=== PATIENT | female | born 1970 | race Caucasian/White ===

== ENCOUNTER 2017-03-23 16:20 | Emergency (ER) | payer OTHER ==
[2017-03-23 16:36] VITALS: BMI 39.4
[2017-03-23] MEDS ORDERED: MORPHINE SULFATE INJ 4 MG IM ONE (18:24)
--- NOTE | 2017-03-23 18:24 | DR.RASH ---
HPI - Time Seen Time seen: 18:15 - PCP Primary Care Physician: DR. KEITA - Complaint Chief Complaint:: RASH TO RIGHT SIDE AND TO BACK OF RIGHT ARM. Her vital signs reveals a low BP. Patient states that she has a history of hypotension and is being followed by her physician Dr Pascal in [place]. She is only on fentyl patch 100mcg. He has told her that her BP will be low for a while and she is being closely monitored. She is asymptomatic Chief Complaint Doctors Comments: Patient presents with complaint of shingles on body for one week. Onset of Chief Complaint: 03/19/17 Self Treatment fo Chief Complaint: FENTANYL PATCH 100MCG THAT SHE STATES HAS USING THESE FOR YEARS - Source History Provided: Patient - Mode of Arrival Mode of Arrival: Ambulatory [facility] - [facility] Past Medical History: Yes Past Medical History: Hypertension Past Surgical History: Yes Surgical History: Ortho Surgery Past Surgical History Comment: PLATE IN RIGHT LEG, DEB IN LEFT LEG - Family History History of Family Medical Conditions: Yes Family Medical History: Diabetes Mellitus, Cancer, [place], Heart Failure, Hypertension - Social History Does patient currently use any type of tobacco product: Yes Have you used tobacco products in the last 12 months: Yes Type of Tobacco Use: Cigarettes Do you use any recreational Drugs:: No Lives With: Family Lives Where: Home - infectious screening In the last 2 months have you had wt loss of >10#?: NO Have you had fever, night sweats or hemotysis?: No Have you traveled outside the country in the last 6 months?: No Isolation: Standard ROS - Review of Systems Eyes: No Symptoms Reported ENTM: No Symptoms Reported Respiratoy: No Symptoms Reported Cardiovascular: No Symptoms Reported Gastrointestinal/Abdominal: No Symptoms Reported Genitourinary: No Symptoms Reported Neurological: No Symptoms Reported Musculoskeletal: No Symptoms Reported Integumentary: Rash (Dermatomal pattern C5-C5 and L2-L3 ) Hematologic/Lymphatic: No Symptoms Reported Endocrine: No Symptoms Reported Psychiatric: No Symptoms Reported All Other Systems: Reviewed and Negative PE - Vital Signs Vitals: Temperature 98.3 F Pulse Rate [Left Brachial] 94 Pulse Rate 94 Respiratory Rate 20 Blood Pressure [Left Arm] 64/44 Blood Pressure [Right Arm] 85/43 Blood Pressure 64/44 O2 Sat by Pulse Oximetry 98 - General Limitations: No Limitations General Appearance: Alert, In No Apparent Distress - Head Head Exam: Normal Inspection, Atraumatic - Eyes Eye exam: Normal Appearance, PERRL, EOMI - ENT ENT Exam: Normal Exam External Ear Exam: Normal External Inspection TM/Canal Exam: Bilateral Normal Nose Exam: Normal Nose Exam Nasal Speculum Exam: Bilateral Normal Mouth Exam: Normal Inspection Teeth Exam: Normal Inspection Throat Exam: Normal Inspection - Neck Neck Exam: Normal Inspection - Chest Chest Inspection: Normal Inspection - Respiratory Respiratory Exam: Normal Lung Sounds Bilat Respiratory Exam: Bilateral Clear to Auscultation - Cardiovascular Cardiovascular Exam: Regular Rate, Normal Rhythm - Abdominal Exam Abdominal Exam: Normal Inspection, Normal Bowel Sounds Abdominal Tenderness: negative: RUQ, RLQ, LUQ, LLQ, Epigastrium, Suprapubic, Diffuse, Mild, Moderate, Severe, Other - Extremities Extremities Exam: Other (dried rash grouped on the right shoulder and right hip circular scabbed in appearance) - Back Back Exam: Normal Inspection, Full ROM - Neurologic Neurological Exam: Alert, Oriented X3, CN II-XII Intact - Psychiatric Psychiatric Exam: Normal Affect, Normal Mood Course - Treatment Treatment: morphine, - Reevaluation 1st: Unchanged - Diagnosis Discharge Problem: Shingles rash Qualifiers: Herpes zoster complications: unspecified herpes zoster complication Qualified Code(s): B02.8 - Zoster with other complications Hypotension Qualifiers: Hypotension type: hypotension due to drug Qualified Code(s): I95.2 - Hypotension due to drugs - Discharge Plan Condition: Stable - Follow ups/Referrals Follow ups/Referrals: CORKY KEITA [Primary Care Provider] - 3 days - Instructions
[2017-03-23] MEDS ORDERED: MORPHINE SULFATE INJ 2 MG INJ ONE (18:32)
[2017-03-23 18:51] VITALS: BP 75/52
== END 2017-03-23 19:04 | disposition home or self-care (01) ==
LOC: ER 16:57
DX: B02.8 Zoster with other complications (principal); I95.2 Hypotension due to drugs
CPT/HCPCS: 99281; 99282; J2270

== ENCOUNTER → 2017-04-30 | Outpatient (CLI) | payer OTHER ==
--- NOTE | 2017-04-30 17:57 | RAD ---
HISTORY: Left upper quadrant and epigastric pain. Study: Acute abdominal series Comparison: CT abdomen/pelvis dated June 15, 2014. Findings: The trachea is midline. The cardiac silhouette is unremarkable. The lungs are clear without focal i nfiltrate or effusion. Flat plate and upright evaluation of the abdomen demonstrates a nonspecific/nonobstructive bowel gas pattern with air and large amounts of stool to the level of the rectum. No obvious free air. No path ological soft tissue mass or calcification can be observed. The bony structures are grossly intact. IMPRESSION: 1. No acute cardiopulmonary disease. 2. No evidence for acute abdominal pathology identified. Reported By:
== END ==
LOC: RAD 16:29
PROVIDERS: ATTEND Obstetrics & Gynecology Obstetrics
DX: R10.12 Left upper quadrant pain (principal)
CPT/HCPCS: 74022

== ENCOUNTER 2019-04-18 19:54 | Observation (INO) ==
--- NOTE | 2019-04-18 20:24 | RAD ---
HISTORY: Chest pain Study: Portable chest x-ray one view Comparison: May 08, 2013 Findings: The trachea is midline. The cardiac silhouette is unremarkable. The lungs are clear without focal infiltrate or effusion. The bony thorax is unremarkable. IMPRESSION: 1. No acute cardiopulmonary disease. Reported By:
[2019-04-18 20:30] LABS: BASOPHILS # (AUTO) 0.2 X10^3/uL (0.0-0.1); BASOPHILS % (AUTO) 2.2 % (0.2-1.0); EOSINOPHILS # (AUTO) 0.1 x10^3/uL (0.0-0.2); EOSINOPHILS % (AUTO) 1.6 % (0.9-2.9); HEMATOCRIT 44.1 % (36.0-47.0); HEMOGLOBIN 15.3 g/dL (12.0-16.0); LYMPHOCYTES # (AUTO) 1.7 X10^3/uL (1.3-2.9); LYMPHOCYTES % (AUTO) 22.4 % (21.0-51.0); MEAN CORPUSCULAR HEMOGLOBIN 34.4 pg (27.0-34.0); MEAN CORPUSCULAR HGB CONC 34.8 g/dL (33.0-35.0); MEAN CORPUSCULAR VOLUME 98.9 fL (80.0-100.0); MEAN PLATELET VOLUME 8.7 fL (7.4-11.0); MONOCYTES # (AUTO) 0.6 x10^3/uL (0.3-0.8); MONOCYTES % (AUTO) 7.8 % (0.0-13.0); NEUTROPHILS # (AUTO) 4.9 x10^3/uL (2.2-4.8); PLATELET COUNT 260 X10^3/uL (150.0-450.0); RED BLOOD COUNT 4.46 X10^6/uL (3.5-5.4); RED CELL DISTRIBUTION WIDTH 14.4 % (11.6-16.5); WHITE BLOOD COUNT 7.4 X10^3/uL (3.6-10.0)
--- NOTE | 2019-04-18 20:30 | DR.GENAD ---
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 Pt reports sudden o nset bilateral facial numbness as well as right arm numbness w/o weakness. Transient double vision which lasted less that 15 min. No current visual changes. No focal weakness, syncope, aphasia or dysarthria. No CP, SOB or palpitations. No n/v. Complaint/Symptoms Chief Complaint:: facial numbness/ arm numbness Source History Provided: Patient Mode of Arrival Mode of Arrival: EMS Timing Onset of Chief Complaint: 04/18/19 Came on: Suddenly Duration Duration: Since Onset How lon Duration: Minutes Severity Severity: Mild Modifying Factors Worsens:: nothing Improves:: nothing PMH PMH Past Medical History: Yes Past Medical History: Depression, GERD and Hypertension Past Surgical History: Yes Surgical History: Ortho Surgery Family History History of Family Medical Conditions: Yes Family Medical History: Diabetes Mellitus, Cancer, [place], Heart Failure and Hypertension Social History Does patient currently use any type of tobacco product: Yes Have you used tobacco products in the last 12 months: Yes Type of Tobacco Use: Cigarettes Does any household member use tobacco: Yes Alcohol Use: Occasionally Do you use any recreational Drugs:: No Lives With: Family Lives Where: Home infectious screening In the last 2 months have you had wt loss of >10#?: NO Have you had fever, night sweats or hemotysis?: No Have you traveled outside the country in the last 6 months?: No Isolation: Standard ROS Review of Systems Constitutional: No Symptoms Reported Eyes: No Symptoms Reported ENTM: No Symptoms Reported Respiratoy: No Symptoms Reported Cardiovascular: No Symptoms Reported; negative Chest Pain, Palpitations and Syncope Gastrointestinal/Abdominal: No Symptoms Reported; negative Nausea and Vomiting Genitourinary: No Symptoms Reported Neurological: Depressed, Numbness and Tingling; negative Anxiety, Headache, Paresthesia, Pre-existing Deficit, Seizure, Tremors, Weakness, Dizziness and Speech Problem Musculoskeletal: No Symptoms Reported Integumentary: No Symptoms Reported Hematologic/Lymphatic: No Symptoms Reported Endocrine: No Symptoms Reported Psychiatric: No Symptoms Reported All Other Systems: Reviewed and Negative PE Vital Signs Vitals: Temperature 97.9 F Pulse Rate [Apical] 79 Pulse Rate 96 Respiratory Rate 27 Blood Pressure [Left Arm] 108/58 Blood Pressure [Right Arm] 85/43 Blood Pressure 98/71 O2 Sat by Pulse Oximetry 98 General Limitations: No Limitations General Appearance: Alert and In No Apparent Distress Head Head Exam: Normal Inspection Eyes Eye exam: Normal Appearance ENT ENT Exam: Normal Exam External Ear Exam: Normal External Inspection TM/Canal Exam: Bilateral: Normal Nose Exam: Normal Nose Exam Mouth Exam: Normal Inspection Throat Exam: Normal Inspection Neck Neck Exam: Normal Inspection Chest Chest Inspection: Normal Inspection Respiratory Respiratory Exam: Normal Lung Sounds Bilat Respiratory Exam: Bilateral: Clear to Auscultation Cardiovascular Cardiovascular Exam: Regular Rate and Normal Rhythm Abdominal Exam Abdominal Exam: Normal Inspection, Normal Bowel Sounds and Soft Extremities Extremities Exam: Normal Inspection Back Back Exam: Normal Inspection Neurologic Neurological Exam: Alert, Oriented X3, CN II-XII Intact, Reflexes Normal and Other (cn 2-12 grossly intact. No pronator drift. No dysarthria or apahasia. NIH SS 0. 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 On arrival pt normotensive. Neurologically intact. NIH SS 0. CT head negative. Labs unremarkable. 325 asa given. D/w Dr Martínez (hospitalist) whom agrees to admit for tia. Education/Counseling Education/Counseling: Patient, Family and Education Educated On: Treatment, Diagnosis, Prognosis and Needs for Follow Up ROR Labs Reviewed Laboratory Results Reviewed?: Yes Result Diagrams: 04/18/19 20:20 04/18/19 20:20 Laboratory: WBC 7.4 X10^3/uL (3.6-10.0) 04/18/19 20:20 RBC 4.46 X10^6/uL (3.5-5.4) 04/18/19 20:20 Hgb 15.3 g/dL (12.0-16.0) 04/18/19 20:20 Hct 44.1 % (36.0-47.0) 04/18/19 20:20 MCV 98.9 fL (80.0-100.0) 04/18/19 20:20 MCH 34.4 pg (27.0-34.0) H 04/18/19 20:20 MCHC 34.8 g/dL (33.0-35.0) 04/18/19 20:20 RDW 14.4 % (11.6-16.5) 04/18/19 20:20 Plt Count 260 X10^3/uL (150.0-450.0) 04/18/19 20:20 MPV 8.7 fL (7.4-11.0) 04/18/19 20:20 Neut % (Auto) 66.0 % (42.0-75.0) 04/18/19 20:20 Lymph % (Auto) 22.4 % (21.0-51.0) 04/18/19 20:20 [place] % (Auto) 7.8 % (0.0-13.0) 04/18/19 20:20 Eos % (Auto) 1.6 % (0.9-2.9) 04/18/19 20:20 Baso % (Auto) 2.2 % (0.2-1.0) H 04/18/19 20:20 Neut # (Auto) 4.9 x10^3/uL (2.2-4.8) H 04/18/19 20:20 Lymph # (Auto) 1.7 X10^3/uL (1.3-2.9) 04/18/19 20:20 [place] # (Auto) 0.6 x10^3/uL (0.3-0.8) 04/18/19 20:20 Eos # (Auto) 0.1 x10^3/uL (0.0-0.2) 04/18/19 20:20 Baso # (Auto) 0.2 X10^3/uL (0.0-0.1) H 04/18/19 20:20 Absolute Nucleated RBC 0.1 /100WBC 04/18/19 20:20 Sodium 143 mmol/L (136-145) 04/18/19 20:20 Corrected Sodium TNP 04/18/19 20:20 Potassium 3.1 mmol/L (3.5-5.1) L 04/18/19 20:20 Chloride 105 mmol/L (98-107) 04/18/19 20:20 Carbon Dioxide 23.8 mmol/L (21-32) 04/18/19 20:20 BUN 14 mg/dL (7-18) 04/18/19 20:20 Creatinine 1.36 mg/dL (0.55-1.02) H 04/18/19 20:20 Est GFR (MDRD) Af Amer 54 (>60) L 04/18/19 20:20 Est GFR (MDRD) Non-Af 44 (>60) L 04/18/19 20:20 Glucose 98 mg/dL (65-99) 04/18/19 20:20 Calcium 9.0 mg/dL (8.5-10.1) 04/18/19 20:20 Troponin I < 0.02 ng/mL (0-1.5) 04/18/19 20:20 EKG Rate: 78 [place]: Normal Rhythm: NSR Block: None Hypertrophy: LAE ST: Normal Opioid Opioid Risk Tool Age (Bigg box if 16-45): No History of Preadolescent Sexual Abuse: No Total: 0 Total Score Risk Category: Low Risk Copyright: Amos RUST predicting aberrant behaviors Diagnosis Discharge Problem: Brain TIA, Essential hypertension, Depression, Anxiety, Hyperthyroidism
--- NOTE | 2019-04-18 20:36 | CT ---
HISTORY: Facial numbness Study: CT brain without contrast Comparison: Technique: Multiple axial images of the brain were obtained from the skull base to the vertex without administration of IV contrast. Findings: No acute intraparenchymal hemorrhage or mass can be identified. No extra-axial fluid collections are seen. No alteration in the attenuation of the brain parenchyma can be identified to suggest acute or subacute ischemic change. The ventricular system is symmetric and nondilated. The extracranial structures are grossly unremarkable. IMPRESSION: 1. No acute intracranial process can be identified. Reported By:
[2019-04-18] MEDS ORDERED: ASPIRIN PO ONE (20:41)
[2019-04-18 20:42] LABS: BLOOD UREA NITROGEN 14 mg/dL (7-18); CARBON DIOXIDE 23.8 mmol/L (21-32); CHLORIDE 105 mmol/L (98-107); CREATININE 1.36 mg/dL (0.55-1.02); SODIUM 143 mmol/L (136-145); TROPONIN I < 0.02 ng/mL (0-1.5); eGFR NON BLACK RACES 44 (>60)
[2019-04-18] MEDS ORDERED: PATIENT'S HOME MEDICATION (Albuterol Sulfate 2 PUFF) IN PRN (21:16)
[2019-04-18] MEDS: NICOTINE PATCH TD SCH (22:18)
[2019-04-18] MEDS ORDERED: VENTOLIN or PROAIR HFA IN PRN (22:21)
[2019-04-18] MEDS: ZANAFLEX PO SCH (23:41)
[2019-04-18] MEDS: PATIENT'S HOME MEDICATION (Methocarbamol 500 MG) PO SCH (23:41)
[2019-04-18] MEDS: FLEXERIL TAB 10 MG PO SCH (23:41)
[2019-04-19] MEDS ORDERED: POTASSIUM CHL 40 MEQ/NS 0.45% 500 ML IV PRN (00:06)
[2019-04-19] MEDS ORDERED: KLOR-CON PO PRN (00:06)
[2019-04-19] MEDS ORDERED: K-RIDER 10 MEQ/NS 100 ML 10 MEQ/100 ML BAG IV PRN (00:06)
[2019-04-19] MEDS ORDERED: POTASSIUM CHLORIDE LIQ 20 MEQ UDC PO PRN (00:06)
[2019-04-19] MEDS ORDERED: POTASSIUM CHL 60 MEQ/NS 0.45% 500 ML IV PRN (00:06)
[2019-04-19] MEDS ORDERED: MAGNESIUM SULFATE 1 GRAM/100 mL PREMIX 1 GM/100 ML BAG IV PRN (00:06)
[2019-04-19] MEDS ORDERED: MICRO K EXTEN CAP 10 MEQ PO PRN (00:06)
[2019-04-19] MEDS: PATIENT'S HOME MEDICATION (Methocarbamol 500 MG) PO SCH ×2 (02:59→05:35)
[2019-04-19 03:03] VITALS: BMI 42.6
[2019-04-19] MEDS ORDERED: PROVENTIL NEB TX 0.083% 2.5MG/ 3ML NEB PRN (04:28)
[2019-04-19 05:06] LABS: BLOOD UREA NITROGEN 15 mg/dL (7-18); CALCIUM 8.6 mg/dL (8.5-10.1); CARBON DIOXIDE 27.3 mmol/L (21-32); CHLORIDE 105 mmol/L (98-107); COR NA(FOR HYPERGLY) 143 mmol/L (136-145); CREATININE 1.17 mg/dL (0.55-1.02); SODIUM 142 mmol/L (136-145); eGFR NON BLACK RACES 53 (>60)
[2019-04-19 05:19] LABS: HEMOGLOBIN A1C 5.3 %; TSH (3RD GENERATION) 1.525 uIU/mL (0.358-3.74)
[2019-04-19] MEDS: FLEXERIL TAB 10 MG PO SCH ×3 (05:49→21:09)
[2019-04-19] MEDS: ZANAFLEX PO SCH ×3 (05:49→21:11)
[2019-04-19] MEDS: NORCO 10/325 TAB PO PRN ×3 (06:08→21:12)
[2019-04-19] MEDS: K-DUR TAB 20 MEQ PO PRN (06:15)
[2019-04-19] MEDS ORDERED: PREVNAR 13 IM ONE (06:30)
[2019-04-19] MEDS ORDERED: AFLURIA II4 or FLUARIX II4 IM ONE (06:30)
[2019-04-19] MEDS: PAXIL PO SCH (08:20)
[2019-04-19] MEDS: CYMBALTA PO SCH (08:20)
[2019-04-19] MEDS: ZANTAC PO SCH (08:20)
[2019-04-19] MEDS: NICOTINE PATCH TD SCH (08:21)
[2019-04-19] MEDS: PHENERGAN TAB 25 MG PO PRN ×2 (08:21→18:19)
[2019-04-19] MEDS ORDERED: ASPIRIN PO SCH (09:00)
--- NOTE | 2019-04-19 11:59 | DR.H&P ---
H&P History & Physical for Day of: H&P Date: 04/19/19 Chief Complaint Chief Complaint: numbness of face Allergies Allergies Allergy/AdvReac Type Severity Reaction Status Date / Time No Known Drug Allergies Allergy Verified 01/26/19 13:22 History of Present Illness History of Present Illness: Patient is a 48y/o female presented with numbness in the face that started yesterday at 8pm. She reported it started from the left side and migrating to the right, described it as tingling in nature. She also felt right arm weakness and double vision. She had some associated dizziness. Denies chest pain or SOB. No prev hx of these symptoms. She does have a hx of migraines. She reports having a visual aura prior to her headaches. She did have a headache following the above symptoms. She takes topiramate for migraines and uses Imitrex for abortive therapy. She reports her symptoms lasted for 90 mins and then resolved. She currently denies having these symptoms. CT-head done on admission was negative. NIH scale was 0. Labs: K 2.6 Cr: 1.36, normal TSH and A1C. Son reports slurred speech briefly during that episode. Patient is currently in a lot of stress, recent separation from . Past Medical History Past Medical History: Depression, GERD and Hypertension Past Surgical History Surgical History: and Ortho Surgery Family History Family Medical History: Diabetes Mellitus, Cancer, [place], Heart Failure and Hypertension Social History Does patient currently use any type of tobacco product: Yes Have you used tobacco products in the last 12 months: Yes Type of Tobacco Use: Cigarettes How many years tobacco product used: 23 Does any household member use tobacco: No Alcohol Use: Occasionally Drug Use: None Prescription drug monitoring program results: PDMP was not reviewed Medications Home Medications: No Known Drug Allergies Allergy (Verified 01/26/19 13:22) CONTINUE taking the following medications albuterol sulfate 2 puff INHALATION Q4H PRN 04/18/19 [History] cyclobenzaprine 10 mg PO TID 04/18/19 [History] duloxetine 60 mg PO DAILY 04/18/19 [History] furosemide 20 mg PO DAILY PRN 04/18/19 [History] hydrocodone-acetaminophen 10 - 325 tab PO Q6H PRN 04/18/19 [History] methocarbamol 500 mg PO TID 04/18/19 [History] paroxetine HCl 20 mg PO DAILY 04/18/19 [History] promethazine 25 mg PO Q6H PRN 04/18/19 [History] propranolol 20 mg PO TID 04/18/19 [History] ranitidine HCl 150 mg PO DAILY 04/18/19 [History] sumatriptan succinate 100 mg PO DAILY PRN 04/18/19 [History] tizanidine 4 mg PO TID 04/18/19 [History] Labs Result Diagrams: 04/18/19 20:20 04/19/19 08:08 Labs: Laboratory WBC 7.4 X10^3/uL (3.6-10.0) 04/18/19 20:20 RBC 4.46 X10^6/uL (3.5-5.4) 04/18/19 20:20 Hgb 15.3 g/dL (12.0-16.0) 04/18/19 20:20 Hct 44.1 % (36.0-47.0) 04/18/19 20:20 MCV 98.9 fL (80.0-100.0) 04/18/19 20:20 MCH 34.4 pg (27.0-34.0) H 04/18/19 20:20 MCHC 34.8 g/dL (33.0-35.0) 04/18/19 20:20 RDW 14.4 % (11.6-16.5) 04/18/19 20:20 Plt Count 260 X10^3/uL (150.0-450.0) 04/18/19 20:20 MPV 8.7 fL (7.4-11.0) 04/18/19 20:20 Neut % (Auto) 66.0 % (42.0-75.0) 04/18/19 20:20 Lymph % (Auto) 22.4 % (21.0-51.0) 04/18/19 20:20 [place] % (Auto) 7.8 % (0.0-13.0) 04/18/19 20:20 Eos % (Auto) 1.6 % (0.9-2.9) 04/18/19 20:20 Baso % (Auto) 2.2 % (0.2-1.0) H 04/18/19 20:20 Neut # (Auto) 4.9 x10^3/uL (2.2-4.8) H 04/18/19 20:20 Lymph # (Auto) 1.7 X10^3/uL (1.3-2.9) 04/18/19 20:20 [place] # (Auto) 0.6 x10^3/uL (0.3-0.8) 04/18/19 20:20 Eos # (Auto) 0.1 x10^3/uL (0.0-0.2) 04/18/19 20:20 Baso # (Auto) 0.2 X10^3/uL (0.0-0.1) H 04/18/19 20:20 Absolute Nucleated RBC 0.1 /100WBC 04/18/19 20:20 Sodium 142 mmol/L (136-145) 04/19/19 04:24 Corrected Sodium 143 mmol/L (136-145) 04/19/19 04:24 Potassium 3.9 mmol/L (3.5-5.1) 04/19/19 08:08 Chloride 105 mmol/L (98-107) 04/19/19 04:24 Carbon Dioxide 27.3 mmol/L (21-32) 04/19/19 04:24 BUN 15 mg/dL (7-18) 04/19/19 04:24 Creatinine 1.17 mg/dL (0.55-1.02) H 04/19/19 04:24 Est GFR (MDRD) Af Amer > 60 (>60) 04/19/19 04:24 Est GFR (MDRD) Non-Af 53 (>60) L 04/19/19 04:24 Glucose 125 mg/dL (65-99) H 04/19/19 04:24 Hemoglobin A1c 5.3 % 04/19/19 04:24 Calcium 8.6 mg/dL (8.5-10.1) 04/19/19 04:24 Magnesium 2.1 mg/dL (1.7-2.9) 04/19/19 04:24 Troponin I < 0.02 ng/mL (0-1.5) 04/18/19 20:20 TSH 3rd Generation 1.525 uIU/mL (0.358-3.74) 04/19/19 04:24 Review of Systems Constitutional: Weakness; denies Fever, Chills and Sweats Eyes: Vision Change ENT: No Symptoms Reported Respiratory: denies Cough and Shortness of Breath Cardiovascular: denies Chest Pain and Palpitations Gastrointestinal: denies Nausea, Vomiting and Abdominal Pain Genitourinary: No Symptoms Reported Musculoskeletal: No Symptoms Reported Skin: No Symptoms Reported Neurological: Weakness, Numbness and Change in Speech; denies Confusion and Seizures Physical Exam Vital Signs: Temperature 98.4 F Pulse Rate [Left Brachial] 88 Pulse Rate [Apical] 75 Pulse Rate 75 Respiratory Rate 20 Blood Pressure [Left Arm] 101/58 Blood Pressure [Right Arm] 85/43 Blood Pressure 98/71 O2 Sat by Pulse Oximetry 96 Oriented: Normal Eyes: Normal Ear: Normal Nose: Normal Respiratory: Clear Throughout Cardiovascular: Normal Auscultation: Bowel Sounds: Normal Palpation: Normal Tenderness: Normal Skin: Other (left medial side foot: circular rash with central clearing, erythema ) Musculoskeletal: Normal Psychiatric: Normal Mood Description: Calm Affect: Normal Speech Pattern: Clear and Appropriate Assessment/Plan (1) TIA (transient ischemic attack): Status: Acute Plan: transient symptoms, currently resolved. Ct-head negative. MRI pending ECHO pending Carotid U/S pending Continue asa (2) Migraine headache with aura: Qualifiers: Intractability: not intractable Status migrainosus presence: without status migrainosus Qualified Code(s): G43.109 - Migraine with aura, not intractable, without status migrainosus Status: Acute Plan: patient's hx of migraines and current presentation suggestive of complex migraines due to recent stressors. Continue Topamax and Imitrex prn (3) Tinea pedis: Status: Acute Plan: on left ankle, likely fungal. Will start ketoconazole cream BID (4) Depression: Status: Chronic Plan: continue home meds (5) Anxiety: Status: Chronic (6) Chronic obstructive lung disease: Status: Chronic Plan: tobacco user, continue duonebs prn
[2019-04-19] MEDS ORDERED: SUMATRIPTAN SUCCINATE 100 MG PO PRN (12:03)
[2019-04-19 12:24] LABS: CHOL/HDL RATIO 8.8 (0.0-5.0)
[2019-04-19 12:53] LABS: BILIRUBIN,URINE 1+ (NEGATIVE); BLOOD/HEMOGLOBIN,URINE 1+ (NEGATIVE); GLUCOSE, URINE NEGATIVE (NEGATIVE); KETONES,URINE NEGATIVE (NEGATIVE); LEUKOCYTE ESTERASE ,URINE 1+ (NEGATIVE); NITRITES,URINE NEGATIVE (NEGATIVE); PH,URINE 6.5 (5.0 - 8.0); PROTEIN,URINE 1+ (NEGATIVE); UROBILINOGEN,URINE 4+ (NORMAL)
[2019-04-19 13:06] LABS: APPEARANCE,URINE HAZY (CLEAR); BACTERIA,URINE 3+ /HPF (NEGATIVE); COLOR,URINE AMBER (YELLOW); MUCUS,URINE FEW /HPF (NEGATIVE); RBC,URINE 0-2 /HPF (0-3); SQUAMOUS EPITHELIAL CELL,UR MANY /HPF (NEGATIVE)
[2019-04-19] MEDS: INDERAL TAB 10 MG PO SCH ×3 (15:05→21:05)
[2019-04-19] MEDS: NIZORAL CREAM TOP SCH ×2 (15:18→21:11)
[2019-04-19] MEDS: NS 1000 ML 1,000 ML IV SCH ×2 (15:27→21:12)
[2019-04-20] MEDS: NS 1000 ML 1,000 ML IV SCH (04:00)
[2019-04-20 05:16] LABS: BASOPHILS # (AUTO) 0.1 X10^3/uL (0.0-0.1); BASOPHILS % (AUTO) 0.9 % (0.2-1.0); EOSINOPHILS # (AUTO) 0.1 x10^3/uL (0.0-0.2); HEMATOCRIT 39.8 % (36.0-47.0); HEMOGLOBIN 13.4 g/dL (12.0-16.0); LYMPHOCYTES # (AUTO) 1.7 X10^3/uL (1.3-2.9); LYMPHOCYTES % (AUTO) 28.4 % (21.0-51.0); MEAN CORPUSCULAR HEMOGLOBIN 34.2 pg (27.0-34.0); MEAN CORPUSCULAR HGB CONC 33.7 g/dL (33.0-35.0); MEAN CORPUSCULAR VOLUME 101.3 fL (80.0-100.0); MEAN PLATELET VOLUME 9.3 fL (7.4-11.0); MONOCYTES # (AUTO) 0.5 x10^3/uL (0.3-0.8); NEUTROPHILS # (AUTO) 3.5 x10^3/uL (2.2-4.8); NEUTROPHILS % (AUTO) 59.7 % (42.0-75.0); PLATELET COUNT 220 X10^3/uL (150.0-450.0); RED BLOOD COUNT 3.93 X10^6/uL (3.5-5.4); RED CELL DISTRIBUTION WIDTH 14.2 % (11.6-16.5); WHITE BLOOD COUNT 5.9 X10^3/uL (3.6-10.0)
[2019-04-20 05:21] LABS: BLOOD UREA NITROGEN 10 mg/dL (7-18); CARBON DIOXIDE 25.1 mmol/L (21-32); CHLORIDE 109 mmol/L (98-107); CHOL/HDL RATIO 7.6 (0.0-5.0); CHOLESTEROL 214 mg/dL (0-200); COR NA(FOR HYPERGLY) 145 mmol/L (136-145); CREATININE 0.94 mg/dL (0.55-1.02); HDL CHOLESTEROL 28 mg/dL (40-60); SODIUM 144 mmol/L (136-145); TRIGLYCERIDES 208 mg/dL (0-150); eGFR NON BLACK RACES > 60 (>60)
[2019-04-20] MEDS: FLEXERIL TAB 10 MG PO SCH (05:27)
[2019-04-20] MEDS: INDERAL TAB 10 MG PO SCH (05:28)
[2019-04-20] MEDS: ZANAFLEX PO SCH (05:28)
[2019-04-20] MEDS: K-DUR TAB 20 MEQ PO PRN (06:16)
[2019-04-20 08:00] VITALS: BP 97/63
[2019-04-20] MEDS: ZANTAC PO SCH (08:48)
[2019-04-20] MEDS: PAXIL PO SCH (08:48)
[2019-04-20] MEDS: CYMBALTA PO SCH (08:48)
[2019-04-20] MEDS: NICOTINE PATCH TD SCH (08:48)
--- NOTE | 2019-04-20 08:58 | PCM.PROG ---
Progress Note Progress Note for Day of Date of Exam: 04/20/19 Subjective Subjective: Pt is a 48y/o female admitted after presenting w/ TIA sx of numbness/tingling of the face, weakness in right arm, diplopia, and dizziness. Sx on face was migratory going from left to right. Denies chest pain or shortness of breath. No prev hx of these symptoms. She does have a hx of migraines that she takes Topamax and Imitrex for. She reported having a visual aura prior to her headaches. She reports her symptoms lasted for 90 mins and then resolved. CT-head done on admission was negative. NIH scale was 0. Labs: K 2.6 Cr: 1.36, normal TSH and A1C. Patient is currently in a lot of stress, recent separation from . -Pt denies any neuro deficits strength, sensation, or cognition today. Past Medical Family Social History Past Med/Fam/Surg Hx: No changes since H&P Allergies: Allergies No Known Drug Allergies Allergy (Verified 01/26/19 13:22) Review of Systems ROS: No change since H&P Vital Signs and I&O's Vital Signs: Temperature 98.2 F Pulse Rate [Left Brachial] 72 Pulse Rate [Apical] 75 Pulse Rate 75 Respiratory Rate 18 Blood Pressure [Left Arm] 97/63 Blood Pressure [Right Arm] 85/43 Blood Pressure 98/71 O2 Sat by Pulse Oximetry 96 Intake and Output: Intake & Output 04/17/19 04/18/19 04/19/19 04/20/19 23:59 23:59 23:59 23:59 Intake Total 120 / 120 3340 / 3340 1620 / 1620 Output Total 100 / 100 350 / 350 Balance 120 / 120 3240 / 3240 1270 / 1270 Physical Exam Oriented: Normal Eyes: Normal Ear: Normal Nose: Normal Cardiovascular: Normal Auscultation: Bowel Sounds: Normal Tenderness: Normal Skin: Other (left medial side foot: circular rash with central clearing, erythema ) Musculoskeletal: Normal Psychiatric: Normal Mood Description: Calm and Appropriate Affect: Normal Speech Pattern: Clear Laboratory and Diagnostics Result Diagrams: 04/20/19 04:58 04/20/19 04:58 Labs: Laboratory WBC 5.9 X10^3/uL (3.6-10.0) 04/20/19 04:58 RBC 3.93 X10^6/uL (3.5-5.4) 04/20/19 04:58 Hgb 13.4 g/dL (12.0-16.0) 04/20/19 04:58 Hct 39.8 % (36.0-47.0) 04/20/19 04:58 MCV 101.3 fL (80.0-100.0) H 04/20/19 04:58 MCH 34.2 pg (27.0-34.0) H 04/20/19 04:58 MCHC 33.7 g/dL (33.0-35.0) 04/20/19 04:58 RDW 14.2 % (11.6-16.5) 04/20/19 04:58 Plt Count 220 X10^3/uL (150.0-450.0) 04/20/19 04:58 MPV 9.3 fL (7.4-11.0) 04/20/19 04:58 Neut % (Auto) 59.7 % (42.0-75.0) 04/20/19 04:58 Lymph % (Auto) 28.4 % (21.0-51.0) 04/20/19 04:58 [place] % (Auto) 9.0 % (0.0-13.0) 04/20/19 04:58 Eos % (Auto) 2.0 % (0.9-2.9) 04/20/19 04:58 Baso % (Auto) 0.9 % (0.2-1.0) 04/20/19 04:58 Neut # (Auto) 3.5 x10^3/uL (2.2-4.8) 04/20/19 04:58 Lymph # (Auto) 1.7 X10^3/uL (1.3-2.9) 04/20/19 04:58 [place] # (Auto) 0.5 x10^3/uL (0.3-0.8) 04/20/19 04:58 Eos # (Auto) 0.1 x10^3/uL (0.0-0.2) 04/20/19 04:58 Baso # (Auto) 0.1 X10^3/uL (0.0-0.1) 04/20/19 04:58 Absolute Nucleated RBC 0.1 /100WBC 04/20/19 04:58 Sodium 144 mmol/L (136-145) 04/20/19 04:58 Corrected Sodium 145 mmol/L (136-145) 04/20/19 04:58 Potassium 3.3 mmol/L (3.5-5.1) L 04/20/19 04:58 Chloride 109 mmol/L (98-107) H 04/20/19 04:58 Carbon Dioxide 25.1 mmol/L (21-32) 04/20/19 04:58 BUN 10 mg/dL (7-18) 04/20/19 04:58 Creatinine 0.94 mg/dL (0.55-1.02) 04/20/19 04:58 Est GFR (MDRD) Af Amer > 60 (>60) 04/20/19 04:58 Est GFR (MDRD) Non-Af > 60 (>60) 04/20/19 04:58 Glucose 129 mg/dL (65-99) H 04/20/19 04:58 Hemoglobin A1c 5.3 % 04/19/19 04:24 Calcium 8.0 mg/dL (8.5-10.1) L 04/20/19 04:58 Magnesium 1.9 mg/dL (1.7-2.9) 04/20/19 04:58 Troponin I < 0.02 ng/mL (0-1.5) 04/18/19 20:20 Triglycerides 208 mg/dL (0-150) H 04/20/19 04:58 Cholesterol 214 mg/dL (0-200) H 04/20/19 04:58 LDL Cholesterol, Calc 144 mg/dL (0-100) H 04/20/19 04:58 HDL Cholesterol 28 mg/dL (40-60) L 04/20/19 04:58 Cholesterol/HDL Ratio 7.6 (0.0-5.0) H 04/20/19 04:58 TSH 3rd Generation 1.525 uIU/mL (0.358-3.74) 04/19/19 04:24 Specimen Type Clean catch urine 04/19/19 12:35 Urine Color Elle (YELLOW) 04/19/19 12:35 Urine Appearance Hazy (CLEAR) 04/19/19 12:35 Urine pH 6.5 (5.0 - 8.0) 04/19/19 12:35 Ur Specific [place] 1.020 (1.000-1.030) 04/19/19 12:35 Urine Protein 1+ (NEGATIVE) 04/19/19 12:35 Urine Glucose (UA) Negative (NEGATIVE) 04/19/19 12:35 Urine Ketones Negative (NEGATIVE) 04/19/19 12:35 Urine Occult Blood 1+ (NEGATIVE) 04/19/19 12:35 Urine Nitrite Negative (NEGATIVE) 04/19/19 12:35 Urine Bilirubin 1+ (NEGATIVE) 04/19/19 12:35 Urine Urobilinogen 4+ (NORMAL) 04/19/19 12:35 Ur Leukocyte Esterase 1+ (NEGATIVE) 04/19/19 12:35 Urine RBC 0-2 /HPF (0-3) 04/19/19 12:35 Urine WBC 0-2 /HPF (0-5) 04/19/19 12:35 Ur Squamous Epith Cells Many /HPF (NEGATIVE) 04/19/19 12:35 Urine Bacteria 3+ /HPF (NEGATIVE) 04/19/19 12:35 Urine Mucus Few /HPF (NEGATIVE) 04/19/19 12:35 Ur Culture Indicated? No/not indicated 04/19/19 12:35 Urine Opiates Screen Positive (NEG=<300) A 04/19/19 12:35 Urine Methadone Screen Negative (NEG=<300) 04/19/19 12:35 Ur Barbiturates Screen Negative (NEG=<200) 04/19/19 12:35 Ur Phencyclidine Scrn Negative (NEG=<25) 04/19/19 12:35 Ur Amphetamines Screen Positive (NEG=<1000) A 04/19/19 12:35 U Benzodiazepines Scrn Negative (NEG=<200) 04/19/19 12:35 Urine Cocaine Screen Negative (NEG=<300) 04/19/19 12:35 U Marijuana (THC) Screen Negative (NEG=<50) 04/19/19 12:35 Plan (1) TIA (transient ischemic attack): Status: Acute Plan: Transient symptoms, currently resolved. Ct-head negative. Will attempt to get MRI today. If unable to, will optimize medical management to reduce stroke risk and have patient follow up with PCP within a week. Pt verbalized agreement w/ plan of care. MRI pending ECHO pending Carotid U/S pending Continue asa, statin. (2) Migraine headache with aura: Status: Acute Qualifiers: Status migrainosus presence: without status migrainosus Intractability: not intractable Qualified Code(s): G43.109 - Migraine with aura, not intractable, without status migrainosus Plan: patient's hx of migraines and current presentation suggestive of complex migraines due to recent stressors. Continue Topamax and Imitrex prn (3) Tinea pedis: Status: Acute Qualifiers: Laterality: left Qualified Code(s): B35.3 - Tinea pedis Plan: on left ankle, likely fungal. Will start ketoconazole cream BID (4) Depression: Status: Chronic Plan: continue home meds (5) Anxiety: Status: Chronic (6) Chronic obstructive lung disease: Status: Chronic Plan: tobacco user, continue duonebs prn (7) Hypokalemia: Status: Acute Plan: Supplement K per protocol.
[2019-04-20] MEDS: NIZORAL CREAM TOP SCH (09:09)
--- NOTE | 2019-04-20 09:53 | W.DIS.FURT ---
Summary of Discharge Discharge Summary of Date Date of Exam: 04/20/19 Admission Date Date of Admission: 04/18/19 Admission Diagnosis Patient Problems (Updated 04/20/19 @ 09:00 by Gee Negrete) Hypokalemia (Acute) E87.6 ARF (acute renal failure) (Acute) N17.9 Tinea pedis (Acute) B35.3 Migraine headache with aura (Acute) G43.109 TIA (transient ischemic attack) (Acute) G45.9 Essential hypertension (Chronic) Depression (Chronic) Anxiety (Chronic) Hyperthyroidism (Chronic) Brain TIA (Acute) G45.9 Hospital Course: Pt is a 48y/o female admitted after presenting w/ TIA sx of numbness/tingling of the face, weakness in right arm, diplopia, and dizziness. Sx on face was migratory going from left to right. Denies chest pain or shortness of breath. No prev hx of these symptoms. She does have a hx of migraines that she takes Topamax and Imitrex for. She reported having a visual aura prior to her headaches. She reports her symptoms lasted for 90 mins and then resolved. CT- head done on admission was negative. NIH scale was 0. Labs: K 2.6 Cr: 1.36, normal TSH and A1C. Patient is currently in a lot of stress, recent separation from . On day of discharge, pt denied any neuro deficits including changes in strength, sensation, or cognition today. Physical exam including neuro unremarkable. Pt was discharged w/ ASA and Statin, and is on blood pressure medication to optimize medical management and reduced risk of CVA. Neuro precautions discussed. F/u within 1 week w/ pcp. 1) TIA (transient ischemic attack): Transient symptoms, currently resolved. Ct- head negative. Can pursue further imaging such as MRI outpt. Optimized medical management to reduce stroke risk and have patient follow up with PCP within a week. Pt verbalized agreement w/ plan of care. Continue ASA, Lipitor (2) Migraine headache with aura: Pt's sx and hx of migraines suggestive of complex migraines due to recent stressors as part of differential. Instructed to continue Topamax and Imitrex prn (3) Tinea pedis: On left ankle, likely fungal. Continue ketoconazole cream (4) Depression (5) Anxiety (6) Chronic obstructive lung disease (7) Hypokalemia Vital Signs: Vital Signs (72 hours) 04/18/19 19:56 04/18/19 20:31 04/18/19 21:01 Temperature 97.9 F Pulse Rate 96 H Pulse Rate [Apical] 87 79 Pulse Rate [Left Brachial] Respiratory Rate 18 19 27 H Blood Pressure 98/71 Blood Pressure [Left Arm] 105/53 108/58 O2 Sat by Pulse Oximetry 98 97 98 04/18/19 21:16 04/18/19 21:49 04/18/19 22:16 Temperature Pulse Rate 75 75 Pulse Rate [Apical] 75 Pulse Rate [Left Brachial] Respiratory Rate 17 17 21 Blood Pressure Blood Pressure [Left Arm] 114/62 O2 Sat by Pulse Oximetry 97 04/18/19 22:21 04/18/19 22:35 04/19/19 04:00 Temperature 99.2 F 98.5 F Pulse Rate Pulse Rate [Apical] Pulse Rate [Left Brachial] 75 74 84 Respiratory Rate 21 22 18 Blood Pressure Blood Pressure [Left Arm] 114/62 126/71 107/68 O2 Sat by Pulse Oximetry 98 99 98 04/19/19 06:06 04/19/19 06:08 04/19/19 07:08 Temperature Pulse Rate 75 Pulse Rate [Apical] Pulse Rate [Left Brachial] Respiratory Rate 20 22 Blood Pressure Blood Pressure [Left Arm] O2 Sat by Pulse Oximetry 98 04/19/19 08:00 04/19/19 12:00 04/19/19 15:15 Temperature 98.4 F 98.9 F Pulse Rate Pulse Rate [Apical] Pulse Rate [Left Brachial] 88 76 Respiratory Rate 20 20 20 Blood Pressure Blood Pressure [Left Arm] 101/58 100/61 O2 Sat by Pulse Oximetry 96 96 04/19/19 16:00 04/19/19 16:15 04/19/19 20:00 Temperature 98.9 F 98.7 F Pulse Rate Pulse Rate [Apical] Pulse Rate [Left Brachial] 86 78 Respiratory Rate 20 22 18 Blood Pressure Blood Pressure [Left Arm] 113/69 107/72 O2 Sat by Pulse Oximetry 96 95 04/19/19 21:12 04/19/19 22:12 04/20/19 00:00 Temperature 98.2 F Pulse Rate Pulse Rate [Apical] Pulse Rate [Left Brachial] 83 Respiratory Rate 22 18 18 Blood Pressure Blood Pressure [Left Arm] 116/70 O2 Sat by Pulse Oximetry 95 04/20/19 04:00 04/20/19 07:59 Temperature 98.2 F 98.2 F Pulse Rate Pulse Rate [Apical] Pulse Rate [Left Brachial] 81 72 Respiratory Rate 14 18 Blood Pressure Blood Pressure [Left Arm] 92/54 97/63 O2 Sat by Pulse Oximetry 96 96 Labs: Laboratory Last Values WBC 5.9 X10^3/uL (3.6-10.0) 04/20/19 04:58 RBC 3.93 X10^6/uL (3.5-5.4) 04/20/19 04:58 Hgb 13.4 g/dL (12.0-16.0) 04/20/19 04:58 Hct 39.8 % (36.0-47.0) 04/20/19 04:58 MCV 101.3 fL (80.0-100.0) H 04/20/19 04:58 MCH 34.2 pg (27.0-34.0) H 04/20/19 04:58 MCHC 33.7 g/dL (33.0-35.0) 04/20/19 04:58 RDW 14.2 % (11.6-16.5) 04/20/19 04:58 Plt Count 220 X10^3/uL (150.0-450.0) 04/20/19 04:58 MPV 9.3 fL (7.4-11.0) 04/20/19 04:58 Neut % (Auto) 59.7 % (42.0-75.0) 04/20/19 04:58 Lymph % (Auto) 28.4 % (21.0-51.0) 04/20/19 04:58 [place] % (Auto) 9.0 % (0.0-13.0) 04/20/19 04:58 Eos % (Auto) 2.0 % (0.9-2.9) 04/20/19 04:58 Baso % (Auto) 0.9 % (0.2-1.0) 04/20/19 04:58 Neut # (Auto) 3.5 x10^3/uL (2.2-4.8) 04/20/19 04:58 Lymph # (Auto) 1.7 X10^3/uL (1.3-2.9) 04/20/19 04:58 [place] # (Auto) 0.5 x10^3/uL (0.3-0.8) 04/20/19 04:58 Eos # (Auto) 0.1 x10^3/uL (0.0-0.2) 04/20/19 04:58 Baso # (Auto) 0.1 X10^3/uL (0.0-0.1) 04/20/19 04:58 Absolute Nucleated RBC 0.1 /100WBC 04/20/19 04:58 Sodium 144 mmol/L (136-145) 04/20/19 04:58 Corrected Sodium 145 mmol/L (136-145) 04/20/19 04:58 Potassium 3.3 mmol/L (3.5-5.1) L 04/20/19 04:58 Chloride 109 mmol/L (98-107) H 04/20/19 04:58 Carbon Dioxide 25.1 mmol/L (21-32) 04/20/19 04:58 BUN 10 mg/dL (7-18) 04/20/19 04:58 Creatinine 0.94 mg/dL (0.55-1.02) 04/20/19 04:58 Est GFR (MDRD) Af Amer > 60 (>60) 04/20/19 04:58 Est GFR (MDRD) Non-Af > 60 (>60) 04/20/19 04:58 Glucose 129 mg/dL (65-99) H 04/20/19 04:58 Hemoglobin A1c 5.3 % 04/19/19 04:24 Calcium 8.0 mg/dL (8.5-10.1) L 04/20/19 04:58 Magnesium 1.9 mg/dL (1.7-2.9) 04/20/19 04:58 Troponin I < 0.02 ng/mL (0-1.5) 04/18/19 20:20 Triglycerides 208 mg/dL (0-150) H 04/20/19 04:58 Cholesterol 214 mg/dL (0-200) H 04/20/19 04:58 LDL Cholesterol, Calc 144 mg/dL (0-100) H 04/20/19 04:58 HDL Cholesterol 28 mg/dL (40-60) L 04/20/19 04:58 Cholesterol/HDL Ratio 7.6 (0.0-5.0) H 04/20/19 04:58 TSH 3rd Generation 1.525 uIU/mL (0.358-3.74) 04/19/19 04:24 Specimen Type Clean catch urine 04/19/19 12:35 Urine Color Elle (YELLOW) 04/19/19 12:35 Urine Appearance Hazy (CLEAR) 04/19/19 12:35 Urine pH 6.5 (5.0 - 8.0) 04/19/19 12:35 Ur Specific [place] 1.020 (1.000-1.030) 04/19/19 12:35 Urine Protein 1+ (NEGATIVE) 04/19/19 12:35 Urine Glucose (UA) Negative (NEGATIVE) 04/19/19 12:35 Urine Ketones Negative (NEGATIVE) 04/19/19 12:35 Urine Occult Blood 1+ (NEGATIVE) 04/19/19 12:35 Urine Nitrite Negative (NEGATIVE) 04/19/19 12:35 Urine Bilirubin 1+ (NEGATIVE) 04/19/19 12:35 Urine Urobilinogen 4+ (NORMAL) 04/19/19 12:35 Ur Leukocyte Esterase 1+ (NEGATIVE) 04/19/19 12:35 Urine RBC 0-2 /HPF (0-3) 04/19/19 12:35 Urine WBC 0-2 /HPF (0-5) 04/19/19 12:35 Ur Squamous Epith Cells Many /HPF (NEGATIVE) 04/19/19 12:35 Urine Bacteria 3+ /HPF (NEGATIVE) 04/19/19 12:35 Urine Mucus Few /HPF (NEGATIVE) 04/19/19 12:35 Ur Culture Indicated? No/not indicated 04/19/19 12:35 Urine Opiates Screen Positive (NEG=<300) A 04/19/19 12:35 Urine Methadone Screen Negative (NEG=<300) 04/19/19 12:35 Ur Barbiturates Screen Negative (NEG=<200) 04/19/19 12:35 Ur Phencyclidine Scrn Negative (NEG=<25) 04/19/19 12:35 Ur Amphetamines Screen Positive (NEG=<1000) A 04/19/19 12:35 U Benzodiazepines Scrn Negative (NEG=<200) 04/19/19 12:35 Urine Cocaine Screen Negative (NEG=<300) 04/19/19 12:35 U Marijuana (THC) Screen Negative (NEG=<50) 04/19/19 12:35 Reason For Visit: TIA Discharge Date Discharge Date: 04/20/19 Discharge Diagnosis All Active Problems (Updated 04/20/19 @ 09:00 by Gee Negrete) Hypokalemia (Acute) ARF (acute renal failure) (Acute) Tinea pedis (Acute) Migraine headache with aura (Acute) TIA (transient ischemic attack) (Acute) Essential hypertension (Chronic) Depression (Chronic) Anxiety (Chronic) Hyperthyroidism (Chronic) Chronic obstructive lung disease (Chronic) Diverticulitis (Acute) Shingles rash (Acute) Hypotension (Acute) Knee sprain (Acute) Contusion of leg (Acute) Brain TIA (Acute) Plan of Treatment: Continue with present treatment and follow up plan. Pt is to keep follow up appointment as instructed and take medications as ordered. Discharge Medications Discharge Medications: No Known Drug Allergies Allergy (Verified 01/26/19 13:22) CONTINUE taking the following medications albuterol sulfate 2 puff INHALATION Q4H PRN 04/18/19 [History] cyclobenzaprine 10 mg PO TID 04/18/19 [History] duloxetine 60 mg PO DAILY 04/18/19 [History] furosemide 20 mg PO DAILY PRN 04/18/19 [History] hydrocodone-acetaminophen 10 - 325 tab PO Q6H PRN 04/18/19 [History] methocarbamol 500 mg PO TID 04/18/19 [History] paroxetine HCl 20 mg PO DAILY 04/18/19 [History] promethazine 25 mg PO Q6H PRN 04/18/19 [History] propranolol 20 mg PO TID 04/18/19 [History] ranitidine HCl 150 mg PO DAILY 04/18/19 [History] sumatriptan succinate 100 mg PO DAILY PRN 04/18/19 [History] tizanidine 4 mg PO TID 04/18/19 [History] New Prescriptions aspirin 81 mg PO DAILY 30 Days #30 tab 04/20/19 [Rx] atorvastatin 20 mg PO DAILY 30 Days #30 tab 04/20/19 [Rx] ketoconazole 1 applic TOP BID 30 Days #2 g 04/20/19 [Rx] Follow up and Referral Follow Up: 1 Week Discharge Disposition Discharge Disposition: Home
[2019-04-20] MEDS ORDERED: LIPITOR TAB 20 MG PO SCH (10:00)
--- NOTE | 2019-04-20 11:51 | VAS ---
HISTORY: TIA, left-sided weakness Study: Bilateral Carotid Ultrasound Comparison: None Technique: Multiple alonso scale and color flow Doppler images of the right and left carotid arterial system were obtained. The vertebral arterial system was evaluated as well. Findings: Normal color flow Doppler is seen throughout the right and left carotid arterial system. There was no plaque identified at the bilateral carotid bifurcations. Peak systolic velocity in the right ICA is 75 cm/sec. Peak systolic velocity in the left ICA is 68 cm/sec. The right ICA/CCA ratio is 0.9. The left ICA/CCA ratio is 0.7. The right and left vertebral arteries demonstrate antegrade flow. IMPRESSION: 1. No hemodynamically significant stenosis identified. 2. Normal antegrade flow in the vertebral arteries. Reported By:
[2019-04-21] MEDS ORDERED: ASPIRIN EC 81 MG PO SCH (09:00)
== END 2019-04-20 12:30 | disposition home or self-care (01) ==
LOC: ER 19:54 → MED/SURG 19:54
PROVIDERS: ADMIT Emergency Medicine; ATTEND Family Medicine
DX: F41.8 Other specified anxiety disorders; F32.89 Other specified depressive episodes; E87.6 Hypokalemia; B35.3 Tinea pedis; Z23 Encounter for immunization; N17.8 Other acute kidney failure; G43.109 Migraine with aura, not intractable, without status migrainosus; I10 Essential (primary) hypertension; F15.90 Other stimulant use, unspecified, uncomplicated; G45.9 Transient cerebral ischemic attack, unspecified; J44.9 Chronic obstructive pulmonary disease, unspecified
CPT/HCPCS: 36415; 70450; 71010; 71045; 80048; 80061; 80307; 81001; 83036; 83735; 84132; 84443; 84484; 85025; 90674; 90686; 93005; 93306; 93880; 96360; 96361; 96365; 96372; 99284; A4216; A4222; Q0169; 90670; G0378; G0434; J7030

== ENCOUNTER 2019-05-01 16:08 | Inpatient (IN) ==
--- NOTE | 2019-05-01 16:16 | DR.AMS ---
HPI Time Seen Time Seen by Provider: 05/01/19 16:16 HPI Comment HPI Comment: PATIENT IS 48YR OLD WHITE FEMALE IN THE EMERGENCY ROOM VIA EMS UNRESPONSIVE, REACTING TO DEEP PAINFULL STIMULI. SHE IS DIAPHORETIC AND HAVING SHALLOW RESPIRATION, RR 11. EMS WAS CALLED TO UNRESPONSIVE PATIENT WITH SHALLOW BREATHING. PATIENT HAVE HISTORY OF DEPRESSION BUT NO INTENTIONAL DRUG INGESTION REPORTED. NO VOMITING NOTED. PATIENTS EYES ARE CLOSE BUT PUPILS EQUAL AND REACTIVE AND NOT DILATED. NARCAN NOT GIVEN YET. GLUCOSE IS NOT REPORTED LOW. Complaint Cheif Complaint Doctors Comments: HERE VIA EMS UNRESPONSIVE REACTING ONLY TO DEEP PAINFUL STIMULI WITH SHALLOW RESPIRATION. Reviewed Nurses Notes Reviewed: Yes Source History Provided: EMS Mode of Arrival Mode of Arrival: EMS Timing Came On: Suddenly Symptoms: Unchanged Symptom Onset: Known Duration Duration: Constant Duration: Hours Quality Quality: Decreased Alertness (UNRESPONSIVE.) Severity Severity: Unresponsive Context Recent: None (PER EMS.); denies Fever and Vomiting History Of: None Associated Signs and Symptoms Associated Signs and Symptoms: Unresponsiveness and Other (UNRESPONSIVE.) Other History Other History: HISTORY DEPRESSION. PMH PMH Past Medical History: Depression, GERD and Hypertension Past Surgical History: Yes Surgical History: and Ortho Surgery Family History Family Medical History: Diabetes Mellitus, Cancer, [place], Heart Failure and Hypertension Social History Do you use any recreational Drugs:: No infectious screening Isolation: Standard ROS Review of Systems Constitutional: See HPI, Diaphoresis and Other (UNRESPONSIVE.); negative Fever Eyes: See HPI and Other (UNRESPONSIVE. EYES CLOSE. ) ENTM: See HPI; negative Nose Discharge and Epistaxis Respiratoy: See HPI, Short of Breath (SHALLOW BREATHING.) and Other (UNRESPONSIVE, SPONTANIOUS RESPIRATION.); negative Wheezing Cardiovascular: See HPI and Other (UNRESPONSIVE.); negative Edema Gastrointestinal/Abdominal: See HPI and Other (UNRESPONSIVE.); negative Vomiting Genitourinary: See HPI and Other (UNRESPONSIVE.) Neurological: See HPI and Other (UNRESPONSIVE.) Musculoskeletal: See HPI and Other (UNRESPOSIVE. ) Integumentary: See HPI and Dryness Hematologic/Lymphatic: See HPI and Other (UNRESPONSIVE.) Endocrine: See HPI, Flushing and Other (UNRESPONSIVE.) Psychiatric: See HPI and Other (UNRESPONSIVE.) PE Vitals Vital Signs: Temp Pulse Resp BP BP Pulse Ox 05/01/19 22:21 83 12 80/60 100 05/01/19 22:15 83 8 L 100 05/01/19 22:00 83 9 L 105/62 100 05/01/19 21:45 81 9 L 100 05/01/19 21:41 82 13 106/66 100 05/01/19 21:30 82 11 L 100 05/01/19 21:21 83 21 101/48 100 05/01/19 21:15 83 46 H 100 05/01/19 21:03 83 20 100/81 100 05/01/19 21:00 82 38 H 100 05/01/19 20:59 83 31 H 167/119 98 05/01/19 20:45 88 45 H 98 05/01/19 20:30 90 43 H 96 05/01/19 20:21 85 14 115/77 91 L 05/01/19 20:18 86 9 L 83/58 91 L 05/01/19 20:15 86 14 92 L 05/01/19 20:01 84 14 82/61 92 L 05/01/19 20:00 83 10 L 93 L 05/01/19 19:45 83 10 L 93 L 05/01/19 19:41 83 13 116/54 93 L 05/01/19 19:30 82 12 93 L 05/01/19 19:21 81 16 83/57 93 L 05/01/19 19:15 80 14 92 L 05/01/19 19:01 79 12 90/54 88 L 05/01/19 18:46 74 15 108/69 95 05/01/19 18:45 74 12 96 05/01/19 18:42 75 26 H 79/52 92 L 05/01/19 18:41 67/32 05/01/19 18:34 74 13 95/67 90 L 05/01/19 18:30 73 9 L 100 05/01/19 18:20 74 7 L 83/54 100 05/01/19 18:15 73 7 L 100 05/01/19 18:00 75 7 L 91/51 100 05/01/19 17:59 75 6 L 100 05/01/19 17:45 77 8 L 100 05/01/19 17:41 79 10 L 92/62 100 05/01/19 17:30 79 7 L 05/01/19 17:15 80 10 L 95 05/01/19 17:13 84 25 H 97 05/01/19 16:40 75 13 116/72 100 05/01/19 16:39 75 11 L 109/63 95 05/01/19 16:31 76 8 L 97 05/01/19 16:27 97.9 F 75 8 L 101/69 99 04/20/19 07:59 97/63 General Limitations: Altered Mental Status and Other (UNRESPONSIVE, RESPOND TO DEEP PAINFUL STIMULI.) General Appearance: In No Apparent Distress and Other (UNRESPONSIVE.) Head Head Exam: Normal Inspection and Atraumatic Head Exam Physical: Other (NONE NOTED.) Eyes Eye exam: PERRL (PUPILS EQUAL AND REACTIVE AND NORMAL SIZE.); negative Scleral Icterus and Conjunctival Injection Pupils: Regular, Round: Bilateral and Reactive: Bilateral ENT ENT Exam: Normal Exam, Normal Oropharynx, Normal External Ear Exam and TM's Normal Bilaterally External Ear Exam: Normal External Inspection TM/Canal Exam: Bilateral: Normal Nose Exam: negative Nasal Deviation and Septal Hematoma Mouth Exam: negative Lip Swelling and Tongue Swelling Throat Exam: negative Tonsillar Erythema, Tonsillomegaly and Tonsillar Exudate Neck Neck Exam: Trachea Midline; negative Lymphadenopathy Chest Chest Inspection: Symmetric Chest Wall Rise and Other (SHALLOW BREATHING.) Respiratory Respiratory Exam: Normal Lung Sounds Bilat and Other (UNRESPONSIVE, SHALLOW BREATHING.); negative Accessory Muscle Use, Chest Wall Tenderness and Respiratory Distress Respiratory Exam: Bilateral: Rhonchi and Lower: Rhonchi Cardiovascular Cardiovascular Exam: Regular Rate, Normal Rhythm and Normal Heart Sounds; negative Systolic Murmur and Diastolic Murmur Abdominal Exam Abdominal Exam: Normal Bowel Sounds and Soft; negative Organomegaly and Mass Extremities Extremities Exam: negative Normal Capillary Refill and Edema Back Back Exam: Normal Inspection Neurological Neurological Exam: Other (UNRESPONSIVE, RESPOND TO DEEP PAINFUL STIMULI.) Patient Oriented To: negative Person, Place and Time Speech: negative Fluid Speech Cranial Nerve Exam: Gag reflex (XI): Normal Upper Motor Neuron Exam: Babinski Sign: Normal Psychological Psychiatric Exam: Other (UNRESPONSIVE.) Skin Skin Exam: Dry and Diaphoresis MDM Differential Diagnosis Metabolic: Dehydration, Hypercalcemia, Hypernatremia, Hypoglycemia, Hyponatremia and Hypoxemia Structural: CVA and Mass Lesion Toxicologic: Drug Overdose Infectious: UTI COURSE Treatment Treatment: SEE ORDERS. NS 1L IV. NARCAN 0.4MG IV, NO SIGNIFICANT RESPONSE. ROMAZICON 0.5MG IV. NO CHANGE IN RESPONSE. BP DROP AND IS DECREASING. DOPAMINE DRIP STARTED. BP IMPROVING. STILL UNRESPONSIVE BUT RESPONDING TO LIGHT PAINFUL STIMULI. PATIENT SIGN OUT TO DR. ARRIAGA 20:15PM. ROR Labs Reviewed Laboratory Results Reviewed?: Yes Result Diagrams: 05/02/19 05:30 05/02/19 05:30 Laboratory: WBC 9.9 X10^3/uL (3.6-10.0) 05/01/19 16:31 RBC 4.41 X10^6/uL (3.5-5.4) 05/01/19 16:31 Hgb 15.1 g/dL (12.0-16.0) 05/01/19 16:31 Hct 44.6 % (36.0-47.0) 05/01/19 16:31 MCV 101.2 fL (80.0-100.0) H 05/01/19 16:31 MCH 34.3 pg (27.0-34.0) H 05/01/19 16:31 MCHC 33.9 g/dL (33.0-35.0) 05/01/19 16:31 RDW 13.6 % (11.6-16.5) 05/01/19 16:31 Plt Count 301 X10^3/uL (150.0-450.0) 05/01/19 16:31 MPV 8.4 fL (7.4-11.0) 05/01/19 16:31 Neut % (Auto) 71.1 % (42.0-75.0) 05/01/19 16:31 Lymph % (Auto) 21.0 % (21.0-51.0) 05/01/19 16:31 [place] % (Auto) 6.0 % (0.0-13.0) 05/01/19 16:31 Eos % (Auto) 1.2 % (0.9-2.9) 05/01/19 16:31 Baso % (Auto) 0.7 % (0.2-1.0) 05/01/19 16:31 Neut # (Auto) 7.0 x10^3/uL (2.2-4.8) H 05/01/19 16:31 Lymph # (Auto) 2.1 X10^3/uL (1.3-2.9) 05/01/19 16:31 [place] # (Auto) 0.6 x10^3/uL (0.3-0.8) 05/01/19 16:31 Eos # (Auto) 0.1 x10^3/uL (0.0-0.2) 05/01/19 16:31 Baso # (Auto) 0.1 X10^3/uL (0.0-0.1) 05/01/19 16:31 Absolute Nucleated RBC 0.0 /100WBC 05/01/19 16:31 PT 13.9 SECONDS (11.8-14.3) 05/01/19 16:31 INR Target Range - 05/01/19 16:31 INR 1.11 (0.8-1.3) 05/01/19 16:31 APTT 29.6 SECONDS (22.9-36.5) 05/01/19 16:31 PTT Comment - 05/01/19 16:31 Sodium 137 mmol/L (136-145) 05/01/19 16:31 Corrected Sodium TNP 05/01/19 16:31 Potassium 3.8 mmol/L (3.5-5.1) 05/01/19 16:31 Chloride 100 mmol/L (98-107) 05/01/19 16:31 Carbon Dioxide 25.5 mmol/L (21-32) 05/01/19 16:31 BUN 25 mg/dL (7-18) H 05/01/19 16:31 Creatinine 2.92 mg/dL (0.55-1.02) H 05/01/19 16:31 Est GFR (MDRD) Af Amer 22 (>60) L 05/01/19 16:31 Est GFR (MDRD) Non-Af 18 (>60) L 05/01/19 16:31 Glucose 93 mg/dL (65-99) 05/01/19 16:31 Calcium 9.0 mg/dL (8.5-10.1) 05/01/19 16:31 Corrected Calcium TNP 05/01/19 16:31 Total Bilirubin 0.40 mg/dL (0.2-1.0) 05/01/19 16:31 AST 17 Units/L (15-37) 05/01/19 16:31 ALT 16 Units/L (12-78) 05/01/19 16:31 Alkaline Phosphatase 103 Units/L (46-116) 05/01/19 16:31 Creatine Kinase 380 Units/L (26-192) H 05/01/19 16:31 CK-MB (CK-2) 5.4 ng/mL (0-4.0) H* 05/01/19 16:31 CK/CKMB % Calc 1.4 % (<4) 05/01/19 16:31 Troponin I < 0.02 ng/mL (0-1.5) 05/01/19 16:31 Total Protein 7.5 g/dL (6.4-8.2) 05/01/19 16:31 Albumin 3.8 g/dL (3.4-5.0) 05/01/19 16:31 Globulin 3.7 g/dL (2.5-4.5) 05/01/19 16:31 Albumin/Globulin Ratio 1.0 Ratio (1.1-2.1) L 05/01/19 16:31 Amylase 23 Units/L (25-115) L 05/01/19 16:31 Lipase 54 Units/L (73-393) L 05/01/19 16:31 HCG, Qual Negative <10 mIU/mL 05/01/19 16:31 Specimen Type Catherized urine 05/01/19 18:48 Urine Color Dark yellow (YELLOW) 05/01/19 18:48 Urine Appearance Hazy (CLEAR) 05/01/19 18:48 Urine pH 5.0 (5.0 - 8.0) 05/01/19 18:48 Ur Specific [place] 1.025 (1.000-1.030) 05/01/19 18:48 Urine Protein 2+ (NEGATIVE) 05/01/19 18:48 Urine Glucose (UA) Negative (NEGATIVE) 05/01/19 18:48 Urine Ketones 1+ (NEGATIVE) 05/01/19 18:48 Urine Occult Blood 1+ (NEGATIVE) 05/01/19 18:48 Urine Nitrite Negative (NEGATIVE) 05/01/19 18:48 Urine Bilirubin 2+ (NEGATIVE) 05/01/19 18:48 Urine Urobilinogen 1+ (NORMAL) 05/01/19 18:48 Ur Leukocyte Esterase 1+ (NEGATIVE) 05/01/19 18:48 Urine RBC 0-2 /HPF (0-3) 05/01/19 18:48 Urine WBC 0-2 /HPF (0-5) 05/01/19 18:48 Ur Squamous Epith Cells Many /HPF (NEGATIVE) 05/01/19 18:48 Urine Bacteria Trace /HPF (NEGATIVE) 05/01/19 18:48 Ur Culture Indicated? No/not indicated 05/01/19 18:48 Salicylates 4.2 mg/dL (2.8-20) 05/01/19 16:31 Urine Opiates Screen Positive (NEG=<300) A 05/01/19 18:48 Urine Methadone Screen Negative (NEG=<300) 05/01/19 18:48 Acetaminophen 6.7 ug/mL (10-30) L 05/01/19 16:31 Ur Barbiturates Screen Negative (NEG=<200) 05/01/19 18:48 Ur Phencyclidine Scrn Negative (NEG=<25) 05/01/19 18:48 Ur Amphetamines Screen Positive (NEG=<1000) A 05/01/19 18:48 U Benzodiazepines Scrn Negative (NEG=<200) 05/01/19 18:48 Urine Cocaine Screen Negative (NEG=<300) 05/01/19 18:48 U Marijuana (THC) Screen Negative (NEG=<50) 05/01/19 18:48 Ethyl Alcohol mg/dL < 3 mg/dL (0-19.9) 05/01/19 16:31 XRAY XRAY Interpreted by: Radiologist XRAY Findings: REPORT NOTED. EKG Rate: 70 [place]: Normal Rhythm: NSR Block: None Hypertrophy: NEPTALI ST: Normal Opioid Opioid Risk Tool Age (Bigg box if 16-45): No History of Preadolescent Sexual Abuse: No Total: 0 Total Score Risk Category: Low Risk Copyright: Amos RUST predicting aberrant behaviors Diagnosis Discharge Problem: Altered mental status, Drug ingestion Hypotension Qualifiers: Hypotension type: other hypotension type Qualified Code(s): I95.89 - Other hypotension Acute renal failure (ARF) Qualifiers: Acute renal failure type: unspecified Qualified Code(s): N17.9 - Acute kidney failure, unspecified Instructions Forms: Excuse From Work Patient Portal
[2019-05-01] MEDS ORDERED: NARCAN INJ IVP ONE ×2 (16:34→20:23)
[2019-05-01] MEDS ORDERED: NARCAN INJ ONE ×2 (16:37→20:25)
[2019-05-01 16:53] LABS: BASOPHILS # (AUTO) 0.1 X10^3/uL (0.0-0.1); BASOPHILS % (AUTO) 0.7 % (0.2-1.0); EOSINOPHILS # (AUTO) 0.1 x10^3/uL (0.0-0.2); EOSINOPHILS % (AUTO) 1.2 % (0.9-2.9); HEMATOCRIT 44.6 % (36.0-47.0); HEMOGLOBIN 15.1 g/dL (12.0-16.0); LYMPHOCYTES # (AUTO) 2.1 X10^3/uL (1.3-2.9); MEAN CORPUSCULAR HEMOGLOBIN 34.3 pg (27.0-34.0); MEAN CORPUSCULAR HGB CONC 33.9 g/dL (33.0-35.0); MEAN CORPUSCULAR VOLUME 101.2 fL (80.0-100.0); MEAN PLATELET VOLUME 8.4 fL (7.4-11.0); MONOCYTES # (AUTO) 0.6 x10^3/uL (0.3-0.8); NEUTROPHILS % (AUTO) 71.1 % (42.0-75.0); PLATELET COUNT 301 X10^3/uL (150.0-450.0); RED BLOOD COUNT 4.41 X10^6/uL (3.5-5.4); RED CELL DISTRIBUTION WIDTH 13.6 % (11.6-16.5); WHITE BLOOD COUNT 9.9 X10^3/uL (3.6-10.0)
[2019-05-01 17:04] LABS: ACETAMINOPHEN 6.7 ug/mL (10-30); SALICYLATE 4.2 mg/dL (2.8-20); SERUM PREGNANCY TEST, QUAL NEGATIVE <10 mIU/mL
[2019-05-01 17:14] LABS: BLOOD UREA NITROGEN 25 mg/dL (7-18); CARBON DIOXIDE 25.5 mmol/L (21-32); CHLORIDE 100 mmol/L (98-107); CREATININE 2.92 mg/dL (0.55-1.02); SODIUM 137 mmol/L (136-145); TROPONIN I < 0.02 ng/mL (0-1.5); eGFR NON BLACK RACES 18 (>60)
--- NOTE | 2019-05-01 17:27 | CT ---
CT HEAD WITHOUT CONTRAST CLINICAL HISTORY: 48-year-old female found unresponsive. COMPARISON: CT head 04/18/2019. TECHNIQUE: Multiple axial CT images were obtained from the skull base to the cranial vertex without the administration of contrast. Dose reduction techniques including Automated Exposure Control (AEC) and adjustment of mA and kV were utilized. FINDINGS: No evidence of abnormal intra- or extra axial fluid collections, midline shift, or mass effect. Tate white differentiation is maintained. 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 The ventricular system is normal in size and morphology. The basal cisterns are normal in appearance. The imaged paranasal sinuses, mastoid air cells, and tympanic cavities are clear. IMPRESSION: No acute intracranial process. If clinical concern persists for acute stroke and it would alter patient management, consider MRI/MRA brain. Reported By:
--- NOTE | 2019-05-01 17:34 | RAD ---
Chest, one view Indication: Unresponsive Comparison: 04/18/2019 Findings: Heart is normal in size. No focal infiltrate or significant effusion is identified. No pneumothorax. Impression: No acute cardiopulmonary abnormality or significant change since prior. Reported By:
[2019-05-01 17:37] LABS: ALANINE AMINOTRANSFERASE 16 Units/L (12-78); ALBUMIN 3.8 g/dL (3.4-5.0); ALKALINE PHOSPHATASE 103 Units/L (46-116); AMYLASE 23 Units/L (25-115); ASPARTATE AMINO TRANSFERASE 17 Units/L (15-37); BLOOD ALCOHOL < 3 mg/dL (0-19.9); CKMB % 1.4 % (<4); CREATINE KINASE 380 Units/L (26-192); LIPASE 54 Units/L (73-393); TOTAL PROTEIN 7.5 g/dL (6.4-8.2)
[2019-05-01 17:46] LABS: CREATINE KINASE MB 5.4 ng/mL (0-4.0)
[2019-05-01] MEDS ORDERED: ROMAZICON INJ 0.5 MG ONE (18:31)
[2019-05-01] MEDS ORDERED: NS 1000 ML 1,000 ML ONE ×4 (18:31→21:30)
[2019-05-01] MEDS ORDERED: ROMAZICON INJ 0.5 MG IVP ONE ×2 (18:42→18:54)
[2019-05-01] MEDS ORDERED: NS 1000 ML 1,000 ML IV ONE ×4 (18:42→21:29)
[2019-05-01] MEDS ORDERED: DOPAMINE IV PREMIX 400 MG/250 ML 400 MG/250 ML BAG IV ONE (18:42)
[2019-05-01] MEDS: DOPAMINE IV PREMIX 400 MG/250 ML 400 MG/250 ML BAG IV PRN (18:46)
[2019-05-01 18:58] LABS: BILIRUBIN,URINE 2+ (NEGATIVE); BLOOD/HEMOGLOBIN,URINE 1+ (NEGATIVE); GLUCOSE, URINE NEGATIVE (NEGATIVE); KETONES,URINE 1+ (NEGATIVE); LEUKOCYTE ESTERASE ,URINE 1+ (NEGATIVE); NITRITES,URINE NEGATIVE (NEGATIVE); PROTEIN,URINE 2+ (NEGATIVE); UROBILINOGEN,URINE 1+ (NORMAL)
[2019-05-01 19:13] LABS: APPEARANCE,URINE HAZY (CLEAR); BACTERIA,URINE TRACE /HPF (NEGATIVE); COLOR,URINE DARK YELLOW (YELLOW); RBC,URINE 0-2 /HPF (0-3); SQUAMOUS EPITHELIAL CELL,UR MANY /HPF (NEGATIVE)
[2019-05-01] MEDS: NS 1000 ML 1,000 ML IV SCH (23:02)
[2019-05-01 23:51] LABS: CREATINE KINASE 450 Units/L (26-192); TROPONIN I < 0.02 ng/mL (0-1.5)
[2019-05-01 23:53] LABS: CKMB % 0.9 % (<4)
[2019-05-02 02:27] VITALS: BMI 43.2
[2019-05-02] MEDS: DOPAMINE IV PREMIX 400 MG/250 ML 400 MG/250 ML BAG IV PRN ×2 (05:29→18:44)
[2019-05-02 05:46] LABS: BASOPHILS # (AUTO) 0.1 X10^3/uL (0.0-0.1); BASOPHILS % (AUTO) 0.7 % (0.2-1.0); EOSINOPHILS # (AUTO) 0.1 x10^3/uL (0.0-0.2); EOSINOPHILS % (AUTO) 0.8 % (0.9-2.9); HEMATOCRIT 40.2 % (36.0-47.0); HEMOGLOBIN 13.7 g/dL (12.0-16.0); LYMPHOCYTES # (AUTO) 1.2 X10^3/uL (1.3-2.9); LYMPHOCYTES % (AUTO) 15.5 % (21.0-51.0); MEAN CORPUSCULAR HEMOGLOBIN 34.6 pg (27.0-34.0); MEAN CORPUSCULAR HGB CONC 34.1 g/dL (33.0-35.0); MEAN CORPUSCULAR VOLUME 101.4 fL (80.0-100.0); MEAN PLATELET VOLUME 8.4 fL (7.4-11.0); MONOCYTES # (AUTO) 0.6 x10^3/uL (0.3-0.8); MONOCYTES % (AUTO) 7.5 % (0.0-13.0); NEUTROPHILS # (AUTO) 5.6 x10^3/uL (2.2-4.8); NEUTROPHILS % (AUTO) 75.5 % (42.0-75.0); PLATELET COUNT 213 X10^3/uL (150.0-450.0); RED BLOOD COUNT 3.96 X10^6/uL (3.5-5.4); RED CELL DISTRIBUTION WIDTH 13.3 % (11.6-16.5); WHITE BLOOD COUNT 7.5 X10^3/uL (3.6-10.0)
[2019-05-02 06:13] LABS: ALANINE AMINOTRANSFERASE 13 Units/L (12-78); ALBUMIN 3.1 g/dL (3.4-5.0); ALKALINE PHOSPHATASE 92 Units/L (46-116); ASPARTATE AMINO TRANSFERASE 15 Units/L (15-37); BLOOD UREA NITROGEN 20 mg/dL (7-18); CALCIUM 7.7 mg/dL (8.5-10.1); CARBON DIOXIDE 27.2 mmol/L (21-32); CHLORIDE 107 mmol/L (98-107); CKMB % 0.8 % (<4); COR CA(FOR HYPOALB) 8.4 mg/dL (8.5-10.1); CREATINE KINASE 438 Units/L (26-192); CREATINE KINASE MB 3.4 ng/mL (0-4.0); CREATININE 1.93 mg/dL (0.55-1.02); SODIUM 141 mmol/L (136-145); TOTAL PROTEIN 6.2 g/dL (6.4-8.2); TROPONIN I < 0.02 ng/mL (0-1.5); eGFR NON BLACK RACES 30 (>60)
[2019-05-02] MEDS: NS 1000 ML 1,000 ML IV SCH ×4 (07:06→18:44)
--- NOTE | 2019-05-02 11:25 | DR.H&P ---
H&P History & Physical for Day of: H&P Date: 05/02/19 Chief Complaint Chief Complaint: lethargy, unresponsive Allergies Allergies Allergy/AdvReac Type Severity Reaction Status Date / Time No Known Drug Allergies Allergy Verified 01/26/19 13:22 History of Present Illness History of Present Illness: Ms. Ivey is a 48y/o female with a recent TIA discharged on 04/20/[address]-head, Carotid U/S and Echo. She reports she continued to feel weak since being home. She saw her PCP and was recently started on Propanolol for migraines. Yesterday she took it for the first time, 2 tablets at once and started feeling dizzy and confused. Son reports patient having stroke like Sx yesterday which included weakness, confusion and slurred speech. EMS was called due to patient being very lethargic and she also had a fall prior to coming to the ED. Son reports patient has been dizzy since discharge. Patient is on a combination of medications which includes opiates, muscle relaxants and SSRIs. She reports taking them as prescribed, she denies taking more than her usual doses yesterday. In the ED, patient was very lethargic, responded to deep painful stimuli. She was found to have BP 80/60, acute renal failure and AMS. UDS showed opiates and amphetamines. Patient denies taking any amphetamines, son does take Adderall but unsure if medications could have been mixed up. She received Narcan and Flumazenil in the ED. This morning, patient is awake, alert and oriented to time, place and herself. She is slow at answering questions, no slurred speech. Past Medical History Past Medical History: Depression, Migraines, GERD and Hypertension Past Surgical History Surgical History: and Ortho Surgery Family History Family Medical History: Diabetes Mellitus, Cancer, [place], Heart Failure and Hypertension Social History Does patient currently use any type of tobacco product: Yes Have you used tobacco products in the last 12 months: Yes Type of Tobacco Use: Cigarettes How many years tobacco product used: 23 Does any household member use tobacco: No Alcohol Use: Occasionally Drug Use: None Prescription drug monitoring program results: PDMP was not reviewed Medications Home Medications: No Known Drug Allergies Allergy (Verified 01/26/19 13:22) CONTINUE taking the following medications pregabalin [Lyrica] 150 mg PO BID 05/01/19 [History] fluoxetine 20 mg PO DAILY 05/02/19 [History] metronidazole [Flagyl] 500 mg PO BID 05/02/19 [History] pantoprazole 20 mg PO BID 05/02/19 [History] topiramate 25 mg PO BID 05/02/19 [History] Labs Result Diagrams: 05/02/19 05:30 05/02/19 05:30 Labs: Laboratory WBC 7.5 X10^3/uL (3.6-10.0) 05/02/19 05:30 RBC 3.96 X10^6/uL (3.5-5.4) 05/02/19 05:30 Hgb 13.7 g/dL (12.0-16.0) 05/02/19 05:30 Hct 40.2 % (36.0-47.0) 05/02/19 05:30 MCV 101.4 fL (80.0-100.0) H 05/02/19 05:30 MCH 34.6 pg (27.0-34.0) H 05/02/19 05:30 MCHC 34.1 g/dL (33.0-35.0) 05/02/19 05:30 RDW 13.3 % (11.6-16.5) 05/02/19 05:30 Plt Count 213 X10^3/uL (150.0-450.0) 05/02/19 05:30 MPV 8.4 fL (7.4-11.0) 05/02/19 05:30 Neut % (Auto) 75.5 % (42.0-75.0) H 05/02/19 05:30 Lymph % (Auto) 15.5 % (21.0-51.0) L 05/02/19 05:30 [place] % (Auto) 7.5 % (0.0-13.0) 05/02/19 05:30 Eos % (Auto) 0.8 % (0.9-2.9) L 05/02/19 05:30 Baso % (Auto) 0.7 % (0.2-1.0) 05/02/19 05:30 Neut # (Auto) 5.6 x10^3/uL (2.2-4.8) H 05/02/19 05:30 Lymph # (Auto) 1.2 X10^3/uL (1.3-2.9) L 05/02/19 05:30 [place] # (Auto) 0.6 x10^3/uL (0.3-0.8) 05/02/19 05:30 Eos # (Auto) 0.1 x10^3/uL (0.0-0.2) 05/02/19 05:30 Baso # (Auto) 0.1 X10^3/uL (0.0-0.1) 05/02/19 05:30 Absolute Nucleated RBC 0.0 /100WBC 05/02/19 05:30 PT 13.9 SECONDS (11.8-14.3) 05/01/19 16:31 INR Target Range - 05/01/19 16:31 INR 1.11 (0.8-1.3) 05/01/19 16:31 APTT 29.6 SECONDS (22.9-36.5) 05/01/19 16:31 PTT Comment - 05/01/19 16:31 Sodium 141 mmol/L (136-145) 05/02/19 05:30 Corrected Sodium TNP 05/02/19 05:30 Potassium 3.8 mmol/L (3.5-5.1) 05/02/19 05:30 Chloride 107 mmol/L (98-107) 05/02/19 05:30 Carbon Dioxide 27.2 mmol/L (21-32) 05/02/19 05:30 BUN 20 mg/dL (7-18) H 05/02/19 05:30 Creatinine 1.93 mg/dL (0.55-1.02) H 05/02/19 05:30 Est GFR (MDRD) Af Amer 36 (>60) L 05/02/19 05:30 Est GFR (MDRD) Non-Af 30 (>60) L 05/02/19 05:30 Glucose 93 mg/dL (65-99) 05/02/19 05:30 POC Glucose (mg/dL) 98 mg/dL (65-99) 05/02/19 05:14 Calcium 7.7 mg/dL (8.5-10.1) L 05/02/19 05:30 Corrected Calcium 8.4 mg/dL (8.5-10.1) L 05/02/19 05:30 Total Bilirubin 0.30 mg/dL (0.2-1.0) 05/02/19 05:30 AST 15 Units/L (15-37) 05/02/19 05:30 ALT 13 Units/L (12-78) 05/02/19 05:30 Alkaline Phosphatase 92 Units/L (46-116) 05/02/19 05:30 Creatine Kinase 438 Units/L (26-192) H 05/02/19 05:30 CK-MB (CK-2) 3.4 ng/mL (0-4.0) 05/02/19 05:30 CK/CKMB % Calc 0.8 % (<4) 05/02/19 05:30 Troponin I < 0.02 ng/mL (0-1.5) 05/02/19 05:30 Total Protein 6.2 g/dL (6.4-8.2) L 05/02/19 05:30 Albumin 3.1 g/dL (3.4-5.0) L 05/02/19 05:30 Globulin 3.1 g/dL (2.5-4.5) 05/02/19 05:30 Albumin/Globulin Ratio 1.0 Ratio (1.1-2.1) L 05/02/19 05:30 Amylase 23 Units/L (25-115) L 05/01/19 16:31 Lipase 54 Units/L (73-393) L 05/01/19 16:31 HCG, Qual Negative <10 mIU/mL 05/01/19 16:31 Specimen Type Catherized urine 05/01/19 18:48 Urine Color Dark yellow (YELLOW) 05/01/19 18:48 Urine Appearance Hazy (CLEAR) 05/01/19 18:48 Urine pH 5.0 (5.0 - 8.0) 05/01/19 18:48 Ur Specific [place] 1.025 (1.000-1.030) 05/01/19 18:48 Urine Protein 2+ (NEGATIVE) 05/01/19 18:48 Urine Glucose (UA) Negative (NEGATIVE) 05/01/19 18:48 Urine Ketones 1+ (NEGATIVE) 05/01/19 18:48 Urine Occult Blood 1+ (NEGATIVE) 05/01/19 18:48 Urine Nitrite Negative (NEGATIVE) 05/01/19 18:48 Urine Bilirubin 2+ (NEGATIVE) 05/01/19 18:48 Urine Urobilinogen 1+ (NORMAL) 05/01/19 18:48 Ur Leukocyte Esterase 1+ (NEGATIVE) 05/01/19 18:48 Urine RBC 0-2 /HPF (0-3) 05/01/19 18:48 Urine WBC 0-2 /HPF (0-5) 05/01/19 18:48 Ur Squamous Epith Cells Many /HPF (NEGATIVE) 05/01/19 18:48 Urine Bacteria Trace /HPF (NEGATIVE) 05/01/19 18:48 Ur Culture Indicated? No/not indicated 05/01/19 18:48 Salicylates 4.2 mg/dL (2.8-20) 05/01/19 16:31 Urine Opiates Screen Positive (NEG=<300) A 05/01/19 18:48 Urine Methadone Screen Negative (NEG=<300) 05/01/19 18:48 Acetaminophen 6.7 ug/mL (10-30) L 05/01/19 16:31 Ur Barbiturates Screen Negative (NEG=<200) 05/01/19 18:48 Ur Phencyclidine Scrn Negative (NEG=<25) 05/01/19 18:48 Ur Amphetamines Screen Positive (NEG=<1000) A 05/01/19 18:48 U Benzodiazepines Scrn Negative (NEG=<200) 05/01/19 18:48 Urine Cocaine Screen Negative (NEG=<300) 05/01/19 18:48 U Marijuana (THC) Screen Negative (NEG=<50) 05/01/19 18:48 Ethyl Alcohol mg/dL < 3 mg/dL (0-19.9) 05/01/19 16:31 Review of Systems Constitutional: Weakness and Malaise Eyes: No Symptoms Reported ENT: No Symptoms Reported Respiratory: No Symptoms Reported Cardiovascular: No Symptoms Reported Gastrointestinal: Nausea, Vomiting and Abdominal Pain Genitourinary: No Symptoms Reported Musculoskeletal: Arm Pain and Leg Pain Skin: No Symptoms Reported Neurological: Weakness, Numbness, Change in Speech and Confusion Physical Exam Vital Signs: Temperature 97.8 F Pulse Rate [Brachial] 92 Pulse Rate 82 Respiratory Rate 22 Blood Pressure [Right Arm] 100/66 Blood Pressure [Left Arm] 119/57 Blood Pressure 133/77 O2 Sat by Pulse Oximetry 99 Oriented: Normal Eyes: Normal Throat: Dry Respiratory: Clear Throughout Cardiovascular: Normal and Edema Auscultation: Bowel Sounds: Normal Palpation: Normal Tenderness: LLQ Skin: Normal Musculoskeletal: Normal Psychiatric: Normal Mood Description: Calm Affect: Normal Speech Pattern: Clear and Appropriate Assessment/Plan (1) Altered mental status: Narrative Support Text: present on admission, mentation improved now. CT- head negative for acute process, consider MRI. Status: Acute Plan: Continue neuro checks, CT-head negative. Could be 2/2 to medications since she is on a combination of opiates, Robaxin, duloxetine and paroxetine. UDS reviewed. Discussed medication interactions. Hx of recurrent TIA's, will order MRI-brain. (2) Drug ingestion: Status: Acute Plan: likely causing lethargy and AMS. Will review home medications. Avoid sedatives (3) Hypotension: Qualifiers: Hypotension type: other hypotension type Qualified Code(s): I95.89 - Other hypotension Status: Acute Plan: likely due to medications and dehydration. Currently on Dopamine drip, titrate to keep MAP 65. Increase IVF to 200cc/hr. Hold anti-hypertensives (4) Acute renal failure (ARF): Qualifiers: Acute renal failure type: unspecified Qualified Code(s): N17.9 - Acute kidney failure, unspecified Status: Acute Plan: likely pre-renal due to dehydration, Cr trending down. Continue IVF. Monitor daily labs. (5) Dehydration: Status: Acute Plan: CK trending down, continue IVF (6) TIA (transient ischemic attack): Status: Acute Plan: Recently admitted last month, Sx resolved. Had recurrent symptoms. CT-head negative. Will order MRI brain, patient has a metal plate in left leg, will need to check if that's compatible with MRI. Recent carotid U/S and echo normal. Contiue neuro checks (7) Nausea & vomiting: Status: Acute Plan: unclear when last BM, will get a KUB to rule out obstruction. If normal, can resume clears as tolerated. Zofran prn (8) Migraine headache with aura: Qualifiers: Intractability: not intractable Status migrainosus presence: without status migrainosus Qualified Code(s): G43.109 - Migraine with aura, not intractable, without status migrainosus Status: Acute (9) Essential hypertension: Status: Chronic (10) Anxiety: Status: Chronic (11) GERD (gastroesophageal reflux disease): Status: Acute Plan: resume home meds Review Patient was examined?: Yes
[2019-05-02 11:50] LABS: CKMB % 0.5 % (<4); CREATINE KINASE 514 Units/L (26-192); CREATINE KINASE MB 2.8 ng/mL (0-4.0); TROPONIN I < 0.02 ng/mL (0-1.5)
[2019-05-02] MEDS: PROTONIX TAB 40 MG PO SCH (12:19)
[2019-05-02] MEDS ORDERED: NORCO 10/325 TAB PO PRN (12:53)
[2019-05-02] MEDS: COLACE CAP 100 MG PO SCH (14:01)
[2019-05-02] MEDS: LYRICA CAP 150 mg PO SCH ×2 (14:01→20:24)
[2019-05-02] MEDS: FLEXERIL TAB 10 MG PO SCH (14:01)
[2019-05-02] MEDS: ZANTAC PO SCH (20:24)
[2019-05-02] MEDS ORDERED: COLACE CAP 100 MG PO SCH (21:00)
[2019-05-03] MEDS: NS 1000 ML 1,000 ML IV SCH ×4 (01:55→17:33)
[2019-05-03 06:37] LABS: BASOPHILS % (AUTO) 0.8 % (0.2-1.0); EOSINOPHILS # (AUTO) 0.1 x10^3/uL (0.0-0.2); EOSINOPHILS % (AUTO) 1.9 % (0.9-2.9); HEMATOCRIT 40.1 % (36.0-47.0); HEMOGLOBIN 13.3 g/dL (12.0-16.0); LYMPHOCYTES # (AUTO) 1.4 X10^3/uL (1.3-2.9); LYMPHOCYTES % (AUTO) 27.7 % (21.0-51.0); MEAN CORPUSCULAR HEMOGLOBIN 33.6 pg (27.0-34.0); MEAN CORPUSCULAR HGB CONC 33.1 g/dL (33.0-35.0); MEAN CORPUSCULAR VOLUME 101.4 fL (80.0-100.0); MEAN PLATELET VOLUME 8.7 fL (7.4-11.0); MONOCYTES # (AUTO) 0.3 x10^3/uL (0.3-0.8); NEUTROPHILS # (AUTO) 3.2 x10^3/uL (2.2-4.8); NEUTROPHILS % (AUTO) 63.6 % (42.0-75.0); PLATELET COUNT 199 X10^3/uL (150.0-450.0); RED BLOOD COUNT 3.95 X10^6/uL (3.5-5.4); RED CELL DISTRIBUTION WIDTH 13.6 % (11.6-16.5)
[2019-05-03 06:58] LABS: ALANINE AMINOTRANSFERASE 14 Units/L (12-78); ALBUMIN 2.4 g/dL (3.4-5.0); ALKALINE PHOSPHATASE 82 Units/L (46-116); ASPARTATE AMINO TRANSFERASE 15 Units/L (15-37); BLOOD UREA NITROGEN 8 mg/dL (7-18); CALCIUM 7.5 mg/dL (8.5-10.1); CARBON DIOXIDE 22.2 mmol/L (21-32); CHLORIDE 110 mmol/L (98-107); COR CA(FOR HYPOALB) 8.8 mg/dL (8.5-10.1); CREATININE 0.79 mg/dL (0.55-1.02); SODIUM 142 mmol/L (136-145); TOTAL PROTEIN 5.4 g/dL (6.4-8.2); eGFR NON BLACK RACES > 60 (>60)
[2019-05-03] MEDS ORDERED: MICRO K EXTEN CAP 10 MEQ PO PRN (07:43)
[2019-05-03] MEDS ORDERED: KLOR-CON PO PRN (07:43)
[2019-05-03] MEDS ORDERED: POTASSIUM CHLORIDE LIQ 20 MEQ UDC PO PRN (07:43)
[2019-05-03] MEDS ORDERED: POTASSIUM CHL 60 MEQ/NS 0.45% 500 ML IV PRN (07:43)
[2019-05-03] MEDS ORDERED: POTASSIUM CHL 40 MEQ/NS 0.45% 500 ML IV PRN (07:43)
[2019-05-03] MEDS ORDERED: K-RIDER 10 MEQ/NS 100 ML 10 MEQ/100 ML BAG IV PRN (07:43)
[2019-05-03] MEDS: TOPAMAX PO SCH ×2 (09:18→20:06)
[2019-05-03] MEDS: PROTONIX TAB 40 MG PO SCH (09:19)
[2019-05-03] MEDS: LYRICA CAP 150 mg PO SCH ×2 (09:19→20:05)
[2019-05-03] MEDS: ASPIRIN 81 MG CHEWTAB PO SCH (09:19)
[2019-05-03] MEDS: PAXIL PO SCH (09:19)
[2019-05-03] MEDS: MAG-OX TAB PO SCH (09:19)
[2019-05-03] MEDS: FLEXERIL TAB 10 MG PO SCH (09:19)
[2019-05-03] MEDS: LIPITOR TAB 40 MG PO SCH (09:19)
[2019-05-03] MEDS: COLACE CAP 100 MG PO SCH (09:19)
[2019-05-03] MEDS: K-DUR TAB 20 MEQ PO PRN ×2 (09:20→14:47)
--- NOTE | 2019-05-03 10:16 | PCM.PROG ---
Progress Note Progress Note for Day of Date of Exam: 05/03/19 Subjective Subjective: Patient reports feeling slightly better, still very weak. She wants to eat. Dopamine drip stopped last night, BP stable. She is alert and oriented. KUB yesterday showed ileus. She has been NPO except ice chips. K and Mg low this AM. Patient's lorcet held since admission due to ileus. Past Medical Family Social History Past Med/Fam/Surg Hx: No changes since H&P Allergies: Allergies No Known Drug Allergies Allergy (Verified 01/26/19 13:22) Review of Systems ROS: No change since H&P Vital Signs and I&O's Vital Signs: Temperature 97.8 F Pulse Rate [Brachial] 92 Pulse Rate 89 Respiratory Rate 15 Blood Pressure [Right Arm] 100/66 Blood Pressure [Left Arm] 119/57 Blood Pressure 147/93 O2 Sat by Pulse Oximetry 100 Intake and Output: Intake & Output 04/30/19 05/01/19 05/02/19 05/03/19 23:59 23:59 23:59 23:59 Intake Total 3964 / 3964 1172 / 1172 Output Total 2450 / 2450 800 / 800 Balance 1514 / 1514 372 / 372 Physical Exam Oriented: Normal Eyes: Normal Throat: Dry Respiratory: Normal Cardiovascular: Normal and Edema Auscultation: Bowel Sounds: Normal Tenderness: LLQ Skin: Normal Musculoskeletal: Normal Psychiatric: Normal Mood Description: Calm Affect: Normal Speech Pattern: Clear and Appropriate Laboratory and Diagnostics Result Diagrams: 05/03/19 05:27 05/03/19 05:27 Labs: Laboratory WBC 5.0 X10^3/uL (3.6-10.0) 05/03/19 05:27 RBC 3.95 X10^6/uL (3.5-5.4) 05/03/19 05:27 Hgb 13.3 g/dL (12.0-16.0) 05/03/19 05:27 Hct 40.1 % (36.0-47.0) 05/03/19 05:27 MCV 101.4 fL (80.0-100.0) H 05/03/19 05:27 MCH 33.6 pg (27.0-34.0) 05/03/19 05:27 MCHC 33.1 g/dL (33.0-35.0) 05/03/19 05:27 RDW 13.6 % (11.6-16.5) 05/03/19 05:27 Plt Count 199 X10^3/uL (150.0-450.0) 05/03/19 05:27 MPV 8.7 fL (7.4-11.0) 05/03/19 05:27 Neut % (Auto) 63.6 % (42.0-75.0) 05/03/19 05:27 Lymph % (Auto) 27.7 % (21.0-51.0) 05/03/19 05:27 [place] % (Auto) 6.0 % (0.0-13.0) 05/03/19 05:27 Eos % (Auto) 1.9 % (0.9-2.9) 05/03/19 05:27 Baso % (Auto) 0.8 % (0.2-1.0) 05/03/19 05:27 Neut # (Auto) 3.2 x10^3/uL (2.2-4.8) 05/03/19 05:27 Lymph # (Auto) 1.4 X10^3/uL (1.3-2.9) 05/03/19 05:27 [place] # (Auto) 0.3 x10^3/uL (0.3-0.8) 05/03/19 05:27 Eos # (Auto) 0.1 x10^3/uL (0.0-0.2) 05/03/19 05:27 Baso # (Auto) 0.0 X10^3/uL (0.0-0.1) 05/03/19 05:27 Absolute Nucleated RBC 0.0 /100WBC 05/03/19 05:27 PT 13.9 SECONDS (11.8-14.3) 05/01/19 16:31 INR Target Range - 05/01/19 16:31 INR 1.11 (0.8-1.3) 05/01/19 16:31 APTT 29.6 SECONDS (22.9-36.5) 05/01/19 16:31 PTT Comment - 05/01/19 16:31 Sodium 142 mmol/L (136-145) 05/03/19 05:27 Corrected Sodium TNP 05/03/19 05:27 Potassium 3.2 mmol/L (3.5-5.1) L 05/03/19 05:27 Chloride 110 mmol/L (98-107) H 05/03/19 05:27 Carbon Dioxide 22.2 mmol/L (21-32) 05/03/19 05:27 BUN 8 mg/dL (7-18) 05/03/19 05:27 Creatinine 0.79 mg/dL (0.55-1.02) 05/03/19 05:27 Est GFR (MDRD) Af Amer > 60 (>60) 05/03/19 05:27 Est GFR (MDRD) Non-Af > 60 (>60) 05/03/19 05:27 Glucose 65 mg/dL (65-99) 05/03/19 05:27 POC Glucose (mg/dL) 66 mg/dL (65-99) 05/03/19 09:26 Calcium 7.5 mg/dL (8.5-10.1) L 05/03/19 05:27 Corrected Calcium 8.8 mg/dL (8.5-10.1) 05/03/19 05:27 Magnesium 1.6 mg/dL (1.7-2.9) L 05/03/19 05:27 Total Bilirubin 0.40 mg/dL (0.2-1.0) 05/03/19 05:27 AST 15 Units/L (15-37) 05/03/19 05:27 ALT 14 Units/L (12-78) 05/03/19 05:27 Alkaline Phosphatase 82 Units/L (46-116) 05/03/19 05:27 Creatine Kinase 514 Units/L (26-192) H 05/02/19 11:11 CK-MB (CK-2) 2.8 ng/mL (0-4.0) 05/02/19 11:11 CK/CKMB % Calc 0.5 % (<4) 05/02/19 11:11 Troponin I < 0.02 ng/mL (0-1.5) 05/02/19 11:11 Total Protein 5.4 g/dL (6.4-8.2) L 05/03/19 05:27 Albumin 2.4 g/dL (3.4-5.0) L 05/03/19 05:27 Globulin 3.0 g/dL (2.5-4.5) 05/03/19 05:27 Albumin/Globulin Ratio 0.8 Ratio (1.1-2.1) L 05/03/19 05:27 Amylase 23 Units/L (25-115) L 05/01/19 16:31 Lipase 54 Units/L (73-393) L 05/01/19 16:31 HCG, Qual Negative <10 mIU/mL 05/01/19 16:31 Specimen Type Catherized urine 05/01/19 18:48 Urine Color Dark yellow (YELLOW) 05/01/19 18:48 Urine Appearance Hazy (CLEAR) 05/01/19 18:48 Urine pH 5.0 (5.0 - 8.0) 05/01/19 18:48 Ur Specific [place] 1.025 (1.000-1.030) 05/01/19 18:48 Urine Protein 2+ (NEGATIVE) 05/01/19 18:48 Urine Glucose (UA) Negative (NEGATIVE) 05/01/19 18:48 Urine Ketones 1+ (NEGATIVE) 05/01/19 18:48 Urine Occult Blood 1+ (NEGATIVE) 05/01/19 18:48 Urine Nitrite Negative (NEGATIVE) 05/01/19 18:48 Urine Bilirubin 2+ (NEGATIVE) 05/01/19 18:48 Urine Urobilinogen 1+ (NORMAL) 05/01/19 18:48 Ur Leukocyte Esterase 1+ (NEGATIVE) 05/01/19 18:48 Urine RBC 0-2 /HPF (0-3) 05/01/19 18:48 Urine WBC 0-2 /HPF (0-5) 05/01/19 18:48 Ur Squamous Epith Cells Many /HPF (NEGATIVE) 05/01/19 18:48 Urine Bacteria Trace /HPF (NEGATIVE) 05/01/19 18:48 Ur Culture Indicated? No/not indicated 05/01/19 18:48 Salicylates 4.2 mg/dL (2.8-20) 05/01/19 16:31 Urine Opiates Screen Positive (NEG=<300) A 05/01/19 18:48 Urine Methadone Screen Negative (NEG=<300) 05/01/19 18:48 Acetaminophen 6.7 ug/mL (10-30) L 11/08/19 16:31 Ur Barbiturates Screen Negative (NEG=<200) 05/01/19 18:48 Ur Phencyclidine Scrn Negative (NEG=<25) 05/01/19 18:48 Ur Amphetamines Screen Positive (NEG=<1000) A 05/01/19 18:48 U Benzodiazepines Scrn Negative (NEG=<200) 05/01/19 18:48 Urine Cocaine Screen Negative (NEG=<300) 05/01/19 18:48 U Marijuana (THC) Screen Negative (NEG=<50) 05/01/19 18:48 Ethyl Alcohol mg/dL < 3 mg/dL (0-19.9) 05/01/19 16:31 Plan (1) Ileus: Status: Acute Plan: likely due to opioids. Repeat KUB today, keep NPO until resolves. Good bowel sounds. No BM yet. (2) Altered mental status: Status: Acute Plan: Resolved, CT-head negative. Could be 2/2 to medications since she is on a combination of opiates, Robaxin, duloxetine and paroxetine. UDS reviewed. Discussed medication interactions. Hx of recurrent TIA's, needs MRI-brain. (3) Drug ingestion: Status: Acute Plan: likely causing lethargy and AMS. Avoid sedatives (4) Hypotension: Status: Acute Qualifiers: Hypotension type: other hypotension type Qualified Code(s): I95.89 - Other hypotension Plan: likely due to medications and dehydration. Resolved, continue gentle hydration while NPO. Hold anti-hypertensives (5) Acute renal failure (ARF): Status: Acute Qualifiers: Acute renal failure type: unspecified Qualified Code(s): N17.9 - Acute kidney failure, unspecified Plan: likely pre-renal due to dehydration, Resolved. Continue gentle hydration. (6) Dehydration: Status: Acute Plan: CK trending down, continue IVF , decrease to 100cc/hr (7) TIA (transient ischemic attack): Status: Acute Plan: Recently admitted last month, Sx resolved. Had recurrent symptoms. CT-head negative. Will order MRI brain, patient has a metal plate in left leg, will need to check if that's compatible with MRI. Recent carotid U/S and echo normal. Continue asa, statin. Contiue neuro checks (8) Migraine headache with aura: Status: Acute Qualifiers: Status migrainosus presence: without status migrainosus Intractability: not intractable Qualified Code(s): G43.109 - Migraine with aura, not intractable, without status migrainosus Plan: resume Topamax (9) Essential hypertension: Status: Chronic Plan: anti-hypertensives on hold due to dehydration and hypotension on admission (10) Anxiety: Status: Chronic (11) GERD (gastroesophageal reflux disease): Status: Acute Plan: resume home meds (12) Hypokalemia: Status: Acute Plan: K:3.2, replace as per protocol. (13) Hypomagnesemia: Status: Acute Plan: M.6, replace as per protocol.
--- NOTE | 2019-05-03 14:07 | RAD ---
HISTORY: Ileus Study: Flat views of the abdomen. Comparison: 05/02/2019 Findings: Evaluation of the abdomen demonstrates a normal bowel gas pattern. No free air. No pathological soft tissue mass or calcification can be observed. The bony structures are grossly intact. IMPRESSION: 1. No evidence for acute abdominal pathology identified. Reported By:
[2019-05-03] MEDS: ZANTAC PO SCH (20:06)
[2019-05-03] MEDS: NORCO 10/325 TAB PO PRN (20:06)
[2019-05-03] MEDS: MILK OF MAGNESIA PO SCH (20:51)
[2019-05-04] MEDS: NS 1000 ML 1,000 ML IV SCH (02:42)
[2019-05-04 06:30] LABS: BASOPHILS % (AUTO) 0.9 % (0.2-1.0); EOSINOPHILS # (AUTO) 0.1 x10^3/uL (0.0-0.2); EOSINOPHILS % (AUTO) 2.1 % (0.9-2.9); HEMATOCRIT 39.1 % (36.0-47.0); HEMOGLOBIN 13.4 g/dL (12.0-16.0); LYMPHOCYTES # (AUTO) 1.6 X10^3/uL (1.3-2.9); LYMPHOCYTES % (AUTO) 30.3 % (21.0-51.0); MEAN CORPUSCULAR HEMOGLOBIN 34.6 pg (27.0-34.0); MEAN CORPUSCULAR HGB CONC 34.3 g/dL (33.0-35.0); MEAN CORPUSCULAR VOLUME 100.8 fL (80.0-100.0); MEAN PLATELET VOLUME 8.3 fL (7.4-11.0); MONOCYTES # (AUTO) 0.4 x10^3/uL (0.3-0.8); MONOCYTES % (AUTO) 7.9 % (0.0-13.0); NEUTROPHILS # (AUTO) 3.1 x10^3/uL (2.2-4.8); NEUTROPHILS % (AUTO) 58.8 % (42.0-75.0); PLATELET COUNT 211 X10^3/uL (150.0-450.0); RED BLOOD COUNT 3.88 X10^6/uL (3.5-5.4); RED CELL DISTRIBUTION WIDTH 13.5 % (11.6-16.5); WHITE BLOOD COUNT 5.2 X10^3/uL (3.6-10.0)
[2019-05-04 06:50] LABS: ALANINE AMINOTRANSFERASE 15 Units/L (12-78); ALBUMIN 2.3 g/dL (3.4-5.0); ALKALINE PHOSPHATASE 87 Units/L (46-116); ASPARTATE AMINO TRANSFERASE 12 Units/L (15-37); BLOOD UREA NITROGEN 5 mg/dL (7-18); CALCIUM 7.5 mg/dL (8.5-10.1); CARBON DIOXIDE 24.4 mmol/L (21-32); CHLORIDE 110 mmol/L (98-107); COR CA(FOR HYPOALB) 8.9 mg/dL (8.5-10.1); CREATININE 0.87 mg/dL (0.55-1.02); MAGNESIUM 1.6 mg/dL (1.7-2.9); SODIUM 143 mmol/L (136-145); TOTAL PROTEIN 5.3 g/dL (6.4-8.2); eGFR NON BLACK RACES > 60 (>60)
[2019-05-04] MEDS: MAG-OX TAB PO SCH (07:47)
[2019-05-04] MEDS ORDERED: MAGNESIUM SULFATE 1 GRAM/100 mL PREMIX 1 GM/100 ML BAG IV ONE (08:01)
[2019-05-04] MEDS: ASPIRIN 81 MG CHEWTAB PO SCH (09:25)
[2019-05-04] MEDS: K-DUR TAB 20 MEQ PO PRN (09:25)
[2019-05-04] MEDS: LYRICA CAP 150 mg PO SCH ×2 (09:25→20:07)
[2019-05-04] MEDS: LIPITOR TAB 40 MG PO SCH (09:25)
[2019-05-04] MEDS: COLACE CAP 100 MG PO SCH (09:25)
[2019-05-04] MEDS: TOPAMAX PO SCH ×2 (09:25→20:07)
[2019-05-04] MEDS: PAXIL PO SCH (09:25)
[2019-05-04] MEDS: PROTONIX TAB 40 MG PO SCH (09:25)
[2019-05-04] MEDS: FLEXERIL TAB 10 MG PO SCH (09:25)
--- NOTE | 2019-05-04 09:25 | PCM.PROG ---
Progress Note Progress Note for Day of Date of Exam: 05/04/19 Subjective Subjective: Patient seen at bedside, reports feeling a lot better. Tolerating diet well with no N/V or abdominal pain. AMS has resolved, no slurred speech. Some right sided weakness, more in the lower leg. Denies fever or chills. Past Medical Family Social History Past Med/Fam/Surg Hx: No changes since H&P Allergies: Allergies No Known Drug Allergies Allergy (Verified 01/26/19 13:22) Review of Systems ROS: No change since H&P Vital Signs and I&O's Vital Signs: Temperature 97.5 F Pulse Rate [Brachial] 92 Pulse Rate 88 Respiratory Rate 15 Blood Pressure [Right Arm] 100/66 Blood Pressure [Left Arm] 119/57 Blood Pressure 112/61 O2 Sat by Pulse Oximetry 98 Intake and Output: Intake & Output 05/01/19 05/02/19 05/03/19 05/04/19 23:59 23:59 23:59 23:59 Intake Total 3964 / 3964 3913 / 3913 919 / 919 Output Total 2450 / 2450 2800 / 2800 700 / 700 Balance 1514 / 1514 1113 / 1113 219 / 219 Physical Exam Oriented: Normal Eyes: Normal Throat: Normal Respiratory: Normal Cardiovascular: Normal and Edema Auscultation: Bowel Sounds: Normal Tenderness: Normal Skin: Normal Musculoskeletal: Right and Leg (right leg weakness, left motor strength normal, UE b/l 5/5 ) Psychiatric: Normal Mood Description: Calm Affect: Normal Speech Pattern: Clear and Appropriate Laboratory and Diagnostics Result Diagrams: 05/04/19 05:28 05/04/19 05:28 Labs: Laboratory WBC 5.2 X10^3/uL (3.6-10.0) 05/04/19 05:28 RBC 3.88 X10^6/uL (3.5-5.4) 05/04/19 05:28 Hgb 13.4 g/dL (12.0-16.0) 05/04/19 05:28 Hct 39.1 % (36.0-47.0) 05/04/19 05:28 MCV 100.8 fL (80.0-100.0) H 05/04/19 05:28 MCH 34.6 pg (27.0-34.0) H 05/04/19 05:28 MCHC 34.3 g/dL (33.0-35.0) 05/04/19 05:28 RDW 13.5 % (11.6-16.5) 05/04/19 05:28 Plt Count 211 X10^3/uL (150.0-450.0) 05/04/19 05:28 MPV 8.3 fL (7.4-11.0) 05/04/19 05:28 Neut % (Auto) 58.8 % (42.0-75.0) 05/04/19 05:28 Lymph % (Auto) 30.3 % (21.0-51.0) 05/04/19 05:28 [place] % (Auto) 7.9 % (0.0-13.0) 05/04/19 05:28 Eos % (Auto) 2.1 % (0.9-2.9) 05/04/19 05:28 Baso % (Auto) 0.9 % (0.2-1.0) 05/04/19 05:28 Neut # (Auto) 3.1 x10^3/uL (2.2-4.8) 05/04/19 05:28 Lymph # (Auto) 1.6 X10^3/uL (1.3-2.9) 05/04/19 05:28 [place] # (Auto) 0.4 x10^3/uL (0.3-0.8) 05/04/19 05:28 Eos # (Auto) 0.1 x10^3/uL (0.0-0.2) 05/04/19 05:28 Baso # (Auto) 0.0 X10^3/uL (0.0-0.1) 05/04/19 05:28 Absolute Nucleated RBC 0.1 /100WBC 05/04/19 05:28 PT 13.9 SECONDS (11.8-14.3) 05/01/19 16:31 INR Target Range - 05/01/19 16:31 INR 1.11 (0.8-1.3) 05/01/19 16:31 APTT 29.6 SECONDS (22.9-36.5) 05/01/19 16:31 PTT Comment - 05/01/19 16:31 Sodium 143 mmol/L (136-145) 05/04/19 05:28 Corrected Sodium TNP 05/04/19 05:28 Potassium 3.6 mmol/L (3.5-5.1) 05/04/19 05:28 Chloride 110 mmol/L (98-107) H 05/04/19 05:28 Carbon Dioxide 24.4 mmol/L (21-32) 05/04/19 05:28 BUN 5 mg/dL (7-18) L 05/04/19 05:28 Creatinine 0.87 mg/dL (0.55-1.02) 05/04/19 05:28 Est GFR (MDRD) Af Amer > 60 (>60) 05/04/19 05:28 Est GFR (MDRD) Non-Af > 60 (>60) 05/04/19 05:28 Glucose 106 mg/dL (65-99) H 05/04/19 05:28 POC Glucose (mg/dL) 66 mg/dL (65-99) 05/03/19 09:26 Calcium 7.5 mg/dL (8.5-10.1) L 05/04/19 05:28 Corrected Calcium 8.9 mg/dL (8.5-10.1) 05/04/19 05:28 Magnesium 1.6 mg/dL (1.7-2.9) L 05/04/19 05:28 Total Bilirubin 0.20 mg/dL (0.2-1.0) 05/04/19 05:28 AST 12 Units/L (15-37) L 05/04/19 05:28 ALT 15 Units/L (12-78) 05/04/19 05:28 Alkaline Phosphatase 87 Units/L (46-116) 05/04/19 05:28 Creatine Kinase 514 Units/L (26-192) H 05/02/19 11:11 CK-MB (CK-2) 2.8 ng/mL (0-4.0) 05/02/19 11:11 CK/CKMB % Calc 0.5 % (<4) 05/02/19 11:11 Troponin I < 0.02 ng/mL (0-1.5) 05/02/19 11:11 Total Protein 5.3 g/dL (6.4-8.2) L 05/04/19 05:28 Albumin 2.3 g/dL (3.4-5.0) L 05/04/19 05:28 Globulin 3.0 g/dL (2.5-4.5) 05/04/19 05:28 Albumin/Globulin Ratio 0.8 Ratio (1.1-2.1) L 05/04/19 05:28 Amylase 23 Units/L (25-115) L 05/01/19 16:31 Lipase 54 Units/L (73-393) L 05/01/19 16:31 HCG, Qual Negative <10 mIU/mL 05/01/19 16:31 Specimen Type Catherized urine 05/01/19 18:48 Urine Color Dark yellow (YELLOW) 05/01/19 18:48 Urine Appearance Hazy (CLEAR) 05/01/19 18:48 Urine pH 5.0 (5.0 - 8.0) 05/01/19 18:48 Ur Specific [place] 1.025 (1.000-1.030) 05/01/19 18:48 Urine Protein 2+ (NEGATIVE) 05/01/19 18:48 Urine Glucose (UA) Negative (NEGATIVE) 05/01/19 18:48 Urine Ketones 1+ (NEGATIVE) 05/01/19 18:48 Urine Occult Blood 1+ (NEGATIVE) 05/01/19 18:48 Urine Nitrite Negative (NEGATIVE) 05/01/19 18:48 Urine Bilirubin 2+ (NEGATIVE) 05/01/19 18:48 Urine Urobilinogen 1+ (NORMAL) 05/01/19 18:48 Ur Leukocyte Esterase 1+ (NEGATIVE) 05/01/19 18:48 Urine RBC 0-2 /HPF (0-3) 05/01/19 18:48 Urine WBC 0-2 /HPF (0-5) 05/01/19 18:48 Ur Squamous Epith Cells Many /HPF (NEGATIVE) 05/01/19 18:48 Urine Bacteria Trace /HPF (NEGATIVE) 05/01/19 18:48 Ur Culture Indicated? No/not indicated 05/01/19 18:48 Salicylates 4.2 mg/dL (2.8-20) 05/01/19 16:31 Urine Opiates Screen Positive (NEG=<300) A 05/01/19 18:48 Urine Methadone Screen Negative (NEG=<300) 05/01/19 18:48 Acetaminophen 6.7 ug/mL (10-30) L 05/01/19 16:31 Ur Barbiturates Screen Negative (NEG=<200) 05/01/19 18:48 Ur Phencyclidine Scrn Negative (NEG=<25) 05/01/19 18:48 Ur Amphetamines Screen Positive (NEG=<1000) A 05/01/19 18:48 U Benzodiazepines Scrn Negative (NEG=<200) 05/01/19 18:48 Urine Cocaine Screen Negative (NEG=<300) 05/01/19 18:48 U Marijuana (THC) Screen Negative (NEG=<50) 05/01/19 18:48 Ethyl Alcohol mg/dL < 3 mg/dL (0-19.9) 05/01/19 16:31 Plan (1) Ileus: Status: Acute Plan: KUB yesterday: ileus resolved, tolerating PO intake, advance as tolerated. (2) Altered mental status: Status: Acute Plan: Resolved, CT-head negative. Could be 2/2 to medications since she is on a combination of opiates, Robaxin, duloxetine and paroxetine. UDS reviewed. Discussed medication interactions. Hx of recurrent TIA's, MRI-brain ordered (3) Drug ingestion: Status: Acute Plan: likely causing lethargy and AMS. Avoid sedatives (4) Hypotension: Status: Acute Qualifiers: Hypotension type: other hypotension type Qualified Code(s): I95.89 - Other hypotension Plan: likely due to medications and dehydration. Resolved (5) Acute renal failure (ARF): Status: Acute Qualifiers: Acute renal failure type: unspecified Qualified Code(s): N17.9 - Acute kidney failure, unspecified Plan: likely pre-renal due to dehydration, Resolved. Stop IVF since tolerating PO (6) Dehydration: Status: Acute Plan: Resolved (7) TIA (transient ischemic attack): Status: Acute Plan: Recently admitted last month, Sx resolved. Had recurrent symptoms. CT-head negative. Will order MRI brain, patient has a metal plate in left leg, will need to check if that's compatible with MRI. Recent carotid U/S and echo normal. Continue asa, statin. Mild right sided lower ext weakness (8) Migraine headache with aura: Status: Acute Qualifiers: Status migrainosus presence: without status migrainosus Intractability: not intractable Qualified Code(s): G43.109 - Migraine with aura, not intractable, without status migrainosus Plan: continue Topamax (9) Essential hypertension: Status: Chronic (10) Anxiety: Status: Chronic (11) GERD (gastroesophageal reflux disease): Status: Acute Plan: resume home meds (12) Hypokalemia: Status: Acute Plan: K:3.6, replace as per protocol. (13) Hypomagnesemia: Status: Acute Plan: M.6, replace as per protocol. Will give 1 mg IV now (14) Generalized weakness: Status: Acute Plan: PT consult
[2019-05-04] MEDS: NORCO 10/325 TAB PO PRN ×2 (09:31→20:11)
[2019-05-04] MEDS ORDERED: MILK OF MAGNESIA PO PRN (11:50)
--- NOTE | 2019-05-04 14:48 | MRI ---
HISTORY: Recurrent TIAs Study: MRI of the brain Comparison: CT of the head performed on May 01, 2019 Technique: Multiplanar multi-sequence MRI of the brain was obtained utilizing standard departmental protocol within without IV contrast. Sagittal and axial T1 weighted images were obtained. Axial T2 and flair weighted images were performed as well. Axial diffusion weighted and ADC trace mapping was performed. Findings: The midline structures appear unremarkable. The evaluation of the brain parenchyma demonstrates no abnormal signal characteristics to suggest intraparenchymal mass or hemorrhage. No extra-axial fluid collections are observed. The ventricular system appears symmetric and nondilated. The visualized major intracranial vessel flow voids appear to be maintained. Evaluation of the diffusion weighted imaging does not demonstrate abnormal signal characteristics to suggest acute ischemic change. No definite abnormal enhancing masses are appreciated on the postcontrast images. IMPRESSION: 1. Unremarkable MRI of the brain. Reported By:
[2019-05-04] MEDS ORDERED: NORVASC TAB 5 MG PO SCH (16:00)
[2019-05-04] MEDS: LOVENOX INJ 40 MG SYR SC SCH (17:17)
[2019-05-04] MEDS ORDERED: XANAX PO ONE (19:46)
[2019-05-04] MEDS ORDERED: SNACK - Diabetic Appropriate PO SCH (20:00)
[2019-05-04] MEDS: MILK OF MAGNESIA PO SCH (20:07)
[2019-05-04] MEDS: ZANTAC PO SCH (20:07)
[2019-05-05 05:52] LABS: BASOPHILS % (AUTO) 0.7 % (0.2-1.0); EOSINOPHILS # (AUTO) 0.1 x10^3/uL (0.0-0.2); HEMATOCRIT 40.5 % (36.0-47.0); HEMOGLOBIN 13.6 g/dL (12.0-16.0); LYMPHOCYTES # (AUTO) 1.6 X10^3/uL (1.3-2.9); LYMPHOCYTES % (AUTO) 27.8 % (21.0-51.0); MEAN CORPUSCULAR HEMOGLOBIN 34.4 pg (27.0-34.0); MEAN CORPUSCULAR HGB CONC 33.6 g/dL (33.0-35.0); MEAN CORPUSCULAR VOLUME 102.4 fL (80.0-100.0); MEAN PLATELET VOLUME 8.7 fL (7.4-11.0); MONOCYTES # (AUTO) 0.4 x10^3/uL (0.3-0.8); MONOCYTES % (AUTO) 7.6 % (0.0-13.0); NEUTROPHILS # (AUTO) 3.5 x10^3/uL (2.2-4.8); NEUTROPHILS % (AUTO) 61.9 % (42.0-75.0); PLATELET COUNT 213 X10^3/uL (150.0-450.0); RED BLOOD COUNT 3.95 X10^6/uL (3.5-5.4); RED CELL DISTRIBUTION WIDTH 14.1 % (11.6-16.5); WHITE BLOOD COUNT 5.7 X10^3/uL (3.6-10.0)
[2019-05-05 05:57] LABS: BLOOD UREA NITROGEN 4 mg/dL (7-18); CARBON DIOXIDE 24.3 mmol/L (21-32); CHLORIDE 111 mmol/L (98-107); COR NA(FOR HYPERGLY) 143 mmol/L (136-145); CREATININE 0.87 mg/dL (0.55-1.02); MAGNESIUM 1.9 mg/dL (1.7-2.9); SODIUM 143 mmol/L (136-145); eGFR NON BLACK RACES > 60 (>60)
[2019-05-05] MEDS: MAG-OX TAB PO SCH (06:07)
[2019-05-05] MEDS: LIPITOR TAB 40 MG PO SCH (08:27)
[2019-05-05] MEDS: NORVASC TAB 5 MG PO SCH ×2 (08:27→10:44)
[2019-05-05] MEDS: PROTONIX TAB 40 MG PO SCH (08:27)
[2019-05-05] MEDS: COLACE CAP 100 MG PO SCH (08:27)
[2019-05-05] MEDS: LOVENOX INJ 40 MG SYR SC SCH (08:28)
[2019-05-05] MEDS: FLEXERIL TAB 10 MG PO SCH (08:28)
[2019-05-05] MEDS: TOPAMAX PO SCH (08:28)
[2019-05-05] MEDS: ASPIRIN 81 MG CHEWTAB PO SCH (08:28)
[2019-05-05] MEDS: LYRICA CAP 150 mg PO SCH (08:28)
[2019-05-05] MEDS: PAXIL PO SCH (08:28)
[2019-05-05] MEDS: NORCO 10/325 TAB PO PRN (08:32)
[2019-05-05 09:11] VITALS: BP 133/78
--- NOTE | 2019-05-05 10:12 | W.DIS.FURT ---
Summary of Discharge Discharge Summary of Date Date of Exam: 05/05/19 Admission Date Date of Admission: 05/01/19 Admission Diagnosis Patient Problems (Updated 05/05/19 @ 10:04 by Cristina Al) Generalized weakness (Acute) R53.1 Hypomagnesemia (Acute) E83.42 Hypokalemia (Acute) E87.6 Ileus (Acute) K56.7 Nausea & vomiting (Acute) R11.2 Dehydration (Acute) E86.0 Altered mental status (Acute) R41.82 Drug ingestion (Acute) Hypotension (Acute) I95.9 Acute renal failure (ARF) (Acute) N17.9 Essential hypertension (Chronic) I10 Hospital Course: Ms. Ivey is a 48y/o female presented with lethargy and unresponsiveness. She was here last month for TIA with negative CT-head, echo and carotid U/S. Son reports patient has been weak since then, having dizzy spells and falls. The day of admission, he noticed her having stroke like symptoms similar to her TIA which included right sided weakness, facial numbness and slurred speech. Patient was very drowsy and lethargic on admission, only responsive to painful stimuli. Her BP was very low, did not respond to IVF therefore she was started on Dopamine drip. She also had acute renal failure due to dehydration. Patient takes a combination of medications which includes opiates, muscle relaxants, mood stabilizers. UDS was positive for opiates and amphetamines. Patient denies overdosing on her medications or taking more than usual. Patient's son does take Adderall but reports no mix up in medications. Patient was monitored closely in ICU, normal saline was increased and patient was weaned off dopamine drip. Her medications were held due to being lethargic. Renal function normalized with IVF. Her mentation improved and she was alert and oriented the next day. CT-head was negative on admission, MRI was done which was also normal. Patient was also having some nausea, abdominal pain and vomiting prior to admission, no BM. KUB showed ileus therefore she was kept NPO for one day and ileus resolved the next day. This was likely due to her being on naroctics. Patient also had elevated blood pressure, amlodipine was started. Patient's symptoms likely a combination of elevated blood pressure and medication interactions. Discussed in detail to review medications with PCP and discontinue multiple muscle relaxants as they can be contributing to her dizziness. PT was also consulted and patient was able to ambulate. Patient stable for discharge with PCP follow up in 1 week. Vital Signs: Vital Signs (72 hours) 05/02/19 11:00 05/02/19 12:00 05/02/19 13:00 Temperature 98.3 F Pulse Rate 84 83 82 Respiratory Rate 23 12 14 Blood Pressure 131/72 125/81 139/80 O2 Sat by Pulse Oximetry 100 98 100 05/02/19 14:00 05/02/19 15:00 05/02/19 16:00 Temperature 97.6 F Pulse Rate 86 81 84 Respiratory Rate 18 20 20 Blood Pressure 118/58 111/56 106/57 O2 Sat by Pulse Oximetry 100 100 100 05/02/19 17:00 05/02/19 18:00 05/02/19 19:00 Temperature 97.6 F Pulse Rate 69 71 82 Respiratory Rate 12 13 18 Blood Pressure 117/62 119/66 130/86 O2 Sat by Pulse Oximetry 100 100 93 L 05/02/19 19:49 05/02/19 20:00 05/02/19 20:30 Temperature Pulse Rate 75 75 79 Respiratory Rate 9 L 9 L 9 L Blood Pressure 121/66 121/62 125/69 O2 Sat by Pulse Oximetry 99 99 100 05/02/19 21:11 05/02/19 21:13 05/02/19 21:31 Temperature Pulse Rate 87 86 83 Respiratory Rate 12 11 L 25 H Blood Pressure 140/61 95/67 O2 Sat by Pulse Oximetry 99 99 100 05/02/19 22:00 05/02/19 22:01 05/02/19 22:39 Temperature 97.9 F Pulse Rate 82 83 81 Respiratory Rate 10 L 11 L 10 L Blood Pressure 114/55 116/58 O2 Sat by Pulse Oximetry 99 99 100 05/02/19 23:00 05/02/19 23:30 05/03/19 00:00 Temperature Pulse Rate 85 81 83 Respiratory Rate 10 L 10 L 15 Blood Pressure 115/68 124/66 O2 Sat by Pulse Oximetry 100 100 99 05/03/19 00:01 05/03/19 00:30 05/03/19 01:00 Temperature Pulse Rate 82 96 H 84 Respiratory Rate 11 L 12 19 Blood Pressure 107/57 126/80 129/72 O2 Sat by Pulse Oximetry 99 99 100 05/03/19 01:30 05/03/19 02:00 05/03/19 03:00 Temperature Pulse Rate 86 84 84 Respiratory Rate 19 20 12 Blood Pressure 132/78 127/74 141/74 O2 Sat by Pulse Oximetry 99 99 99 05/03/19 04:00 05/03/19 05:00 05/03/19 06:00 Temperature 98 F Pulse Rate 91 H 95 H 104 H Respiratory Rate 15 13 15 Blood Pressure 136/84 132/86 188/92 O2 Sat by Pulse Oximetry 100 97 97 05/03/19 06:08 05/03/19 07:00 05/03/19 08:00 Temperature 97.8 F Pulse Rate 104 H 101 H 96 H Respiratory Rate 15 20 13 Blood Pressure 157/94 142/89 148/91 O2 Sat by Pulse Oximetry 98 99 99 05/03/19 09:00 05/03/19 10:00 05/03/19 11:00 Temperature Pulse Rate 102 H 89 92 H Respiratory Rate 13 15 14 Blood Pressure 152/78 147/93 146/77 O2 Sat by Pulse Oximetry 100 100 99 05/03/19 12:00 05/03/19 13:00 05/03/19 14:00 Temperature 99.6 F Pulse Rate 80 95 H 80 Respiratory Rate 19 22 17 Blood Pressure 147/70 133/89 150/70 O2 Sat by Pulse Oximetry 97 100 95 05/03/19 15:00 05/03/19 16:00 05/03/19 17:00 Temperature 98.9 F Pulse Rate 80 103 H 91 H Respiratory Rate 17 20 12 Blood Pressure 179/74 157/92 138/77 O2 Sat by Pulse Oximetry 100 100 100 05/03/19 18:00 05/03/19 19:00 05/03/19 20:00 Temperature 98.2 F Pulse Rate 107 H 124 H 114 H Respiratory Rate 19 26 H 19 Blood Pressure 145/87 156/82 O2 Sat by Pulse Oximetry 99 99 100 05/03/19 20:01 05/03/19 20:06 05/03/19 20:08 Temperature Pulse Rate 115 H 118 H Respiratory Rate 14 12 15 Blood Pressure 191/71 137/89 O2 Sat by Pulse Oximetry 100 100 05/03/19 21:00 05/03/19 21:06 05/03/19 22:00 Temperature Pulse Rate 118 H 118 H Respiratory Rate 13 16 15 Blood Pressure 135/75 141/83 O2 Sat by Pulse Oximetry 96 96 05/03/19 23:00 05/03/19 23:04 05/03/19 23:10 Temperature 98.2 F Pulse Rate 123 H 122 H 121 H Respiratory Rate 15 20 26 H Blood Pressure 155/108 149/105 135/92 O2 Sat by Pulse Oximetry 96 97 96 05/04/19 00:00 05/04/19 01:00 05/04/19 02:00 Temperature Pulse Rate 109 H 110 H 99 H Respiratory Rate 15 12 12 Blood Pressure 110/70 120/73 121/71 O2 Sat by Pulse Oximetry 96 100 100 05/04/19 03:00 05/04/19 04:00 05/04/19 05:00 Temperature 97.5 F L Pulse Rate 98 H 91 H 90 Respiratory Rate 12 10 L 11 L Blood Pressure 118/74 123/80 130/87 O2 Sat by Pulse Oximetry 97 100 95 05/04/19 06:00 05/04/19 06:01 05/04/19 07:00 Temperature Pulse Rate 89 88 99 H Respiratory Rate 13 15 14 Blood Pressure 112/61 153/83 O2 Sat by Pulse Oximetry 96 98 97 05/04/19 08:00 05/04/19 09:00 05/04/19 09:31 Temperature 98.2 F Pulse Rate 96 H 96 H Respiratory Rate 15 13 18 Blood Pressure 132/81 149/83 O2 Sat by Pulse Oximetry 100 95 05/04/19 10:00 05/04/19 10:31 05/04/19 11:00 Temperature Pulse Rate 93 H 101 H Respiratory Rate 15 18 20 Blood Pressure 159/72 178/89 O2 Sat by Pulse Oximetry 98 98 05/04/19 12:00 05/04/19 13:00 05/04/19 14:00 Temperature 98.7 F Pulse Rate 99 H 102 H 98 H Respiratory Rate 17 12 12 Blood Pressure 142/91 140/97 162/92 O2 Sat by Pulse Oximetry 96 95 93 L 05/04/19 15:00 05/04/19 16:00 05/04/19 17:00 Temperature 98.1 F Pulse Rate 100 H 98 H 94 H Respiratory Rate 28 H 13 20 Blood Pressure 166/87 140/79 158/95 O2 Sat by Pulse Oximetry 98 94 L 98 05/04/19 18:00 05/04/19 19:00 05/04/19 20:00 Temperature 97.9 F Pulse Rate 96 H 109 H 100 H Respiratory Rate 12 23 22 Blood Pressure 126/81 138/99 145/94 O2 Sat by Pulse Oximetry 97 97 97 05/04/19 20:11 05/04/19 21:00 05/04/19 21:11 Temperature Pulse Rate 86 Respiratory Rate 18 24 18 Blood Pressure 149/72 O2 Sat by Pulse Oximetry 97 05/04/19 22:00 05/04/19 23:00 05/05/19 00:00 Temperature Pulse Rate 95 H 105 H 102 H Respiratory Rate 22 22 23 Blood Pressure 141/74 134/63 137/79 O2 Sat by Pulse Oximetry 97 96 94 L 05/05/19 01:00 05/05/19 02:00 05/05/19 03:00 Temperature Pulse Rate 103 H 98 H 97 H Respiratory Rate 18 16 16 Blood Pressure 148/84 145/98 144/88 O2 Sat by Pulse Oximetry 97 97 97 05/05/19 04:00 05/05/19 05:00 05/05/19 06:00 Temperature Pulse Rate 97 H 95 H 94 H Respiratory Rate 14 14 15 Blood Pressure 152/96 142/85 145/85 O2 Sat by Pulse Oximetry 94 L 95 93 L 05/05/19 07:00 05/05/19 08:00 05/05/19 08:32 Temperature 98.1 F Pulse Rate 96 H 100 H Respiratory Rate 12 16 22 Blood Pressure 148/93 164/90 O2 Sat by Pulse Oximetry 95 95 05/05/19 09:00 05/05/19 09:01 Temperature Pulse Rate 96 H 97 H Respiratory Rate 19 19 Blood Pressure 133/78 O2 Sat by Pulse Oximetry 96 95 Labs: Laboratory Last Values WBC 5.7 X10^3/uL (3.6-10.0) 05/05/19 05:21 RBC 3.95 X10^6/uL (3.5-5.4) 05/05/19 05:21 Hgb 13.6 g/dL (12.0-16.0) 05/05/19 05:21 Hct 40.5 % (36.0-47.0) 05/05/19 05:21 MCV 102.4 fL (80.0-100.0) H 05/05/19 05:21 MCH 34.4 pg (27.0-34.0) H 05/05/19 05:21 MCHC 33.6 g/dL (33.0-35.0) 05/05/19 05:21 RDW 14.1 % (11.6-16.5) 05/05/19 05:21 Plt Count 213 X10^3/uL (150.0-450.0) 05/05/19 05:21 MPV 8.7 fL (7.4-11.0) 05/05/19 05:21 Neut % (Auto) 61.9 % (42.0-75.0) 05/05/19 05:21 Lymph % (Auto) 27.8 % (21.0-51.0) 05/05/19 05:21 [place] % (Auto) 7.6 % (0.0-13.0) 05/05/19 05:21 Eos % (Auto) 2.0 % (0.9-2.9) 05/05/19 05:21 Baso % (Auto) 0.7 % (0.2-1.0) 05/05/19 05:21 Neut # (Auto) 3.5 x10^3/uL (2.2-4.8) 05/05/19 05:21 Lymph # (Auto) 1.6 X10^3/uL (1.3-2.9) 05/05/19 05:21 [place] # (Auto) 0.4 x10^3/uL (0.3-0.8) 05/05/19 05:21 Eos # (Auto) 0.1 x10^3/uL (0.0-0.2) 05/05/19 05:21 Baso # (Auto) 0.0 X10^3/uL (0.0-0.1) 05/05/19 05:21 Absolute Nucleated RBC 0.1 /100WBC 05/05/19 05:21 PT 13.9 SECONDS (11.8-14.3) 05/01/19 16:31 INR Target Range - 05/01/19 16:31 INR 1.11 (0.8-1.3) 05/01/19 16:31 APTT 29.6 SECONDS (22.9-36.5) 05/01/19 16:31 PTT Comment - 05/01/19 16:31 Sodium 143 mmol/L (136-145) 05/05/19 05:21 Corrected Sodium 143 mmol/L (136-145) 05/05/19 05:21 Potassium 3.7 mmol/L (3.5-5.1) 05/05/19 05:21 Chloride 111 mmol/L (98-107) H 05/05/19 05:21 Carbon Dioxide 24.3 mmol/L (21-32) 05/05/19 05:21 BUN 4 mg/dL (7-18) L 05/05/19 05:21 Creatinine 0.87 mg/dL (0.55-1.02) 05/05/19 05:21 Est GFR (MDRD) Af Amer > 60 (>60) 05/05/19 05:21 Est GFR (MDRD) Non-Af > 60 (>60) 05/05/19 05:21 Glucose 118 mg/dL (65-99) H 05/05/19 05:21 POC Glucose (mg/dL) 132 mg/dL (65-99) H 05/04/19 19:53 Calcium 8.0 mg/dL (8.5-10.1) L 05/05/19 05:21 Corrected Calcium 8.9 mg/dL (8.5-10.1) 05/04/19 05:28 Magnesium 1.9 mg/dL (1.7-2.9) 05/05/19 05:21 Total Bilirubin 0.20 mg/dL (0.2-1.0) 05/04/19 05:28 AST 12 Units/L (15-37) L 05/04/19 05:28 ALT 15 Units/L (12-78) 05/04/19 05:28 Alkaline Phosphatase 87 Units/L (46-116) 05/04/19 05:28 Creatine Kinase 514 Units/L (26-192) H 05/02/19 11:11 CK-MB (CK-2) 2.8 ng/mL (0-4.0) 05/02/19 11:11 CK/CKMB % Calc 0.5 % (<4) 05/02/19 11:11 Troponin I < 0.02 ng/mL (0-1.5) 05/02/19 11:11 Total Protein 5.3 g/dL (6.4-8.2) L 05/04/19 05:28 Albumin 2.3 g/dL (3.4-5.0) L 05/04/19 05:28 Globulin 3.0 g/dL (2.5-4.5) 05/04/19 05:28 Albumin/Globulin Ratio 0.8 Ratio (1.1-2.1) L 05/04/19 05:28 Amylase 23 Units/L (25-115) L 05/01/19 16:31 Lipase 54 Units/L (73-393) L 05/01/19 16:31 HCG, Qual Negative <10 mIU/mL 05/01/19 16:31 Specimen Type Catherized urine 05/01/19 18:48 Urine Color Dark yellow (YELLOW) 05/01/19 18:48 Urine Appearance Hazy (CLEAR) 05/01/19 18:48 Urine pH 5.0 (5.0 - 8.0) 05/01/19 18:48 Ur Specific [place] 1.025 (1.000-1.030) 05/01/19 18:48 Urine Protein 2+ (NEGATIVE) 05/01/19 18:48 Urine Glucose (UA) Negative (NEGATIVE) 05/01/19 18:48 Urine Ketones 1+ (NEGATIVE) 05/01/19 18:48 Urine Occult Blood 1+ (NEGATIVE) 05/01/19 18:48 Urine Nitrite Negative (NEGATIVE) 05/01/19 18:48 Urine Bilirubin 2+ (NEGATIVE) 05/01/19 18:48 Urine Urobilinogen 1+ (NORMAL) 05/01/19 18:48 Ur Leukocyte Esterase 1+ (NEGATIVE) 05/01/19 18:48 Urine RBC 0-2 /HPF (0-3) 05/01/19 18:48 Urine WBC 0-2 /HPF (0-5) 05/01/19 18:48 Ur Squamous Epith Cells Many /HPF (NEGATIVE) 05/01/19 18:48 Urine Bacteria Trace /HPF (NEGATIVE) 05/01/19 18:48 Ur Culture Indicated? No/not indicated 05/01/19 18:48 Salicylates 4.2 mg/dL (2.8-20) 05/01/19 16:31 Urine Opiates Screen Positive (NEG=<300) A 05/01/19 18:48 Urine Methadone Screen Negative (NEG=<300) 05/01/19 18:48 Acetaminophen 6.7 ug/mL (10-30) L 05/01/19 16:31 Ur Barbiturates Screen Negative (NEG=<200) 05/01/19 18:48 Ur Phencyclidine Scrn Negative (NEG=<25) 05/01/19 18:48 Ur Amphetamines Screen Positive (NEG=<1000) A 05/01/19 18:48 U Benzodiazepines Scrn Negative (NEG=<200) 05/01/19 18:48 Urine Cocaine Screen Negative (NEG=<300) 05/01/19 18:48 U Marijuana (THC) Screen Negative (NEG=<50) 05/01/19 18:48 Ethyl Alcohol mg/dL < 3 mg/dL (0-19.9) 05/01/19 16:31 Reason For Visit: ALTERED MENTAL STATUS,DRUG INGESTION,HYPOTENSION, Discharge Date Discharge Date: 05/05/19 Discharge Diagnosis All Active Problems (Updated 05/05/19 @ 10:04 by Cristina Al) Generalized weakness (Acute) Hypomagnesemia (Acute) Hypokalemia (Acute) Ileus (Acute) Nausea & vomiting (Acute) GERD (gastroesophageal reflux disease) (Chronic) Dehydration (Acute) Altered mental status (Acute) Drug ingestion (Acute) Hypotension (Acute) Acute renal failure (ARF) (Acute) Depression (Chronic) COPD (chronic obstructive pulmonary disease) (Chronic) Hyperthyroidism (Chronic) Anxiety (Chronic) Essential hypertension (Chronic) Plan of Treatment: Continue with present treatment and follow up plan. Pt is to keep follow up appointment as instructed and take medications as ordered. Discharge Medications Discharge Medications: No Known Drug Allergies Allergy (Verified 01/26/19 13:22) CONTINUE taking the following medications pregabalin [Lyrica] 150 mg PO BID 05/01/19 [History] pantoprazole 20 mg PO BID 05/02/19 [History] topiramate 25 mg PO BID 05/02/19 [History] New Prescriptions amlodipine 10 mg PO DAILY 30 Days #30 tab 05/05/19 [Rx] aspirin 81 mg PO DAILY 30 Days #30 tab 05/05/19 [Rx] atorvastatin 40 mg PO DAILY 30 Days #30 tab 05/05/19 [Rx] cyclobenzaprine 10 mg PO DAILY #0 tab 05/05/19 [Rx] Follow up and Referral Follow Up: 1 Week (Primary care provider ) Discharge Disposition Discharge Disposition: Stable
== END 2019-05-05 12:25 | disposition home or self-care (01) | DRG 948 ==
LOC: ER 16:09 → ICU 22:29
PROVIDERS: ADMIT Family Medicine; ATTEND Family Medicine
CPT/HCPCS: 36415; 51702; 70450; 70553; 71010; 71045; 74000; 74018; 80048; 80053; 80307; 80320; 81001; 82150; 82550; 82553; 83690; 83735; 84132; 84484; 84703; 85025; 85610; 85730; 93005; 96365; 96367; 96374; 96375; 97162; 99285; A4216; A4222; G0434; G6038; G6039; G6040; J1265; J1650; J2310; J3475; J3490; J7030

== ENCOUNTER 2019-12-19 15:44 | Inpatient (IN) ==
[2019-12-19] MEDS ORDERED: NS 1000 ML 1,000 ML IV ONE (16:41)
--- NOTE | 2019-12-19 16:41 | DR.HEADACH ---
HPI Time Seen Time Seen by Provider: 12/19/19 16:08 Primary Care Physician Primary Care Physician: RYAN HPI Comment HPI Comment: Patient with recently dx Stage 4 intestinal CA, not on ANT currently or in the past, presents after 5 minute syncope. She says she felt dizzy before passing out. She c/o mild ROBERTS. Denies any other pain or discomfort, specifically denies fever, chills, SHOB, chest pain or any other symptoms. Son at bedside says she heard her fall, and she was passed out for 5 minutes. No known cardiac hx. Son states his mother, "just isn't acting herself today." Complaint/Symptoms Chief Complaint:: "PASSED OUT AT HOME; I HAD AN ANXIETY ATTACK; IT HAPPENS ALOT" Self Treatment fo Chief Complaint: "MY SON CALLED 911" COVID-19 Coronavirus risk:travel/contact w/high risk person: No Has patient experienced Coronavirus symptoms: No Source History Provided: Patient and Family Member Mode of Arrival Mode of Arrival: EMS Timing Onset of Chief Complaint: 12/18/19 PMH PMH Past Medical History: Yes Past Medical History: Anxiety, Arthritis, Asthma, Depression, Migraines, GERD, Hypertension and Hypothyroidism Past Surgical History: Yes Surgical History: and Ortho Surgery Past Surgical History Comment: LEFT TOTAL KNEE Family History History of Family Medical Conditions: Yes Family Medical History: Diabetes Mellitus, Cancer, PA, Heart Failure and Hypertension Family Medical History Comment: BOTH PARENTS SIDE OF FAMILY Social History Does patient currently use any type of tobacco product: Yes Have you used tobacco products in the last 12 months: Yes Type of Tobacco Use: Cigarettes How many years tobacco product used: 24 Does any household member use tobacco: Yes Alcohol Use: Occasionally Do you use any recreational Drugs:: No Lives With: Family Lives Where: Home Travel Risk Coronavirus risk:travel/contact w/high risk person: No Has patient experienced Coronavirus symptoms: No Infectious screening In the last 2 months have you had wt loss of >10#?: NO Have you had fever, night sweats or hemotysis?: No Have you traveled outside the country in the last 6 months?: No Isolation: Standard ROS Review of Systems Constitutional: No Symptoms Reported Eyes: No Symptoms Reported ENTM: No Symptoms Reported Respiratoy: No Symptoms Reported Cardiovascular: No Symptoms Reported Gastrointestinal/Abdominal: No Symptoms Reported Genitourinary: No Symptoms Reported Neurological: See HPI Musculoskeletal: See HPI Integumentary: No Symptoms Reported Hematologic/Lymphatic: No Symptoms Reported Endocrine: See HPI Psychiatric: See HPI All Other Systems: Reviewed and Negative PE Vital Signs Vitals: Temperature 97.8 F Pulse Rate [Left Brachial] 71 Pulse Rate 70 Respiratory Rate 16 Blood Pressure [Right Arm] 91/53 Blood Pressure 91/53 O2 Sat by Pulse Oximetry 100 General Limitations: No Limitations and Other (AAOx3) General Appearance: Alert, In No Apparent Distress and Appears Intoxicated Head Head Exam: Normal Inspection; negative Atraumatic (Hematoma right occipital area, no lacs or abrasions.) Eyes Eye exam: Normal Appearance Eyelids: Normal Inspection: Bilateral Pupils: Regular, Round: Bilateral Sclera/Conjunctival: Normal Inspection: Bilateral ENT ENT Exam: Mucous Membranes Dry External Ear Exam: Normal External Inspection TM/Canal Exam: Bilateral: Normal Nose Exam: Normal Nose Exam Mouth Exam: Normal Inspection Teeth Exam: Normal Inspection Throat Exam: Normal Inspection Neck Neck Exam: Normal Inspection, Full ROM and Tenderness (midline posterior neck tenderness) Chest Chest Inspection: Normal Inspection Respiratory Respiratory Exam: Normal Lung Sounds Bilat Respiratory Exam: Bilateral: Clear to Auscultation Cardiovascular Cardiovascular Exam: Regular Rate Abdominal Exam Abdominal Exam: Normal Inspection, Normal Bowel Sounds and Soft Extremities Extremities Exam: Normal Inspection Back Back Exam: Normal Inspection Neurologic Neurological Exam: Alert, Oriented X3 and CN II-XII Intact Psychiatric Psychiatric Exam: Normal Affect and Normal Mood Skin Skin Exam: Warm, Dry, Intact and Normal Color COURSE Treatment Treatment: Profound symptomatic hypokalemia, UDS is still pending. Patient is sleepy but easily aroused and AAOx3, no progression while in obs, no advanced airway needed at this time. Spoke with Dr. Aguero and he agreed to admit. ROR Labs Reviewed Result Diagrams: 12/19/19 17:34 12/19/19 17:34 Laboratory: WBC 9.2 X10^3/uL (3.6-10.0) 12/19/19 17:34 RBC 4.14 X10^6/uL (3.5-5.4) 12/19/19 17:34 Hgb 13.1 g/dL (12.0-16.0) 12/19/19 17:34 Hct 38.6 % (36.0-47.0) 12/19/19 17:34 MCV 93.2 fL (80.0-100.0) 12/19/19 17:34 MCH 31.7 pg (27.0-34.0) 12/19/19 17:34 MCHC 34.0 g/dL (33.0-35.0) 12/19/19 17:34 RDW 13.3 % (11.6-16.5) 12/19/19 17:34 Plt Count 310 X10^3/uL (150.0-450.0) 12/19/19 17:34 MPV 8.8 fL (7.4-11.0) 12/19/19 17:34 Neut % (Auto) 60.1 % (42.0-75.0) 12/19/19 17:34 Lymph % (Auto) 27.7 % (21.0-51.0) 12/19/19 17:34 [place] % (Auto) 8.7 % (0.0-13.0) 12/19/19 17:34 Eos % (Auto) 2.6 % (0.9-2.9) 12/19/19 17:34 Baso % (Auto) 0.9 % (0.2-1.0) 12/19/19 17:34 Neut # (Auto) 5.5 x10^3/uL (2.2-4.8) H 12/19/19 17:34 Lymph # (Auto) 2.5 X10^3/uL (1.3-2.9) 12/19/19 17:34 [place] # (Auto) 0.8 x10^3/uL (0.3-0.8) 12/19/19 17:34 Eos # (Auto) 0.2 x10^3/uL (0.0-0.2) 12/19/19 17:34 Baso # (Auto) 0.1 X10^3/uL (0.0-0.1) 12/19/19 17:34 Absolute Nucleated RBC 0.0 /100WBC 12/19/19 17:34 PT 12.9 SECONDS (11.8-14.3) 12/19/19 17:34 INR Target Range - 12/19/19 17:34 INR 1.00 (0.8-1.3) 12/19/19 17:34 APTT 28.8 SECONDS (22.9-36.5) 12/19/19 17:34 PTT Comment - 12/19/19 17:34 Sodium 139 mmol/L (136-145) 12/19/19 17:34 Corrected Sodium TNP 12/19/19 17:34 Potassium 2.2 mmol/L (3.5-5.1) L* 12/19/19 17:34 Chloride 98 mmol/L (98-107) 12/19/19 17:34 Carbon Dioxide 35.0 mmol/L (21-32) H 12/19/19 17:34 BUN 21 mg/dL (7-18) H 12/19/19 17:34 Creatinine 1.25 mg/dL (0.55-1.02) H 12/19/19 17:34 Est GFR (MDRD) Af Amer 59 (>60) 12/19/19 17:34 Est GFR (MDRD) Non-Af 49 (>60) L 12/19/19 17:34 Glucose 105 mg/dL (65-99) H 12/19/19 17:34 Calcium 9.3 mg/dL (8.5-10.1) 12/19/19 17:34 Corrected Calcium TNP 12/19/19 17:34 Magnesium 2.2 mg/dL (1.7-2.9) 12/19/19 17:34 Total Bilirubin 0.30 mg/dL (0.2-1.0) 12/19/19 17:34 AST 14 Units/L (15-37) L 12/19/19 17:34 ALT 22 Units/L (12-78) 12/19/19 17:34 Alkaline Phosphatase 111 Units/L (46-116) 12/19/19 17:34 Creatine Kinase 94 Units/L (26-192) 12/19/19 17:34 CK-MB (CK-2) < 1.0 ng/mL (0-4.0) 12/19/19 17:34 CK/CKMB % Calc 1.1 % (<4) 12/19/19 17:34 Troponin I < 0.02 ng/mL (0-1.5) 12/19/19 17:34 Total Protein 7.2 g/dL (6.4-8.2) 12/19/19 17:34 Albumin 3.5 g/dL (3.4-5.0) 12/19/19 17:34 Globulin 3.7 g/dL (2.5-4.5) 12/19/19 17:34 Albumin/Globulin Ratio 0.9 Ratio (1.1-2.1) L 12/19/19 17:34 Free T4 0.99 ng/dL (0.76-1.46) 12/19/19 17:34 TSH 3rd Generation 0.367 uIU/mL (0.358-3.74) 12/19/19 17:34 Salicylates 4.8 mg/dL (2.8-20) 12/19/19 17:34 Acetaminophen 0.0 ug/mL (10-30) L 12/19/19 17:34 Ethyl Alcohol mg/dL < 3 mg/dL (0-19.9) 12/19/19 17:34 EKG [place]: Normal Rhythm: NSR Block: None Hypertrophy: None ST: Normal Opioid Opioid Risk Tool Age (Bigg box if 16-45): No History of Preadolescent Sexual Abuse: No Total: 0 Total Score Risk Category: Low Risk Copyright: Amos RUST predicting aberrant behaviors Diagnosis Discharge Problem: Acute hypokalemia, Syncope and collapse Instructions Forms: Excuse From Work Precautions for COVID19 Patient Portal Social Distancing
[2019-12-19] MEDS ORDERED: NS 1000 ML 1,000 ML ONE (16:53)
--- NOTE | 2019-12-19 17:09 | CT ---
HISTORY"PASSED OUT AT HOME; I HAD AN ANXIETY ATTACK; IT HAPPENS ALOT"STUDYHEAD (TRAUMA)COMPARISONReport only from CT head dated April 18, 2019.TECHNIQUEMultiple axial images of the head without contrast. Dose reduction techniques including Automated Exposure Control (AEC) and adjustment of mA and kV were utilized.FINDINGS[No acute intraparenchymal hemorrhage or mass can be identified.] [No extra-axial fluid collections are seen.] [No alteration in the attenuation of the brain parenchyma can be identified to suggest acute or subacute ischemic change.] [The ventricular system is symmetric and nondilated.] [The extracranial structures are grossly unremarkable.]IMPRESSIONNo acute intracranial pathology.Electronically signed by: YOBANY GARCIA (Dec 19, 2019 17:07:49)
--- NOTE | 2019-12-19 17:11 | CT ---
HISTORYPASSED OUT, NECK PAINSTUDYCERVICAL SPINE W/O CONCOMPARISONNone.TECHNIQUEMultiple axial images of the cervical spine were obtained from the skull base to the thoracic inlet without administration of IV contrast. Sagittal and coronal reformats were performed and reviewed. Dose reduction techniques including Automated Exposure Control (AEC) and adjustment of mA and kV were utilized.FINDINGSAlignment of the cervical spine is maintained. No evidence for acute cortical disruption or subluxation can be seen. The central canal remains free of compromise from bony fragments or significant soft tissue encroachment. The posterior elements appear unremarkable. The prevertebral soft tissues are normal in their appearance. In addition, the surrounding paraspinous soft tissues are unremarkable. Mild degenerative changes of the cervical spine are noted.IMPRESSIONNo evidence for acute traumatic injury of the cervical spine.Electronically signed by: GIDEON BOSCH (Dec 19, 2019 17:10:33)
[2019-12-19 17:59] LABS: BASOPHILS # (AUTO) 0.1 X10^3/uL (0.0-0.1); BASOPHILS % (AUTO) 0.9 % (0.2-1.0); EOSINOPHILS # (AUTO) 0.2 x10^3/uL (0.0-0.2); EOSINOPHILS % (AUTO) 2.6 % (0.9-2.9); HEMATOCRIT 38.6 % (36.0-47.0); HEMOGLOBIN 13.1 g/dL (12.0-16.0); LYMPHOCYTES # (AUTO) 2.5 X10^3/uL (1.3-2.9); LYMPHOCYTES % (AUTO) 27.7 % (21.0-51.0); MEAN CORPUSCULAR HEMOGLOBIN 31.7 pg (27.0-34.0); MEAN CORPUSCULAR VOLUME 93.2 fL (80.0-100.0); MEAN PLATELET VOLUME 8.8 fL (7.4-11.0); MONOCYTES # (AUTO) 0.8 x10^3/uL (0.3-0.8); MONOCYTES % (AUTO) 8.7 % (0.0-13.0); NEUTROPHILS # (AUTO) 5.5 x10^3/uL (2.2-4.8); NEUTROPHILS % (AUTO) 60.1 % (42.0-75.0); PLATELET COUNT 310 X10^3/uL (150.0-450.0); RED BLOOD COUNT 4.14 X10^6/uL (3.5-5.4); RED CELL DISTRIBUTION WIDTH 13.3 % (11.6-16.5); WHITE BLOOD COUNT 9.2 X10^3/uL (3.6-10.0)
[2019-12-19 18:22] LABS: ALANINE AMINOTRANSFERASE 22 Units/L (12-78); ALBUMIN 3.5 g/dL (3.4-5.0); ALKALINE PHOSPHATASE 111 Units/L (46-116); ASPARTATE AMINO TRANSFERASE 14 Units/L (15-37); BLOOD ALCOHOL < 3 mg/dL (0-19.9); BLOOD UREA NITROGEN 21 mg/dL (7-18); CALCIUM 9.3 mg/dL (8.5-10.1); CHLORIDE 98 mmol/L (98-107); CKMB % 1.1 % (<4); CREATINE KINASE 94 Units/L (26-192); CREATINE KINASE MB < 1.0 ng/mL (0-4.0); CREATININE 1.25 mg/dL (0.55-1.02); MAGNESIUM 2.2 mg/dL (1.7-2.9); SODIUM 139 mmol/L (136-145); TOTAL PROTEIN 7.2 g/dL (6.4-8.2); TROPONIN I < 0.02 ng/mL (0-1.5); eGFR NON BLACK RACES 49 (>60)
[2019-12-19] MEDS: NS + KCL 40 MEQ/L 1,000 ML IV SCH (18:32)
[2019-12-19] MEDS: KLOR-CON PO SCH (18:50)
[2019-12-19] MEDS ORDERED: KLOR-CON ONE (18:52)
[2019-12-19 18:58] LABS: SALICYLATE 4.8 mg/dL (2.8-20)
[2019-12-19 19:08] LABS: FREE T4 (FREE THYROXINE) 0.99 ng/dL (0.76-1.46); TSH (3RD GENERATION) 0.367 uIU/mL (0.358-3.74)
[2019-12-19 21:05] LABS: BILIRUBIN,URINE NEGATIVE (NEGATIVE); BLOOD/HEMOGLOBIN,URINE 2+ (NEGATIVE); GLUCOSE, URINE NEGATIVE (NEGATIVE); KETONES,URINE NEGATIVE (NEGATIVE); LEUKOCYTE ESTERASE ,URINE 1+ (NEGATIVE); NITRITES,URINE NEGATIVE (NEGATIVE); PROTEIN,URINE NEGATIVE (NEGATIVE); UROBILINOGEN,URINE NORMAL (NORMAL)
[2019-12-19 21:14] LABS: APPEARANCE,URINE CLOUDY (CLEAR); COLOR,URINE YELLOW (YELLOW)
[2019-12-19 21:15] LABS: BACTERIA,URINE 4+ /HPF (NEGATIVE); RBC,URINE 0-2 /HPF (0-3); SQUAMOUS EPITHELIAL CELL,UR RARE /HPF (NEGATIVE)
[2019-12-19] MEDS ORDERED: LIPITOR TAB 40 MG ONE (23:54)
[2019-12-20] MEDS ORDERED: NORCO 5/325 MG TAB ONE (00:05)
[2019-12-20] MEDS: NORCO 5/325 MG TAB PO PRN ×3 (00:18→16:17)
[2019-12-20] MEDS: LIPITOR TAB 40 MG PO SCH ×2 (00:20→21:00)
[2019-12-20] MEDS ORDERED: NS + KCL 40 MEQ/L 1,000 ML IV ONE (01:19)
[2019-12-20] MEDS: KLOR-CON PO SCH ×4 (01:31→22:44)
[2019-12-20] MEDS: NS + KCL 40 MEQ/L 1,000 ML IV SCH ×7 (01:32→22:43)
[2019-12-20] MEDS ORDERED: ZOFRAN INJ 4 MG VIAL ONE (03:55)
[2019-12-20 04:07] LABS: BASOPHILS # (AUTO) 0.1 X10^3/uL (0.0-0.1); BASOPHILS % (AUTO) 0.8 % (0.2-1.0); EOSINOPHILS # (AUTO) 0.3 x10^3/uL (0.0-0.2); EOSINOPHILS % (AUTO) 3.4 % (0.9-2.9); HEMATOCRIT 36.1 % (36.0-47.0); HEMOGLOBIN 12.2 g/dL (12.0-16.0); LYMPHOCYTES # (AUTO) 2.8 X10^3/uL (1.3-2.9); LYMPHOCYTES % (AUTO) 27.8 % (21.0-51.0); MEAN CORPUSCULAR HEMOGLOBIN 31.8 pg (27.0-34.0); MEAN CORPUSCULAR HGB CONC 33.8 g/dL (33.0-35.0); MEAN CORPUSCULAR VOLUME 94.3 fL (80.0-100.0); MEAN PLATELET VOLUME 8.7 fL (7.4-11.0); MONOCYTES # (AUTO) 0.9 x10^3/uL (0.3-0.8); MONOCYTES % (AUTO) 8.9 % (0.0-13.0); NEUTROPHILS % (AUTO) 59.1 % (42.0-75.0); PLATELET COUNT 263 X10^3/uL (150.0-450.0); RED BLOOD COUNT 3.83 X10^6/uL (3.5-5.4); RED CELL DISTRIBUTION WIDTH 13.2 % (11.6-16.5); WHITE BLOOD COUNT 10.2 X10^3/uL (3.6-10.0)
[2019-12-20 04:10] LABS: BLOOD UREA NITROGEN 18 mg/dL (7-18); CALCIUM 8.1 mg/dL (8.5-10.1); CARBON DIOXIDE 31.8 mmol/L (21-32); CHLORIDE 103 mmol/L (98-107); COR NA(FOR HYPERGLY) 142 mmol/L (136-145); CREATININE 1.21 mg/dL (0.55-1.02); MAGNESIUM 1.8 mg/dL (1.7-2.9); SODIUM 141 mmol/L (136-145); eGFR NON BLACK RACES 51 (>60)
[2019-12-20] MEDS: ZOFRAN INJ 4 MG VIAL IVP PRN ×2 (04:24→21:00)
[2019-12-20] MEDS ORDERED: KLOR-CON ONE (05:18)
[2019-12-20] MEDS: CYMBALTA PO SCH (08:57)
[2019-12-20] MEDS ORDERED: ALDACTONE TAB 25 MG PO SCH (09:00)
--- NOTE | 2019-12-20 09:40 | DR.H&P ---
H&P - History & Physical for Day of: H&P Date: 12/19/19 - Chief Complaint Chief Complaint: SYNCOPE, DIZZINESS - History of Present Illness History of Present Illness: Patient with recently dx Stage 4 intestinal CA, not on ANT currently or in the past, presents after 5 minute syncope. She says she felt dizzy before passing out. She c/o mild ROBERTS. Denies any other pain or discomfort, specifically denies fever, chills, SHOB, chest pain or any other symptoms. - Past Medical History Past Medical History: Hypertension, Depression, Anxiety, Hypothyroidism, Asthma, GERD, Arthritis, Migraines - Past Surgical History Surgical History: , Ortho Surgery - Family History Family Medical History: Diabetes Mellitus, Cancer, [place], Heart Failure, Hypertension - Social History Does patient currently use any type of tobacco product: Yes Have you used tobacco products in the last 12 months: Yes Type of Tobacco Use: Cigarettes How many years tobacco product used: 24 Does any household member use tobacco: Yes Alcohol Use: Occasionally Drug Use: None - Medications Home Medications: No Known Drug Allergies Allergy (Verified 01/26/19 13:22) CONTINUE taking the following medications atorvastatin 40 mg PO DAILY 12/19/19 [History] clonidine HCl 0.1 mg PO QHS 12/19/19 [History] fluoxetine mg 12/19/19 [History] furosemide 40 mg PO DAILY 12/19/19 [History] propranolol 20 mg PO TID PRN 12/19/19 [History] - Review of Systems Constitutional: Weakness Eyes: No Symptoms Reported ENT: No Symptoms Reported Respiratory: No Symptoms Reported Cardiovascular: No Symptoms Reported Gastrointestinal: Nausea, Abdominal Pain Genitourinary: No Symptoms Reported Musculoskeletal: Back Pain Skin: No Symptoms Reported Neurological: Other (DIZZY) - Physical Exam Vital Signs: Temperature 97.6 F Pulse Rate [Left Brachial] 62 Pulse Rate 70 Respiratory Rate 18 Blood Pressure [Left Arm] 88/50 Blood Pressure [Right Arm] 91/53 Blood Pressure 91/53 O2 Sat by Pulse Oximetry 96 Oriented: Person Eyes: Normal Ear: Normal Nose: Normal Throat: Dry Respiratory: RLL Diminished, LLL Diminished Cardiovascular: Normal : Normal Auscultation: Bowel Sounds: Normal Palpation: Normal Tenderness: Diffuse, Mild Skin: Decreased Turgur Musculoskeletal: Normal Psychiatric: Anxiety Affect: Anxious Speech Pattern: Clear, Appropriate - Assessment/Plan (1) Acute hypokalemia Status: Acute Plan: ADMIT, SERIAL CE AND EKG. ELECTROLYTE REPLACEMENT, SUPPLEMENTAL O2. COVID 19 NEGATIVE IN ER. ADMISSION LABS, CXR. VERIFY HOME MEDICATION, CT HEAD IN ER (2) Syncope and collapse Status: Acute (3) Dehydration Status: Acute (4) COPD (chronic obstructive pulmonary disease) Status: Chronic (5) Depression Status: Chronic (6) Essential hypertension Status: Chronic (7) GERD (gastroesophageal reflux disease) Status: Chronic (8) Hyperthyroidism Status: Chronic - Allergies Allergies/Adverse Reactions: Allergies Allergy/AdvReac Type Severity Reaction Status Date / Time No Known Drug Allergies Allergy Verified 01/26/19 13:22
[2019-12-20] MEDS ORDERED: PROzac ONE (10:47)
[2019-12-20] MEDS: PROzac PO SCH (10:55)
--- NOTE | 2019-12-20 14:00 | RAD ---
HISTORYHTN, DIMINISHED LUNG SOUNDSSTUDYCHEST x-ray, 1 VIEWCOMPARISONX-ray 07/09/2019FINDINGSThe trachea is midline. The cardiac silhouette is borderline enlarged.Lungs appear clear. No pneumothorax or pleural effusion is seen.No acute bony abnormality is seen.IMPRESSIONBorderline cardiomegaly. No evidence of pneumonia.Electronically signed by: Rolly Negron (Dec 20, 2019 13:57:40)
[2019-12-20 15:13] LABS: CALCIUM 8.4 mg/dL (8.5-10.1); CARBON DIOXIDE 33.8 mmol/L (21-32); CREATININE 1.27 mg/dL (0.55-1.02)
[2019-12-20] MEDS ORDERED: NS 100 ML IV + SPIKE MINIBAG* 100 ML IV ONE (19:15)
[2019-12-20] MEDS ORDERED: ROCEPHIN VIAL 1 GRAM ONE (19:15)
[2019-12-20] MEDS: ROCEPHIN VIAL 1 GRAM 1 G in NS 100 ML IV + SPIKE MINIBAG* 100 ML IV SCH (19:18)
[2019-12-21] MEDS: NS + KCL 40 MEQ/L 1,000 ML IV SCH ×3 (00:04→06:00)
[2019-12-21] MEDS: NORCO 5/325 MG TAB PO PRN ×2 (03:00→08:52)
[2019-12-21] MEDS: KLOR-CON PO SCH ×2 (06:01→16:10)
[2019-12-21 06:31] LABS: BASOPHILS # (AUTO) 0.1 X10^3/uL (0.0-0.1); BASOPHILS % (AUTO) 0.9 % (0.2-1.0); EOSINOPHILS # (AUTO) 0.4 x10^3/uL (0.0-0.2); EOSINOPHILS % (AUTO) 5.5 % (0.9-2.9); HEMATOCRIT 36.8 % (36.0-47.0); HEMOGLOBIN 12.4 g/dL (12.0-16.0); LYMPHOCYTES # (AUTO) 2.1 X10^3/uL (1.3-2.9); LYMPHOCYTES % (AUTO) 31.9 % (21.0-51.0); MEAN CORPUSCULAR HEMOGLOBIN 32.1 pg (27.0-34.0); MEAN CORPUSCULAR HGB CONC 33.7 g/dL (33.0-35.0); MEAN CORPUSCULAR VOLUME 95.3 fL (80.0-100.0); MEAN PLATELET VOLUME 8.2 fL (7.4-11.0); MONOCYTES # (AUTO) 0.6 x10^3/uL (0.3-0.8); MONOCYTES % (AUTO) 9.7 % (0.0-13.0); NEUTROPHILS # (AUTO) 3.4 x10^3/uL (2.2-4.8); PLATELET COUNT 254 X10^3/uL (150.0-450.0); RED BLOOD COUNT 3.86 X10^6/uL (3.5-5.4); RED CELL DISTRIBUTION WIDTH 13.2 % (11.6-16.5); WHITE BLOOD COUNT 6.6 X10^3/uL (3.6-10.0)
[2019-12-21 06:43] LABS: ALANINE AMINOTRANSFERASE 17 Units/L (12-78); ALBUMIN 2.9 g/dL (3.4-5.0); ALKALINE PHOSPHATASE 99 Units/L (46-116); ASPARTATE AMINO TRANSFERASE 12 Units/L (15-37); BLOOD UREA NITROGEN 13 mg/dL (7-18); CALCIUM 8.2 mg/dL (8.5-10.1); CARBON DIOXIDE 32.4 mmol/L (21-32); CHLORIDE 106 mmol/L (98-107); COR CA(FOR HYPOALB) 9.1 mg/dL (8.5-10.1); COR NA(FOR HYPERGLY) 142 mmol/L (136-145); CREATININE 1.04 mg/dL (0.55-1.02); SODIUM 142 mmol/L (136-145); TOTAL PROTEIN 6.1 g/dL (6.4-8.2); eGFR NON BLACK RACES > 60 (>60)
[2019-12-21] MEDS: CYMBALTA PO SCH (08:51)
[2019-12-21] MEDS: PROzac PO SCH (08:51)
[2019-12-21] MEDS ORDERED: MAALOX or MYLANTA PO PRN (09:51)
[2019-12-21] MEDS: ROCEPHIN VIAL 1 GRAM 1 G in NS 100 ML IV + SPIKE MINIBAG* 100 ML IV SCH (10:11)
[2019-12-21] MEDS ORDERED: LOVENOX INJ 40 MG SYR SC SCH (12:00)
[2019-12-21 13:21] VITALS: BMI 43.7
[2019-12-21 16:56] VITALS: BP 105/57
== END 2019-12-21 16:40 | disposition home or self-care (01) | DRG 312 ==
LOC: ER 15:44 → MED/SURG 15:44
PROVIDERS: ADMIT Internal Medicine; ATTEND Internal Medicine
DX: E03.8 Other specified hypothyroidism; Z11.59 Encounter for screening for other viral diseases; R42 Dizziness and giddiness; R51 Headache; C18.9 Malignant neoplasm of colon, unspecified; K21.9 Gastro-esophageal reflux disease without esophagitis; R94.31 Abnormal electrocardiogram [ECG] [EKG]; R55 Syncope and collapse; J44.9 Chronic obstructive pulmonary disease, unspecified; E87.6 Hypokalemia; E86.0 Dehydration; M54.2 Cervicalgia; I10 Essential (primary) hypertension; F41.8 Other specified anxiety disorders; F31.9 Bipolar disorder, unspecified
CPT/HCPCS: 36415; 70450; 71010; 71045; 72125; 80048; 80053; 80307; 80320; 81001; 82550; 82553; 83735; 84132; 84439; 84443; 84484; 85025; 85610; 85730; 87086; 87088; 87186; 87635; 93005; 96365; 96367; 99284; A4222; G0378; J0696; J2405; J7030; J7050

== ENCOUNTER 2022-08-08 15:20 | Observation (INO) ==
--- NOTE | 2022-08-08 15:49 | DR.DIZZY ---
HPI Time seen Time Seen by Provider: 08/08/22 15:46 PCP Primary Care Physician: stormant Complaint Chief Complaint Doctor Comments: UNSTABLE GAIT FOR 2 DAYS,LETHARGY ,PASSED OUT IN LOBBY. 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 pt is lethargic on arrival. COVID-19 Coronavirus risk:travel/contact w/high risk person: No Has patient experienced Coronavirus symptoms: No Source History Provided: Patient Mode of Arrival Mode of Arrival: Ambulatory Timing Onset of Chief Complaint: 08/06/22 Context Stroke Symptoms: Acute confusion PMH PMH Past Medical History: Yes Past Medical History: Anxiety, Arthritis, Asthma, CHF, Depression, Migraines, GERD, Hypertension and Hypothyroidism Past Surgical History: Yes Surgical History: and Ortho Surgery Family History History of Family Medical Conditions: Yes Family Medical History: Diabetes Mellitus, Cancer, [place], Heart Failure and Hypertension Social History Does patient currently use any type of tobacco product: Yes Have you used tobacco products in the last 12 months: Yes Type of Tobacco Use: Cigarettes Does any household member use tobacco: No Alcohol Use: None Do you use any recreational Drugs:: No Lives With: Spouse Lives Where: Home Travel Risk Coronavirus risk:travel/contact w/high risk person: No Has patient experienced Coronavirus symptoms: No Infectious screening In the last 2 months have you had wt loss of >10#?: NO Have you had fever, night sweats or hemotysis?: No Have you traveled outside the country in the last 6 months?: No Isolation: Standard ROS Review of Systems Constitutional: Weakness and Other (CHANGE IN MENTAL STATUS,SYNCOPAL EPISODE) Eyes: No Symptoms Reported ENTM: No Symptoms Reported Respiratoy: No Symptoms Reported Cardiovascular: No Symptoms Reported Gastrointestinal/Abdominal: No Symptoms Reported Genitourinary: No Symptoms Reported Neurological: Other (SYNCOPE) Musculoskeletal: Other (WEAKNESS) Integumentary: No Symptoms Reported Hematologic/Lymphatic: No Symptoms Reported Endocrine: No Symptoms Reported Psychiatric: Other (DECREASED LOC) PE Vital Signs Vitals: Temperature 98.4 F Pulse Rate 73 Respiratory Rate 15 Blood Pressure [Left Arm] 130/86 Blood Pressure 116/70 O2 Sat by Pulse Oximetry 88 General Limitations: Altered Mental Status General Appearance: Obtunded Head Head Exam: Normal Inspection, Atraumatic and Normocephalic Eyes Eye exam: Normal Appearance and PERRL Pupils: Regular, Round: Bilateral ENT ENT Exam: Normal Exam and Normal Oropharynx Neck Neck Exam: Normal Inspection and Full ROM Chest Chest Inspection: Normal Inspection and Symmetric Chest Wall Rise Respiratory Respiratory Exam: Normal Lung Sounds Bilat Respiratory Exam: Bilateral: Clear to Auscultation Cardiovascular Cardiovascular Exam: Regular Rate and Normal Rhythm Abdominal Exam Abdominal Exam: Normal Inspection, Normal Bowel Sounds and Soft Rectal Rectal Exam: Deferred Extremeties Extremities Exam: Normal Inspection Back Back Exam: Normal Inspection MDM Differential Diagnosis Differential Diagnosis: Other (ALTERED MENTAL STATUS,MULTIDRUG OVERDOSE) COURSE Treatment Treatment: PATIENT WAS GIVEN TOTAL OF 4MG NARCAN IV WITH LITTLE RESPONSE, WAS GIVNE TOTAL OF 0.5MG ROMAZICON IV WITH SOME RESPONSE. PATIENT NEVER BECAME COMPLETELY ALERT BUT DID MAKE SOME RESPONSE. CARDIAC XIAO WAS NEGATIVE. UDS WAS POSITIVE FOR OPIATES,BENZODIAZEPINES AND MARIJUANA. PATIENT HAD ABG THAT SHOWED CO2 OF 50 CONNER REST WAS RELATIVELY NORMAL. SPOKE TO DR HANLEY AT 541 PM AND HE STATE TO PUT THE PATIENT INTO ICU AND MONITOR NEUROLOGICALLY AND AIRWAY. PATIENT SPOUSE WAS MADE AWARE OF THE INTENT AND WAS AGREABLE TO THE ADMISSION. UTILIZATION REVIEW STATED THAT THE PATIENT COULD BE REFERRED TO OBSERVATION. ROR Labs Reviewed Laboratory Results Reviewed?: Yes Result Diagrams: 08/08/22 15:50 08/08/22 15:50 Laboratory: WBC 9.0 X10^3/uL (3.6-10.0) 08/08/22 15:50 RBC 4.04 X10^6/uL (3.5-5.4) 08/08/22 15:50 Hgb 13.4 g/dL (12.0-16.0) 08/08/22 15:50 Hct 39.9 % (36.0-47.0) 08/08/22 15:50 MCV 98.7 fL (80.0-100.0) 08/08/22 15:50 MCH 33.1 pg (27.0-34.0) 08/08/22 15:50 MCHC 33.5 g/dL (33.0-35.0) 08/08/22 15:50 RDW 15.9 % (11.6-16.5) 08/08/22 15:50 Plt Count 351 X10^3/uL (150.0-450.0) 08/08/22 15:50 MPV 7.7 fL (7.4-11.0) 08/08/22 15:50 Neut % (Auto) 74.5 % (42.0-75.0) 08/08/22 15:50 Lymph % (Auto) 18.7 % (21.0-51.0) L 08/08/22 15:50 Dewitt % (Auto) 6.0 % (0.0-13.0) 08/08/22 15:50 Eos % (Auto) 0.3 % (0.9-2.9) L 08/08/22 15:50 Baso % (Auto) 0.5 % (0.2-1.0) 08/08/22 15:50 Neut # (Auto) 6.7 x10^3/uL (2.2-4.8) H 08/08/22 15:50 Lymph # (Auto) 1.7 X10^3/uL (1.3-2.9) 08/08/22 15:50 Dewitt # (Auto) 0.5 x10^3/uL (0.3-0.8) 08/08/22 15:50 Eos # (Auto) 0.0 x10^3/uL (0.0-0.2) 08/08/22 15:50 Baso # (Auto) 0.0 X10^3/uL (0.0-0.1) 08/08/22 15:50 Absolute Nucleated RBC 0.2 /100WBC 08/08/22 15:50 PT 13.9 SECONDS (11.8-14.3) 08/08/22 15:50 INR Target Range - 08/08/22 15:50 INR 1.10 (0.8-1.3) 08/08/22 15:50 APTT 24.8 SECONDS (22.9-36.5) 08/08/22 15:50 PTT Comment - 08/08/22 15:50 Sample Site Rr 08/08/22 17:32 ABG pH 7.330 (7.35-7.45) L 08/08/22 17:32 ABG pCO2 54.0 mmHg (35.0-45.0) H* 08/08/22 17:32 ABG pO2 86.0 mmHg (80.0-100.0) 08/08/22 17:32 ABG HCO3 28.5 mmol/L (22-26) H 08/08/22 17:32 ABG O2 Saturation 96.0 % (90-100) 08/08/22 17:32 ABG Base Excess 1.6 mmol/L (-2.0-2.0) 08/08/22 17:32 Vlad Test Pos 08/08/22 17:32 A-a Gradient 46.0 mmHg 08/08/22 17:32 FiO2 28.0 08/08/22 17:32 Blood Gas Comments Sharmin well.sd 08/08/22 17:32 Sodium 142 mmol/L (136-145) 08/08/22 15:50 Corrected Sodium 143 mmol/L (136-145) 08/08/22 15:50 Potassium 3.9 mmol/L (3.5-5.1) 08/08/22 15:50 Chloride 107 mmol/L (98-107) 08/08/22 15:50 Carbon Dioxide 27.1 mmol/L (21-32) 08/08/22 15:50 BUN 12 mg/dL (7-18) 08/08/22 15:50 Creatinine 1.04 mg/dL (0.55-1.02) H 08/08/22 15:50 Est GFR (MDRD) Af Amer > 60 (>60) 08/08/22 15:50 Est GFR (MDRD) Non-Af 60 (>60) 08/08/22 15:50 Glucose 124 mg/dL (65-99) H 08/08/22 15:50 Calcium 8.7 mg/dL (8.5-10.1) 08/08/22 15:50 Corrected Calcium 9.7 mg/dL (8.5-10.1) 08/08/22 15:50 Total Bilirubin 0.30 mg/dL (0.2-1.0) 08/08/22 15:50 AST 11 Units/L (15-37) L 08/08/22 15:50 ALT 18 Units/L (12-78) 08/08/22 15:50 Alkaline Phosphatase 111 Units/L (46-116) 08/08/22 15:50 Creatine Kinase 66 Units/L (26-192) 08/08/22 15:50 Troponin I High Sens < 4.0 ng/L (4.0-60.0) L 08/08/22 15:50 Total Protein 6.4 g/dL (6.4-8.2) 08/08/22 15:50 Albumin 2.8 g/dL (3.4-5.0) L 08/08/22 15:50 Globulin 3.6 g/dL (2.5-4.5) 08/08/22 15:50 Albumin/Globulin Ratio 0.8 Ratio (1.1-2.1) L 08/08/22 15:50 Specimen Type Catherized urine 08/08/22 16:55 Urine Color Yellow (YELLOW) 08/08/22 16:55 Urine Appearance Clear (CLEAR) 08/08/22 16:55 Urine pH 5.0 (5.0 - 8.0) 08/08/22 16:55 Ur Specific [place] 1.020 (1.000-1.030) 08/08/22 16:55 Urine Protein 2+ (NEGATIVE) 08/08/22 16:55 Urine Glucose (UA) Negative (NEGATIVE) 08/08/22 16:55 Urine Ketones 1+ (NEGATIVE) 08/08/22 16:55 Urine Blood 1+ (NEGATIVE) 08/08/22 16:55 Urine Nitrite Negative (NEGATIVE) 08/08/22 16:55 Urine Bilirubin 1+ (NEGATIVE) 08/08/22 16:55 Urine Urobilinogen 2+ (NORMAL) 08/08/22 16:55 Ur Leukocyte Esterase 1+ (NEGATIVE) 08/08/22 16:55 Urine RBC 5-10 /HPF (0-3) A 08/08/22 16:55 Urine WBC 5-10 /HPF (0-5) A 08/08/22 16:55 Ur Squamous Epith Cells Few /HPF (NEGATIVE) 08/08/22 16:55 Urine Bacteria Trace /HPF (NEGATIVE) 08/08/22 16:55 Urine Mucus Few /HPF (NEGATIVE) 08/08/22 16:55 Ur Culture Indicated? No/not indicated 08/08/22 16:55 Urine Opiates Screen Positive (NEG=<300) A 08/08/22 16:55 Urine Methadone Screen Negative (NEG=<300) 08/08/22 16:55 Ur Barbiturates Screen Negative (NEG=<200) 08/08/22 16:55 Ur Phencyclidine Scrn Negative (NEG=<25) 08/08/22 16:55 Ur Amphetamines Screen Negative (NEG=<1000) 08/08/22 16:55 U Benzodiazepines Scrn Positive (NEG=<200) A 08/08/22 16:55 Urine Cocaine Screen Negative (NEG=<300) 08/08/22 16:55 U Marijuana (THC) Screen Positive (NEG=<50) A 08/08/22 16:55 Opioid Opioid Risk Tool Age (Bigg box if 16-45): Yes History of Preadolescent Sexual Abuse: No Total: 1 Total Score Risk Category: Low Risk Copyright: [place] predicting aberrant behaviors Discharge Plan Diagnosis Discharge Problem: Accidental drug overdose, Acute alteration in mental status, UTI (urinary tract infection) Discharge Plan Patient Disposition: ADMITTED INPATIENT Condition: Stable Prescriptions: No Action atorvastatin 40 mg tablet 40 mg PO DAILY propranolol 20 mg tablet 20 mg PO TID amlodipine 10 mg tablet 10 mg PO DAILY cyclobenzaprine 10 mg tablet 10 mg PO TID aspirin 81 mg tablet,delayed release (DR/EC) 81 mg PO DAILY olanzapine [Zyprexa] 5 mg Tablet 5 mg PO QHS Qty: 15 0RF gabapentin 300 mg capsule 300 mg PO TID MDD 3 Qty: 30 0RF sumatriptan succinate 100 mg tablet 100 mg PO BID PRN (Reason: Migraine Headache) duloxetine 60 mg capsule,delayed release(DR/EC) 60 mg PO DAILY topiramate 25 mg Tablet 25 mg PO BID Rx Instructions: TAKE ONE TABLET BY MOUTH TWICE A DAY fluoxetine 40 mg capsule 40 mg PO BID metolazone 5 mg tablet 5 mg PO Q OTHER DAY hydrocodone-acetaminophen 10-325 mg tablet 1 tab PO Q6H PRN diazepam 2 mg tablet 2 mg PO BID promethazine 50 mg tablet 100 mg PO BID PRN pantoprazole 40 mg tablet,delayed release (DR/EC) 40 mg PO BID pregabalin [Lyrica] 200 mg capsule 200 mg PO TID ondansetron HCl [Zofran] 4 mg tablet 4 mg PO Q8H PRN (Reason: nausea and vomiting) Qty: 15 0RF Health Concerns: Post Hospitalization: new medications and changes needed to prevent readmission or further decline. Pt educated and given instructions on all concerns. Plan of Treatment: Continue with present treatment and follow up plan. Pt is to keep follow up appointment as instructed and take medications as ordered. Orders to Discharge Patient Discharge Orders: Transfer (Routine); Ordered 08/08/22 Ordered By: Emmanuel Mallory Follow ups/Referrals Follow ups/Referrals: Mohit Ortega [Primary Care Provider] - 3 days
[2022-08-08 15:59] LABS: BASOPHILS % (AUTO) 0.5 % (0.2-1.0); EOSINOPHILS % (AUTO) 0.3 % (0.9-2.9); HEMATOCRIT 39.9 % (36.0-47.0); HEMOGLOBIN 13.4 g/dL (12.0-16.0); LYMPHOCYTES # (AUTO) 1.7 X10^3/uL (1.3-2.9); LYMPHOCYTES % (AUTO) 18.7 % (21.0-51.0); MEAN CORPUSCULAR HEMOGLOBIN 33.1 pg (27.0-34.0); MEAN CORPUSCULAR HGB CONC 33.5 g/dL (33.0-35.0); MEAN CORPUSCULAR VOLUME 98.7 fL (80.0-100.0); MEAN PLATELET VOLUME 7.7 fL (7.4-11.0); MONOCYTES # (AUTO) 0.5 x10^3/uL (0.3-0.8); NEUTROPHILS # (AUTO) 6.7 x10^3/uL (2.2-4.8); NEUTROPHILS % (AUTO) 74.5 % (42.0-75.0); RED BLOOD COUNT 4.04 X10^6/uL (3.5-5.4); RED CELL DISTRIBUTION WIDTH 15.9 % (11.6-16.5)
[2022-08-08] MEDS ORDERED: NARCAN INJ ONE ×2 (16:08→16:29)
[2022-08-08] MEDS ORDERED: NARCAN INJ IVP ONE ×2 (16:10→16:46)
[2022-08-08] MEDS ORDERED: ROMAZICON INJ 1 MG ONE (16:37)
[2022-08-08 16:39] LABS: CREATINE KINASE 66 Units/L (26-192)
--- NOTE | 2022-08-08 16:40 | CT ---
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 pt is lethargic on arrival.STUDYBRAIN W/O CONCOMPARISONNone available.TECHNIQUEAxial non-contrast images of the head with coronal and sagittal reformats.Radiation dose: 817.54 mGy-cm total DLPFINDINGSNo abnormal areas of acute attenuation in the brain parenchyma.Tate-white differentiation remains intact.No intracranial, extra-axial, fluid collection.No hemorrhage.No mass, mass effect or midline shift.No ventriculomegaly.No acute fracture.Sinuses are well aerated.Mastoid air cells are well aerated.Globes and intraorbital contents are unremarkable.IMPRESSIONNo acute intracranial abnormality identified.Electronically signed by: Erasmo Junior (Aug 08, 2022 16:39:20)
[2022-08-08] MEDS ORDERED: ROMAZICON INJ 1 MG IVP ONE ×2 (16:47→17:20)
[2022-08-08] MEDS ORDERED: NS 1,000 ML IV 1,000 ML ONE (16:56)
[2022-08-08] MEDS ORDERED: NS 1,000 ML IV 1,000 ML IV ONE (17:00)
[2022-08-08 17:07] LABS: BLOOD UREA NITROGEN 12 mg/dL (7-18); CARBON DIOXIDE 27.1 mmol/L (21-32); CHLORIDE 107 mmol/L (98-107); COR NA(FOR HYPERGLY) 143 mmol/L (136-145); CREATININE 1.04 mg/dL (0.55-1.02); SODIUM 142 mmol/L (136-145); eGFR NON BLACK RACES 60 (>60)
[2022-08-08 17:08] LABS: ALANINE AMINOTRANSFERASE 18 Units/L (12-78); ALBUMIN 2.8 g/dL (3.4-5.0); ALKALINE PHOSPHATASE 111 Units/L (46-116); ASPARTATE AMINO TRANSFERASE 11 Units/L (15-37); CALCIUM 8.7 mg/dL (8.5-10.1); COR CA(FOR HYPOALB) 9.7 mg/dL (8.5-10.1); TOTAL PROTEIN 6.4 g/dL (6.4-8.2)
[2022-08-08 17:11] LABS: BILIRUBIN,URINE 1+ (NEGATIVE); BLOOD/HEMOGLOBIN,URINE 1+ (NEGATIVE); GLUCOSE, URINE NEGATIVE (NEGATIVE); KETONES,URINE 1+ (NEGATIVE); LEUKOCYTE ESTERASE ,URINE 1+ (NEGATIVE); NITRITES,URINE NEGATIVE (NEGATIVE); PROTEIN,URINE 2+ (NEGATIVE); UROBILINOGEN,URINE 2+ (NORMAL)
[2022-08-08 17:17] LABS: APPEARANCE,URINE CLEAR (CLEAR); BACTERIA,URINE TRACE /HPF (NEGATIVE); COLOR,URINE YELLOW (YELLOW); SQUAMOUS EPITHELIAL CELL,UR FEW /HPF (NEGATIVE)
[2022-08-08 17:33] LABS: ABG BASE EXCESS 1.6 mmol/L (-2.0-2.0); ABG HCO3 28.5 mmol/L (22-26)
[2022-08-08 17:34] LABS: ABG ALLEN TEST POS
[2022-08-08] MEDS: NS 1,000 ML IV 1,000 ML IV SCH (20:53)
[2022-08-08 22:59] VITALS: BMI 50.2
--- NOTE | 2022-08-09 00:55 | RAD ---
HISTORYPOSSIBLE ASPIRATION, SOB ASTHMA, CHF, GERD, HTN SX: CSECTION, ORTHOSTUDYCHEST, 1 [id number]/13/2020FINDINGSThe trachea is midline. The cardiac silhouette is unremarkable. The lungs are clear without focal infiltrate or effusion. The bony thorax is unremarkable.IMPRESSIONNormal chestElectronically signed by: Stanley Cruz (Aug 09, 2022 00:53:39)
[2022-08-09 04:53] LABS: BASOPHILS % (AUTO) 0.4 % (0.2-1.0); EOSINOPHILS % (AUTO) 0.6 % (0.9-2.9); HEMATOCRIT 40.9 % (36.0-47.0); HEMOGLOBIN 13.8 g/dL (12.0-16.0); LYMPHOCYTES # (AUTO) 2.2 X10^3/uL (1.3-2.9); LYMPHOCYTES % (AUTO) 26.7 % (21.0-51.0); MEAN CORPUSCULAR HEMOGLOBIN 33.2 pg (27.0-34.0); MEAN CORPUSCULAR HGB CONC 33.7 g/dL (33.0-35.0); MEAN CORPUSCULAR VOLUME 98.3 fL (80.0-100.0); MEAN PLATELET VOLUME 7.7 fL (7.4-11.0); MONOCYTES # (AUTO) 0.6 x10^3/uL (0.3-0.8); MONOCYTES % (AUTO) 7.6 % (0.0-13.0); NEUTROPHILS # (AUTO) 5.3 x10^3/uL (2.2-4.8); NEUTROPHILS % (AUTO) 64.7 % (42.0-75.0); RED BLOOD COUNT 4.16 X10^6/uL (3.5-5.4); RED CELL DISTRIBUTION WIDTH 16.5 % (11.6-16.5); WHITE BLOOD COUNT 8.2 X10^3/uL (3.6-10.0)
[2022-08-09 05:01] LABS: ALANINE AMINOTRANSFERASE 20 Units/L (12-78); ALBUMIN 2.8 g/dL (3.4-5.0); ALKALINE PHOSPHATASE 118 Units/L (46-116); ASPARTATE AMINO TRANSFERASE 12 Units/L (15-37); BLOOD UREA NITROGEN 13 mg/dL (7-18); CALCIUM 8.5 mg/dL (8.5-10.1); CHLORIDE 109 mmol/L (98-107); COR CA(FOR HYPOALB) 9.5 mg/dL (8.5-10.1); CREATININE 0.92 mg/dL (0.55-1.02); SODIUM 143 mmol/L (136-145); TOTAL PROTEIN 6.5 g/dL (6.4-8.2); eGFR NON BLACK RACES > 60 (>60)
[2022-08-09] MEDS: NS 1,000 ML IV 1,000 ML IV SCH (08:40)
[2022-08-09] MEDS ORDERED: PROTONIX INJ 40 MG VIAL IVP SCH (09:00)
[2022-08-09 10:07] VITALS: BP 126/69
--- NOTE | 2022-08-13 21:46 | DR.SSS ---
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 Past Medical History Past Medical History: Anxiety, Arthritis, Asthma, CHF, Depression, Migraines, GERD, Hypertension and Hypothyroidism Past Surgical History Surgical History: and Ortho Surgery Allergies Allergies Allergy/AdvReac Type Severity Reaction Status Date / Time No Known Drug Allergies Allergy Verified 01/26/19 13:22 Medications Home Medications: No Known Drug Allergies Allergy (Verified 01/26/19 13:22) Family History Family Medical History: Diabetes Mellitus, Cancer, [place], Heart Failure and Hypertension Social History Does patient currently use any type of tobacco product: Yes Have you used tobacco products in the last 12 months: Yes Type of Tobacco Use: Cigarettes Does any household member use tobacco: Yes Alcohol Use: Occasionally Drug Use: Marijuana and Other Review of Systems Constitutional: Weakness Eyes: No Symptoms Reported ENT: No Symptoms Reported Respiratory: No Symptoms Reported Cardiovascular: No Symptoms Reported Gastrointestinal: No Symptoms Reported Genitourinary: No Symptoms Reported Musculoskeletal: No Symptoms Reported Skin: No Symptoms Reported Neurological: Other (lethargy) Physical Exam Vital Signs: Last Vital Signs Temp 98.0 F 08/09/22 04:00 Pulse 96 H 08/09/22 10:00 Resp 25 H 08/09/22 10:00 BP 126/69 08/09/22 09:30 Pulse Ox 100 08/09/22 10:00 O2 Del Method Nasal Cannula 08/09/22 09:33 O2 Flow Rate 3 08/09/22 09:33 FiO2 32 08/09/22 09:33 Oriented: Normal Eyes: Normal Ear: Normal Nose: Normal Throat: Normal Respiratory: Clear Throughout Cardiovascular: Normal : Normal Auscultation: Bowel Sounds: Normal Palpation: Normal Tenderness: Normal Skin: Normal Musculoskeletal: Normal Psychiatric: Normal Mood Description: Calm Speech Pattern: Clear Labs Labs: Laboratory Last Values WBC 8.2 X10^3/uL (3.6-10.0) 08/09/22 04:30 RBC 4.16 X10^6/uL (3.5-5.4) 08/09/22 04:30 Hgb 13.8 g/dL (12.0-16.0) 08/09/22 04:30 Hct 40.9 % (36.0-47.0) 08/09/22 04:30 MCV 98.3 fL (80.0-100.0) 08/09/22 04:30 MCH 33.2 pg (27.0-34.0) 08/09/22 04:30 MCHC 33.7 g/dL (33.0-35.0) 08/09/22 04:30 RDW 16.5 % (11.6-16.5) 08/09/22 04:30 Plt Count 316 X10^3/uL (150.0-450.0) 08/09/22 04:30 MPV 7.7 fL (7.4-11.0) 08/09/22 04:30 Neut % (Auto) 64.7 % (42.0-75.0) 08/09/22 04:30 Lymph % (Auto) 26.7 % (21.0-51.0) 08/09/22 04:30 [place] % (Auto) 7.6 % (0.0-13.0) 08/09/22 04:30 Eos % (Auto) 0.6 % (0.9-2.9) L 08/09/22 04:30 Baso % (Auto) 0.4 % (0.2-1.0) 08/09/22 04:30 Neut # (Auto) 5.3 x10^3/uL (2.2-4.8) H 08/09/22 04:30 Lymph # (Auto) 2.2 X10^3/uL (1.3-2.9) 08/09/22 04:30 [place] # (Auto) 0.6 x10^3/uL (0.3-0.8) 08/09/22 04:30 Eos # (Auto) 0.0 x10^3/uL (0.0-0.2) 08/09/22 04:30 Baso # (Auto) 0.0 X10^3/uL (0.0-0.1) 08/09/22 04:30 Absolute Nucleated RBC 0.0 /100WBC 08/09/22 04:30 PT 13.9 SECONDS (11.8-14.3) 08/08/22 15:50 INR Target Range - 08/08/22 15:50 INR 1.10 (0.8-1.3) 08/08/22 15:50 APTT 24.8 SECONDS (22.9-36.5) 08/08/22 15:50 PTT Comment - 08/08/22 15:50 Sample Site Rr 08/08/22 17:32 ABG pH 7.330 (7.35-7.45) L 08/08/22 17:32 ABG pCO2 54.0 mmHg (35.0-45.0) H* 08/08/22 17:32 ABG pO2 86.0 mmHg (80.0-100.0) 08/08/22 17:32 ABG HCO3 28.5 mmol/L (22-26) H 08/08/22 17:32 ABG O2 Saturation 96.0 % (90-100) 08/08/22 17:32 ABG Base Excess 1.6 mmol/L (-2.0-2.0) 08/08/22 17:32 Vlad Test Pos 08/08/22 17:32 A-a Gradient 46.0 mmHg 08/08/22 17:32 FiO2 28.0 08/08/22 17:32 Blood Gas Comments Sharmin well.sd 08/08/22 17:32 Sodium 143 mmol/L (136-145) 08/09/22 04:30 Corrected Sodium TNP 08/09/22 04:30 Potassium 4.3 mmol/L (3.5-5.1) 08/09/22 04:30 Chloride 109 mmol/L (98-107) H 08/09/22 04:30 Carbon Dioxide 28.0 mmol/L (21-32) 08/09/22 04:30 BUN 13 mg/dL (7-18) 08/09/22 04:30 Creatinine 0.92 mg/dL (0.55-1.02) 08/09/22 04:30 Est GFR (MDRD) Af Amer > 60 (>60) 08/09/22 04:30 Est GFR (MDRD) Non-Af > 60 (>60) 08/09/22 04:30 Glucose 65 mg/dL (65-99) 08/09/22 04:30 Calcium 8.5 mg/dL (8.5-10.1) 08/09/22 04:30 Corrected Calcium 9.5 mg/dL (8.5-10.1) 08/09/22 04:30 Total Bilirubin 0.30 mg/dL (0.2-1.0) 08/09/22 04:30 AST 12 Units/L (15-37) L 08/09/22 04:30 ALT 20 Units/L (12-78) 08/09/22 04:30 Alkaline Phosphatase 118 Units/L (46-116) H 08/09/22 04:30 Creatine Kinase 66 Units/L (26-192) 08/08/22 15:50 Troponin I High Sens < 4.0 ng/L (4.0-60.0) L 08/08/22 15:50 Total Protein 6.5 g/dL (6.4-8.2) 08/09/22 04:30 Albumin 2.8 g/dL (3.4-5.0) L 08/09/22 04:30 Globulin 3.7 g/dL (2.5-4.5) 08/09/22 04:30 Albumin/Globulin Ratio 0.8 Ratio (1.1-2.1) L 08/09/22 04:30 Specimen Type Catherized urine 08/08/22 16:55 Urine Color Yellow (YELLOW) 08/08/22 16:55 Urine Appearance Clear (CLEAR) 08/08/22 16:55 Urine pH 5.0 (5.0 - 8.0) 08/08/22 16:55 Ur Specific [place] 1.020 (1.000-1.030) 08/08/22 16:55 Urine Protein 2+ (NEGATIVE) 08/08/22 16:55 Urine Glucose (UA) Negative (NEGATIVE) 08/08/22 16:55 Urine Ketones 1+ (NEGATIVE) 08/08/22 16:55 Urine Blood 1+ (NEGATIVE) 08/08/22 16:55 Urine Nitrite Negative (NEGATIVE) 08/08/22 16:55 Urine Bilirubin 1+ (NEGATIVE) 08/08/22 16:55 Urine Urobilinogen 2+ (NORMAL) 08/08/22 16:55 Ur Leukocyte Esterase 1+ (NEGATIVE) 08/08/22 16:55 Urine RBC 5-10 /HPF (0-3) A 08/08/22 16:55 Urine WBC 5-10 /HPF (0-5) A 08/08/22 16:55 Ur Squamous Epith Cells Few /HPF (NEGATIVE) 08/08/22 16:55 Urine Bacteria Trace /HPF (NEGATIVE) 08/08/22 16:55 Urine Mucus Few /HPF (NEGATIVE) 08/08/22 16:55 Ur Culture Indicated? No/not indicated 08/08/22 16:55 Urine Opiates Screen Positive (NEG=<300) A 08/08/22 16:55 Urine Methadone Screen Negative (NEG=<300) 08/08/22 16:55 Ur Barbiturates Screen Negative (NEG=<200) 08/08/22 16:55 Ur Phencyclidine Scrn Negative (NEG=<25) 08/08/22 16:55 Ur Amphetamines Screen Negative (NEG=<1000) 08/08/22 16:55 U Benzodiazepines Scrn Positive (NEG=<200) A 08/08/22 16:55 Urine Cocaine Screen Negative (NEG=<300) 08/08/22 16:55 U Marijuana (THC) Screen Positive (NEG=<50) A 08/08/22 16:55 Assessment/Plan (1) AMS (altered mental status): (2) Accidental drug overdose: Hospital Course Hospital Course: Pt is a 51 year old female admitted for lethargy after accidentally taking too much of her controlled medications. Pt appears to have chronic pain and anxiety that she is currently being treated for. She was taking opioid and benzodiazepines and admits she accidentally took more of her medications. Denies suicidal/homicidal ideations. In the ED she was noted to be lethargic. Pt protecting airway and was admitted for observation overnight. Labs/imaging: Wbc 8.2, Hgb 13.8, Plt 316, Na 143, K 4.3, Creatinine 0.92, Glucose 65, ABG: pH 7.33, pCO2 54, pO2 86, HCO3 28, O2sat 96%. UA negative, Toxicology positive for opiates, benzodiazepines, and THC. CXR negative, CT head no acute intracranial abnormalities. Pt responded well throughout the night and mental status approved back to baseline on exam. Pt was instructed to follow up with pcp for medication review. Pt discharged in stable condition. Discharge Medications Discharge Medications: Prescriptions: Discharge Plan Discharge Plan Patient Disposition: 01 HOME, SELF-CARE Condition: Stable Health Concerns: Post Hospitalization: new medications and changes needed to prevent readmission or further decline. Pt educated and given instructions on all concerns. Care Plan Goals: Problem: Alteration in Mental Status Goal: Patient will stay oriented to their cognitive ability Instructions: Follow provided instructions. Follow up with primary physician as directed. Contact primary care physician or report to the closest Emergency Room if condition worsens. Plan of Treatment: Continue with present treatment and follow up plan. Pt is to keep follow up appointment as instructed and take medications as ordered. Assessment: No acute distress noted at discharge. Prescriptions: Continued atorvastatin 40 mg tablet 40 mg PO DAILY propranolol 20 mg tablet 20 mg PO TID amlodipine 10 mg tablet 10 mg PO DAILY cyclobenzaprine 10 mg tablet 10 mg PO TID aspirin 81 mg tablet,delayed release (DR/EC) 81 mg PO DAILY olanzapine [Zyprexa] 5 mg Tablet 5 mg PO QHS Qty: 15 0RF gabapentin 300 mg capsule 300 mg PO TID MDD 3 Qty: 30 0RF sumatriptan succinate 100 mg tablet 100 mg PO BID PRN (Reason: Migraine Headache) duloxetine 60 mg capsule,delayed release(DR/EC) 60 mg PO DAILY topiramate 25 mg Tablet 25 mg PO BID Rx Instructions: TAKE ONE TABLET BY MOUTH TWICE A DAY fluoxetine 40 mg capsule 40 mg PO BID metolazone 5 mg tablet 5 mg PO Q OTHER DAY hydrocodone-acetaminophen 10-325 mg tablet 1 tab PO Q6H PRN diazepam 2 mg tablet 2 mg PO BID promethazine 50 mg tablet 100 mg PO BID PRN pantoprazole 40 mg tablet,delayed release (DR/EC) 40 mg PO BID pregabalin [Lyrica] 200 mg capsule 200 mg PO TID ondansetron HCl [Zofran] 4 mg tablet 4 mg PO Q8H PRN (Reason: nausea and vomiting) Qty: 15 0RF Orders to Discharge Patient Discharge Orders: Discharge (Routine); Ordered 08/09/22 Ordered By: Gee Negrete Follow ups/Referrals Follow ups/Referrals: Mohit Ortega [Primary Care Provider] - 08/20/22 1:30 pm Instructions Instructions: Benzodiazepine Overdose, Prescription Drug Misuse Information, Cannabis Use Disorder, Opioid Overdose, Tobacco Use Disorder Activity Restrictions/Additional Instructions: Only take 1/2 dose of Valium. Follow up with PCP on 08/20/22@1:30pm.
== END 2022-08-09 10:50 | disposition home or self-care (01) ==
LOC: ER 15:20 → ICU 15:20
PROVIDERS: ADMIT Family Medicine; ATTEND Family Medicine
DX: R55 Syncope and collapse; R73.09 Other abnormal glucose; F11.90 Opioid use, unspecified, uncomplicated; N39.0 Urinary tract infection, site not specified; T50.911A Poisoning by multiple unspecified drugs, medicaments and biological substances, accidental (unintentional), initial encounter; K21.9 Gastro-esophageal reflux disease without esophagitis; R26.81 Unsteadiness on feet; F19.90 Other psychoactive substance use, unspecified, uncomplicated; I10 Essential (primary) hypertension; F41.8 Other specified anxiety disorders; F12.90 Cannabis use, unspecified, uncomplicated; E03.8 Other specified hypothyroidism

== ENCOUNTER 2022-11-30 17:11 | Inpatient (IN) ==
[2022-11-30] MEDS ORDERED: LEVOPHED INJ (VIAL) ONE (17:26)
[2022-11-30] MEDS ORDERED: D5W 250 ML IV 250 ML IV ONE (17:27)
[2022-11-30] MEDS ORDERED: NARCAN INJ ONE (17:29)
[2022-11-30] MEDS ORDERED: NS 1,000 ML IV 1,000 ML ONE (17:32)
[2022-11-30 17:34] LABS: ABG BASE EXCESS 0.3 mmol/L (-2.0-2.0); ABG HCO3 28.5 mmol/L (22-26)
[2022-11-30 17:35] LABS: ABG ALLEN TEST POS
[2022-11-30] MEDS ORDERED: LEVOPHED INJ (VIAL) 8 MG in D5W 250 ML IV 250 ML IV PRN (17:35)
[2022-11-30] MEDS ORDERED: NARCAN INJ IVP ONE (17:40)
[2022-11-30 17:44] LABS: MEAN CORPUSCULAR VOLUME 101.9 fL (80.0-100.0)
[2022-11-30 17:47] LABS: INR 1.11 (0.8-1.3)
[2022-11-30 17:49] LABS: BASOPHILS % (AUTO) 0.4 % (0.2-1.0); EOSINOPHILS % (AUTO) 0.3 % (0.9-2.9); HEMATOCRIT 41.3 % (36.0-47.0); HEMOGLOBIN 13.9 g/dL (12.0-16.0); LYMPHOCYTES # (AUTO) 0.8 X10^3/uL (1.3-2.9); LYMPHOCYTES % (AUTO) 11.1 % (21.0-51.0); MEAN CORPUSCULAR HEMOGLOBIN 34.2 pg (27.0-34.0); MEAN CORPUSCULAR HGB CONC 33.6 g/dL (33.0-35.0); MEAN PLATELET VOLUME 8.3 fL (7.4-11.0); MONOCYTES # (AUTO) 0.6 x10^3/uL (0.3-0.8); MONOCYTES % (AUTO) 7.5 % (0.0-13.0); NEUTROPHILS # (AUTO) 6.1 x10^3/uL (2.2-4.8); NEUTROPHILS % (AUTO) 80.7 % (42.0-75.0); PLATELET COUNT 227 X10^3/uL (150.0-450.0); RED BLOOD COUNT 4.05 X10^6/uL (3.5-5.4); RED CELL DISTRIBUTION WIDTH 14.5 % (11.6-16.5); WHITE BLOOD COUNT 7.6 X10^3/uL (3.6-10.0)
--- NOTE | 2022-11-30 17:54 | EKG ---
Test Reason : unresponsive Blood Pressure : */* mmHG Vent. Rate : 92 BPM Atrial Rate : 92 BPM P-R Int : 162 ms QRS Dur : 80 ms QT Int : 388 ms P-R-T Axes : 70 6 23 degrees QTc Int : 479 ms Normal sinus rhythm Possible Left atrial enlargement Low voltage QRS Possible Inferior infarct , age undetermined Cannot rule out Anterior infarct , age undetermined Abnormal ECG No previous ECGs available Confirmed by Dexter Lopez ([id number]) on 12/01/2022 7:49:23 AM Referred By: Confirmed By: Dexter Lopez
[2022-11-30 17:56] LABS: ALANINE AMINOTRANSFERASE 18 Units/L (12-78); ALBUMIN 2.9 g/dL (3.4-5.0); ALKALINE PHOSPHATASE 130 Units/L (46-116); ASPARTATE AMINO TRANSFERASE 8 Units/L (15-37); BLOOD UREA NITROGEN 13 mg/dL (7-18); CALCIUM 8.1 mg/dL (8.5-10.1); CARBON DIOXIDE 28.1 mmol/L (21-32); CHLORIDE 108 mmol/L (98-107); COR NA(FOR HYPERGLY) 145 mmol/L (136-145); CREATININE 1.13 mg/dL (0.55-1.02); GLUCOSE 152 mg/dL (65-99); POTASSIUM 3.6 mmol/L (3.5-5.1); SODIUM 144 mmol/L (136-145); eGFR NON BLACK RACES 54 (>60)
[2022-11-30] MEDS ORDERED: NS 1,000 ML IV 1,000 ML IV ONE (18:02)
[2022-11-30 18:30] LABS: BILIRUBIN,URINE 1+ (NEGATIVE); BLOOD/HEMOGLOBIN,URINE 1+ (NEGATIVE); GLUCOSE, URINE NEGATIVE (NEGATIVE); KETONES,URINE NEGATIVE (NEGATIVE); LEUKOCYTE ESTERASE ,URINE NEGATIVE (NEGATIVE); NITRITES,URINE NEGATIVE (NEGATIVE); PROTEIN,URINE 2+ (NEGATIVE); UROBILINOGEN,URINE 1+ (NORMAL)
--- NOTE | 2022-11-30 18:35 | DR.DING ---
HPI Time Seen Time Seen by Provider: 11/30/22 17:15 PCP Primary Care Physician: STORMANT Complaint Chief Complaint Doctors Comments: ARRIVED TO ER UNRESPONSIVE AND BEING TREATED BY PARAMEDICS PROBABLE DRUG OVERDOSE, HAD ALREADY BEEN GIVEN 6MG OF NARCAN AND 5 MG OF ROMAZICON WITH LITTLE RESPONSE. SHE WAS NOW ALSO HYPOTENSIVE AND WAS ALREADY ON A LITER BOLUS OF NACL AND ANOTHER WAS STARTED. PATIENT HAD IV AND LEVAPHED WAS STARTED. Chief Complaint:: EMS CALLED FOR REPORT OF PT BEING UNRESPONSIVE BUT BREATHING. THEY FOUND PT TO BE RESPONSIVE BUT SITTING UP BUT LETHARGIC. EMS GAVE 4 MG NASAL NARCAN THAT PRODUCED LITTLE EFFECT AND THEN THEY GAVE NARCAN 6 MG IV WELL RAMAZICON 0.25 X2 DOSED IV TO TOTAL 0.5 MG IV WITH WITH NO EFFECT. UPON ARRIVAL TO THE ER PT WAS ONLY RESPONSIVE TO PAINFUL STERNAL RUB STIMULI AND FURTHER INTO TRIAGE PT BECAME UNRESPONSIVE. DR. MALLORY AND THUY FROM RT AND LAB AT BEDSIDE DURING TRIAGE. Self Treatment fo Chief Complaint: NONE COVID-19 Coronavirus risk:travel/contact w/high risk person: No Has patient experienced Coronavirus symptoms: No Source History Provided: EMS Mode of Arrival Mode of Arrival: EMS Timing Onset of Chief Complaint: 11/30/22 PMH PMH Past Medical History: Yes Past Medical History: Anxiety, Arthritis, Asthma, CHF, Depression, Migraines, GERD, Hypertension and Hypothyroidism Past Surgical History: Yes Surgical History: and Ortho Surgery Family History History of Family Medical Conditions: Yes Family Medical History: Diabetes Mellitus, Cancer, [place], Heart Failure and Hypertension Social History Do you use any recreational Drugs:: Yes (THC PEN) Lives With: Family Lives Where: Home Travel Risk Coronavirus risk:travel/contact w/high risk person: No Has patient experienced Coronavirus symptoms: No Infectious screening Have you traveled outside the country in the last 6 months?: No Isolation: Standard ROS Review of Systems Constitutional: Other (UNRESPONSIVE) Eyes: No Symptoms Reported ENTM: No Symptoms Reported Respiratoy: No Symptoms Reported Cardiovascular: No Symptoms Reported Gastrointestinal/Abdominal: No Symptoms Reported Genitourinary: No Symptoms Reported Neurological: Other (UNRESPONSIVE) Musculoskeletal: No Symptoms Reported Integumentary: No Symptoms Reported Hematologic/Lymphatic: No Symptoms Reported Endocrine: No Symptoms Reported Psychiatric: No Symptoms Reported PE Vital signs Vitals: Temperature 97.7 F Pulse Rate 77 Pulse Rate 104 Respiratory Rate 13 Respiratory Rate 15 Blood Pressure [Left Arm] 130/86 Blood Pressure [Right Arm] 132/89 Blood Pressure [Left Arm] 119/57 Blood Pressure [Right Arm] 85/43 Blood Pressure 145/70 Blood Pressure 126/69 O2 Sat by Pulse Oximetry 97 O2 Sat by Pulse Oximetry 99 General Limitations: Physical Limitation (PATIENT WAS UNCONSCIOUS AND UNRESPONSIVE) General Appearance: Other (UNRESPONSIVE) Head Head Exam: Normal Inspection, Atraumatic and Normocephalic Eyes Eye exam: Normal Appearance and PERRL Pupils: Regular, Round: Bilateral ENT ENT Exam: Normal Exam Neck Neck Exam: Normal Inspection Chest Chest Inspection: Normal Inspection and Symmetric Chest Wall Rise Respiratory Respiratory Exam: Normal Lung Sounds Bilat Respiratory Exam: Bilateral: Clear to Auscultation Cardiovascular Cardiovascular Exam: Tachycardia Abdominal Exam Abdominal Exam: Normal Inspection Extremities Extremities Exam: Normal Inspection Back Back Exam: Normal Inspection Neurologic Neurological Exam: Other (UNRESPONSIVE) MDM Differential Diagnosis Differential Diagnosis: Substance abuse COURSE Treatment Treatment: PATIENT INITIALY HAD TO BE FLUID RESUSCITATED AND HYPOTENSION TRATED WITH LEVOPHED. PATIENT WAS GIVEN A TOTAL OF 8MG OF NARCAN AND 5 MG OF ROMAZICON. WHE HAD TO HAVE HER AIRWAY PROTECTED AND SHE FINALLY BECAME RESPOSIVE ABOUT 6 HOURS AFTER BEING TREATED IN THE ER. SHE REMAINE LETHARGIC AND WAS ABLE TO TAKE A LITTLE ORAL INTAKE. SINCE SHE WAS STILL LETHARGIC CONTACT WAS MADE WITH DR ELKINS AT 0125 TO ADMIT THE PATIENT TO THE HOSPITAL FOR FURTHER EVALUATION AND TREATMEN. DR ELKINS ACCEPTED THE PATIENT FOR ADMISSION. ROR Labs Reviewed Laboratory Results Reviewed?: Yes Result Diagrams: 11/30/22 17:25 11/30/22 17:25 Laboratory: WBC 7.6 X10^3/uL (3.6-10.0) 11/30/22 17:25 RBC 4.05 X10^6/uL (3.5-5.4) 11/30/22 17:25 Hgb 13.9 g/dL (12.0-16.0) 11/30/22 17:25 Hct 41.3 % (36.0-47.0) 11/30/22 17:25 MCV 101.9 fL (80.0-100.0) H 11/30/22 17:25 MCH 34.2 pg (27.0-34.0) H 11/30/22 17:25 MCHC 33.6 g/dL (33.0-35.0) 11/30/22 17:25 RDW 14.5 % (11.6-16.5) 11/30/22 17:25 Plt Count 227 X10^3/uL (150.0-450.0) 11/30/22 17:25 MPV 8.3 fL (7.4-11.0) 11/30/22 17:25 Neut % (Auto) 80.7 % (42.0-75.0) H 11/30/22 17:25 Lymph % (Auto) 11.1 % (21.0-51.0) L 11/30/22 17:25 [place] % (Auto) 7.5 % (0.0-13.0) 11/30/22 17:25 Eos % (Auto) 0.3 % (0.9-2.9) L 11/30/22 17:25 Baso % (Auto) 0.4 % (0.2-1.0) 11/30/22 17:25 Neut # (Auto) 6.1 x10^3/uL (2.2-4.8) H 11/30/22 17:25 Lymph # (Auto) 0.8 X10^3/uL (1.3-2.9) L 11/30/22 17:25 [place] # (Auto) 0.6 x10^3/uL (0.3-0.8) 11/30/22 17:25 Eos # (Auto) 0.0 x10^3/uL (0.0-0.2) 11/30/22 17:25 Baso # (Auto) 0.0 X10^3/uL (0.0-0.1) 11/30/22 17:25 Absolute Nucleated RBC 0.1 /100WBC 11/30/22 17:25 PT 14.1 SECONDS (11.8-14.3) 11/30/22 17:25 INR Target Range - 11/30/22 17:25 INR 1.11 (0.8-1.3) 11/30/22 17:25 APTT 25.7 SECONDS (22.9-36.5) 11/30/22 17:25 PTT Comment - 11/30/22 17:25 Sample Site [place] 11/30/22 17:25 ABG pH 7.270 (7.35-7.45) L 11/30/22 17:25 ABG pCO2 62.0 mmHg (35.0-45.0) H* 11/30/22 17:25 ABG pO2 288.0 mmHg (80.0-100.0) H 11/30/22 17:25 ABG HCO3 28.5 mmol/L (22-26) H 11/30/22 17:25 ABG O2 Saturation 100.0 % (90-100) 11/30/22 17:25 ABG Base Excess 0.3 mmol/L (-2.0-2.0) 11/30/22 17:25 Vlad Test Pos 11/30/22 17:25 A-a Gradient 348.0 mmHg 11/30/22 17:25 FiO2 100.0 11/30/22 17:25 Blood Gas Comments Pt abebe well elj 11/30/22 17:25 Sodium 144 mmol/L (136-145) 11/30/22 17:25 Corrected Sodium 145 mmol/L (136-145) 11/30/22 17:25 Potassium 3.6 mmol/L (3.5-5.1) 11/30/22 17:25 Chloride 108 mmol/L (98-107) H 11/30/22 17:25 Carbon Dioxide 28.1 mmol/L (21-32) 11/30/22 17:25 BUN 13 mg/dL (7-18) 11/30/22 17:25 Creatinine 1.13 mg/dL (0.55-1.02) H 11/30/22 17:25 Est GFR (MDRD) Af Amer > 60 (>60) 11/30/22 17:25 Est GFR (MDRD) Non-Af 54 (>60) L 11/30/22 17:25 Glucose 152 mg/dL (65-99) H 11/30/22 17:25 Lactic Acid 1.0 mmol/L (0.4-2.0) 11/30/22 17:25 Calcium 8.1 mg/dL (8.5-10.1) L 11/30/22 17:25 Corrected Calcium 9.0 mg/dL (8.5-10.1) 11/30/22 17:25 Total Bilirubin 0.30 mg/dL (0.2-1.0) 11/30/22 17:25 AST 8 Units/L (15-37) L 11/30/22 17:25 ALT 18 Units/L (12-78) 11/30/22 17:25 Alkaline Phosphatase 130 Units/L (46-116) H 11/30/22 17:25 Troponin I High Sens 5.0 ng/L (4.0-60.0) 11/30/22 17:25 Total Protein 6.0 g/dL (6.4-8.2) L 11/30/22 17:25 Albumin 2.9 g/dL (3.4-5.0) L 11/30/22 17:25 Globulin 3.1 g/dL (2.5-4.5) 11/30/22 17:25 Albumin/Globulin Ratio 0.9 Ratio (1.1-2.1) L 11/30/22 17:25 Specimen Type Clean catch urine 11/30/22 18:17 Urine Color Yellow (YELLOW) 11/30/22 18:17 Urine Appearance Clear (CLEAR) 11/30/22 18:17 Urine pH 6.0 (5.0 - 8.0) 11/30/22 18:17 Ur Specific [place] 1.025 (1.000-1.030) 11/30/22 18:17 Urine Protein 2+ (NEGATIVE) 11/30/22 18:17 Urine Glucose (UA) Negative (NEGATIVE) 11/30/22 18:17 Urine Ketones Negative (NEGATIVE) 11/30/22 18:17 Urine Blood 1+ (NEGATIVE) 11/30/22 18:17 Urine Nitrite Negative (NEGATIVE) 11/30/22 18:17 Urine Bilirubin 1+ (NEGATIVE) 11/30/22 18:17 Urine Urobilinogen 1+ (NORMAL) 11/30/22 18:17 Ur Leukocyte Esterase Negative (NEGATIVE) 11/30/22 18:17 Urine RBC 0-2 /HPF (0-3) 11/30/22 18:17 Urine WBC None seen /HPF (0-5) 11/30/22 18:17 Ur Squamous Epith Cells Rare /HPF (NEGATIVE) 11/30/22 18:17 Urine Bacteria Trace /HPF (NEGATIVE) 11/30/22 18:17 Ur Culture Indicated? No/not indicated 11/30/22 18:17 Urine Opiates Screen Positive (NEG=<300) A 11/30/22 18:17 Urine Methadone Screen Negative (NEG=<300) 11/30/22 18:17 Ur Barbiturates Screen Positive (NEG=<200) A 11/30/22 18:17 Ur Phencyclidine Scrn Negative (NEG=<25) 11/30/22 18:17 Ur Amphetamines Screen Negative (NEG=<1000) 11/30/22 18:17 U Benzodiazepines Scrn Positive (NEG=<200) A 11/30/22 18:17 Urine Cocaine Screen Negative (NEG=<300) 11/30/22 18:17 U Marijuana (THC) Screen Positive (NEG=<50) A 11/30/22 18:17 Opioid Opioid Risk Tool Age (Bigg box if 16-45): No History of Preadolescent Sexual Abuse: No Total: 0 Total Score Risk Category: Low Risk Copyright: Amos RUST predicting aberrant behaviors Discharge Plan Diagnosis Discharge Problem: Drug overdose, multiple drugs, Hypotension Discharge Plan Patient Disposition: ADMITTED INPATIENT Condition: Stable Prescriptions: No Action atorvastatin 40 mg tablet 40 mg PO DAILY propranolol 20 mg tablet 20 mg PO TID amlodipine 10 mg tablet 10 mg PO DAILY cyclobenzaprine 10 mg tablet 10 mg PO TID aspirin 81 mg tablet,delayed release (DR/EC) 81 mg PO DAILY olanzapine [Zyprexa] 5 mg Tablet 5 mg PO QHS Qty: 15 0RF sumatriptan succinate 100 mg tablet 100 mg PO BID PRN (Reason: Migraine Headache) duloxetine 60 mg capsule,delayed release(DR/EC) 60 mg PO BID topiramate 25 mg Tablet 25 mg PO BID Rx Instructions: TAKE ONE TABLET BY MOUTH TWICE A DAY fluoxetine 40 mg capsule 40 mg PO DAILY metolazone 5 mg tablet 5 mg PO Q OTHER DAY hydrocodone-acetaminophen 10-325 mg tablet 1 tab PO Q6H PRN diazepam 2 mg tablet 2 mg PO DAILY PRN (Reason: Anxiety) pantoprazole 40 mg tablet,delayed release (DR/EC) 40 mg PO BID pregabalin [Lyrica] 200 mg capsule 200 mg PO TID medroxyprogesterone 2.5 mg tablet 1 tab PO QDAY clonidine HCl 0.1 mg Tablet 0.1 mg PO DAILY promethazine 25 mg tablet 1 tab PO Q6H PRN gabapentin 100 mg Capsule 100 mg PO TID [employer]PERATOR Thyroid 30 mg tablet 1 tab PO QDAY Health Concerns: Post Hospitalization: new medications and changes needed to prevent readmission or further decline. Pt educated and given instructions on all concerns. Plan of Treatment: Continue with present treatment and follow up plan. Pt is to keep follow up appointment as instructed and take medications as ordered. Orders to Discharge Patient Discharge Orders: Transfer (Routine); Ordered 12/01/22 Ordered By: Emmanuel Mallory Follow ups/Referrals Follow ups/Referrals: Mohit Ortega [Primary Care Provider] - 3 days
[2022-11-30 18:42] LABS: APPEARANCE,URINE CLEAR (CLEAR); COLOR,URINE YELLOW (YELLOW)
[2022-11-30 18:43] LABS: BACTERIA,URINE TRACE /HPF (NEGATIVE); RBC,URINE 0-2 /HPF (0-3); SQUAMOUS EPITHELIAL CELL,UR RARE /HPF (NEGATIVE)
--- NOTE | 2022-11-30 20:23 | CT ---
HISTORYAMS, OVERDOSESTUDYBRAIN W/O [id number]/15/2023.TECHNIQUE br techniques including Automated Exposure Control (AEC) and adjustment of mA and kV were utilized.Contrast: NoneFINDINGSBRAIN PARENCHYMA: No acute hemorrhage, infarct, mass, or mass effect. There is stable encephalomalacia in the right cerebellar hemisphere.Tate-white differentiation is maintained.Scattered white matter chronic small vessel ischemic changes.VENTRICLES/EXTRA-AXIAL SPACES: Unremarkable size and configuration. No hydrocephalus or extra-axial fluid collections.EXTRACRANIAL STRUCTURES:Unremarkable bones and soft tissues. Visualized paranasal sinuses and mastoids are clear.IMPRESSIONNo acute intracranial abnormality.Electronically signed by: Nhan Uriostegui (Nov 30, 2022 20:21:34)
--- NOTE | 2022-11-30 22:36 | RAD ---
HISTORYOVEROSE, UNRESPONSIVESTUDYCHEST, 1 VIEWCOMPARISONFebruary 2022.TECHNIQUEA single frontal view of the chest was obtained.FINDINGSThere is asymmetry to the density within the right lung as compared with the left secondary to oblique positioning there are multiple EKG leads and wires seen overlying the patient. The heart is normal in size. There is no focal infiltrate. There is no effusion. There is no pneumothorax. The osseous structures are intact.IMPRESSIONNo definite focal infiltrate or effusion.Electronically signed by: Ilene Balbuena (Nov 30, 2022 22:35:44)
[2022-12-01] MEDS ORDERED: NS 1,000 ML IV 1,000 ML ONE (01:40)
[2022-12-01 02:51] VITALS: O2SAT 96
[2022-12-01 03:32] VITALS: BMI 49.1
[2022-12-01] MEDS ORDERED: TYLENOL 325 MG TAB PO PRN (04:42)
[2022-12-01] MEDS ORDERED: TYLENOL 325 MG TAB PO ONE (05:17)
[2022-12-01 06:08] LABS: BASOPHILS # (AUTO) 0.1 X10^3/uL (0.0-0.1); BASOPHILS % (AUTO) 0.8 % (0.2-1.0); EOSINOPHILS % (AUTO) 0.7 % (0.9-2.9); HEMATOCRIT 40.4 % (36.0-47.0); HEMOGLOBIN 13.5 g/dL (12.0-16.0); LYMPHOCYTES # (AUTO) 1.2 X10^3/uL (1.3-2.9); LYMPHOCYTES % (AUTO) 16.3 % (21.0-51.0); MEAN CORPUSCULAR HGB CONC 33.4 g/dL (33.0-35.0); MEAN CORPUSCULAR VOLUME 101.9 fL (80.0-100.0); MEAN PLATELET VOLUME 8.2 fL (7.4-11.0); MONOCYTES # (AUTO) 0.5 x10^3/uL (0.3-0.8); MONOCYTES % (AUTO) 6.8 % (0.0-13.0); NEUTROPHILS # (AUTO) 5.5 x10^3/uL (2.2-4.8); NEUTROPHILS % (AUTO) 75.4 % (42.0-75.0); PLATELET COUNT 222 X10^3/uL (150.0-450.0); RED BLOOD COUNT 3.96 X10^6/uL (3.5-5.4); RED CELL DISTRIBUTION WIDTH 14.8 % (11.6-16.5); WHITE BLOOD COUNT 7.4 X10^3/uL (3.6-10.0)
[2022-12-01 06:26] LABS: ALANINE AMINOTRANSFERASE 17 Units/L (12-78); ALBUMIN 2.7 g/dL (3.4-5.0); ALKALINE PHOSPHATASE 123 Units/L (46-116); ASPARTATE AMINO TRANSFERASE 8 Units/L (15-37); BLOOD UREA NITROGEN 10 mg/dL (7-18); CALCIUM 8.1 mg/dL (8.5-10.1); CARBON DIOXIDE 30.2 mmol/L (21-32); CHLORIDE 109 mmol/L (98-107); COR CA(FOR HYPOALB) 9.1 mg/dL (8.5-10.1); COR NA(FOR HYPERGLY) 145 mmol/L (136-145); CREATININE 0.88 mg/dL (0.55-1.02); GLUCOSE 133 mg/dL (65-99); POTASSIUM 3.8 mmol/L (3.5-5.1); SODIUM 144 mmol/L (136-145); TOTAL PROTEIN 5.9 g/dL (6.4-8.2); eGFR NON BLACK RACES > 60 (>60)
[2022-12-01 07:55] VITALS: BP 121/66; PULSE 82; TEMP 97.8
[2022-12-01] MEDS ORDERED: PROTONIX TAB 40 MG PO SCH (09:00)
[2022-12-01] MEDS ORDERED: ASPIRIN EC 81 MG PO SCH (09:00)
[2022-12-01] MEDS ORDERED: CYMBALTA PO SCH (09:00)
[2022-12-01] MEDS ORDERED: SYNTHROID 50 mcg TAB PO SCH (09:00)
[2022-12-01] MEDS ORDERED: LIPITOR TAB 40 MG PO SCH (09:00)
== END 2022-12-01 11:06 | disposition home or self-care (01) | DRG 918 ==
LOC: ER 17:11 → MED/SURG 12-01 01:57
PROVIDERS: ADMIT Obstetrics & Gynecology Obstetrics; ATTEND Obstetrics & Gynecology Obstetrics
DX: Y92.89 Other specified places as the place of occurrence of the external cause; I10 Essential (primary) hypertension; R41.82 Altered mental status, unspecified; I95.89 Other hypotension; F32.89 Other specified depressive episodes; K21.9 Gastro-esophageal reflux disease without esophagitis; T50.991A Poisoning by other drugs, medicaments and biological substances, accidental (unintentional), initial encounter; E03.8 Other specified hypothyroidism; X58.XXXA Exposure to other specified factors, initial encounter

== ENCOUNTER 2024-12-16 00:09 | Observation (INO) ==
[2024-12-16 00:26] VITALS: BMI 39.1
--- NOTE | 2024-12-16 00:31 | DR.GENAD ---
HPI Time Seen Time Seen by Provider: 12/16/24 00:31 PCP Primary Care Physician: CAROLINA MEI NP HPI Comment HPI Comment: 54 y/o brought in by EMS for hypotension. She is somnolent and struggles to stay awake. She denies being on bp medications and says she has not taken any pain medications in two weeks. She denies cp, sob, abdominal pain, n/v/d, dysuria, hematuria and says she is eating and drinking per the usual. She was released from [facility] last week after a two day stay where she was on what sounds like pressors for low bp and abx. She says she was not discharged on any abx but the son says she was on abx for uti leading up to hospital stay. She was also diagnosed w/pneumonia. She denies cough and wheezing today. She initially asks for pain medication which was refused d/t low bp; she did not ask again. PDMP w/suboxone in September/October, last hydrocodone earlier in the year. She did received tramadol earlier this month but only 12 tabs. Complaint/Symptoms Chief Complaint:: PT IN ED VIA STRETCHER PER [facility] WITH C/O BLOOD PRESSURE BEING LOW. PER EMS BP 74/42 PT STATES HER BLOOD PRESSURE HAS BEEN RUNNING LOW FOR APPROX THE LAST 6 MONTHS. COVID-19 Coronavirus risk:travel/contact w/high risk person: No Has patient experienced Coronavirus symptoms: No Source History Provided: Patient and EMS Mode of Arrival Mode of Arrival: Stretcher Timing Onset of Chief Complaint: 12/16/24 PMH PMH Past Medical History: Yes Past Medical History: Anxiety, Asthma, COPD, Depression, GERD, Hypertension and Hypothyroidism Past Medical History Comment: TIA IBS BIPOLAR Past Surgical History: Yes Surgical History: and Ortho Surgery Past Surgical History Comment: LEFT ANKLE LEFT LEG Family History History of Family Medical Conditions: Yes Family Medical History: Diabetes Mellitus, Cancer, [place], Coronary Artery Disease, Heart Failure, Sudden Cardiac and Hypertension Social History Does patient currently use any type of tobacco product: Yes Have you used tobacco products in the last 12 months: Yes Type of Tobacco Use: Cigarettes Does any household member use tobacco: Yes Alcohol Use: Occasionally Do you use any recreational Drugs:: No Lives With: Spouse Lives Where: Home Travel Risk Coronavirus risk:travel/contact w/high risk person: No Has patient experienced Coronavirus symptoms: No Infectious screening In the last 2 months have you had wt loss of >10#?: NO Have you had fever, night sweats or hemotysis?: No Have you traveled outside the country in the last 6 months?: No Isolation: Standard ROS Review of Systems Constitutional: See HPI Eyes: No Symptoms Reported ENTM: No Symptoms Reported Respiratoy: No Symptoms Reported Cardiovascular: See HPI; negative Edema, Syncope or Skin Mottling Gastrointestinal/Abdominal: No Symptoms Reported Genitourinary: No Symptoms Reported Neurological: See HPI; negative Headache, Weakness or Dizziness Musculoskeletal: No Symptoms Reported Integumentary: No Symptoms Reported Hematologic/Lymphatic: No Symptoms Reported Endocrine: No Symptoms Reported Psychiatric: No Symptoms Reported PE Vital Signs Vitals: Vital Signs Temperature 98.6 F Pulse Rate 54 Pulse Rate 61 Pulse Rate 58 Pulse Rate 65 Pulse Rate 62 Pulse Rate 63 Pulse Rate 66 Pulse Rate 61 Pulse Rate 58 Pulse Rate 57 Pulse Rate 57 Pulse Rate 56 Pulse Rate 53 Pulse Rate 60 Pulse Rate 60 Pulse Rate 60 Pulse Rate 59 Pulse Rate 59 Pulse Rate 56 Pulse Rate 56 Pulse Rate 57 Pulse Rate 55 Pulse Rate 54 Pulse Rate 52 Pulse Rate 60 Pulse Rate 55 Pulse Rate 54 Pulse Rate 63 Pulse Rate 55 Pulse Rate 56 Pulse Rate 56 Pulse Rate 56 Pulse Rate 55 Pulse Rate 55 Pulse Rate 55 Pulse Rate 53 Pulse Rate 58 Pulse Rate 56 Pulse Rate 55 Pulse Rate 56 Pulse Rate 57 Pulse Rate 56 Pulse Rate 56 Pulse Rate 57 Pulse Rate 56 Pulse Rate 57 Pulse Rate 59 Pulse Rate 62 Respiratory Rate 14 Respiratory Rate 13 Respiratory Rate 15 Respiratory Rate 15 Respiratory Rate 14 Respiratory Rate 14 Respiratory Rate 15 Respiratory Rate 14 Respiratory Rate 15 Respiratory Rate 13 Respiratory Rate 14 Respiratory Rate 15 Respiratory Rate 16 Respiratory Rate 14 Respiratory Rate 14 Respiratory Rate 14 Respiratory Rate 13 Respiratory Rate 15 Respiratory Rate 14 Respiratory Rate 14 Respiratory Rate 14 Respiratory Rate 14 Respiratory Rate 12 Respiratory Rate 13 Respiratory Rate 17 Respiratory Rate 14 Respiratory Rate 15 Respiratory Rate 14 Respiratory Rate 14 Respiratory Rate 14 Respiratory Rate 15 Respiratory Rate 15 Respiratory Rate 14 Respiratory Rate 14 Respiratory Rate 14 Respiratory Rate 15 Respiratory Rate 15 Respiratory Rate 14 Respiratory Rate 14 Respiratory Rate 14 Respiratory Rate 14 Respiratory Rate 15 Respiratory Rate 15 Respiratory Rate 16 Respiratory Rate 17 Respiratory Rate 23 Respiratory Rate 26 Respiratory Rate 20 Blood Pressure 109/62 Blood Pressure 109/62 Blood Pressure 76/42 Blood Pressure 76/47 Blood Pressure 76/41 Blood Pressure 87/51 Blood Pressure 85/49 Blood Pressure 93/51 Blood Pressure 86/61 Blood Pressure 76/46 Blood Pressure 75/45 Blood Pressure 77/44 Blood Pressure 96/51 Blood Pressure 79/49 Blood Pressure 94/53 Blood Pressure 95/58 Blood Pressure 112/57 Blood Pressure 91/54 Blood Pressure 98/58 Blood Pressure 85/53 Blood Pressure 78/42 Blood Pressure 83/46 Blood Pressure 82/46 Blood Pressure 79/47 Blood Pressure 86/54 Blood Pressure 87/52 Blood Pressure 86/42 Blood Pressure 85/46 Blood Pressure 72/36 Blood Pressure 81/42 Blood Pressure 83/39 Blood Pressure 76/51 Blood Pressure 72/49 Blood Pressure 80/44 Blood Pressure 82/41 O2 Sat by Pulse Oximetry 97 O2 Sat by Pulse Oximetry 94 O2 Sat by Pulse Oximetry 94 O2 Sat by Pulse Oximetry 95 O2 Sat by Pulse Oximetry 94 O2 Sat by Pulse Oximetry 94 O2 Sat by Pulse Oximetry 94 O2 Sat by Pulse Oximetry 93 O2 Sat by Pulse Oximetry 93 O2 Sat by Pulse Oximetry 93 O2 Sat by Pulse Oximetry 93 O2 Sat by Pulse Oximetry 94 O2 Sat by Pulse Oximetry 96 O2 Sat by Pulse Oximetry 96 O2 Sat by Pulse Oximetry 95 O2 Sat by Pulse Oximetry 95 O2 Sat by Pulse Oximetry 98 O2 Sat by Pulse Oximetry 97 O2 Sat by Pulse Oximetry 95 O2 Sat by Pulse Oximetry 94 O2 Sat by Pulse Oximetry 96 O2 Sat by Pulse Oximetry 96 O2 Sat by Pulse Oximetry 96 O2 Sat by Pulse Oximetry 94 O2 Sat by Pulse Oximetry 94 O2 Sat by Pulse Oximetry 94 O2 Sat by Pulse Oximetry 91 O2 Sat by Pulse Oximetry 93 O2 Sat by Pulse Oximetry 92 O2 Sat by Pulse Oximetry 93 O2 Sat by Pulse Oximetry 92 O2 Sat by Pulse Oximetry 93 O2 Sat by Pulse Oximetry 92 O2 Sat by Pulse Oximetry 92 O2 Sat by Pulse Oximetry 95 O2 Sat by Pulse Oximetry 90 O2 Sat by Pulse Oximetry 91 O2 Sat by Pulse Oximetry 94 O2 Sat by Pulse Oximetry 93 O2 Sat by Pulse Oximetry 90 O2 Sat by Pulse Oximetry 91 O2 Sat by Pulse Oximetry 92 O2 Sat by Pulse Oximetry 93 O2 Sat by Pulse Oximetry 94 O2 Sat by Pulse Oximetry 93 O2 Sat by Pulse Oximetry 95 O2 Sat by Pulse Oximetry 95 General Limitations: No Limitations General Appearance: Alert and In No Apparent Distress Head Head Exam: Normal Inspection Eyes Eye exam: Normal Appearance Neck Neck Exam: Normal Inspection Chest Chest Inspection: Normal Inspection Respiratory Respiratory Exam: Normal Lung Sounds Bilat Respiratory Exam: Bilateral: Clear to Auscultation Cardiovascular Cardiovascular Exam: Regular Rate and Normal Rhythm Abdominal Exam Abdominal Exam: Normal Inspection, Normal Bowel Sounds and Soft Extremities Extremities Exam: Normal Inspection Back Back Exam: Normal Inspection Neurologic Neurological Exam: Other (somnolent, nods off) Psychiatric Psychiatric Exam: Depressed and Flat Affect Skin Skin Exam: Warm, Dry, Intact and Normal Color COURSE Critical Care Notes Total Time (mins): 60 Critical Diagnosis: sepsis, hypotension Critical Interventions: labs and interpretations fluids, levophed, vancomycin d/w pt and son several times regarding results and need for admission d/w Dr Penelope HAWKINS Labs Reviewed Laboratory Results Reviewed?: Yes 12/16/24 00:43 12/16/24 00:43 Laboratory: WBC 7.9 X10^3/uL (3.6-10.0) 12/16/24 00:43 RBC 4.38 X10^6/uL (3.5-5.4) 12/16/24 00:43 Hgb 13.4 g/dL (12.0-16.0) 12/16/24 00:43 Hct 40.1 % (36.0-47.0) 12/16/24 00:43 MCV 91.5 fL (80.0-100.0) 12/16/24 00:43 MCH 30.5 pg (27.0-34.0) 12/16/24 00:43 MCHC 33.3 g/dL (33.0-35.0) 12/16/24 00:43 RDW 16.1 % (11.6-16.5) 12/16/24 00:43 Plt Count 284 X10^3/uL (150.0-450.0) 12/16/24 00:43 MPV 7.6 fL (7.4-11.0) 12/16/24 00:43 Neut % (Auto) 59.5 % (42.0-75.0) 12/16/24 00:43 Lymph % (Auto) 30.0 % (21.0-51.0) 12/16/24 00:43 [place] % (Auto) 7.9 % (0.0-13.0) 12/16/24 00:43 Eos % (Auto) 1.5 % (0.9-2.9) 12/16/24 00:43 Baso % (Auto) 1.1 % (0.2-1.0) H 12/16/24 00:43 Neut # (Auto) 4.7 x10^3/uL (2.2-4.8) 12/16/24 00:43 Lymph # (Auto) 2.4 X10^3/uL (1.3-2.9) 12/16/24 00:43 [place] # (Auto) 0.6 x10^3/uL (0.3-0.8) 12/16/24 00:43 Eos # (Auto) 0.1 x10^3/uL (0.0-0.2) 12/16/24 00:43 Baso # (Auto) 0.1 X10^3/uL (0.0-0.1) 12/16/24 00:43 Absolute Nucleated RBC 0.1 /100WBC 12/16/24 00:43 Sodium 139 mmol/L (136-145) 12/16/24 00:43 Corrected Sodium TNP 12/16/24 00:43 Potassium 4.1 mmol/L (3.5-5.1) 12/16/24 00:43 Chloride 106 mmol/L (98-107) 12/16/24 00:43 Carbon Dioxide 24.5 mmol/L (21-32) 12/16/24 00:43 BUN 16 mg/dL (7-18) 12/16/24 00:43 Creatinine 1.09 mg/dL (0.55-1.02) H 12/16/24 00:43 Est GFR (MDRD) Af Amer > 60 (>60) 12/16/24 00:43 Est GFR (MDRD) Non-Af 56 (>60) L 12/16/24 00:43 Glucose 106 mg/dL (65-99) H 12/16/24 00:43 Lactic Acid 1.5 mmol/L (0.4-2.0) 12/16/24 00:57 Calcium 9.2 mg/dL (8.5-10.1) 12/16/24 00:43 Corrected Calcium 9.9 mg/dL (8.5-10.1) 12/16/24 00:43 Total Bilirubin 0.20 mg/dL (0.2-1.0) 12/16/24 00:43 AST 9 Units/L (15-37) L 12/16/24 00:43 ALT 17 Units/L (12-78) 12/16/24 00:43 Alkaline Phosphatase 92 Units/L (46-116) 12/16/24 00:43 Creatine Kinase 23 Units/L (26-192) L 12/16/24 00:43 Troponin I High Sens 11.1 ng/L (4.0-60.0) 12/16/24 00:43 Total Protein 7.1 g/dL (6.4-8.2) 12/16/24 00:43 Albumin 3.1 g/dL (3.4-5.0) L 12/16/24 00:43 Globulin 4.0 g/dL (2.5-4.5) 12/16/24 00:43 Albumin/Globulin Ratio 0.8 Ratio (1.1-2.1) L 12/16/24 00:43 Specimen Type Clean catch urine 12/16/24 03:05 Urine Color Pale yellow (YELLOW) 12/16/24 03:05 Urine Appearance Clear (CLEAR) 12/16/24 03:05 Urine pH 6.0 (5.0 - 8.0) 12/16/24 03:05 Ur Specific [place] 1.010 (1.000-1.030) 12/16/24 03:05 Urine Protein 1+ (NEGATIVE) 12/16/24 03:05 Urine Glucose (UA) Negative (NEGATIVE) 12/16/24 03:05 Urine Ketones Negative (NEGATIVE) 12/16/24 03:05 Urine Blood Negative (NEGATIVE) 12/16/24 03:05 Urine Nitrite Negative (NEGATIVE) 12/16/24 03:05 Urine Bilirubin Negative (NEGATIVE) 12/16/24 03:05 Urine Urobilinogen Normal (NORMAL) 12/16/24 03:05 Ur Leukocyte Esterase 1+ (NEGATIVE) 12/16/24 03:05 Urine RBC None seen /HPF (0-3) 12/16/24 03:05 Urine WBC 0-2 /HPF (0-5) 12/16/24 03:05 Ur Squamous Epith Cells Few /HPF (NEGATIVE) 12/16/24 03:05 Urine Bacteria 2+ /HPF (NEGATIVE) 12/16/24 03:05 Ur Culture Indicated? Yes/culture set up 12/16/24 03:05 Urine Opiates Screen Negative (NEG=<300) 12/16/24 03:05 Urine Methadone Screen Negative (NEG=<300) 12/16/24 03:05 Ur Barbiturates Screen Positive (NEG=<200) A 12/16/24 03:05 Ur Phencyclidine Scrn Negative (NEG=<25) 12/16/24 03:05 Ur Amphetamines Screen Negative (NEG=<1000) 12/16/24 03:05 U Benzodiazepines Scrn Negative (NEG=<200) 12/16/24 03:05 Urine Cocaine Screen Negative (NEG=<300) 12/16/24 03:05 U Marijuana (THC) Screen Negative (NEG=<50) 12/16/24 03:05 Opioid Opioid Risk Tool Age (Bigg box if 16-45): No History of Preadolescent Sexual Abuse: No Total: 0 Total Score Risk Category: Low Risk Copyright: [facility] predicting aberrant behaviors Discharge Plan Diagnosis Discharge Problem: Sepsis, UTI (urinary tract infection), Somnolence Discharge Plan Patient Disposition: ADMITTED INPATIENT Condition: Stable Prescriptions: No Action dicyclomine 20 mg tablet 20 mg PO TID MDD 3 Qty: 30 0RF tramadol 50 mg tablet 50 mg PO BID MDD 2 PRN (Reason: pain) Qty: 7 0RF hydroxyzine pamoate 100 mg Capsule 100 mg PO BID PRN atorvastatin 80 mg Tablet 80 mg PO QPM oxybutynin chloride 15 mg Tablet Extended Release 24hr 15 mg PO BID medroxyprogesterone 2.5 mg Tablet 5 mg PO QPM primidone 250 mg Tablet 250 mg PO QHS pantoprazole 40 mg Tablet,Delayed Release (Dr/Ec) 40 mg PO QDAY Rx Instructions: Take one tablet one-half to one hour before the morning meal for stomach bumetanide 1 mg Tablet 1 mg PO QDAY buspirone 15 mg Tablet 15 mg PO BID thyroid (pork) [[employer] ADJUSTER Thyroid] 30 mg Tablet 30 mg PO QDAY fluoxetine 40 mg Capsule 80 mg PO QDAY hydrocodone-acetaminophen 5-325 mg Tablet 1 tab PO Q6H PRN metronidazole 500 mg Tablet 500 mg PO BID cyanocobalamin (vitamin B-12) 1,000 mcg/mL Solution 1,000 mcg IM QWEEK metoclopramide HCl 10 mg Tablet 10 mg PO QACHS buprenorphine-naloxone 8-2 mg Tablet, Sublingual 0.5 tab SUBLINGUAL BID topiramate 50 mg Tablet 50 mg PO BID Creon 36,000-114,000- 180,000 unit Capsule,Delayed Release(Dr/Ec) 2 cap PO QID Rx Instructions: administer with meals and/or snacks diltiazem HCl 120 mg Capsule,Extended Release 24hr 120 mg PO QAM fenofibrate 54 mg Tablet 54 mg PO QHS ondansetron HCl 4 mg Tablet 4 mg PO Q8H PRN gabapentin 800 mg Tablet 800 mg PO TID trazodone 150 mg Tablet 150 mg PO QHS dicyclomine 10 mg Capsule 20 mg PO TID duloxetine 60 mg Capsule,Delayed Release(Dr/Ec) 60 mg PO QDAY tizanidine 2 mg Capsule 2 mg PO TID PRN propranolol 80 mg Tablet 80 mg PO BID rizatriptan 10 mg Tablet,Disintegrating 10 mg PO ONCE PRN Rx Instructions: may repeat once after at least 2 hours diclofenac sodium 75 mg Tablet,Delayed Release (Dr/Ec) 75 mg PO BID albuterol sulfate [Ventolin HFA] 90 mcg/actuation Hfa Aerosol Inhaler 1 inh INHALATION Q4H PRN ketorolac 10 mg tablet 10 mg PO Q8H PRNQty: 14 0RF Rx Instructions: maximum total duration of 5 days from all oral, intranasal, or parenteral formulations methocarbamol 750 mg tablet 750 mg PO TID PRNQty: 14 0RF Health Concerns: Post Hospitalization: new medications and changes needed to prevent readmission or further decline. Pt educated and given instructions on all concerns. Plan of Treatment: Continue with present treatment and follow up plan. Pt is to keep follow up appointment as instructed and take medications as ordered. Follow ups/Referrals Follow ups/Referrals: Carolina Mei [Primary Care Provider, Unknown] - 3 days Instructions Print Language: HEBREW
[2024-12-16] MEDS ORDERED: NS 1,000 ML IV 1,000 ML ONE (00:33)
[2024-12-16] MEDS: NS 1,000 ML IV 1,000 ML IV ONE ×3 (00:35→03:14)
--- NOTE | 2024-12-16 00:48 | EKG ---
Test Reason : hypotension Blood Pressure : */* mmHG Vent. Rate : 57 BPM Atrial Rate : 57 BPM P-R Int : 180 ms QRS Dur : 90 ms QT Int : 478 ms P-R-T Axes : 22 0 10 degrees QTc Int : 465 ms Sinus bradycardia Cannot rule out Anterior infarct (cited on or before 12-APR-2024) Abnormal ECG When compared with ECG of 12-APR-2024 22:37, Vent. rate has decreased BY 32 BPM Confirmed by Lucas Lambert MD ([id number]) on 12/16/2024 7:25:12 AM Referred By: Confirmed By: Lucas Lambert MD
[2024-12-16 01:08] LABS: ALANINE AMINOTRANSFERASE 17 Units/L (12-78); ALBUMIN 3.1 g/dL (3.4-5.0); ALKALINE PHOSPHATASE 92 Units/L (46-116); ASPARTATE AMINO TRANSFERASE 9 Units/L (15-37); BLOOD UREA NITROGEN 16 mg/dL (7-18); CALCIUM 9.2 mg/dL (8.5-10.1); CARBON DIOXIDE 24.5 mmol/L (21-32); CHLORIDE 106 mmol/L (98-107); COR CA(FOR HYPOALB) 9.9 mg/dL (8.5-10.1); CREATINE KINASE 23 Units/L (26-192); CREATININE 1.09 mg/dL (0.55-1.02); GLUCOSE 106 mg/dL (65-99); POTASSIUM 4.1 mmol/L (3.5-5.1); SODIUM 139 mmol/L (136-145); TOTAL PROTEIN 7.1 g/dL (6.4-8.2); eGFR NON BLACK RACES 56 (>60)
[2024-12-16 01:11] LABS: BASOPHILS # (AUTO) 0.1 X10^3/uL (0.0-0.1); BASOPHILS % (AUTO) 1.1 % (0.2-1.0); EOSINOPHILS # (AUTO) 0.1 x10^3/uL (0.0-0.2); EOSINOPHILS % (AUTO) 1.5 % (0.9-2.9); HEMATOCRIT 40.1 % (36.0-47.0); HEMOGLOBIN 13.4 g/dL (12.0-16.0); LYMPHOCYTES # (AUTO) 2.4 X10^3/uL (1.3-2.9); MEAN CORPUSCULAR HEMOGLOBIN 30.5 pg (27.0-34.0); MEAN CORPUSCULAR HGB CONC 33.3 g/dL (33.0-35.0); MEAN CORPUSCULAR VOLUME 91.5 fL (80.0-100.0); MEAN PLATELET VOLUME 7.6 fL (7.4-11.0); MONOCYTES # (AUTO) 0.6 x10^3/uL (0.3-0.8); MONOCYTES % (AUTO) 7.9 % (0.0-13.0); NEUTROPHILS # (AUTO) 4.7 x10^3/uL (2.2-4.8); NEUTROPHILS % (AUTO) 59.5 % (42.0-75.0); PLATELET COUNT 284 X10^3/uL (150.0-450.0); RED BLOOD COUNT 4.38 X10^6/uL (3.5-5.4); RED CELL DISTRIBUTION WIDTH 16.1 % (11.6-16.5); WHITE BLOOD COUNT 7.9 X10^3/uL (3.6-10.0)
[2024-12-16 03:21] LABS: BILIRUBIN,URINE NEGATIVE (NEGATIVE); BLOOD/HEMOGLOBIN,URINE NEGATIVE (NEGATIVE); GLUCOSE, URINE NEGATIVE (NEGATIVE); KETONES,URINE NEGATIVE (NEGATIVE); LEUKOCYTE ESTERASE ,URINE 1+ (NEGATIVE); NITRITES,URINE NEGATIVE (NEGATIVE); PROTEIN,URINE 1+ (NEGATIVE); UROBILINOGEN,URINE NORMAL (NORMAL)
[2024-12-16 03:44] LABS: APPEARANCE,URINE CLEAR (CLEAR); COLOR,URINE PALE YELLOW (YELLOW)
[2024-12-16 03:45] LABS: BACTERIA,URINE 2+ /HPF (NEGATIVE); RBC,URINE NONE SEEN /HPF (0-3); SQUAMOUS EPITHELIAL CELL,UR FEW /HPF (NEGATIVE)
[2024-12-16] MEDS: VANCOMYCIN IV *PREMIX 1 G/200 ML BAG 1 G/200 ML PIGGYBACK IV SCH (05:05)
[2024-12-16] MEDS: LEVOPHED 8 MG/250 ML IV *PREMIX 8 MG/250 ML PLAST..BAG IV PRN (05:32)
[2024-12-16] MEDS ORDERED: CONSULT PHARMACY - POTASSIUM & MAGNESIUM XX SCH (06:00)
[2024-12-16] MEDS ORDERED: NS 250 ML IV 250 ML IV ONE (09:52)
[2024-12-16] MEDS: NS 1,000 ML IV 1,000 ML IV SCH (09:58)
[2024-12-16] MEDS: ZOSYN VIAL 3.375 GRAMS 3.375 G in NS 100 ML IV 100 ML IV SCH (10:10)
--- NOTE | 2024-12-16 10:21 | DR.H&P ---
H&P History & Physical for Day of: H&P Date: 12/16/24 Chief Complaint Chief Complaint: low BP History of Present Illness History of Present Illness: Patient is a 54-year-old female with a past medical history of hyperlipidemia, anxiety, depression, chronic pain, COPD, hypothyroidism and GERD presented with low blood pressure. Patient was recently discharged from [facility] after being treated for UTI. She states she was feeling better after she got home. Her son checked her blood pressure yesterday and it was 74/42. EMS was called and patient was brought to the hospital. She was started on IV fluids but her blood pressure still remained low. She was started on Levophed. Labs showed elevated WBC, normal lactic acid and renal function. Cultures were collected. She was started on IV vancomycin. She was admitted to the ICU for further management. Her blood pressure is better this morning, MAP greater than 65. She remains on Levophed 6 mcg. Patient states she does not take any blood pressure medicines at home. She has not been eating and drinking much for the past few days she was in the hospital. She also has a history of chronic diarrhea, reports improved. Plan: Continue to monitor in ICU, telemetry. Wean Levophed as per protocol, keep MAP greater than 65. Continue hydration with fluids. Continue IV antibiotics, switch to Zosyn. Follow pending cultures. Replace electrolytes as per protocol. Reconcile home medications. Will obtain records from [facility]. Patient advised to eat and drink as tolerated. Ambulate as tolerated. Monitor a.m. labs and imaging. Time spent for clinical assessment, reviewing labs and imaging, physical exam, decision making and documentation greater than 45 minutes. Past Medical History Past Medical History: Anxiety, Asthma, COPD, Depression, GERD, Hypertension and Hypothyroidism Past Surgical History Surgical History: and Ortho Surgery Family History Family Medical History: Diabetes Mellitus, Cancer, MT, Coronary Artery Disease, Heart Failure, Sudden Cardiac and Hypertension Social History Does patient currently use any type of tobacco product: Yes Have you used tobacco products in the last 12 months: Yes Type of Tobacco Use: Cigarettes Does any household member use tobacco: Yes Alcohol Use: Occasionally Medications Home Medications: Home Medications Medication Instructions Recorded Confirmed Type albuterol sulfate 90 mcg/actuation 1 inh inhalation Q4 H PRN 08/26/24 08/26/24 History aerosol inhaler (Ventolin HFA) atorvastatin 80 mg tablet 80 mg PO QPM 08/26/24 History bumetanide 1 mg tablet 1 mg PO QDAY 08/26/24 History buprenorphine 8 mg-naloxone 2 mg 0.5 tab sublingual BI D 08/26/24 08/26/24 History sublingual tablet buspirone 15 mg tablet 15 mg PO BID 08/26/24 History cyanocobalamin (vitamin B-12) 1,000 mcg IM QWEEK 08/2608/26/24 History 1,000 mcg/mL injection solution diclofenac sodium 75 mg 75 mg PO BID 08/26/24 History tablet,delayed release dicyclomine 10 mg capsule 20 mg PO TID 08/26/24 History diltiazem HCl 120 mg capsule,24 120 mg PO QAM 08/26/24 08/26/24 History hr,extended release duloxetine 60 mg capsule,delayed 60 mg PO QDAY 5 08/26/24 History release fenofibrate 54 mg tablet 54 mg PO QHS 08/26/24 History fluoxetine 40 mg capsule 80 mg PO QDAY 08/26/2408/26 History gabapentin 800 mg tablet 800 mg PO TID 08/26/2408/26 History hydrocodone 5 mg-acetaminophen 325 1 tab PO Q6H PRN 08/26/24 History mg tablet hydroxyzine pamoate 100 mg capsule 100 mg PO BID PRN 0 08/26/24 08/26/24 History wrjvhz-muketxsu-shjzrxp 2 cap PO QID 08/26/24 History 36,000-114,000-180,000 unit capsule,delay rel (Creon) medroxyprogesterone 2.5 mg tablet 5 mg PO QPM 08/26/24 08/26/24 History metoclopramide HCl 10 mg tablet 10 mg PO QACHS 5 08/26/24 History metronidazole 500 mg tablet 500 mg PO BID 08/26/2411/15 History ondansetron HCl 4 mg tablet 4 mg PO Q8H PRN 08/26/24 0 08/26/24 History oxybutynin chloride 15 mg 15 mg PO BID 08/26/24 History tablet,extended release 24 hr pantoprazole 40 mg tablet,delayed 40 mg PO QDAY 08/26/24 History release primidone 250 mg tablet 250 mg PO QHS 08/26/2408/26 History propranolol 80 mg tablet 80 mg PO BID 08/26/24 History rizatriptan 10 mg disintegrating 10 mg PO ONCE PRN 11/1508/26/24 History tablet thyroid (pork) 30 mg tablet (TOTER 30 mg PO QDAY 08/26/24 08/26/24 History Thyroid) tizanidine 2 mg capsule 2 mg PO TID PRN 08/26/2411/15 History topiramate 50 mg tablet 50 mg PO BID 08/26/24 History trazodone 150 mg tablet 150 mg PO QHS 08/26/2408/26 History Allergies Allergies Allergy/AdvReac Type Severity Reaction Status Date / Time No Known Allergies Allergy Verified 12/16/24 00:29 Labs 12/16/24 00:43 12/16/24 00:43 Labs: Laboratory WBC 7.9 X10^3/uL (3.6-10.0) 12/16/24 00:43 RBC 4.38 X10^6/uL (3.5-5.4) 12/16/24 00:43 Hgb 13.4 g/dL (12.0-16.0) 12/16/24 00:43 Hct 40.1 % (36.0-47.0) 12/16/24 00:43 MCV 91.5 fL (80.0-100.0) 12/16/24 00:43 MCH 30.5 pg (27.0-34.0) 12/16/24 00:43 MCHC 33.3 g/dL (33.0-35.0) 12/16/24 00:43 RDW 16.1 % (11.6-16.5) 12/16/24 00:43 Plt Count 284 X10^3/uL (150.0-450.0) 12/16/24 00:43 MPV 7.6 fL (7.4-11.0) 12/16/24 00:43 Neut % (Auto) 59.5 % (42.0-75.0) 12/16/24 00:43 Lymph % (Auto) 30.0 % (21.0-51.0) 12/16/24 00:43 Pepin % (Auto) 7.9 % (0.0-13.0) 12/16/24 00:43 Eos % (Auto) 1.5 % (0.9-2.9) 12/16/24 00:43 Baso % (Auto) 1.1 % (0.2-1.0) H 12/16/24 00:43 Neut # (Auto) 4.7 x10^3/uL (2.2-4.8) 12/16/24 00:43 Lymph # (Auto) 2.4 X10^3/uL (1.3-2.9) 12/16/24 00:43 Pepin # (Auto) 0.6 x10^3/uL (0.3-0.8) 12/16/24 00:43 Eos # (Auto) 0.1 x10^3/uL (0.0-0.2) 12/16/24 00:43 Baso # (Auto) 0.1 X10^3/uL (0.0-0.1) 12/16/24 00:43 Absolute Nucleated RBC 0.1 /100WBC 12/16/24 00:43 Sodium 139 mmol/L (136-145) 12/16/24 00:43 Corrected Sodium TNP 12/16/24 00:43 Potassium 4.1 mmol/L (3.5-5.1) 12/16/24 00:43 Chloride 106 mmol/L (98-107) 12/16/24 00:43 Carbon Dioxide 24.5 mmol/L (21-32) 12/16/24 00:43 BUN 16 mg/dL (7-18) 12/16/24 00:43 Creatinine 1.09 mg/dL (0.55-1.02) H 12/16/24 00:43 Est GFR (MDRD) Af Amer > 60 (>60) 12/16/24 00:43 Est GFR (MDRD) Non-Af 56 (>60) L 12/16/24 00:43 Glucose 106 mg/dL (65-99) H 12/16/24 00:43 Lactic Acid 1.5 mmol/L (0.4-2.0) 12/16/24 00:57 Calcium 9.2 mg/dL (8.5-10.1) 12/16/24 00:43 Corrected Calcium 9.9 mg/dL (8.5-10.1) 12/16/24 00:43 Total Bilirubin 0.20 mg/dL (0.2-1.0) 12/16/24 00:43 AST 9 Units/L (15-37) L 12/16/24 00:43 ALT 17 Units/L (12-78) 12/16/24 00:43 Alkaline Phosphatase 92 Units/L (46-116) 12/16/24 00:43 Creatine Kinase 23 Units/L (26-192) L 12/16/24 00:43 Troponin I High Sens 11.1 ng/L (4.0-60.0) 12/16/24 00:43 Total Protein 7.1 g/dL (6.4-8.2) 12/16/24 00:43 Albumin 3.1 g/dL (3.4-5.0) L 12/16/24 00:43 Globulin 4.0 g/dL (2.5-4.5) 12/16/24 00:43 Albumin/Globulin Ratio 0.8 Ratio (1.1-2.1) L 12/16/24 00:43 Specimen Type Clean catch urine 12/16/24 03:05 Urine Color Pale yellow (YELLOW) 12/16/24 03:05 Urine Appearance Clear (CLEAR) 12/16/24 03:05 Urine pH 6.0 (5.0 - 8.0) 12/16/24 03:05 Ur Specific [place] 1.010 (1.000-1.030) 12/16/24 03:05 Urine Protein 1+ (NEGATIVE) 12/16/24 03:05 Urine Glucose (UA) Negative (NEGATIVE) 12/16/24 03:05 Urine Ketones Negative (NEGATIVE) 12/16/24 03:05 Urine Blood Negative (NEGATIVE) 12/16/24 03:05 Urine Nitrite Negative (NEGATIVE) 12/16/24 03:05 Urine Bilirubin Negative (NEGATIVE) 12/16/24 03:05 Urine Urobilinogen Normal (NORMAL) 12/16/24 03:05 Ur Leukocyte Esterase 1+ (NEGATIVE) 12/16/24 03:05 Urine RBC None seen /HPF (0-3) 12/16/24 03:05 Urine WBC 0-2 /HPF (0-5) 12/16/24 03:05 Ur Squamous Epith Cells Few /HPF (NEGATIVE) 12/16/24 03:05 Urine Bacteria 2+ /HPF (NEGATIVE) 12/16/24 03:05 Ur Culture Indicated? Yes/culture set up 12/16/24 03:05 Urine Opiates Screen Negative (NEG=<300) 12/16/24 03:05 Urine Methadone Screen Negative (NEG=<300) 12/16/24 03:05 Ur Barbiturates Screen Positive (NEG=<200) A 12/16/24 03:05 Ur Phencyclidine Scrn Negative (NEG=<25) 12/16/24 03:05 Ur Amphetamines Screen Negative (NEG=<1000) 12/16/24 03:05 U Benzodiazepines Scrn Negative (NEG=<200) 12/16/24 03:05 Urine Cocaine Screen Negative (NEG=<300) 12/16/24 03:05 U Marijuana (THC) Screen Negative (NEG=<50) 12/16/24 03:05 Review of Systems Constitutional: Weakness Eyes: No Symptoms Reported ENT: No Symptoms Reported Respiratory: No Symptoms Reported Cardiovascular: No Symptoms Reported Gastrointestinal: Nausea Genitourinary: No Symptoms Reported Musculoskeletal: No Symptoms Reported Skin: No Symptoms Reported Neurological: No Symptoms Reported Physical Exam Vital Signs: Vital Signs Temperature 98.2 F Pulse Rate [Bilateral Radial] 52 Pulse Rate [Bilateral Radial] 59 Pulse Rate 50 Pulse Rate 50 Pulse Rate 51 Pulse Rate 51 Pulse Rate 54 Pulse Rate 52 Pulse Rate 51 Pulse Rate 52 Pulse Rate 57 Pulse Rate 57 Pulse Rate 61 Pulse Rate 55 Pulse Rate 53 Pulse Rate 52 Pulse Rate 50 Pulse Rate 51 Pulse Rate 54 Pulse Rate 52 Pulse Rate 60 Pulse Rate 50 Pulse Rate 49 Pulse Rate 48 Pulse Rate 46 Pulse Rate 54 Pulse Rate 54 Pulse Rate 61 Pulse Rate 58 Pulse Rate 65 Pulse Rate 62 Pulse Rate 63 Pulse Rate 66 Pulse Rate 61 Pulse Rate 58 Pulse Rate 57 Pulse Rate 57 Pulse Rate 56 Pulse Rate 53 Pulse Rate 60 Pulse Rate 60 Pulse Rate 60 Pulse Rate 59 Pulse Rate 59 Pulse Rate 56 Pulse Rate 56 Pulse Rate 57 Pulse Rate 55 Pulse Rate 54 Pulse Rate 52 Pulse Rate 60 Pulse Rate 55 Pulse Rate 54 Pulse Rate 63 Pulse Rate 55 Pulse Rate 56 Pulse Rate 56 Respiratory Rate 16 Respiratory Rate 14 Respiratory Rate 14 Respiratory Rate 15 Respiratory Rate 15 Respiratory Rate 14 Respiratory Rate 15 Respiratory Rate 15 Respiratory Rate 14 Respiratory Rate 14 Respiratory Rate 15 Respiratory Rate 16 Respiratory Rate 15 Respiratory Rate 14 Respiratory Rate 14 Respiratory Rate 13 Respiratory Rate 14 Respiratory Rate 16 Respiratory Rate 16 Respiratory Rate 17 Respiratory Rate 19 Respiratory Rate 15 Respiratory Rate 15 Respiratory Rate 15 Respiratory Rate 15 Respiratory Rate 14 Respiratory Rate 14 Respiratory Rate 13 Respiratory Rate 15 Respiratory Rate 15 Respiratory Rate 14 Respiratory Rate 14 Respiratory Rate 15 Respiratory Rate 14 Respiratory Rate 15 Respiratory Rate 13 Respiratory Rate 14 Respiratory Rate 15 Respiratory Rate 16 Respiratory Rate 14 Respiratory Rate 14 Respiratory Rate 14 Respiratory Rate 13 Respiratory Rate 15 Respiratory Rate 14 Respiratory Rate 14 Respiratory Rate 14 Respiratory Rate 14 Respiratory Rate 12 Respiratory Rate 13 Respiratory Rate 17 Respiratory Rate 14 Respiratory Rate 15 Respiratory Rate 14 Respiratory Rate 14 Respiratory Rate 14 Respiratory Rate 15 Blood Pressure [Left Arm] 109/56 Blood Pressure [Left Arm] 95/51 Blood Pressure 112/67 Blood Pressure 112/68 Blood Pressure 106/63 Blood Pressure 106/63 Blood Pressure 122/64 Blood Pressure 122/64 Blood Pressure 117/67 Blood Pressure 118/69 Blood Pressure 117/70 Blood Pressure 114/70 Blood Pressure 112/68 Blood Pressure 113/68 Blood Pressure 116/67 Blood Pressure 136/64 Blood Pressure 111/70 Blood Pressure 113/68 Blood Pressure 112/71 Blood Pressure 112/71 Blood Pressure 109/62 Blood Pressure 109/62 Blood Pressure 109/62 Blood Pressure 109/62 Blood Pressure 109/62 Blood Pressure 76/42 Blood Pressure 76/47 Blood Pressure 76/41 Blood Pressure 87/51 Blood Pressure 85/49 Blood Pressure 93/51 Blood Pressure 86/61 Blood Pressure 76/46 Blood Pressure 75/45 Blood Pressure 77/44 Blood Pressure 96/51 Blood Pressure 79/49 Blood Pressure 94/53 Blood Pressure 95/58 Blood Pressure 112/57 Blood Pressure 91/54 Blood Pressure 98/58 Blood Pressure 85/53 Blood Pressure 78/42 O2 Sat by Pulse Oximetry 98 O2 Sat by Pulse Oximetry 97 O2 Sat by Pulse Oximetry 95 O2 Sat by Pulse Oximetry 95 O2 Sat by Pulse Oximetry 95 O2 Sat by Pulse Oximetry 95 O2 Sat by Pulse Oximetry 95 O2 Sat by Pulse Oximetry 95 O2 Sat by Pulse Oximetry 96 O2 Sat by Pulse Oximetry 96 O2 Sat by Pulse Oximetry 95 O2 Sat by Pulse Oximetry 95 O2 Sat by Pulse Oximetry 95 O2 Sat by Pulse Oximetry 95 O2 Sat by Pulse Oximetry 96 O2 Sat by Pulse Oximetry 95 O2 Sat by Pulse Oximetry 95 O2 Sat by Pulse Oximetry 95 O2 Sat by Pulse Oximetry 95 O2 Sat by Pulse Oximetry 95 O2 Sat by Pulse Oximetry 96 O2 Sat by Pulse Oximetry 94 O2 Sat by Pulse Oximetry 94 O2 Sat by Pulse Oximetry 95 O2 Sat by Pulse Oximetry 97 O2 Sat by Pulse Oximetry 97 O2 Sat by Pulse Oximetry 97 O2 Sat by Pulse Oximetry 94 O2 Sat by Pulse Oximetry 94 O2 Sat by Pulse Oximetry 95 O2 Sat by Pulse Oximetry 94 O2 Sat by Pulse Oximetry 94 O2 Sat by Pulse Oximetry 94 O2 Sat by Pulse Oximetry 93 O2 Sat by Pulse Oximetry 93 O2 Sat by Pulse Oximetry 93 O2 Sat by Pulse Oximetry 93 O2 Sat by Pulse Oximetry 94 O2 Sat by Pulse Oximetry 96 O2 Sat by Pulse Oximetry 96 O2 Sat by Pulse Oximetry 95 O2 Sat by Pulse Oximetry 95 O2 Sat by Pulse Oximetry 98 O2 Sat by Pulse Oximetry 97 O2 Sat by Pulse Oximetry 95 O2 Sat by Pulse Oximetry 94 O2 Sat by Pulse Oximetry 96 O2 Sat by Pulse Oximetry 96 O2 Sat by Pulse Oximetry 96 O2 Sat by Pulse Oximetry 94 O2 Sat by Pulse Oximetry 94 O2 Sat by Pulse Oximetry 94 O2 Sat by Pulse Oximetry 91 O2 Sat by Pulse Oximetry 93 O2 Sat by Pulse Oximetry 92 O2 Sat by Pulse Oximetry 93 Oriented: Normal Throat: Dry Respiratory: Clear Throughout Cardiovascular: Normal Auscultation: Bowel Sounds: Normal Palpation: Normal Tenderness: Normal Skin: Normal Musculoskeletal: Normal Psychiatric: Normal Mood Description: Calm Affect: Normal Speech Pattern: Clear and Appropriate Assessment/Plan (1) Hypotension: Qualifiers: Hypotension type: idiopathic hypotension Qualified Code(s): I95.0 - Idiopathic hypotension Status: Acute (2) Sepsis: Qualifiers: Sepsis type: sepsis due to unspecified organism Sepsis acute organ dysfunction status: without acute organ dysfunction Qualified Code(s): A41.9 - Sepsis, unspecified organism Status: Acute (3) UTI (urinary tract infection): Qualifiers: Urinary tract infection type: acute cystitis Hematuria presence: w ithout hematuria Qualified Code(s): N30.00 - Acute cystitis without hematuria Status: Acute (4) Chronic pain: Qualifiers: Chronic pain type: chronic pain syndrome Qualified Code(s): G89.4 - Chronic pain syndrome Status: Chronic (5) Somnolence: Status: Acute (6) Herniated intervertebral disc of lumbar spine: Status: Chronic (7) IBS (irritable bowel syndrome): Qualifiers: Irritable bowel syndrome type: with diarrhea Qualified Code(s): K58.0 - Irritable bowel syndrome with diarrhea Status: Chronic (8) GERD (gastroesophageal reflux disease): Qualifiers: Esophagitis presence: esophagitis presence not specified Qualified Code(s): K21.9 - Gastro-esophageal reflux disease without esophagitis Status: Chronic Review H&P Reviewed: Yes Patient was examined?: Yes
[2024-12-16] MEDS ORDERED: ZOFRAN TAB 4 MG PO PRN (10:22)
[2024-12-16] MEDS: [UNRECOGNIZED DRUG - OTHER] PO SCH (11:38)
[2024-12-16] MEDS: LIPASE PROTEASE AMYLASE PO SCH (11:38)
[2024-12-16] MEDS ORDERED: PROVENTIL NEB TX 0.083% 2.5MG/ 3ML NEB PRN (11:41)
[2024-12-16] MEDS: BENTYL CAP 10 MG PO SCH (12:00)
[2024-12-16] MEDS: PROTONIX TAB 40 MG PO SCH (12:00)
[2024-12-17 05:29] LABS: BASOPHILS # (AUTO) 0.1 X10^3/uL (0.0-0.1); BASOPHILS % (AUTO) 1.1 % (0.2-1.0); EOSINOPHILS # (AUTO) 0.1 x10^3/uL (0.0-0.2); EOSINOPHILS % (AUTO) 1.3 % (0.9-2.9); HEMATOCRIT 35.8 % (36.0-47.0); HEMOGLOBIN 12.1 g/dL (12.0-16.0); LYMPHOCYTES # (AUTO) 1.7 X10^3/uL (1.3-2.9); LYMPHOCYTES % (AUTO) 31.4 % (21.0-51.0); MEAN CORPUSCULAR HGB CONC 33.8 g/dL (33.0-35.0); MEAN CORPUSCULAR VOLUME 91.8 fL (80.0-100.0); MEAN PLATELET VOLUME 7.6 fL (7.4-11.0); MONOCYTES # (AUTO) 0.5 x10^3/uL (0.3-0.8); MONOCYTES % (AUTO) 8.2 % (0.0-13.0); NEUTROPHILS # (AUTO) 3.2 x10^3/uL (2.2-4.8); PLATELET COUNT 230 X10^3/uL (150.0-450.0); RED BLOOD COUNT 3.89 X10^6/uL (3.5-5.4); RED CELL DISTRIBUTION WIDTH 16.3 % (11.6-16.5); WHITE BLOOD COUNT 5.5 X10^3/uL (3.6-10.0)
[2024-12-17 05:39] LABS: ALANINE AMINOTRANSFERASE 15 Units/L (12-78); ALBUMIN 2.5 g/dL (3.4-5.0); ALKALINE PHOSPHATASE 81 Units/L (46-116); ASPARTATE AMINO TRANSFERASE 6 Units/L (15-37); BLOOD UREA NITROGEN 19 mg/dL (7-18); CALCIUM 8.6 mg/dL (8.5-10.1); CARBON DIOXIDE 24.2 mmol/L (21-32); CHLORIDE 110 mmol/L (98-107); COR CA(FOR HYPOALB) 9.8 mg/dL (8.5-10.1); COR NA(FOR HYPERGLY) 141 mmol/L (136-145); CREATININE 0.87 mg/dL (0.55-1.02); GLUCOSE 115 mg/dL (65-99); POTASSIUM 4.4 mmol/L (3.5-5.1); SODIUM 141 mmol/L (136-145); eGFR NON BLACK RACES > 60 (>60)
[2024-12-17 09:26] VITALS: BP 141/65; TEMP 98.3
[2024-12-17 09:42] VITALS: PULSE 57; RESP 26; O2SAT 97
--- NOTE | 2024-12-22 16:00 | W.DIS.FURT ---
Summary of Discharge Discharge Summary of Date Date of Exam: 12/17/24 Admission Date Date of Admission: 12/16/24 Admission Diagnosis Patient Problems (Updated 12/16/24 @ 10:21 by Cristina Al MD) Somnolence (Acute) R40.0 UTI (urinary tract infection) (Acute) N39.0 Sepsis (Acute) A41.9 Hospital Course: Patient is a 54-year-old female with a past medical history of hyperlipidemia, anxiety, depression, chronic pain, COPD, hypothyroidism and GERD admitted for sepsis and acute cystitis. Her hospital course included being on a Levophed drip when she initially arrived due to hypotension. She was able to be weaned off. Blood pressure remained stable. She was receiving IV antibiotics Zosyn for acute cystitis. She responded well to all treatments. Her urine culture returned positive for Klebsiella pneumonia. On day of discharge patient was ready to go home. She was stable. No concerns. She was discharged with ciprofloxacin. Instructed follow-up with her primary care and 1 week. Vital Signs: Vital Signs (72 hours) 12/16/24 00:11 12/16/24 00:27 12/16/24 00:30 Temperature 98.6 F Pulse Rate 62 Pulse Rate [Bilateral Radial] Respiratory Rate 20 Blood Pressure 82/41 80/44 72/49 Blood Pressure [Left Arm] O2 Sat by Pulse Oximetry 95 Oxygen Delivery Method Room Air 12/16/24 00:30 12/16/24 00:40 12/16/24 00:40 Temperature Pulse Rate 59 L 57 L Pulse Rate [Bilateral Radial] Respiratory Rate 26 H 23 Blood Pressure 76/51 Blood Pressure [Left Arm] O2 Sat by Pulse Oximetry 95 93 L Oxygen Delivery Method 12/16/24 00:45 12/16/24 00:51 12/16/24 00:51 Temperature Pulse Rate 56 L 57 L Pulse Rate [Bilateral Radial] Respiratory Rate 17 16 Blood Pressure 83/39 Blood Pressure [Left Arm] O2 Sat by Pulse Oximetry 94 L 93 L Oxygen Delivery Method 12/16/24 01:00 12/16/24 01:01 12/16/24 01:01 Temperature Pulse Rate 56 L 56 L Pulse Rate [Bilateral Radial] Respiratory Rate 15 15 Blood Pressure 81/42 Blood Pressure [Left Arm] O2 Sat by Pulse Oximetry 92 L 91 L Oxygen Delivery Method 12/16/24 01:10 12/16/24 01:10 12/16/24 01:13 Temperature Pulse Rate 57 L Pulse Rate [Bilateral Radial] Respiratory Rate 14 Blood Pressure 72/36 85/46 Blood Pressure [Left Arm] O2 Sat by Pulse Oximetry 90 L Oxygen Delivery Method 12/16/24 01:13 12/16/24 01:15 12/16/24 01:21 Temperature Pulse Rate 56 L 55 L Pulse Rate [Bilateral Radial] Respiratory Rate 14 14 Blood Pressure 86/42 Blood Pressure [Left Arm] O2 Sat by Pulse Oximetry 93 L 94 L Oxygen Delivery Method 12/16/24 01:21 12/16/24 01:30 12/16/24 01:30 Temperature Pulse Rate 56 L 58 L Pulse Rate [Bilateral Radial] Respiratory Rate 14 15 Blood Pressure 87/52 Blood Pressure [Left Arm] O2 Sat by Pulse Oximetry 91 L 90 L Oxygen Delivery Method 12/16/24 01:40 12/16/24 01:40 12/16/24 01:45 Temperature Pulse Rate 53 L 55 L Pulse Rate [Bilateral Radial] Respiratory Rate 15 14 Blood Pressure 86/54 Blood Pressure [Left Arm] O2 Sat by Pulse Oximetry 95 92 L Oxygen Delivery Method 12/16/24 01:50 12/16/24 01:50 12/16/24 02:00 Temperature Pulse Rate 55 L Pulse Rate [Bilateral Radial] Respiratory Rate 14 Blood Pressure 79/47 82/46 Blood Pressure [Left Arm] O2 Sat by Pulse Oximetry 92 L Oxygen Delivery Method 12/16/24 02:00 12/16/24 02:10 12/16/24 02:10 Temperature Pulse Rate 55 L 56 L Pulse Rate [Bilateral Radial] Respiratory Rate 14 15 Blood Pressure 83/46 Blood Pressure [Left Arm] O2 Sat by Pulse Oximetry 93 L 92 L Oxygen Delivery Method 12/16/24 02:15 12/16/24 02:20 12/16/24 02:20 Temperature Pulse Rate 56 L 56 L Pulse Rate [Bilateral Radial] Respiratory Rate 15 14 Blood Pressure 78/42 Blood Pressure [Left Arm] O2 Sat by Pulse Oximetry 93 L 92 L Oxygen Delivery Method 12/16/24 02:30 12/16/24 02:30 12/16/24 02:40 Temperature Pulse Rate 55 L Pulse Rate [Bilateral Radial] Respiratory Rate 14 Blood Pressure 85/53 98/58 Blood Pressure [Left Arm] O2 Sat by Pulse Oximetry 93 L Oxygen Delivery Method 12/16/24 02:40 12/16/24 02:45 12/16/24 02:50 Temperature Pulse Rate 63 54 L Pulse Rate [Bilateral Radial] Respiratory Rate 14 15 Blood Pressure 91/54 Blood Pressure [Left Arm] O2 Sat by Pulse Oximetry 91 L 94 L Oxygen Delivery Method 12/16/24 02:50 12/16/24 03:05 12/16/24 03:05 Temperature Pulse Rate 55 L 60 Pulse Rate [Bilateral Radial] Respiratory Rate 14 17 Blood Pressure 112/57 Blood Pressure [Left Arm] O2 Sat by Pulse Oximetry 94 L 94 L Oxygen Delivery Method 12/16/24 03:10 12/16/24 03:10 12/16/24 03:15 Temperature Pulse Rate 52 L 54 L Pulse Rate [Bilateral Radial] Respiratory Rate 13 12 Blood Pressure 95/58 Blood Pressure [Left Arm] O2 Sat by Pulse Oximetry 96 96 Oxygen Delivery Method 12/16/24 03:20 12/16/24 03:20 12/16/24 03:30 Temperature Pulse Rate 55 L 57 L Pulse Rate [Bilateral Radial] Respiratory Rate 14 14 Blood Pressure 94/53 Blood Pressure [Left Arm] O2 Sat by Pulse Oximetry 96 94 L Oxygen Delivery Method 12/16/24 03:31 12/16/24 03:31 12/16/24 03:41 Temperature Pulse Rate 56 L Pulse Rate [Bilateral Radial] Respiratory Rate 14 Blood Pressure 79/49 96/51 Blood Pressure [Left Arm] O2 Sat by Pulse Oximetry 95 Oxygen Delivery Method 12/16/24 03:41 12/16/24 03:45 12/16/24 03:51 Temperature Pulse Rate 56 L 59 L Pulse Rate [Bilateral Radial] Respiratory Rate 14 15 Blood Pressure 77/44 Blood Pressure [Left Arm] O2 Sat by Pulse Oximetry 97 98 Oxygen Delivery Method 12/16/24 03:51 12/16/24 04:00 12/16/24 04:00 Temperature Pulse Rate 59 L 60 Pulse Rate [Bilateral Radial] Respiratory Rate 13 14 Blood Pressure 75/45 Blood Pressure [Left Arm] O2 Sat by Pulse Oximetry 95 95 Oxygen Delivery Method 12/16/24 04:10 12/16/24 04:10 12/16/24 04:15 Temperature Pulse Rate 60 60 Pulse Rate [Bilateral Radial] Respiratory Rate 14 14 Blood Pressure 76/46 Blood Pressure [Left Arm] O2 Sat by Pulse Oximetry 96 96 Oxygen Delivery Method 12/16/24 04:21 12/16/24 04:21 12/16/24 04:30 Temperature Pulse Rate 53 L 56 L Pulse Rate [Bilateral Radial] Respiratory Rate 16 15 Blood Pressure 86/61 Blood Pressure [Left Arm] O2 Sat by Pulse Oximetry 94 L 93 L Oxygen Delivery Method 12/16/24 04:31 12/16/24 04:31 12/16/24 04:41 Temperature Pulse Rate 57 L Pulse Rate [Bilateral Radial] Respiratory Rate 14 Blood Pressure 93/51 85/49 Blood Pressure [Left Arm] O2 Sat by Pulse Oximetry 93 L Oxygen Delivery Method 12/16/24 04:41 12/16/24 04:45 12/16/24 04:50 Temperature Pulse Rate 57 L 58 L 61 Pulse Rate [Bilateral Radial] Respiratory Rate 13 15 14 Blood Pressure Blood Pressure [Left Arm] O2 Sat by Pulse Oximetry 93 L 93 L 94 L Oxygen Delivery Method 12/16/24 04:50 12/16/24 05:00 12/16/24 05:01 Temperature Pulse Rate 66 63 Pulse Rate [Bilateral Radial] Respiratory Rate 15 14 Blood Pressure 87/51 Blood Pressure [Left Arm] O2 Sat by Pulse Oximetry 94 L 94 L Oxygen Delivery Method 12/16/24 05:01 12/16/24 05:10 12/16/24 05:10 Temperature Pulse Rate 62 Pulse Rate [Bilateral Radial] Respiratory Rate 14 Blood Pressure 76/41 76/47 Blood Pressure [Left Arm] O2 Sat by Pulse Oximetry 95 Oxygen Delivery Method 12/16/24 05:15 12/16/24 05:21 12/16/24 05:21 Temperature Pulse Rate 65 58 L Pulse Rate [Bilateral Radial] Respiratory Rate 15 15 Blood Pressure 76/42 Blood Pressure [Left Arm] O2 Sat by Pulse Oximetry 94 L 94 L Oxygen Delivery Method 12/16/24 05:30 12/16/24 05:40 12/16/24 05:40 Temperature Pulse Rate 61 54 L Pulse Rate [Bilateral Radial] Respiratory Rate 13 14 Blood Pressure 109/62 Blood Pressure [Left Arm] O2 Sat by Pulse Oximetry 97 Oxygen Delivery Method 12/16/24 05:40 12/16/24 05:40 12/16/24 05:40 Temperature Pulse Rate Pulse Rate [Bilateral Radial] Respiratory Rate Blood Pressure 109/62 109/62 109/62 Blood Pressure [Left Arm] O2 Sat by Pulse Oximetry Oxygen Delivery Method 12/16/24 05:40 12/16/24 05:40 12/16/24 05:45 Temperature Pulse Rate 54 L 46 L Pulse Rate [Bilateral Radial] Respiratory Rate 14 15 Blood Pressure 109/62 Blood Pressure [Left Arm] O2 Sat by Pulse Oximetry 97 97 Oxygen Delivery Method 12/16/24 05:50 12/16/24 05:50 12/16/24 05:50 Temperature Pulse Rate 48 L Pulse Rate [Bilateral Radial] Respiratory Rate 15 Blood Pressure 112/71 112/71 Blood Pressure [Left Arm] O2 Sat by Pulse Oximetry 95 Oxygen Delivery Method 12/16/24 06:00 12/16/24 06:00 12/16/24 06:10 Temperature Pulse Rate 49 L Pulse Rate [Bilateral Radial] Respiratory Rate 15 Blood Pressure 113/68 111/70 Blood Pressure [Left Arm] O2 Sat by Pulse Oximetry 94 L Oxygen Delivery Method 12/16/24 06:10 12/16/24 06:15 12/16/24 06:21 Temperature Pulse Rate 50 L 60 52 L Pulse Rate [Bilateral Radial] Respiratory Rate 15 19 17 Blood Pressure Blood Pressure [Left Arm] O2 Sat by Pulse Oximetry 94 L 96 95 Oxygen Delivery Method 12/16/24 06:21 12/16/24 06:30 12/16/24 06:31 Temperature Pulse Rate 54 L 51 L Pulse Rate [Bilateral Radial] Respiratory Rate 16 16 Blood Pressure 136/64 Blood Pressure [Left Arm] O2 Sat by Pulse Oximetry 95 95 Oxygen Delivery Method 12/16/24 06:31 12/16/24 06:40 12/16/24 06:40 Temperature Pulse Rate 50 L Pulse Rate [Bilateral Radial] Respiratory Rate 14 Blood Pressure 116/67 113/68 Blood Pressure [Left Arm] O2 Sat by Pulse Oximetry 95 Oxygen Delivery Method 12/16/24 06:45 12/16/24 06:50 12/16/24 06:50 Temperature Pulse Rate 52 L 53 L Pulse Rate [Bilateral Radial] Respiratory Rate 13 14 Blood Pressure 112/68 Blood Pressure [Left Arm] O2 Sat by Pulse Oximetry 95 96 Oxygen Delivery Method 12/16/24 07:00 12/16/24 07:00 12/16/24 07:10 Temperature Pulse Rate 55 L 61 Pulse Rate [Bilateral Radial] Respiratory Rate 14 15 Blood Pressure 114/70 Blood Pressure [Left Arm] O2 Sat by Pulse Oximetry 95 95 Oxygen Delivery Method 12/16/24 07:10 12/16/24 07:15 12/16/24 07:20 Temperature Pulse Rate 57 L 57 L Pulse Rate [Bilateral Radial] Respiratory Rate 16 15 Blood Pressure 117/70 Blood Pressure [Left Arm] O2 Sat by Pulse Oximetry 95 95 Oxygen Delivery Method 12/16/24 07:20 12/16/24 07:30 12/16/24 07:30 Temperature Pulse Rate 52 L Pulse Rate [Bilateral Radial] Respiratory Rate 14 Blood Pressure 118/69 117/67 Blood Pressure [Left Arm] O2 Sat by Pulse Oximetry 96 Oxygen Delivery Method 12/16/24 07:40 12/16/24 07:40 12/16/24 07:40 Temperature Pulse Rate 51 L Pulse Rate [Bilateral Radial] Respiratory Rate 14 Blood Pressure 122/64 122/64 Blood Pressure [Left Arm] O2 Sat by Pulse Oximetry 96 Oxygen Delivery Method 12/16/24 07:45 12/16/24 07:51 12/16/24 07:51 Temperature Pulse Rate 52 L 54 L Pulse Rate [Bilateral Radial] Respiratory Rate 15 15 Blood Pressure 106/63 Blood Pressure [Left Arm] O2 Sat by Pulse Oximetry 95 95 Oxygen Delivery Method 12/16/24 08:00 12/16/24 08:00 12/16/24 08:10 Temperature Pulse Rate 51 L Pulse Rate [Bilateral Radial] Respiratory Rate 14 Blood Pressure 106/63 112/68 Blood Pressure [Left Arm] O2 Sat by Pulse Oximetry 95 Oxygen Delivery Method 12/16/24 08:10 12/16/24 08:15 12/16/24 08:20 Temperature Pulse Rate 51 L 50 L Pulse Rate [Bilateral Radial] Respiratory Rate 15 15 Blood Pressure 112/67 Blood Pressure [Left Arm] O2 Sat by Pulse Oximetry 95 95 Oxygen Delivery Method 12/16/24 08:20 12/16/24 08:35 12/16/24 08:55 Temperature 98.2 F Pulse Rate 50 L 59 L Pulse Rate [Bilateral Radial] Respiratory Rate 14 14 Blood Pressure 95/51 Blood Pressure [Left Arm] O2 Sat by Pulse Oximetry 95 97 Oxygen Delivery Method Room Air 12/16/24 08:55 12/16/24 08:56 12/16/24 09:00 Temperature 98.2 F 98.2 F Pulse Rate Pulse Rate [Bilateral Radial] 59 L 59 L 52 L Respiratory Rate 14 14 16 Blood Pressure Blood Pressure [Left Arm] 95/51 95/51 109/56 O2 Sat by Pulse Oximetry 97 97 98 Oxygen Delivery Method Room Air Room Air Room Air 12/16/24 09:00 12/16/24 10:00 12/16/24 10:00 Temperature Pulse Rate 52 L 47 L Pulse Rate [Bilateral Radial] 47 L Respiratory Rate 16 17 17 Blood Pressure 105/56 126/60 Blood Pressure [Left Arm] 126/60 O2 Sat by Pulse Oximetry 98 97 97 Oxygen Delivery Method Room Air 12/16/24 11:00 12/16/24 11:00 12/16/24 12:00 Temperature 98.0 F Pulse Rate 50 L Pulse Rate [Bilateral Radial] 53 L 59 L Respiratory Rate 18 18 17 Blood Pressure 113/56 Blood Pressure [Left Arm] 113/56 107/52 O2 Sat by Pulse Oximetry 95 95 94 L Oxygen Delivery Method Room Air Room Air 12/16/24 12:00 12/16/24 12:41 12/16/24 12:45 Temperature 98.0 F Pulse Rate 69 64 Pulse Rate [Bilateral Radial] Respiratory Rate 16 25 H Blood Pressure 107/52 84/48 Blood Pressure [Left Arm] O2 Sat by Pulse Oximetry 94 L 94 L Oxygen Delivery Method 12/16/24 12:45 12/16/24 12:45 12/16/24 13:00 Temperature Pulse Rate 66 62 Pulse Rate [Bilateral Radial] Respiratory Rate 29 H 23 Blood Pressure 84/48 100/50 Blood Pressure [Left Arm] O2 Sat by Pulse Oximetry 94 L 95 Oxygen Delivery Method 12/16/24 13:01 12/16/24 13:15 12/16/24 13:15 Temperature Pulse Rate 71 62 Pulse Rate [Bilateral Radial] Respiratory Rate 29 H 23 Blood Pressure 100/50 Blood Pressure [Left Arm] O2 Sat by Pulse Oximetry 96 95 Oxygen Delivery Method 12/16/24 13:30 12/16/24 13:30 12/16/24 13:45 Temperature Pulse Rate 60 61 Pulse Rate [Bilateral Radial] Respiratory Rate 25 H 35 H Blood Pressure 95/52 Blood Pressure [Left Arm] O2 Sat by Pulse Oximetry 94 L 94 L Oxygen Delivery Method 12/16/24 13:46 12/16/24 13:46 12/16/24 14:00 Temperature Pulse Rate 60 62 Pulse Rate [Bilateral Radial] Respiratory Rate 20 23 Blood Pressure 100/49 102/52 Blood Pressure [Left Arm] O2 Sat by Pulse Oximetry 95 93 L Oxygen Delivery Method 12/16/24 14:00 12/16/24 14:00 12/16/24 14:15 Temperature Pulse Rate 62 60 Pulse Rate [Bilateral Radial] Respiratory Rate 23 15 Blood Pressure 102/52 Blood Pressure [Left Arm] O2 Sat by Pulse Oximetry 93 L 93 L Oxygen Delivery Method 12/16/24 14:15 12/16/24 14:30 12/16/24 14:30 Temperature Pulse Rate 62 Pulse Rate [Bilateral Radial] Respiratory Rate 14 Blood Pressure 102/46 94/51 Blood Pressure [Left Arm] O2 Sat by Pulse Oximetry 94 L Oxygen Delivery Method 12/16/24 14:45 12/16/24 14:45 12/16/24 15:00 Temperature Pulse Rate 59 L 62 Pulse Rate [Bilateral Radial] Respiratory Rate 16 15 Blood Pressure 92/53 95/50 Blood Pressure [Left Arm] O2 Sat by Pulse Oximetry 95 92 L Oxygen Delivery Method 12/16/24 15:00 12/16/24 15:00 12/16/24 15:15 Temperature Pulse Rate 62 Pulse Rate [Bilateral Radial] Respiratory Rate 15 Blood Pressure 95/50 94/52 Blood Pressure [Left Arm] O2 Sat by Pulse Oximetry 92 L Oxygen Delivery Method 12/16/24 15:15 12/16/24 15:30 12/16/24 15:45 Temperature Pulse Rate 59 L 54 L 62 Pulse Rate [Bilateral Radial] Respiratory Rate 13 15 16 Blood Pressure Blood Pressure [Left Arm] O2 Sat by Pulse Oximetry 92 L 93 L 91 L Oxygen Delivery Method 12/16/24 16:00 12/16/24 16:00 12/16/24 16:00 Temperature 98.4 F 98.4 F Pulse Rate 62 63 Pulse Rate [Bilateral Radial] 62 Respiratory Rate 20 15 16 Blood Pressure 91/49 Blood Pressure [Left Arm] 91/49 O2 Sat by Pulse Oximetry 94 L 93 L 92 L Oxygen Delivery Method Room Air 12/16/24 16:05 12/16/24 16:05 12/16/24 16:15 Temperature Pulse Rate 61 59 L Pulse Rate [Bilateral Radial] Respiratory Rate 14 15 Blood Pressure 91/49 Blood Pressure [Left Arm] O2 Sat by Pulse Oximetry 94 L 93 L Oxygen Delivery Method 12/16/24 16:30 12/16/24 16:45 12/16/24 17:00 Temperature Pulse Rate 70 59 L 64 Pulse Rate [Bilateral Radial] Respiratory Rate 15 17 Blood Pressure Blood Pressure [Left Arm] O2 Sat by Pulse Oximetry 94 L 96 Oxygen Delivery Method 12/16/24 17:15 12/16/24 17:30 12/16/24 17:45 Temperature Pulse Rate 60 60 71 Pulse Rate [Bilateral Radial] Respiratory Rate 16 16 26 H Blood Pressure Blood Pressure [Left Arm] O2 Sat by Pulse Oximetry 93 L 95 94 L Oxygen Delivery Method 12/16/24 18:00 12/16/24 18:15 12/16/24 18:30 Temperature Pulse Rate 68 60 60 Pulse Rate [Bilateral Radial] Respiratory Rate 26 H 26 H 21 Blood Pressure Blood Pressure [Left Arm] O2 Sat by Pulse Oximetry 94 L 93 L 93 L Oxygen Delivery Method 12/16/24 18:45 12/16/24 19:00 12/16/24 19:00 Temperature Pulse Rate 68 58 L Pulse Rate [Bilateral Radial] 61 Respiratory Rate 18 19 18 Blood Pressure Blood Pressure [Left Arm] 103/53 O2 Sat by Pulse Oximetry 96 94 L 94 L Oxygen Delivery Method Room Air 12/16/24 19:00 12/16/24 19:14 12/16/24 19:14 Temperature Pulse Rate 62 Pulse Rate [Bilateral Radial] Respiratory Rate 19 Blood Pressure 103/53 Blood Pressure [Left Arm] O2 Sat by Pulse Oximetry 94 L Oxygen Delivery Method Room Air 12/16/24 19:15 12/16/24 19:30 12/16/24 19:31 Temperature Pulse Rate 62 72 72 Pulse Rate [Bilateral Radial] Respiratory Rate 17 31 H 29 H Blood Pressure Blood Pressure [Left Arm] O2 Sat by Pulse Oximetry 94 L 93 L 95 Oxygen Delivery Method 12/16/24 19:32 12/16/24 19:32 12/16/24 19:45 Temperature Pulse Rate 70 72 Pulse Rate [Bilateral Radial] Respiratory Rate 29 H 26 H Blood Pressure 101/58 Blood Pressure [Left Arm] O2 Sat by Pulse Oximetry 94 L 94 L Oxygen Delivery Method 12/16/24 20:00 12/16/24 20:00 12/16/24 20:15 Temperature 98.1 F Pulse Rate 63 67 Pulse Rate [Bilateral Radial] Respiratory Rate 19 18 Blood Pressure 113/59 Blood Pressure [Left Arm] O2 Sat by Pulse Oximetry 93 L 93 L Oxygen Delivery Method 12/16/24 20:30 12/16/24 20:30 12/16/24 20:59 Temperature Pulse Rate 61 62 Pulse Rate [Bilateral Radial] Respiratory Rate 21 Blood Pressure 111/61 Blood Pressure [Left Arm] O2 Sat by Pulse Oximetry 94 L Oxygen Delivery Method 12/16/24 21:00 12/16/24 21:00 12/16/24 21:15 Temperature Pulse Rate 61 61 Pulse Rate [Bilateral Radial] Respiratory Rate 17 18 Blood Pressure 105/54 Blood Pressure [Left Arm] O2 Sat by Pulse Oximetry 94 L 93 L Oxygen Delivery Method 12/16/24 21:30 12/16/24 21:30 12/16/24 21:45 Temperature Pulse Rate 62 62 Pulse Rate [Bilateral Radial] Respiratory Rate 18 19 Blood Pressure 108/70 Blood Pressure [Left Arm] O2 Sat by Pulse Oximetry 95 93 L Oxygen Delivery Method 12/16/24 22:00 12/16/24 22:00 12/16/24 22:00 Temperature Pulse Rate 60 Pulse Rate [Bilateral Radial] Respiratory Rate 25 H Blood Pressure 107/53 107/53 Blood Pressure [Left Arm] O2 Sat by Pulse Oximetry 94 L Oxygen Delivery Method 12/16/24 22:15 12/16/24 22:30 12/16/24 22:31 Temperature Pulse Rate 64 70 70 Pulse Rate [Bilateral Radial] Respiratory Rate 28 H 18 18 Blood Pressure Blood Pressure [Left Arm] O2 Sat by Pulse Oximetry 93 L 92 L 92 L Oxygen Delivery Method 12/16/24 22:31 12/16/24 22:33 12/16/24 22:33 Temperature Pulse Rate 66 Pulse Rate [Bilateral Radial] Respiratory Rate 15 Blood Pressure 83/42 111/57 Blood Pressure [Left Arm] O2 Sat by Pulse Oximetry 94 L Oxygen Delivery Method 12/16/24 22:45 12/16/24 23:00 12/16/24 23:00 Temperature Pulse Rate 61 64 Pulse Rate [Bilateral Radial] Respiratory Rate 17 17 Blood Pressure 101/50 Blood Pressure [Left Arm] O2 Sat by Pulse Oximetry 93 L 93 L Oxygen Delivery Method 12/16/24 23:15 12/16/24 23:31 12/16/24 23:36 Temperature Pulse Rate 65 75 Pulse Rate [Bilateral Radial] Respiratory Rate 17 Blood Pressure 124/59 Blood Pressure [Left Arm] O2 Sat by Pulse Oximetry 92 L 92 L Oxygen Delivery Method 12/16/24 23:36 12/16/24 23:45 12/17/24 00:00 Temperature Pulse Rate 62 60 61 Pulse Rate [Bilateral Radial] Respiratory Rate 14 16 16 Blood Pressure Blood Pressure [Left Arm] O2 Sat by Pulse Oximetry 92 L 93 L 92 L Oxygen Delivery Method 12/17/24 00:01 12/17/24 00:01 12/17/24 00:15 Temperature 98.4 F Pulse Rate 63 75 Pulse Rate [Bilateral Radial] Respiratory Rate 16 19 Blood Pressure 114/67 Blood Pressure [Left Arm] O2 Sat by Pulse Oximetry 92 L 92 L Oxygen Delivery Method 12/17/24 00:30 12/17/24 00:45 12/17/24 01:00 Temperature Pulse Rate 62 60 66 Pulse Rate [Bilateral Radial] Respiratory Rate 17 15 15 Blood Pressure Blood Pressure [Left Arm] O2 Sat by Pulse Oximetry 93 L 94 L 92 L Oxygen Delivery Method 12/17/24 01:01 12/17/24 01:01 12/17/24 01:15 Temperature Pulse Rate 57 L 64 Pulse Rate [Bilateral Radial] Respiratory Rate 14 18 Blood Pressure 134/63 Blood Pressure [Left Arm] O2 Sat by Pulse Oximetry 94 L 92 L Oxygen Delivery Method 12/17/24 01:30 12/17/24 01:45 12/17/24 02:00 Temperature Pulse Rate 65 53 L 61 Pulse Rate [Bilateral Radial] Respiratory Rate 17 14 16 Blood Pressure Blood Pressure [Left Arm] O2 Sat by Pulse Oximetry 92 L 94 L 92 L Oxygen Delivery Method 12/17/24 02:01 12/17/24 02:01 12/17/24 02:15 Temperature Pulse Rate 59 L 56 L Pulse Rate [Bilateral Radial] Respiratory Rate 16 15 Blood Pressure 112/56 Blood Pressure [Left Arm] O2 Sat by Pulse Oximetry 91 L 95 Oxygen Delivery Method 12/17/24 02:30 12/17/24 02:45 12/17/24 03:00 Temperature Pulse Rate 54 L 53 L 58 L Pulse Rate [Bilateral Radial] Respiratory Rate 16 16 15 Blood Pressure Blood Pressure [Left Arm] O2 Sat by Pulse Oximetry 94 L 93 L 92 L Oxygen Delivery Method 12/17/24 03:00 12/17/24 03:15 12/17/24 03:30 Temperature Pulse Rate 62 60 Pulse Rate [Bilateral Radial] Respiratory Rate 16 17 Blood Pressure 113/58 Blood Pressure [Left Arm] O2 Sat by Pulse Oximetry 92 L 92 L Oxygen Delivery Method 12/17/24 03:45 12/17/24 04:00 12/17/24 04:01 Temperature Pulse Rate 67 60 Pulse Rate [Bilateral Radial] Respiratory Rate 17 16 Blood Pressure 108/59 Blood Pressure [Left Arm] O2 Sat by Pulse Oximetry 92 L 91 L Oxygen Delivery Method 12/17/24 04:01 12/17/24 04:15 12/17/24 04:30 Temperature 98.4 F Pulse Rate 61 60 60 Pulse Rate [Bilateral Radial] Respiratory Rate 17 16 17 Blood Pressure Blood Pressure [Left Arm] O2 Sat by Pulse Oximetry 92 L 92 L 92 L Oxygen Delivery Method 12/17/24 04:45 12/17/24 05:00 12/17/24 05:00 Temperature Pulse Rate 61 63 Pulse Rate [Bilateral Radial] Respiratory Rate 17 15 Blood Pressure 116/61 Blood Pressure [Left Arm] O2 Sat by Pulse Oximetry 92 L 92 L Oxygen Delivery Method 12/17/24 05:12 12/17/24 05:12 12/17/24 05:15 Temperature Pulse Rate 63 65 Pulse Rate [Bilateral Radial] Respiratory Rate 16 17 Blood Pressure 119/62 Blood Pressure [Left Arm] O2 Sat by Pulse Oximetry 93 L 96 Oxygen Delivery Method 12/17/24 05:30 12/17/24 05:45 12/17/24 06:00 Temperature Pulse Rate 59 L 57 L 56 L Pulse Rate [Bilateral Radial] Respiratory Rate 13 13 18 Blood Pressure Blood Pressure [Left Arm] O2 Sat by Pulse Oximetry 94 L 96 94 L Oxygen Delivery Method 12/17/24 06:01 12/17/24 06:01 12/17/24 06:15 Temperature Pulse Rate 55 L 56 L Pulse Rate [Bilateral Radial] Respiratory Rate 22 23 Blood Pressure 117/56 Blood Pressure [Left Arm] O2 Sat by Pulse Oximetry 94 L 94 L Oxygen Delivery Method 12/17/24 06:30 12/17/24 06:45 12/17/24 07:00 Temperature Pulse Rate 52 L 59 L Pulse Rate [Bilateral Radial] Respiratory Rate 30 H 20 Blood Pressure Blood Pressure [Left Arm] O2 Sat by Pulse Oximetry 94 L 93 L Oxygen Delivery Method Room Air 12/17/24 07:00 12/17/24 07:01 12/17/24 07:01 Temperature Pulse Rate 60 60 Pulse Rate [Bilateral Radial] Respiratory Rate 18 16 Blood Pressure 126/60 Blood Pressure [Left Arm] O2 Sat by Pulse Oximetry 93 L 94 L Oxygen Delivery Method 12/17/24 07:15 12/17/24 07:30 12/17/24 07:47 Temperature Pulse Rate 59 L 65 66 Pulse Rate [Bilateral Radial] Respiratory Rate 16 16 Blood Pressure Blood Pressure [Left Arm] O2 Sat by Pulse Oximetry 94 L 94 L 96 Oxygen Delivery Method 12/17/24 08:00 12/17/24 08:15 12/17/24 08:30 Temperature 98.3 F Pulse Rate 57 L 58 L 59 L Pulse Rate [Bilateral Radial] Respiratory Rate 14 16 Blood Pressure Blood Pressure [Left Arm] O2 Sat by Pulse Oximetry 95 95 96 Oxygen Delivery Method 12/17/24 08:45 12/17/24 09:00 12/17/24 09:00 Temperature Pulse Rate 55 L 56 L Pulse Rate [Bilateral Radial] Respiratory Rate Blood Pressure 141/65 Blood Pressure [Left Arm] O2 Sat by Pulse Oximetry 96 95 Oxygen Delivery Method 12/17/24 09:17 12/17/24 09:30 Temperature Pulse Rate 60 57 L Pulse Rate [Bilateral Radial] Respiratory Rate 26 H Blood Pressure 141/65 Blood Pressure [Left Arm] O2 Sat by Pulse Oximetry 95 97 Oxygen Delivery Method Room Air Labs: Laboratory Last Values WBC 5.5 X10^3/uL (3.6-10.0) 12/17/24 05:04 RBC 3.89 X10^6/uL (3.5-5.4) 12/17/24 05:04 Hgb 12.1 g/dL (12.0-16.0) 12/17/24 05:04 Hct 35.8 % (36.0-47.0) L 12/17/24 05:04 MCV 91.8 fL (80.0-100.0) 12/17/24 05:04 MCH 31.0 pg (27.0-34.0) 12/17/24 05:04 MCHC 33.8 g/dL (33.0-35.0) 12/17/24 05:04 RDW 16.3 % (11.6-16.5) 12/17/24 05:04 Plt Count 230 X10^3/uL (150.0-450.0) 12/17/24 05:04 MPV 7.6 fL (7.4-11.0) 12/17/24 05:04 Neut % (Auto) 58.0 % (42.0-75.0) 12/17/24 05:04 Lymph % (Auto) 31.4 % (21.0-51.0) 12/17/24 05:04 [place] % (Auto) 8.2 % (0.0-13.0) 12/17/24 05:04 Eos % (Auto) 1.3 % (0.9-2.9) 12/17/24 05:04 Baso % (Auto) 1.1 % (0.2-1.0) H 12/17/24 05:04 Neut # (Auto) 3.2 x10^3/uL (2.2-4.8) 12/17/24 05:04 Lymph # (Auto) 1.7 X10^3/uL (1.3-2.9) 12/17/24 05:04 [place] # (Auto) 0.5 x10^3/uL (0.3-0.8) 12/17/24 05:04 Eos # (Auto) 0.1 x10^3/uL (0.0-0.2) 12/17/24 05:04 Baso # (Auto) 0.1 X10^3/uL (0.0-0.1) 12/17/24 05:04 Absolute Nucleated RBC 0.1 /100WBC 12/17/24 05:04 Sodium 141 mmol/L (136-145) 12/17/24 05:04 Corrected Sodium 141 mmol/L (136-145) 12/17/24 05:04 Potassium 4.4 mmol/L (3.5-5.1) 12/17/24 05:04 Chloride 110 mmol/L (98-107) H 12/17/24 05:04 Carbon Dioxide 24.2 mmol/L (21-32) 12/17/24 05:04 BUN 19 mg/dL (7-18) H 12/17/24 05:04 Creatinine 0.87 mg/dL (0.55-1.02) 12/17/24 05:04 Est GFR (MDRD) Af Amer > 60 (>60) 12/17/24 05:04 Est GFR (MDRD) Non-Af > 60 (>60) 12/17/24 05:04 Glucose 115 mg/dL (65-99) H 12/17/24 05:04 Lactic Acid 1.5 mmol/L (0.4-2.0) 12/16/24 00:57 Calcium 8.6 mg/dL (8.5-10.1) 12/17/24 05:04 Corrected Calcium 9.8 mg/dL (8.5-10.1) 12/17/24 05:04 Total Bilirubin 0.20 mg/dL (0.2-1.0) 12/17/24 05:04 AST 6 Units/L (15-37) L 12/17/24 05:04 ALT 15 Units/L (12-78) 12/17/24 05:04 Alkaline Phosphatase 81 Units/L (46-116) 12/17/24 05:04 Creatine Kinase 23 Units/L (26-192) L 12/16/24 00:43 Troponin I High Sens 11.1 ng/L (4.0-60.0) 12/16/24 00:43 Total Protein 6.0 g/dL (6.4-8.2) L 12/17/24 05:04 Albumin 2.5 g/dL (3.4-5.0) L 12/17/24 05:04 Globulin 3.5 g/dL (2.5-4.5) 12/17/24 05:04 Albumin/Globulin Ratio 0.7 Ratio (1.1-2.1) L 12/17/24 05:04 Specimen Type Clean catch urine 12/16/24 03:05 Urine Color Pale yellow (YELLOW) 12/16/24 03:05 Urine Appearance Clear (CLEAR) 12/16/24 03:05 Urine pH 6.0 (5.0 - 8.0) 12/16/24 03:05 Ur Specific Hector 1.010 (1.000-1.030) 12/16/24 03:05 Urine Protein 1+ (NEGATIVE) 12/16/24 03:05 Urine Glucose (UA) Negative (NEGATIVE) 12/16/24 03:05 Urine Ketones Negative (NEGATIVE) 12/16/24 03:05 Urine Blood Negative (NEGATIVE) 12/16/24 03:05 Urine Nitrite Negative (NEGATIVE) 12/16/24 03:05 Urine Bilirubin Negative (NEGATIVE) 12/16/24 03:05 Urine Urobilinogen Normal (NORMAL) 12/16/24 03:05 Ur Leukocyte Esterase 1+ (NEGATIVE) 12/16/24 03:05 Urine RBC None seen /HPF (0-3) 12/16/24 03:05 Urine WBC 0-2 /HPF (0-5) 12/16/24 03:05 Ur Squamous Epith Cells Few /HPF (NEGATIVE) 12/16/24 03:05 Urine Bacteria 2+ /HPF (NEGATIVE) 12/16/24 03:05 Ur Culture Indicated? Yes/culture set up 12/16/24 03:05 Urine Opiates Screen Negative (NEG=<300) 12/16/24 03:05 Urine Methadone Screen Negative (NEG=<300) 12/16/24 03:05 Ur Barbiturates Screen Positive (NEG=<200) A 12/16/24 03:05 Ur Phencyclidine Scrn Negative (NEG=<25) 12/16/24 03:05 Ur Amphetamines Screen Negative (NEG=<1000) 12/16/24 03:05 U Benzodiazepines Scrn Negative (NEG=<200) 12/16/24 03:05 Urine Cocaine Screen Negative (NEG=<300) 12/16/24 03:05 U Marijuana (THC) Screen Negative (NEG=<50) 12/16/24 03:05 Reason For Visit: SEPSIS, UTI Discharge Diagnosis All Active Problems (Updated 12/16/24 @ 10:21 by Cristina Al MD) Somnolence (Acute) UTI (urinary tract infection) (Acute) Sepsis (Acute) IBS (irritable bowel syndrome) (Chronic) Chronic pain (Chronic) Barbiturate abuse (Acute) Chronic diarrhea (Acute) Closed dislocation of left ankle (Acute) Closed fracture of medial malleolus of left ankle (Acute) Migraine (Acute) Contusion of toe of right foot (Acute) Drug overdose, multiple drugs (Acute) Fracture of neck of humerus (Acute) 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 Pt is to keep follow up appointment as instructed and take medications as ordered. Discharge Medications Discharge Medications: No Known Allergies Allergy (Verified 12/16/24 00:29) CONTINUE taking the following medications ergocalciferol (vitamin D2) 50,000 unit tablet 50,000 unit PO WEEKLY 12/16/24 [History] nitrofurantoin macrocrystal 100 mg capsule 100 mg PO Q12H 12/16/24 [History] New Prescriptions ciprofloxacin HCl 500 mg tablet 500 mg PO BID 10 days #20 tabs 12/17/24 [Rx] Discharge Plan Discharge Plan Hospital Course: Patient is a 54-year-old female with a past medical history of hyperlipidemia, anxiety, depression, chronic pain, COPD, hypothyroidism and GERD admitted for sepsis and acute cystitis. Her hospital course included being on a Levophed drip when she initially arrived due to hypotension. She was able to be weaned off. Blood pressure remained stable. She was receiving IV antibiotics Zosyn for acute cystitis. She responded well to all treatments. Her urine culture returned positive for Klebsiella pneumonia. On day of discharge patient was ready to go home. She was stable. No concerns. She was discharged with ciprofloxacin. Instructed follow-up with her primary care and 1 week. Patient Disposition: 01 HOME, SELF-CARE Condition: Stable Health Concerns: Post Hospitalization: new medications and changes needed to prevent readmission or further decline. Pt educated and given instructions on all concerns. Care Plan Goals: Problem: Infection Goal: Temperature within normal limits. Resolved infection. Instructions: Follow provided instructions. Follow up with primary physician as directed. Contact primary care physician or report to the closest Emergency Room if condition worsens. Plan of Treatment: Continue with present treatment and follow up plan. Pt is to keep follow up appointment as instructed and take medications as ordered. Prescriptions: New ciprofloxacin HCl 500 mg Tablet 500 mg PO BID 10 Days Qty: 20 0RF Continued dicyclomine 20 mg tablet 20 mg PO TID MDD 3 Qty: 30 0RF hydroxyzine pamoate 100 mg Capsule 100 mg PO BID PRN atorvastatin 80 mg Tablet 80 mg PO QPM oxybutynin chloride 15 mg Tablet Extended Release 24hr 15 mg PO BID medroxyprogesterone 2.5 mg Tablet 5 mg PO QPM primidone 250 mg Tablet 250 mg PO QHS pantoprazole 40 mg Tablet,Delayed Release (Dr/Ec) 40 mg PO QDAY Rx Instructions: Take one tablet one-half to one hour before the morning meal for stomach bumetanide 1 mg Tablet 1 mg PO QDAY buspirone 15 mg Tablet 15 mg PO BID thyroid (pork) [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 Thyroid] 30 mg Tablet 30 mg PO QDAY fluoxetine 40 mg Capsule 80 mg PO QDAY cyanocobalamin (vitamin B-12) 1,000 mcg/mL Solution 1,000 mcg IM QWEEK topiramate 50 mg Tablet 50 mg PO BID Creon 36,000-114,000- 180,000 unit Capsule,Delayed Release(Dr/Ec) 2 cap PO QID Rx Instructions: administer with meals and/or snacks diltiazem HCl 120 mg Capsule,Extended Release 24hr 120 mg PO QAM fenofibrate 54 mg Tablet 54 mg PO QHS ondansetron HCl 4 mg Tablet 4 mg PO Q8H PRN gabapentin 800 mg Tablet 800 mg PO TID trazodone 150 mg Tablet 150 mg PO QHS dicyclomine 10 mg Capsule 20 mg PO TID duloxetine 60 mg Capsule,Delayed Release(Dr/Ec) 60 mg PO QDAY tizanidine 2 mg Capsule 2 mg PO TID PRN propranolol 80 mg Tablet 80 mg PO BID rizatriptan 10 mg Tablet,Disintegrating 10 mg PO ONCE PRN Rx Instructions: may repeat once after at least 2 hours diclofenac sodium 75 mg Tablet,Delayed Release (Dr/Ec) 75 mg PO BID albuterol sulfate [Ventolin HFA] 90 mcg/actuation Hfa Aerosol Inhaler 1 inh INHALATION Q4H PRN nitrofurantoin macrocrystal 100 mg Capsule 100 mg PO Q12H Rx Instructions: every 12 hours with food ergocalciferol (vitamin D2) 50,000 unit Tablet 50,000 unit PO WEEKLY Orders to Discharge Patient Discharge Orders: Discharge (Routine); Ordered 12/17/24 Ordered By: Gee Negrete Follow ups/Referrals Follow ups/Referrals: Carolina Abreu [Primary Care Provider, Unknown] - 12/28/24 9:15 am Instructions Instructions: Steps to Quit Smoking, [id number], Urinary Tract Infection, Female, Hypotension, [id number], You've Been Prescribed an Antibiotic in the Hospital for an Infection - CDC, Preventing Antibiotic Resistance Stand Alone Forms: Find Help Web Site, Post Hospital Follow Up Care Print Language: BARBADIAN
== END 2024-12-17 10:50 | disposition home or self-care (01) ==
LOC: ER 00:09 → INTOOBSV 05:44 → ICU 05:44
PROVIDERS: ADMIT Family Medicine; ATTEND Family Medicine
DX: N39.0 Urinary tract infection, site not specified; M62.81 Muscle weakness (generalized); K58.0 Irritable bowel syndrome with diarrhea; J44.9 Chronic obstructive pulmonary disease, unspecified; I95.0 Idiopathic hypotension; R40.0 Somnolence; R94.31 Abnormal electrocardiogram [ECG] [EKG]; Z16.11 Resistance to penicillins; G89.4 Chronic pain syndrome; F13.90 Sedative, hypnotic, or anxiolytic use, unspecified, uncomplicated; K21.9 Gastro-esophageal reflux disease without esophagitis; Z86.73 Personal history of transient ischemic attack (TIA), and cerebral infarction without residual deficits; B96.1 Klebsiella pneumoniae [K. pneumoniae] as the cause of diseases classified elsewhere; Z72.0 Tobacco use; F32.89 Other specified depressive episodes; E03.8 Other specified hypothyroidism; R00.1 Bradycardia, unspecified; M51.26 Other intervertebral disc displacement, lumbar region

== ENCOUNTER 2025-03-07 23:57 | Inpatient (IN) ==
--- NOTE | 2025-03-08 | ED.ABDFE ---
HPI <Kam Storm Filed: 03/08/25 02:01> Time Seen Time Seen by Provider: 03/08/25 00:00 HPI Comment HPI Comment: Pt was discharged form the ER around 8 pm after work up of her same abdominal pain and vomiting .She returns back via EMS for persistent vomiting abdominal pain Pt indicates that she vomited 5-6x after leaving here .She did not take anything for vomiting Complaint Chief Complaint:: vomiting Reviewed Nurses Notes Review: Yes Source History Provided: Patient and Family Member Mode of arrival Mode of Arrival: EMS Timing Came on: Gradually Duration Since Onset: Since Onset PMH <Kam Strom Filed: 03/08/25 02:01> PMH Past Medical History: Anxiety, Asthma, COPD, Depression, GERD, Hypertension and Hypothyroidism Past Surgical History: Yes Surgical History: and Ortho Surgery Family History Family Medical History: Diabetes Mellitus, Cancer, [place], Coronary Artery Disease, Heart Failure, Sudden Cardiac and Hypertension Social History Do you use any recreational Drugs:: No ROS <Kam Storm Filed: 03/08/25 02:01> Review of Systems Constitutional: Malaise Eyes: No Symptoms Reported ENTM: No Symptoms Reported Respiratoy: No Symptoms Reported Gastrointestinal/Abdominal: Abdominal Pain, Nausea and Vomiting Genitourinary: No Symptoms Reported Neurological: Dizziness and Other (drowsy ) Musculoskeletal: No Symptoms Reported Integumentary: No Symptoms Reported PE <Kam Storm Filed: 03/08/25 02:01> Vital Signs Vitals: Vital Signs Pulse Rate 76 Pulse Rate 89 Pulse Rate 84 Pulse Rate 78 Pulse Rate 74 Pulse Rate 76 Pulse Rate 76 Pulse Rate 74 Pulse Rate 73 Pulse Rate 85 Pulse Rate 78 Pulse Rate 78 Pulse Rate 75 Pulse Rate 80 Pulse Rate 84 Pulse Rate 74 Pulse Rate 72 Pulse Rate 70 Pulse Rate 70 Pulse Rate 79 Pulse Rate 78 Pulse Rate 70 Pulse Rate 73 Pulse Rate 74 Pulse Rate 71 Pulse Rate 71 Pulse Rate 72 Pulse Rate 73 Pulse Rate 71 Pulse Rate 75 Pulse Rate 79 Pulse Rate 80 Pulse Rate 80 Pulse Rate 81 Pulse Rate 80 Pulse Rate 80 Pulse Rate 80 Pulse Rate 80 Pulse Rate 80 Pulse Rate 82 Pulse Rate 84 Pulse Rate 100 Pulse Rate 79 Pulse Rate 94 Pulse Rate 84 Pulse Rate 83 Pulse Rate 83 Pulse Rate 84 Pulse Rate 84 Pulse Rate 83 Pulse Rate 83 Pulse Rate 85 Pulse Rate 88 Pulse Rate 86 Pulse Rate 86 Pulse Rate 87 Pulse Rate 87 Pulse Rate 91 Pulse Rate 89 Pulse Rate 86 Pulse Rate 86 Pulse Rate 88 Pulse Rate 83 Pulse Rate 81 Pulse Rate 83 Pulse Rate 82 Pulse Rate 80 Pulse Rate 80 Pulse Rate 80 Pulse Rate 80 Pulse Rate 80 Pulse Rate 77 Pulse Rate 75 Pulse Rate 73 Pulse Rate 72 Pulse Rate 66 Pulse Rate 61 Pulse Rate 61 Respiratory Rate 18 Respiratory Rate 23 Respiratory Rate 19 Respiratory Rate 17 Respiratory Rate 19 Respiratory Rate 20 Respiratory Rate 24 Respiratory Rate 20 Respiratory Rate 16 Respiratory Rate 19 Respiratory Rate 16 Respiratory Rate 15 Respiratory Rate 17 Respiratory Rate 16 Respiratory Rate 20 Respiratory Rate 16 Respiratory Rate 15 Respiratory Rate 15 Respiratory Rate 16 Respiratory Rate 19 Respiratory Rate 31 Respiratory Rate 23 Respiratory Rate 20 Respiratory Rate 17 Respiratory Rate 16 Respiratory Rate 14 Respiratory Rate 14 Respiratory Rate 14 Respiratory Rate 14 Respiratory Rate 14 Respiratory Rate 14 Respiratory Rate 15 Respiratory Rate 14 Respiratory Rate 15 Respiratory Rate 14 Respiratory Rate 14 Respiratory Rate 15 Respiratory Rate 15 Respiratory Rate 15 Respiratory Rate 15 Respiratory Rate 16 Respiratory Rate 29 Respiratory Rate 13 Respiratory Rate 14 Respiratory Rate 15 Respiratory Rate 13 Respiratory Rate 14 Respiratory Rate 14 Respiratory Rate 14 Respiratory Rate 14 Respiratory Rate 14 Respiratory Rate 13 Respiratory Rate 14 Respiratory Rate 14 Respiratory Rate 14 Respiratory Rate 14 Respiratory Rate 15 Respiratory Rate 15 Respiratory Rate 13 Respiratory Rate 14 Respiratory Rate 15 Respiratory Rate 14 Respiratory Rate 14 Respiratory Rate 13 Respiratory Rate 14 Respiratory Rate 14 Respiratory Rate 14 Respiratory Rate 14 Respiratory Rate 13 Respiratory Rate 14 Respiratory Rate 14 Respiratory Rate 14 Respiratory Rate 14 Respiratory Rate 14 Respiratory Rate 13 Respiratory Rate 14 Respiratory Rate 14 Blood Pressure [Left Arm] 105/65 Blood Pressure 105/65 Blood Pressure 107/57 Blood Pressure 104/66 Blood Pressure 109/70 Blood Pressure 115/76 Blood Pressure 94/57 Blood Pressure 101/56 Blood Pressure 85/51 Blood Pressure 90/56 Blood Pressure 95/50 Blood Pressure 96/67 Blood Pressure 91/59 Blood Pressure 91/59 Blood Pressure 96/59 Blood Pressure 108/60 Blood Pressure 102/57 Blood Pressure 103/57 Blood Pressure 100/59 Blood Pressure 96/54 Blood Pressure 102/56 Blood Pressure 104/57 Blood Pressure 104/56 Blood Pressure 99/54 Blood Pressure 98/52 Blood Pressure 98/52 Blood Pressure 104/55 Blood Pressure 104/55 Blood Pressure 107/53 Blood Pressure 107/53 Blood Pressure 107/53 Blood Pressure 118/57 Blood Pressure 118/57 Blood Pressure 112/55 Blood Pressure 108/53 Blood Pressure 111/54 Blood Pressure 107/57 Blood Pressure 106/58 Blood Pressure 117/59 Blood Pressure 117/56 Blood Pressure 118/59 Blood Pressure 128/62 Blood Pressure 124/58 Blood Pressure 99/55 Blood Pressure 99/55 Blood Pressure 109/55 Blood Pressure 109/55 Blood Pressure 87/53 Blood Pressure 109/54 Blood Pressure 100/50 Blood Pressure 104/51 Blood Pressure 109/57 Blood Pressure 90/54 Blood Pressure 107/58 Blood Pressure 95/50 Blood Pressure 92/55 Blood Pressure 116/58 Blood Pressure 118/58 Blood Pressure 117/56 Blood Pressure 154/58 Blood Pressure 114/52 Blood Pressure 109/55 Blood Pressure 109/56 Blood Pressure 97/51 Blood Pressure 101/51 Blood Pressure 117/56 Blood Pressure 108/50 Blood Pressure 103/51 Blood Pressure 105/53 Blood Pressure 105/53 Blood Pressure 103/55 Blood Pressure 103/55 Blood Pressure 102/52 Blood Pressure 105/49 Blood Pressure 101/51 Blood Pressure 70/46 Blood Pressure 74/44 Blood Pressure 74/40 O2 Sat by Pulse Oximetry 98 O2 Sat by Pulse Oximetry 94 O2 Sat by Pulse Oximetry 94 O2 Sat by Pulse Oximetry 96 O2 Sat by Pulse Oximetry 93 O2 Sat by Pulse Oximetry 95 O2 Sat by Pulse Oximetry 94 O2 Sat by Pulse Oximetry 94 O2 Sat by Pulse Oximetry 92 O2 Sat by Pulse Oximetry 93 O2 Sat by Pulse Oximetry 92 O2 Sat by Pulse Oximetry 94 O2 Sat by Pulse Oximetry 94 O2 Sat by Pulse Oximetry 93 O2 Sat by Pulse Oximetry 97 O2 Sat by Pulse Oximetry 95 O2 Sat by Pulse Oximetry 95 O2 Sat by Pulse Oximetry 95 O2 Sat by Pulse Oximetry 95 O2 Sat by Pulse Oximetry 95 O2 Sat by Pulse Oximetry 95 O2 Sat by Pulse Oximetry 94 O2 Sat by Pulse Oximetry 94 O2 Sat by Pulse Oximetry 94 O2 Sat by Pulse Oximetry 93 O2 Sat by Pulse Oximetry 91 O2 Sat by Pulse Oximetry 91 O2 Sat by Pulse Oximetry 90 O2 Sat by Pulse Oximetry 90 O2 Sat by Pulse Oximetry 91 O2 Sat by Pulse Oximetry 91 O2 Sat by Pulse Oximetry 91 O2 Sat by Pulse Oximetry 91 O2 Sat by Pulse Oximetry 90 O2 Sat by Pulse Oximetry 91 O2 Sat by Pulse Oximetry 93 O2 Sat by Pulse Oximetry 95 O2 Sat by Pulse Oximetry 96 O2 Sat by Pulse Oximetry 93 O2 Sat by Pulse Oximetry 92 O2 Sat by Pulse Oximetry 92 O2 Sat by Pulse Oximetry 93 O2 Sat by Pulse Oximetry 93 O2 Sat by Pulse Oximetry 92 O2 Sat by Pulse Oximetry 93 O2 Sat by Pulse Oximetry 93 O2 Sat by Pulse Oximetry 93 O2 Sat by Pulse Oximetry 92 O2 Sat by Pulse Oximetry 91 O2 Sat by Pulse Oximetry 91 O2 Sat by Pulse Oximetry 91 O2 Sat by Pulse Oximetry 91 O2 Sat by Pulse Oximetry 92 O2 Sat by Pulse Oximetry 92 O2 Sat by Pulse Oximetry 92 O2 Sat by Pulse Oximetry 92 O2 Sat by Pulse Oximetry 93 O2 Sat by Pulse Oximetry 94 O2 Sat by Pulse Oximetry 93 O2 Sat by Pulse Oximetry 93 O2 Sat by Pulse Oximetry 93 O2 Sat by Pulse Oximetry 93 O2 Sat by Pulse Oximetry 93 O2 Sat by Pulse Oximetry 93 O2 Sat by Pulse Oximetry 93 O2 Sat by Pulse Oximetry 93 O2 Sat by Pulse Oximetry 93 O2 Sat by Pulse Oximetry 93 O2 Sat by Pulse Oximetry 93 O2 Sat by Pulse Oximetry 93 O2 Sat by Pulse Oximetry 93 O2 Sat by Pulse Oximetry 94 O2 Sat by Pulse Oximetry 94 General General Appearance: Lethargic (drowsy but arousable ) Head Head Exam: Normal Inspection, Atraumatic and Normocephalic Eyes Eye exam: Normal Appearance, PERRL and EOMI ENT ENT Exam: Mucous Membranes Dry Neck Neck Exam: Normal Inspection and Full ROM Chest Chest Inspection: Normal Inspection and Symmetric Chest Wall Rise Respiratory Respiratory Exam: Normal Lung Sounds Bilat Respiratory Exam: Bilateral: Clear to Auscultation Cardiovascular Cardiovascular Exam: +S1 and +S2 Abdominal Exam Abdominal Exam: Normal Inspection, Normal Bowel Sounds, Soft and Tenderness Abdominal Tenderness: LUQ Extremeties Extremities Exam: Normal Inspection Neurologic Neurological Exam: CN II-XII Intact and Reflexes Normal Skin Skin Exam: Normal Color <Clark Pappas - Last Filed: 03/08/25 11:01> Vital Signs Vitals: Vital Signs Pulse Rate 76 Pulse Rate 89 Pulse Rate 84 Pulse Rate 78 Pulse Rate 74 Pulse Rate 76 Pulse Rate 76 Pulse Rate 74 Pulse Rate 73 Pulse Rate 85 Pulse Rate 78 Pulse Rate 78 Pulse Rate 75 Pulse Rate 80 Pulse Rate 84 Pulse Rate 74 Pulse Rate 72 Pulse Rate 70 Pulse Rate 70 Pulse Rate 79 Pulse Rate 78 Pulse Rate 70 Pulse Rate 73 Pulse Rate 74 Pulse Rate 71 Pulse Rate 71 Pulse Rate 72 Pulse Rate 73 Pulse Rate 71 Pulse Rate 75 Pulse Rate 79 Pulse Rate 80 Pulse Rate 80 Pulse Rate 81 Pulse Rate 80 Pulse Rate 80 Pulse Rate 80 Pulse Rate 80 Pulse Rate 80 Pulse Rate 82 Pulse Rate 84 Pulse Rate 100 Pulse Rate 79 Pulse Rate 94 Pulse Rate 84 Pulse Rate 83 Pulse Rate 83 Pulse Rate 84 Pulse Rate 84 Pulse Rate 83 Pulse Rate 83 Pulse Rate 85 Pulse Rate 88 Pulse Rate 86 Pulse Rate 86 Pulse Rate 87 Pulse Rate 87 Pulse Rate 91 Pulse Rate 89 Pulse Rate 86 Pulse Rate 86 Pulse Rate 88 Pulse Rate 83 Pulse Rate 81 Pulse Rate 83 Pulse Rate 82 Pulse Rate 80 Pulse Rate 80 Pulse Rate 80 Pulse Rate 80 Pulse Rate 80 Pulse Rate 77 Pulse Rate 75 Pulse Rate 73 Pulse Rate 72 Pulse Rate 66 Pulse Rate 61 Pulse Rate 61 Respiratory Rate 18 Respiratory Rate 23 Respiratory Rate 19 Respiratory Rate 17 Respiratory Rate 19 Respiratory Rate 20 Respiratory Rate 24 Respiratory Rate 20 Respiratory Rate 16 Respiratory Rate 19 Respiratory Rate 16 Respiratory Rate 15 Respiratory Rate 17 Respiratory Rate 16 Respiratory Rate 20 Respiratory Rate 16 Respiratory Rate 15 Respiratory Rate 15 Respiratory Rate 16 Respiratory Rate 19 Respiratory Rate 31 Respiratory Rate 23 Respiratory Rate 20 Respiratory Rate 17 Respiratory Rate 16 Respiratory Rate 14 Respiratory Rate 14 Respiratory Rate 14 Respiratory Rate 14 Respiratory Rate 14 Respiratory Rate 14 Respiratory Rate 15 Respiratory Rate 14 Respiratory Rate 15 Respiratory Rate 14 Respiratory Rate 14 Respiratory Rate 15 Respiratory Rate 15 Respiratory Rate 15 Respiratory Rate 15 Respiratory Rate 16 Respiratory Rate 29 Respiratory Rate 13 Respiratory Rate 14 Respiratory Rate 15 Respiratory Rate 13 Respiratory Rate 14 Respiratory Rate 14 Respiratory Rate 14 Respiratory Rate 14 Respiratory Rate 14 Respiratory Rate 13 Respiratory Rate 14 Respiratory Rate 14 Respiratory Rate 14 Respiratory Rate 14 Respiratory Rate 15 Respiratory Rate 15 Respiratory Rate 13 Respiratory Rate 14 Respiratory Rate 15 Respiratory Rate 14 Respiratory Rate 14 Respiratory Rate 13 Respiratory Rate 14 Respiratory Rate 14 Respiratory Rate 14 Respiratory Rate 14 Respiratory Rate 13 Respiratory Rate 14 Respiratory Rate 14 Respiratory Rate 14 Respiratory Rate 14 Respiratory Rate 14 Respiratory Rate 13 Respiratory Rate 14 Respiratory Rate 14 Blood Pressure [Left Arm] 105/65 Blood Pressure 105/65 Blood Pressure 107/57 Blood Pressure 104/66 Blood Pressure 109/70 Blood Pressure 115/76 Blood Pressure 94/57 Blood Pressure 101/56 Blood Pressure 85/51 Blood Pressure 90/56 Blood Pressure 95/50 Blood Pressure 96/67 Blood Pressure 91/59 Blood Pressure 91/59 Blood Pressure 96/59 Blood Pressure 108/60 Blood Pressure 102/57 Blood Pressure 103/57 Blood Pressure 100/59 Blood Pressure 96/54 Blood Pressure 102/56 Blood Pressure 104/57 Blood Pressure 104/56 Blood Pressure 99/54 Blood Pressure 98/52 Blood Pressure 98/52 Blood Pressure 104/55 Blood Pressure 104/55 Blood Pressure 107/53 Blood Pressure 107/53 Blood Pressure 107/53 Blood Pressure 118/57 Blood Pressure 118/57 Blood Pressure 112/55 Blood Pressure 108/53 Blood Pressure 111/54 Blood Pressure 107/57 Blood Pressure 106/58 Blood Pressure 117/59 Blood Pressure 117/56 Blood Pressure 118/59 Blood Pressure 128/62 Blood Pressure 124/58 Blood Pressure 99/55 Blood Pressure 99/55 Blood Pressure 109/55 Blood Pressure 109/55 Blood Pressure 87/53 Blood Pressure 109/54 Blood Pressure 100/50 Blood Pressure 104/51 Blood Pressure 109/57 Blood Pressure 90/54 Blood Pressure 107/58 Blood Pressure 95/50 Blood Pressure 92/55 Blood Pressure 116/58 Blood Pressure 118/58 Blood Pressure 117/56 Blood Pressure 154/58 Blood Pressure 114/52 Blood Pressure 109/55 Blood Pressure 109/56 Blood Pressure 97/51 Blood Pressure 101/51 Blood Pressure 117/56 Blood Pressure 108/50 Blood Pressure 103/51 Blood Pressure 105/53 Blood Pressure 105/53 Blood Pressure 103/55 Blood Pressure 103/55 Blood Pressure 102/52 Blood Pressure 105/49 Blood Pressure 101/51 Blood Pressure 70/46 Blood Pressure 74/44 Blood Pressure 74/40 O2 Sat by Pulse Oximetry 98 O2 Sat by Pulse Oximetry 94 O2 Sat by Pulse Oximetry 94 O2 Sat by Pulse Oximetry 96 O2 Sat by Pulse Oximetry 93 O2 Sat by Pulse Oximetry 95 O2 Sat by Pulse Oximetry 94 O2 Sat by Pulse Oximetry 94 O2 Sat by Pulse Oximetry 92 O2 Sat by Pulse Oximetry 93 O2 Sat by Pulse Oximetry 92 O2 Sat by Pulse Oximetry 94 O2 Sat by Pulse Oximetry 94 O2 Sat by Pulse Oximetry 93 O2 Sat by Pulse Oximetry 97 O2 Sat by Pulse Oximetry 95 O2 Sat by Pulse Oximetry 95 O2 Sat by Pulse Oximetry 95 O2 Sat by Pulse Oximetry 95 O2 Sat by Pulse Oximetry 95 O2 Sat by Pulse Oximetry 95 O2 Sat by Pulse Oximetry 94 O2 Sat by Pulse Oximetry 94 O2 Sat by Pulse Oximetry 94 O2 Sat by Pulse Oximetry 93 O2 Sat by Pulse Oximetry 91 O2 Sat by Pulse Oximetry 91 O2 Sat by Pulse Oximetry 90 O2 Sat by Pulse Oximetry 90 O2 Sat by Pulse Oximetry 91 O2 Sat by Pulse Oximetry 91 O2 Sat by Pulse Oximetry 91 O2 Sat by Pulse Oximetry 91 O2 Sat by Pulse Oximetry 90 O2 Sat by Pulse Oximetry 91 O2 Sat by Pulse Oximetry 93 O2 Sat by Pulse Oximetry 95 O2 Sat by Pulse Oximetry 96 O2 Sat by Pulse Oximetry 93 O2 Sat by Pulse Oximetry 92 O2 Sat by Pulse Oximetry 92 O2 Sat by Pulse Oximetry 93 O2 Sat by Pulse Oximetry 93 O2 Sat by Pulse Oximetry 92 O2 Sat by Pulse Oximetry 93 O2 Sat by Pulse Oximetry 93 O2 Sat by Pulse Oximetry 93 O2 Sat by Pulse Oximetry 92 O2 Sat by Pulse Oximetry 91 O2 Sat by Pulse Oximetry 91 O2 Sat by Pulse Oximetry 91 O2 Sat by Pulse Oximetry 91 O2 Sat by Pulse Oximetry 92 O2 Sat by Pulse Oximetry 92 O2 Sat by Pulse Oximetry 92 O2 Sat by Pulse Oximetry 92 O2 Sat by Pulse Oximetry 93 O2 Sat by Pulse Oximetry 94 O2 Sat by Pulse Oximetry 93 O2 Sat by Pulse Oximetry 93 O2 Sat by Pulse Oximetry 93 O2 Sat by Pulse Oximetry 93 O2 Sat by Pulse Oximetry 93 O2 Sat by Pulse Oximetry 93 O2 Sat by Pulse Oximetry 93 O2 Sat by Pulse Oximetry 93 O2 Sat by Pulse Oximetry 93 O2 Sat by Pulse Oximetry 93 O2 Sat by Pulse Oximetry 93 O2 Sat by Pulse Oximetry 93 O2 Sat by Pulse Oximetry 93 O2 Sat by Pulse Oximetry 94 O2 Sat by Pulse Oximetry 94 MDM <Kam - Last Filed: 03/08/25 02:01> Differential Diagnosis Other differential diagnosis: drowsy,abdominal pin ,vomiting ,hx of hypothyroidism ,tobacco user COURSE <Kam Andrade - Last Filed: 03/08/25 02:01> Treatment Treatment: ct head ,labs IV fluids <Clark Pappas - Last Filed: 03/08/25 11:01> Treatment Treatment: ct head ,labs IV fluids 10:40 am - Dr. Pappas - Patient had been discharged to go home after discussion between Dr. Gonzalez and Dr. Carrillo. Patient has been doing much better and her vitals were maintaining. As the nurse was preparing to discharge the patient was a little lethargic and family requested admission. Her vitals still have maintained but given her course while in the hospital I contacted the hospitalist Dr. Al and she is agreeable to admission. Consultation Consultation Comments: Discussed case with Dr. Al and she is agreeable to admission ROR <Kam Storm - Last Filed: 03/08/25 02:01> Labs Reviewed 03/08/25 02:10 03/08/25 02:10 Laboratory: WBC 9.3 X10^3/uL (3.6-10.0) 03/08/25 02:10 RBC 4.35 X10^6/uL (3.5-5.4) 03/08/25 02:10 Hgb 13.7 g/dL (12.0-16.0) 03/08/25 02:10 Hct 39.9 % (36.0-47.0) 03/08/25 02:10 MCV 91.7 fL (80.0-100.0) 03/08/25 02:10 MCH 31.5 pg (27.0-34.0) 03/08/25 02:10 MCHC 34.3 g/dL (33.0-35.0) 03/08/25 02:10 RDW 15.0 % (11.6-16.5) 03/08/25 02:10 Plt Count 259 X10^3/uL (150.0-450.0) 03/08/25 02:10 MPV 7.4 fL (7.4-11.0) 03/08/25 02:10 Neut % (Auto) 64.6 % (42.0-75.0) 03/08/25 02:10 Lymph % (Auto) 24.0 % (21.0-51.0) 03/08/25 02:10 [place] % (Auto) 9.1 % (0.0-13.0) 03/08/25 02:10 Eos % (Auto) 1.7 % (0.9-2.9) 03/08/25 02:10 Baso % (Auto) 0.6 % (0.2-1.0) 03/08/25 02:10 Neut # (Auto) 6.0 x10^3/uL (2.2-4.8) H 03/08/25 02:10 Lymph # (Auto) 2.2 X10^3/uL (1.3-2.9) 03/08/25 02:10 [place] # (Auto) 0.8 x10^3/uL (0.3-0.8) 03/08/25 02:10 Eos # (Auto) 0.2 x10^3/uL (0.0-0.2) 03/08/25 02:10 Baso # (Auto) 0.1 X10^3/uL (0.0-0.1) 03/08/25 02:10 Absolute Nucleated RBC 0.0 /100WBC 03/08/25 02:10 D-Dimer < 0.27 ug/ml (0.0-0.57) 03/08/25 02:10 Sodium 140 mmol/L (136-145) 03/08/25 02:10 Corrected Sodium TNP 03/08/25 02:10 Potassium 3.2 mmol/L (3.5-5.1) L 03/08/25 02:10 Chloride 103 mmol/L (98-107) 03/08/25 02:10 Carbon Dioxide 29.2 mmol/L (21-32) 03/08/25 02:10 BUN 16 mg/dL (7-18) 03/08/25 02:10 Creatinine 1.15 mg/dL (0.55-1.02) H 03/08/25 02:10 Est GFR (MDRD) Af Amer > 60 (>60) 03/08/25 02:10 Est GFR (MDRD) Non-Af 53 (>60) L 03/08/25 02:10 Glucose 103 mg/dL (65-99) H 03/08/25 02:10 Lactic Acid 0.6 mmol/L (0.4-2.0) 03/08/25 02:10 Calcium 9.2 mg/dL (8.5-10.1) 03/08/25 02:10 Corrected Calcium 9.8 mg/dL (8.5-10.1) 03/08/25 02:10 Total Bilirubin 0.40 mg/dL (0.2-1.0) 03/08/25 02:10 AST 10 Units/L (15-37) L 03/08/25 02:10 ALT 18 Units/L (12-78) 03/08/25 02:10 Alkaline Phosphatase 95 Units/L (46-116) 03/08/25 02:10 Creatine Kinase 32 Units/L (26-192) 03/08/25 00:58 Troponin I High Sens 4.8 ng/L (4.0-60.0) 03/08/25 00:58 Total Protein 6.9 g/dL (6.4-8.2) 03/08/25 02:10 Albumin 3.3 g/dL (3.4-5.0) L 03/08/25 02:10 Globulin 3.6 g/dL (2.5-4.5) 03/08/25 02:10 Albumin/Globulin Ratio 0.9 Ratio (1.1-2.1) L 03/08/25 02:10 Lipase 13 Units/L (16-77) L 03/08/25 00:58 TSH 3rd Generation 1.157 uIU/mL (0.358-3.74) 03/08/25 00:58 Urine Opiates Screen Positive (NEG=<300) A 03/07/25 19:20 Urine Methadone Screen Negative (NEG=<300) 03/07/25 19:20 Ur Barbiturates Screen Positive (NEG=<200) A 03/07/25 19:20 Ur Phencyclidine Scrn Negative (NEG=<25) 03/07/25 19:20 Ur Amphetamines Screen Negative (NEG=<1000) 03/07/25 19:20 U Benzodiazepines Scrn Negative (NEG=<200) 03/07/25 19:20 Urine Cocaine Screen Negative (NEG=<300) 03/07/25 19:20 U Marijuana (THC) Screen Negative (NEG=<50) 03/07/25 19:20 <Clark Pappas - Last Filed: 03/08/25 11:01> Labs Reviewed Laboratory Results Reviewed?: Yes Laboratory: WBC 9.3 X10^3/uL (3.6-10.0) 03/08/25 02:10 RBC 4.35 X10^6/uL (3.5-5.4) 03/08/25 02:10 Hgb 13.7 g/dL (12.0-16.0) 03/08/25 02:10 Hct 39.9 % (36.0-47.0) 03/08/25 02:10 MCV 91.7 fL (80.0-100.0) 03/08/25 02:10 MCH 31.5 pg (27.0-34.0) 03/08/25 02:10 MCHC 34.3 g/dL (33.0-35.0) 03/08/25 02:10 RDW 15.0 % (11.6-16.5) 03/08/25 02:10 Plt Count 259 X10^3/uL (150.0-450.0) 03/08/25 02:10 MPV 7.4 fL (7.4-11.0) 03/08/25 02:10 Neut % (Auto) 64.6 % (42.0-75.0) 03/08/25 02:10 Lymph % (Auto) 24.0 % (21.0-51.0) 03/08/25 02:10 [place] % (Auto) 9.1 % (0.0-13.0) 03/08/25 02:10 Eos % (Auto) 1.7 % (0.9-2.9) 03/08/25 02:10 Baso % (Auto) 0.6 % (0.2-1.0) 03/08/25 02:10 Neut # (Auto) 6.0 x10^3/uL (2.2-4.8) H 03/08/25 02:10 Lymph # (Auto) 2.2 X10^3/uL (1.3-2.9) 03/08/25 02:10 [place] # (Auto) 0.8 x10^3/uL (0.3-0.8) 03/08/25 02:10 Eos # (Auto) 0.2 x10^3/uL (0.0-0.2) 03/08/25 02:10 Baso # (Auto) 0.1 X10^3/uL (0.0-0.1) 03/08/25 02:10 Absolute Nucleated RBC 0.0 /100WBC 03/08/25 02:10 D-Dimer < 0.27 ug/ml (0.0-0.57) 03/08/25 02:10 Sodium 140 mmol/L (136-145) 03/08/25 02:10 Corrected Sodium TNP 03/08/25 02:10 Potassium 3.2 mmol/L (3.5-5.1) L 03/08/25 02:10 Chloride 103 mmol/L (98-107) 03/08/25 02:10 Carbon Dioxide 29.2 mmol/L (21-32) 03/08/25 02:10 BUN 16 mg/dL (7-18) 03/08/25 02:10 Creatinine 1.15 mg/dL (0.55-1.02) H 03/08/25 02:10 Est GFR (MDRD) Af Amer > 60 (>60) 03/08/25 02:10 Est GFR (MDRD) Non-Af 53 (>60) L 03/08/25 02:10 Glucose 103 mg/dL (65-99) H 03/08/25 02:10 Lactic Acid 0.6 mmol/L (0.4-2.0) 03/08/25 02:10 Calcium 9.2 mg/dL (8.5-10.1) 03/08/25 02:10 Corrected Calcium 9.8 mg/dL (8.5-10.1) 03/08/25 02:10 Total Bilirubin 0.40 mg/dL (0.2-1.0) 03/08/25 02:10 AST 10 Units/L (15-37) L 03/08/25 02:10 ALT 18 Units/L (12-78) 03/08/25 02:10 Alkaline Phosphatase 95 Units/L (46-116) 03/08/25 02:10 Creatine Kinase 32 Units/L (26-192) 03/08/25 00:58 Troponin I High Sens 4.8 ng/L (4.0-60.0) 03/08/25 00:58 Total Protein 6.9 g/dL (6.4-8.2) 03/08/25 02:10 Albumin 3.3 g/dL (3.4-5.0) L 03/08/25 02:10 Globulin 3.6 g/dL (2.5-4.5) 03/08/25 02:10 Albumin/Globulin Ratio 0.9 Ratio (1.1-2.1) L 03/08/25 02:10 Lipase 13 Units/L (16-77) L 03/08/25 00:58 TSH 3rd Generation 1.157 uIU/mL (0.358-3.74) 03/08/25 00:58 Urine Opiates Screen Positive (NEG=<300) A 03/07/25 19:20 Urine Methadone Screen Negative (NEG=<300) 03/07/25 19:20 Ur Barbiturates Screen Positive (NEG=<200) A 03/07/25 19:20 Ur Phencyclidine Scrn Negative (NEG=<25) 03/07/25 19:20 Ur Amphetamines Screen Negative (NEG=<1000) 03/07/25 19:20 U Benzodiazepines Scrn Negative (NEG=<200) 03/07/25 19:20 Urine Cocaine Screen Negative (NEG=<300) 03/07/25 19:20 U Marijuana (THC) Screen Negative (NEG=<50) 03/07/25 19:20 Other Results Comments: Name: RICHARD DIAZ : 1970 Sex: F Location: ER Order Number(s): [id number] Procedure(s):BRAIN CT W/O CON Ordering Physician: Kam Storm Primary Care: NFD,None Service Date: 03/08/25 Service Time: 0107 EXAM: BRAIN W/O CON HISTORY: pt returned to ER with same complaint as earlier tonight abd pain and nausea and vomiting; lethargic ; HTN, ANXIETY, COPD, ASTHMA, GERD SX: CSECTION, ORTHO COMPARISON: 08/21/2024 TECHNIQUE: Multiple axial images of the head were performed from the skullbase to the vertex using standard departmental protocol. Sagittal and coronal reformatted images were performed. Dose reduction techniques including Automated Exposure Control (AEC) and adjustment of mA and kV were utilized. FINDINGS: The sulci, cisterns and ventricles are age appropriate. There is no evidence of acute territorial infarction, hemorrhage, mass, mass effect or midline shift. There are no abnormal intra-axial or extra-axial fluid collections. The visualized paranasal sinuses and mastoid air cells are predominantly clear. IMPRESSION: No evidence of acute intracranial abnormality. Name: RICHARD DIAZ : 1970 Sex: F Location: ER Order Number(s): [id number] Procedure(s):CT ABDOMEN/PELVIS WITH CON Ordering Physician: Venancio Adhikari Primary Care: NFD,None Service Date: 03/07/25 Service Time: 1900 EXAM: ABDCMEN/PELVIS WITH CON HISTORY: Abdominal pain with elevated white count. COMPARISON: March 07, 2025 at 6:16 p.m. TECHNIQUE: Axial CT images of the abdomen and pelvis were obtained after the administration of 100 mL Omnipaque 350 IV contrast and reformatted into coronal and sagittal planes for further evaluation. Radiation dose: 640.19 mGy-cm total DLP FINDINGS: Lung bases are clear. Stomach appears normal. Solid visceral organs of the upper abdomen are unremarkable. Gallbladder appears normal with no biliary dilatation. Homogeneous enhancement of the kidneys without hydronephrosis or hydroureter. Unremarkable appearance of the urinary bladder. Imaged reproductive structures are unremarkable. Unremarkable appearance of the large and small bowel. No evidence of acute appendicitis. No pneumoperitoneum. No significant fluid collection. No adenopathy. No acute osseous abnormality. IMPRESSION: No acute intra-abdominal abnormality detected. THIS IS AN ELECTRONICALLY VERIFIED FINAL REPORT 03/07/2025 7:28 PM - Electronically signed by Erasmo Junior MD Name: RICHARD DIAZ : 1970 Sex: F Location: ER Order Number(s): [id number] Procedure(s):CT ABDOMEN/PELVIS W/O CON Ordering Physician: Venancio Adhikari Primary Care: Laila OCONNOR Service Date: 03/07/25 Service Time: 1800 EXAM: CT ABDOMEN AND PELVIS WITHOUT CONTRAST HISTORY: Patient states she has been having nausea, vomitting and severe abdominal pain since 3am that has not gotten any better. Patient states that she has been unable to keep anything down. ; COMPARISON: Gallbladder ultrasound dated December 23, 2024. CT abdomen and pelvis dated October 23, 2024. TECHNIQUE: Axial CT images were obtained through the abdomen and pelvis without contrast. Coronal reformatted images were included. All CT scans at this facility use dose modulation, iterative reconstruction, and/or weight based dosing when appropriate to reduce radiation dose to as low as reasonably achievable. FINDINGS: Technical note: Without the use of intravenous contrast, evaluation of solid abdominal viscera, vascular structures, urinary structures, and bowel is limited. LOWER THORAX: Unremarkable. ABDOMEN: LIVER: Unremarkable. GALLBLADDER: Unremarkable. SPLEEN: Unremarkable. PANCREAS: Unremarkable. KIDNEYS: Unremarkable. ADRENAL GLANDS: Unremarkable. ABDOMINAL AORTA: Mild calcifications. No aneurysm. LYMPH NODES: No evidence of enlarged nodes. GI TRACT: No evidence for intestinal obstruction. ASCITES: None. PNEUMOPERITONEUM: None. PELVIS: APPENDIX: Unremarkable. RECTOSIGMOID COLON: Unremarkable. BLADDER: Unremarkable GENITALS: Uterus and adnexal structures are unremarkable. ASCITES: None. LYMPH NODES: No evidence for enlarged nodes. INGUINAL HERNIA: None. BONES: No evidence for acute osseous findings. IMPRESSION: No evidence for acute process of the abdomen or pelvis. THIS IS AN ELECTRONICALLY VERIFIED FINAL REPORT 03/07/2025 6:46 PM - Electronically signed by García Pyle DO Opioid <Kam Storm - Last Filed: 03/08/25 02:01> Opioid Risk Tool Age (Bigg box if 16-45): No History of Preadolescent Sexual Abuse: No Total: 0 Total Score Risk Category: Low Risk Copyright: Amos [employer]UST predicting aberrant behaviors <Cjsteve Pappas - Last Filed: 03/08/25 11:01> Opioid Risk Tool Total: 0 Total Score Risk Category: Low Risk Discharge Plan Diagnosis Discharge Problem: Serotonin syndrome, Acute hypokalemia, Lethargic Discharge Plan Patient Disposition: ADMITTED INPATIENT Condition: Stable Prescriptions: No Action dicyclomine 20 mg tablet 20 mg PO TID MDD 3 Qty: 30 0RF polyethylene glycol 3350 [Miralax] 17 gram powder in packet 17 g PO QDAY 30 Days Qty: 120 0RF hydroxyzine pamoate 100 mg Capsule 100 mg PO BID PRN oxybutynin chloride 15 mg Tablet Extended Release 24hr 15 mg PO BID medroxyprogesterone 2.5 mg Tablet 5 mg PO QPM primidone 250 mg Tablet 250 mg PO QHS pantoprazole 40 mg Tablet,Delayed Release (Dr/Ec) 40 mg PO QDAY Rx Instructions: Take one tablet one-half to one hour before the morning meal for stomach buspirone 15 mg Tablet 15 mg PO BID thyroid (pork) [TEST PREPARATION TUTOR Thyroid] 30 mg Tablet 30 mg PO QDAY fluoxetine 40 mg Capsule 80 mg PO QDAY cyanocobalamin (vitamin B-12) 1,000 mcg/mL Solution 1,000 mcg IM QWEEK topiramate 50 mg Tablet 50 mg PO BID Creon 36,000-114,000- 180,000 unit Capsule,Delayed Release(Dr/Ec) 2 cap PO QID Rx Instructions: administer with meals and/or snacks fenofibrate 54 mg Tablet 54 mg PO QHS ondansetron HCl 4 mg Tablet 4 mg PO Q8H PRN trazodone 150 mg Tablet 150 mg PO QHS dicyclomine 10 mg Capsule 20 mg PO TID duloxetine 60 mg Capsule,Delayed Release(Dr/Ec) 60 mg PO QDAY tizanidine 2 mg Capsule 2 mg PO TID PRN propranolol 80 mg Tablet 80 mg PO BID rizatriptan 10 mg Tablet,Disintegrating 10 mg PO ONCE PRN Rx Instructions: may repeat once after at least 2 hours diclofenac sodium 75 mg Tablet,Delayed Release (Dr/Ec) 75 mg PO BID albuterol sulfate [Ventolin HFA] 90 mcg/actuation Hfa Aerosol Inhaler 1 inh INHALATION Q4H PRN ergocalciferol (vitamin D2) 50,000 unit Tablet 50,000 unit PO WEEKLY Discharge Comment: advised to take bottles of her med to see her Health Concerns: Post Hospitalization: new medications and changes needed to prevent readmission or further decline. Pt educated and given instructions on all concerns. Plan of Treatment: Continue with present treatment and follow up plan. Pt is to keep follow up appointment as instructed and take medications as ordered. Orders to Discharge Patient Discharge Orders: Discharge (Routine); Ordered 03/08/25 Ordered By: Kam Storm Transfer (Routine); Ordered 03/08/25 Ordered By: Clark Pappas Follow ups/Referrals Follow ups/Referrals: [facility],None [Primary Care Provider] - 1 day Referral Note: fp Instructions Instructions: Serotonin Syndrome, Hypokalemia Stand Alone Forms: Find Help Web Site, Post Hospital Follow Up Care Print Language: POLISH Provider Note <Kam Storm - Last Filed: 03/08/25 02:01> Additional Notes pt is drowsier ,her bp running 60 sytolic ,even wth fluids,will start dopamine drip .get cbc,cmp,d -dimer cardiac enzymes and start up sepsis work up <Clark Pappas - Last Filed: 03/08/25 11:01> Additional Notes pt is drowsier ,her bp running 60 sytolic ,even wth fluids,will start dopamine drip .get cbc,cmp,d -dimer cardiac enzymes and start up sepsis work up .With the view that patient is taking multiple antidepressive medications as well as other medications that can increase serotonin level and being seen in ER with similar symptoms in the past and there are lot more serotonin receptors in the GI tract she may have serotonin syndrome. This morning patient Bp is maintained around 100 systolic,after stopping dopamine drip .She will be discharged to go home and f/u with FP tomorrow as planned
[2025-03-08] MEDS ORDERED: NS 1,000 ML IV 1,000 ML ONE ×2 (00:34→02:06)
[2025-03-08] MEDS: NS 1,000 ML IV 1,000 ML IV ONE ×2 (00:47→03:27)
[2025-03-08 01:26] LABS: TSH (3RD GENERATION) 1.157 uIU/mL (0.358-3.74)
--- NOTE | 2025-03-08 01:37 | CT ---
EXAM: BRAIN W/O CON HISTORY: pt returned to ER with same complaint as earlier tonight abd pain and nausea and vomiting; lethargic ; HTN, ANXIETY, COPD, ASTHMA, GERD SX: CSECTION, ORTHO COMPARISON: 08/21/2024 TECHNIQUE: Multiple axial images of the head were performed from the skullbase to the vertex using standard departmental protocol. Sagittal and coronal reformatted images were performed. Dose reduction techniques including Automated Exposure Control (AEC) and adjustment of mA and kV were utilized. FINDINGS: The sulci, cisterns and ventricles are age appropriate. There is no evidence of acute territorial infarction, hemorrhage, mass, mass effect or midline shift. There are no abnormal intra-axial or extra-axial fluid collections. The visualized paranasal sinuses and mastoid air cells are predominantly clear. IMPRESSION: No evidence of acute intracranial abnormality. THIS IS AN ELECTRONICALLY VERIFIED FINAL REPORT 03/08/2025 1:34 AM - Electronically signed by Stanley Cruz MD
[2025-03-08] MEDS ORDERED: DOPAMINE IV PREMIX 400 MG/250 ML 400 MG/250 ML BAG IV ONE (01:50)
[2025-03-08] MEDS: DOPAMINE IV PREMIX 400 MG/250 ML 400 MG/250 ML BAG IV PRN (01:56)
[2025-03-08 02:36] LABS: COR CA(FOR HYPOALB) 9.8 mg/dL (8.5-10.1); CREATININE 1.15 mg/dL (0.55-1.02); eGFR NON BLACK RACES 53 (>60)
[2025-03-08 02:40] LABS: MEAN PLATELET VOLUME 7.4 fL (7.4-11.0); RED CELL DISTRIBUTION WIDTH 15.0 % (11.6-16.5)
[2025-03-08] MEDS: NARCAN INJ IVP ONE ×2 (06:39→08:29)
[2025-03-08] MEDS ORDERED: VENTOLIN or PROAIR HFA IN PRN (12:45)
[2025-03-08 12:48] VITALS: BMI 38.6
[2025-03-08] MEDS: CONSULT PHARMACY - POTASSIUM & MAGNESIUM XX SCH (12:51)
[2025-03-08] MEDS ORDERED: TORADOL 15 MG VIAL IVP PRN (13:06)
[2025-03-08] MEDS ORDERED: PROVENTIL NEB TX 0.083% 2.5MG/ 3ML NEB PRN (13:06)
[2025-03-08] MEDS: NS 1,000 ML IV 1,000 ML IV SCH (13:31)
[2025-03-08] MEDS: MIRALAX POWDER (1 DOSE 17 G) PO SCH (13:32)
[2025-03-08] MEDS: BENTYL CAP 10 MG PO SCH (13:33)
[2025-03-08] MEDS: MAG-OX TAB PO SCH (13:33)
[2025-03-08] MEDS: TYLENOL 325 MG TAB PO PRN (13:35)
[2025-03-08] MEDS: K-DUR TAB 20 MEQ PO SCH (13:35)
[2025-03-08] MEDS: LIPASE PROTEASE AMYLASE PO SCH (15:38)
[2025-03-08] MEDS: [UNRECOGNIZED DRUG - OTHER] PO SCH (15:38)
[2025-03-08] MEDS: NICOTINE PATCH TD SCH (16:00)
--- NOTE | 2025-03-08 16:48 | DR.H&P ---
H&P History & Physical for Day of: H&P Date: 03/08/25 Chief Complaint Chief Complaint: N/V, poor oral intake, abdominal pain History of Present Illness History of Present Illness: Patient is a 54-year-old female with a past medical history of COPD, anxiety, depression, hypertension, hypothyroidism, hyperlipidemia and GERD presented with worsening abdominal pain, nausea, vomiting and poor oral intake. She was seen in the ER on 03/07/2025 and had workup done which included CTAP with and without contrast. All the workup was negative except she had some constipation. Patient was given some fluids and discharged home on MiraLAX. She returned to the ER a few hours later due to worsening nausea and vomiting. She was noted to have hypotension with blood pressure in the 60s. After fluid resuscitation, she was started on IV dopamine. Her blood pressure did improve and the drip was turned off. Repeat labs included low potassium. UA was negative for infection. Drug screen showed barbiturates and opioids. She is more awake and alert now, answering questions. Her blood pressure has been in the 100s over 60s. She will be admitted for observation. Labs/imaging reviewed: - WBC 9.3 hemoglobin 13.7 sodium 140 creatinine 1.15 potassium 3.2 - CT brain, CT abdomen pelvis reviewed Plan: Admit to [facility] , monitor blood pressure closely. Continue gentle hydration. Order chest x-ray. Resume home medications, hold any pain medication or other sedatives. Replace electrolytes as per protocol. Ambulate as tolerated. Monitor a.m. labs and imaging. Time spent for clinical assessment, reviewing labs and imaging, physical exam, decision making and documentation greater than 45 minutes Past Medical History Past Medical History: Anxiety, Asthma, COPD, Depression, GERD, Hypertension and Hypothyroidism Past Surgical History Surgical History: and Ortho Surgery Family History Family Medical History: Diabetes Mellitus, Cancer, [place], Coronary Artery Disease, Heart Failure, Sudden Cardiac and Hypertension Social History Does patient currently use any type of tobacco product: Yes Have you used tobacco products in the last 12 months: Yes Type of Tobacco Use: Cigarettes Does any household member use tobacco: Yes Alcohol Use: None Drug Use: None Medications Home Medications: Home Medications Medication Instructions Recorded Confirmed Type albuterol sulfate 90 mcg/actuation 1 inh inhalation Q4 H PRN 08/26/24 03/08/25 History aerosol inhaler (Ventolin HFA) buspirone 15 mg tablet 15 mg PO BID 08/26/24 History cyanocobalamin (vitamin B-12) 1,000 mcg IM QWEEK 08/2603/08/25 History 1,000 mcg/mL injection solution diclofenac sodium 75 mg 75 mg PO BID 08/26/24 History tablet,delayed release dicyclomine 10 mg capsule 20 mg PO TID 08/26/24 History duloxetine 60 mg capsule,delayed 60 mg PO QDAY 5 03/08/25 History release fenofibrate 54 mg tablet 54 mg PO QHS 08/26/24 History fluoxetine 40 mg capsule 80 mg PO QDAY 08/26/2403/08 History hydroxyzine pamoate 100 mg capsule 100 mg PO BID PRN 0 08/26/24 03/08/25 History xavthy-orsczgle-hthnxsw 2 cap PO QID 08/26/24 History 36,000-114,000-180,000 unit capsule,delay rel (Creon) medroxyprogesterone 2.5 mg tablet 5 mg PO QPM 08/26/24 03/08/25 History ondansetron HCl 4 mg tablet 4 mg PO Q8H PRN 08/26/24 0 03/08/25 History oxybutynin chloride 15 mg 15 mg PO BID 08/26/24 History tablet,extended release 24 hr pantoprazole 40 mg tablet,delayed 40 mg PO QDAY 03/08/25 History release primidone 250 mg tablet 250 mg PO QHS 08/26/2403/08 History propranolol 80 mg tablet 80 mg PO BID 08/26/24 History rizatriptan 10 mg disintegrating 10 mg PO ONCE PRN 11/1503/08/25 History tablet thyroid (pork) 30 mg tablet (SET PAINTER 30 mg PO QDAY 08/26/24 03/08/25 History Thyroid) tizanidine 2 mg capsule 2 mg PO TID PRN 08/26/24 History topiramate 50 mg tablet 50 mg PO BID 08/26/24 History trazodone 150 mg tablet 150 mg PO QHS 08/26/2403/08 History ergocalciferol (vitamin D2) 50,000 50,000 unit PO WEEK LY 12/16/24 03/08/25 History unit tablet Allergies Allergies Allergy/AdvReac Type Severity Reaction Status Date / Time No Known Allergies Allergy Verified 03/08/25 02:27 Labs 03/08/25 02:10 03/08/25 02:10 Labs: Laboratory WBC 9.3 X10^3/uL (3.6-10.0) 03/08/25 02:10 RBC 4.35 X10^6/uL (3.5-5.4) 03/08/25 02:10 Hgb 13.7 g/dL (12.0-16.0) 03/08/25 02:10 Hct 39.9 % (36.0-47.0) 03/08/25 02:10 MCV 91.7 fL (80.0-100.0) 03/08/25 02:10 MCH 31.5 pg (27.0-34.0) 03/08/25 02:10 MCHC 34.3 g/dL (33.0-35.0) 03/08/25 02:10 RDW 15.0 % (11.6-16.5) 03/08/25 02:10 Plt Count 259 X10^3/uL (150.0-450.0) 03/08/25 02:10 MPV 7.4 fL (7.4-11.0) 03/08/25 02:10 Neut % (Auto) 64.6 % (42.0-75.0) 03/08/25 02:10 Lymph % (Auto) 24.0 % (21.0-51.0) 03/08/25 02:10 Wy[place] % (Auto) 9.1 % (0.0-13.0) 03/08/25 02:10 Eos % (Auto) 1.7 % (0.9-2.9) 03/08/25 02:10 Baso % (Auto) 0.6 % (0.2-1.0) 03/08/25 02:10 Neut # (Auto) 6.0 x10^3/uL (2.2-4.8) H 03/08/25 02:10 Lymph # (Auto) 2.2 X10^3/uL (1.3-2.9) 03/08/25 02:10 Wythe # (Auto) 0.8 x10^3/uL (0.3-0.8) 03/08/25 02:10 Eos # (Auto) 0.2 x10^3/uL (0.0-0.2) 03/08/25 02:10 Baso # (Auto) 0.1 X10^3/uL (0.0-0.1) 03/08/25 02:10 Absolute Nucleated RBC 0.0 /100WBC 03/08/25 02:10 D-Dimer < 0.27 ug/ml (0.0-0.57) 03/08/25 02:10 Sodium 140 mmol/L (136-145) 03/08/25 02:10 Corrected Sodium TNP 03/08/25 02:10 Potassium 3.2 mmol/L (3.5-5.1) L 03/08/25 02:10 Chloride 103 mmol/L (98-107) 03/08/25 02:10 Carbon Dioxide 29.2 mmol/L (21-32) 03/08/25 02:10 BUN 16 mg/dL (7-18) 03/08/25 02:10 Creatinine 1.15 mg/dL (0.55-1.02) H 03/08/25 02:10 Est GFR (MDRD) Af Amer > 60 (>60) 03/08/25 02:10 Est GFR (MDRD) Non-Af 53 (>60) L 03/08/25 02:10 Glucose 103 mg/dL (65-99) H 03/08/25 02:10 Lactic Acid 0.6 mmol/L (0.4-2.0) 03/08/25 02:10 Calcium 9.2 mg/dL (8.5-10.1) 03/08/25 02:10 Corrected Calcium 9.8 mg/dL (8.5-10.1) 03/08/25 02:10 Magnesium 1.5 mg/dL (2.0-2.9) L 03/08/25 02:10 Total Bilirubin 0.40 mg/dL (0.2-1.0) 03/08/25 02:10 AST 10 Units/L (15-37) L 03/08/25 02:10 ALT 18 Units/L (12-78) 03/08/25 02:10 Alkaline Phosphatase 95 Units/L (46-116) 03/08/25 02:10 Creatine Kinase 32 Units/L (26-192) 03/08/25 00:58 Troponin I High Sens 4.8 ng/L (4.0-60.0) 03/08/25 00:58 Total Protein 6.9 g/dL (6.4-8.2) 03/08/25 02:10 Albumin 3.3 g/dL (3.4-5.0) L 03/08/25 02:10 Globulin 3.6 g/dL (2.5-4.5) 03/08/25 02:10 Albumin/Globulin Ratio 0.9 Ratio (1.1-2.1) L 03/08/25 02:10 Lipase 13 Units/L (16-77) L 03/08/25 00:58 TSH 3rd Generation 1.157 uIU/mL (0.358-3.74) 03/08/25 00:58 Urine Opiates Screen Positive (NEG=<300) A 03/07/25 19:20 Urine Methadone Screen Negative (NEG=<300) 03/07/25 19:20 Ur Barbiturates Screen Positive (NEG=<200) A 03/07/25 19:20 Ur Phencyclidine Scrn Negative (NEG=<25) 03/07/25 19:20 Ur Amphetamines Screen Negative (NEG=<1000) 03/07/25 19:20 U Benzodiazepines Scrn Negative (NEG=<200) 03/07/25 19:20 Urine Cocaine Screen Negative (NEG=<300) 03/07/25 19:20 U Marijuana (THC) Screen Negative (NEG=<50) 03/07/25 19:20 Review of Systems Constitutional: Fever Eyes: No Symptoms Reported ENT: No Symptoms Reported Respiratory: No Symptoms Reported Cardiovascular: No Symptoms Reported Gastrointestinal: Nausea, Vomiting and Abdominal Pain Genitourinary: No Symptoms Reported Musculoskeletal: No Symptoms Reported Skin: No Symptoms Reported Neurological: No Symptoms Reported Physical Exam Vital Signs: Vital Signs Temperature 98.2 F Pulse Rate [Left Brachial] 65 Pulse Rate 82 Pulse Rate 77 Pulse Rate 80 Pulse Rate 77 Pulse Rate 76 Pulse Rate 89 Pulse Rate 84 Pulse Rate 78 Pulse Rate 74 Pulse Rate 76 Pulse Rate 76 Pulse Rate 74 Pulse Rate 73 Pulse Rate 85 Pulse Rate 78 Pulse Rate 78 Pulse Rate 75 Pulse Rate 80 Pulse Rate 84 Pulse Rate 74 Pulse Rate 72 Pulse Rate 70 Pulse Rate 70 Pulse Rate 79 Pulse Rate 78 Pulse Rate 70 Pulse Rate 73 Pulse Rate 74 Pulse Rate 71 Pulse Rate 71 Pulse Rate 72 Pulse Rate 73 Pulse Rate 71 Pulse Rate 75 Pulse Rate 79 Pulse Rate 80 Pulse Rate 80 Pulse Rate 81 Pulse Rate 80 Pulse Rate 80 Pulse Rate 80 Pulse Rate 80 Pulse Rate 80 Pulse Rate 82 Pulse Rate 84 Pulse Rate 100 Pulse Rate 79 Pulse Rate 94 Pulse Rate 84 Pulse Rate 83 Pulse Rate 83 Pulse Rate 84 Pulse Rate 84 Respiratory Rate 16 Respiratory Rate 15 Respiratory Rate 16 Respiratory Rate 15 Respiratory Rate 15 Respiratory Rate 18 Respiratory Rate 23 Respiratory Rate 19 Respiratory Rate 17 Respiratory Rate 19 Respiratory Rate 20 Respiratory Rate 24 Respiratory Rate 20 Respiratory Rate 16 Respiratory Rate 19 Respiratory Rate 16 Respiratory Rate 15 Respiratory Rate 17 Respiratory Rate 16 Respiratory Rate 20 Respiratory Rate 16 Respiratory Rate 15 Respiratory Rate 15 Respiratory Rate 16 Respiratory Rate 19 Respiratory Rate 31 Respiratory Rate 23 Respiratory Rate 20 Respiratory Rate 17 Respiratory Rate 16 Respiratory Rate 14 Respiratory Rate 14 Respiratory Rate 14 Respiratory Rate 14 Respiratory Rate 14 Respiratory Rate 14 Respiratory Rate 15 Respiratory Rate 14 Respiratory Rate 15 Respiratory Rate 14 Respiratory Rate 14 Respiratory Rate 15 Respiratory Rate 15 Respiratory Rate 15 Respiratory Rate 15 Respiratory Rate 16 Respiratory Rate 29 Respiratory Rate 13 Respiratory Rate 14 Respiratory Rate 15 Respiratory Rate 13 Respiratory Rate 14 Respiratory Rate 14 Blood Pressure [Left Arm] 109/57 Blood Pressure [Left Arm] 105/65 Blood Pressure 104/61 Blood Pressure 105/59 Blood Pressure 93/56 Blood Pressure 93/56 Blood Pressure 93/56 Blood Pressure 100/58 Blood Pressure 100/58 Blood Pressure 108/55 Blood Pressure 115/64 Blood Pressure 98/54 Blood Pressure 103/67 Blood Pressure 106/61 Blood Pressure 101/63 Blood Pressure 101/67 Blood Pressure 104/54 Blood Pressure 104/54 Blood Pressure 104/54 Blood Pressure 107/60 Blood Pressure 107/60 Blood Pressure 107/60 Blood Pressure 107/60 Blood Pressure 101/54 Blood Pressure 101/54 Blood Pressure 106/54 Blood Pressure 106/54 Blood Pressure 105/65 Blood Pressure 107/57 Blood Pressure 104/66 Blood Pressure 109/70 Blood Pressure 115/76 Blood Pressure 94/57 Blood Pressure 101/56 Blood Pressure 85/51 Blood Pressure 90/56 Blood Pressure 95/50 Blood Pressure 96/67 Blood Pressure 91/59 Blood Pressure 91/59 Blood Pressure 96/59 Blood Pressure 108/60 Blood Pressure 102/57 Blood Pressure 103/57 Blood Pressure 100/59 Blood Pressure 96/54 Blood Pressure 102/56 Blood Pressure 104/57 Blood Pressure 104/56 Blood Pressure 99/54 Blood Pressure 98/52 Blood Pressure 98/52 Blood Pressure 104/55 Blood Pressure 104/55 Blood Pressure 107/53 Blood Pressure 107/53 Blood Pressure 107/53 Blood Pressure 118/57 Blood Pressure 118/57 Blood Pressure 112/55 Blood Pressure 108/53 Blood Pressure 111/54 Blood Pressure 107/57 Blood Pressure 106/58 Blood Pressure 117/59 Blood Pressure 117/56 Blood Pressure 118/59 Blood Pressure 128/62 Blood Pressure 124/58 Blood Pressure 99/55 Blood Pressure 99/55 Blood Pressure 109/55 Blood Pressure 109/55 Blood Pressure 87/53 Blood Pressure 109/54 O2 Sat by Pulse Oximetry 92 O2 Sat by Pulse Oximetry 91 O2 Sat by Pulse Oximetry 93 O2 Sat by Pulse Oximetry 98 O2 Sat by Pulse Oximetry 94 O2 Sat by Pulse Oximetry 94 O2 Sat by Pulse Oximetry 96 O2 Sat by Pulse Oximetry 93 O2 Sat by Pulse Oximetry 95 O2 Sat by Pulse Oximetry 94 O2 Sat by Pulse Oximetry 94 O2 Sat by Pulse Oximetry 92 O2 Sat by Pulse Oximetry 93 O2 Sat by Pulse Oximetry 92 O2 Sat by Pulse Oximetry 94 O2 Sat by Pulse Oximetry 94 O2 Sat by Pulse Oximetry 93 O2 Sat by Pulse Oximetry 97 O2 Sat by Pulse Oximetry 95 O2 Sat by Pulse Oximetry 95 O2 Sat by Pulse Oximetry 95 O2 Sat by Pulse Oximetry 95 O2 Sat by Pulse Oximetry 95 O2 Sat by Pulse Oximetry 95 O2 Sat by Pulse Oximetry 94 O2 Sat by Pulse Oximetry 94 O2 Sat by Pulse Oximetry 94 O2 Sat by Pulse Oximetry 93 O2 Sat by Pulse Oximetry 91 O2 Sat by Pulse Oximetry 91 O2 Sat by Pulse Oximetry 90 O2 Sat by Pulse Oximetry 90 O2 Sat by Pulse Oximetry 91 O2 Sat by Pulse Oximetry 91 O2 Sat by Pulse Oximetry 91 O2 Sat by Pulse Oximetry 91 O2 Sat by Pulse Oximetry 90 O2 Sat by Pulse Oximetry 91 O2 Sat by Pulse Oximetry 93 O2 Sat by Pulse Oximetry 95 O2 Sat by Pulse Oximetry 96 O2 Sat by Pulse Oximetry 93 O2 Sat by Pulse Oximetry 92 O2 Sat by Pulse Oximetry 92 O2 Sat by Pulse Oximetry 93 O2 Sat by Pulse Oximetry 93 O2 Sat by Pulse Oximetry 92 Oriented: Normal Respiratory: RLL Rales and LLL Rales Cardiovascular: Normal Auscultation: Bowel Sounds: Normal Tenderness: Periumbilical and Mild Skin: Normal Musculoskeletal: Normal Psychiatric: Normal Mood Description: Calm Affect: Normal Speech Pattern: Clear and Appropriate Assessment/Plan (1) Hypotension: Qualifiers: Hypotension type: idiopathic hypotension Qualified Code(s): I95.0 - Idiopathic hypotension Status: Acute (2) Acute hypokalemia: Status: Acute (3) Lethargic: Status: Acute (4) Abdominal pain, left lower quadrant: Status: Acute Review H&P Reviewed: Yes Patient was examined?: Yes
--- NOTE | 2025-03-08 19:43 | RAD ---
EXAM: CHEST, 1 VIEW HISTORY: COUGH; COMPARISON: 02/08/2024 TECHNIQUE: Single frontal chest radiograph FINDINGS: Cardiomediastinal silhouette within normal limits. Lungs clear. Pleural spaces are clear. Bones unremarkable. Mild right hemidiaphragm elevation. IMPRESSION: No active pulmonary disease. THIS IS AN ELECTRONICALLY VERIFIED FINAL REPORT 03/08/2025 7:40 PM - Electronically signed by Erick Salamanca MD
[2025-03-08] MEDS: MILK OF MAGNESIA PO SCH (20:51)
[2025-03-08] MEDS: COLACE CAP 100 MG PO SCH (20:51)
[2025-03-08] MEDS: OXYBUTYNIN CHLORIDE ER PO SCH (20:52)
[2025-03-08] MEDS: TRICOR TAB 48 MG PO SCH (20:52)
[2025-03-08] MEDS: PROVERA PO SCH (20:52)
[2025-03-08] MEDS ORDERED: PATIENT'S HOME MEDICATION (Diclofenac Sodium 75 mg Tablet,Delayed Release (Dr/Ec)) PO SCH (21:00)
[2025-03-09 05:17] LABS: MEAN PLATELET VOLUME 7.4 fL (7.4-11.0); RED CELL DISTRIBUTION WIDTH 15.4 % (11.6-16.5)
[2025-03-09 05:25] LABS: COR CA(FOR HYPOALB) 9.7 mg/dL (8.5-10.1); CREATININE 0.98 mg/dL (0.55-1.02); eGFR NON BLACK RACES > 60 (>60)
[2025-03-09] MEDS ORDERED: CONSULT PHARMACY - POTASSIUM & MAGNESIUM XX SCH (06:00)
[2025-03-09] MEDS: MAG-OX TAB PO SCH (08:52)
[2025-03-09] MEDS ORDERED: NS 250 ML IV 25 ML IV PRN (08:58)
[2025-03-09] MEDS: LEVSIN/MAALOX/LIDOC VISC PO SCH (09:41)
[2025-03-09] MEDS: TOPAMAX TAB 100 MG PO SCH (09:43)
[2025-03-09] MEDS: PROTONIX TAB 40 MG PO SCH (09:43)
[2025-03-09] MEDS: BUSPAR PO SCH (09:43)
[2025-03-09] MEDS: ZOSYN VIAL 3.375 GRAMS 3.375 G in NS 100 ML IV 100 ML IV SCH (09:44)
[2025-03-09] MEDS: ULTRAM PO PRN (09:44)
[2025-03-09] MEDS: THYROID 30 MG PO SCH (11:44)
--- NOTE | 2025-03-09 15:22 | PCM.PROG ---
Progress Note Progress Note for Day of Date of Exam: 03/09/25 Subjective Subjective: Patient seen at bedside, no acute events overnight. She is feeling slightly better. She has been tolerating regular diet. She reports intermittent abdominal cramps. Her blood pressure has remained relatively stable overnight, she did have a few readings with systolic below 100. Denies any chest pain, shortness of breath or dizziness. Denies any vomiting. Labs/imaging reviewed: - Hemoglobin 12.8 WBC 7.3 sodium 144 potassium 4.0 creatinine 0.98 - 03/08/2025 blood culture x 1 gram-positive cocci in clusters Plan: Continue gentle hydration, replace electrolytes as per protocol. Will start empiric Zosyn. Follow final blood cultures, likely contamination. Patient has been afebrile, normal WBC count. Continue antiemetics. Continue home medications as appropriate. Ambulate as tolerated. Monitoring labs and imaging. Past Medical Family Social History Allergies: Allergies No Known Allergies Allergy (Verified 03/08/25 02:27) Vital Signs and I&O's Vital Signs: Vital Signs Temperature 97.8 F Temperature 97.5 F Pulse Rate [Left Brachial] 87 Pulse Rate [Left Brachial] 87 Respiratory Rate 20 Respiratory Rate 20 Respiratory Rate 18 Respiratory Rate 19 Respiratory Rate 19 Respiratory Rate 20 Respiratory Rate 20 Respiratory Rate 18 Blood Pressure [Left Arm] 140/76 Blood Pressure [Left Arm] 111/68 O2 Sat by Pulse Oximetry 95 O2 Sat by Pulse Oximetry 98 Intake and Output: Intake & Output 03/06/25 03/07/25 03/08/25 03/09/25 23:59 23:59 23:59 23:59 Intake Total 2011.000 / 2011.000 1541 / 1541 Balance 2011.000 / 2011.000 1541 / 1541 Physical Exam Oriented: Normal Respiratory: Normal Cardiovascular: Normal Auscultation: Bowel Sounds: Normal Tenderness: Periumbilical and Mild Skin: Normal Musculoskeletal: Normal Psychiatric: Normal Mood Description: Calm Affect: Normal Speech Pattern: Clear Laboratory and Diagnostics 03/09/25 05:02 03/09/25 05:02 Labs: 03/07/25 18:05 Blood Blood Culture - Preliminary 03/08/25 02:00 Blood Blood Culture Gram Stain - Final Laboratory WBC 7.3 X10^3/uL (3.6-10.0) 03/09/25 05:02 RBC 4.05 X10^6/uL (3.5-5.4) 03/09/25 05:02 Hgb 12.8 g/dL (12.0-16.0) 03/09/25 05:02 Hct 37.1 % (36.0-47.0) 03/09/25 05:02 MCV 91.7 fL (80.0-100.0) 03/09/25 05:02 MCH 31.5 pg (27.0-34.0) 03/09/25 05:02 MCHC 34.4 g/dL (33.0-35.0) 03/09/25 05:02 RDW 15.4 % (11.6-16.5) 03/09/25 05:02 Plt Count 251 X10^3/uL (150.0-450.0) 03/09/25 05:02 MPV 7.4 fL (7.4-11.0) 03/09/25 05:02 Neut % (Auto) 69.1 % (42.0-75.0) 03/09/25 05:02 Lymph % (Auto) 20.5 % (21.0-51.0) L 03/09/25 05:02 [place] % (Auto) 8.4 % (0.0-13.0) 03/09/25 05:02 Eos % (Auto) 1.3 % (0.9-2.9) 03/09/25 05:02 Baso % (Auto) 0.7 % (0.2-1.0) 03/09/25 05:02 Neut # (Auto) 5.0 x10^3/uL (2.2-4.8) H 03/09/25 05:02 Lymph # (Auto) 1.5 X10^3/uL (1.3-2.9) 03/09/25 05:02 [place] # (Auto) 0.6 x10^3/uL (0.3-0.8) 03/09/25 05:02 Eos # (Auto) 0.1 x10^3/uL (0.0-0.2) 03/09/25 05:02 Baso # (Auto) 0.1 X10^3/uL (0.0-0.1) 03/09/25 05:02 Absolute Nucleated RBC 0.1 /100WBC 03/09/25 05:02 D-Dimer < 0.27 ug/ml (0.0-0.57) 03/08/25 02:10 Sodium 144 mmol/L (136-145) 03/09/25 05:02 Corrected Sodium TNP 03/09/25 05:02 Potassium 4.0 mmol/L (3.5-5.1) 03/09/25 05:02 Chloride 108 mmol/L (98-107) H 03/09/25 05:02 Carbon Dioxide 30.4 mmol/L (21-32) 03/09/25 05:02 BUN 15 mg/dL (7-18) 03/09/25 05:02 Creatinine 0.98 mg/dL (0.55-1.02) 03/09/25 05:02 Est GFR (MDRD) Af Amer > 60 (>60) 03/09/25 05:02 Est GFR (MDRD) Non-Af > 60 (>60) 03/09/25 05:02 Glucose 110 mg/dL (65-99) H 03/09/25 05:02 Lactic Acid 0.6 mmol/L (0.4-2.0) 03/08/25 02:10 Calcium 8.9 mg/dL (8.5-10.1) 03/09/25 05:02 Corrected Calcium 9.7 mg/dL (8.5-10.1) 03/09/25 05:02 Magnesium 1.8 mg/dL (2.0-2.9) L 03/09/25 05:02 Total Bilirubin 0.30 mg/dL (0.2-1.0) 03/09/25 05:02 AST 12 Units/L (15-37) L 03/09/25 05:02 ALT 19 Units/L (12-78) 03/09/25 05:02 Alkaline Phosphatase 94 Units/L (46-116) 03/09/25 05:02 Creatine Kinase 32 Units/L (26-192) 03/08/25 00:58 Troponin I High Sens 4.8 ng/L (4.0-60.0) 03/08/25 00:58 Total Protein 6.4 g/dL (6.4-8.2) 03/09/25 05:02 Albumin 3.0 g/dL (3.4-5.0) L 03/09/25 05:02 Globulin 3.4 g/dL (2.5-4.5) 03/09/25 05:02 Albumin/Globulin Ratio 0.9 Ratio (1.1-2.1) L 03/09/25 05:02 Lipase 13 Units/L (16-77) L 03/08/25 00:58 TSH 3rd Generation 1.157 uIU/mL (0.358-3.74) 03/08/25 00:58 Urine Opiates Screen Positive (NEG=<300) A 03/07/25 19:20 Urine Methadone Screen Negative (NEG=<300) 03/07/25 19:20 Ur Barbiturates Screen Positive (NEG=<200) A 03/07/25 19:20 Ur Phencyclidine Scrn Negative (NEG=<25) 03/07/25 19:20 Ur Amphetamines Screen Negative (NEG=<1000) 03/07/25 19:20 U Benzodiazepines Scrn Negative (NEG=<200) 03/07/25 19:20 Urine Cocaine Screen Negative (NEG=<300) 03/07/25 19:20 U Marijuana (THC) Screen Negative (NEG=<50) 03/07/25 19:20 Plan (1) Bacteremia: Status: Acute (2) Hypotension: Status: Acute Qualifiers: Hypotension type: idiopathic hypotension Qualified Code(s): I95.0 - Idiopathic hypotension (3) Acute hypokalemia: Status: Acute (4) Lethargic: Status: Acute (5) Abdominal pain, left lower quadrant: Status: Acute
[2025-03-09] MEDS ORDERED: PHARMACY CONSULT XX SCH (16:00)
[2025-03-09] MEDS: LOVENOX INJ 40 MG SYR SC SCH (16:36)
[2025-03-09] MEDS: DESYREL PO SCH (21:13)
[2025-03-09] MEDS: MYSOLINE TAB 250 MG PO SCH (21:13)
[2025-03-10] MEDS: ZOFRAN INJ 4 MG VIAL IVP PRN (05:17)
[2025-03-10 05:29] LABS: MEAN PLATELET VOLUME 7.6 fL (7.4-11.0); RED CELL DISTRIBUTION WIDTH 15.5 % (11.6-16.5)
[2025-03-10 05:43] LABS: COR CA(FOR HYPOALB) 9.6 mg/dL (8.5-10.1); CREATININE 0.78 mg/dL (0.55-1.02); eGFR NON BLACK RACES > 60 (>60)
[2025-03-10] MEDS: LINZESS PO NR (10:11)
--- NOTE | 2025-03-10 16:45 | PCM.PROG ---
Progress Note Progress Note for Day of Date of Exam: 03/10/25 Subjective Subjective: Patient seen at bedside, no acute events overnight. She reports having some abdominal discomfort due to constipation. She did not have any bowel movement yesterday. She has been taking Colace, MiraLAX and milk of mag. She has not had any nausea or vomiting. Blood culture x 1 is positive for Gram positive cocci, she is currently on Zosyn. She has been afebrile with normal white count. Her blood pressure has been stable. Labs/imaging reviewed: - Hemoglobin 13.1 WBC 5.3 sodium 142 potassium 4.4 creatinine 0.78 - 03/08/2025 blood culture x 1 gram-positive cocci in clusters Plan: Continue Zosyn, follow final blood cultures, will check with lab. Give 1 dose Linzess. Continue current medications. Replace electrolytes as per protocol. Patient has been afebrile, normal WBC count. Continue antiemetics. Continue home medications as appropriate. Ambulate as tolerated. Monitoring labs and imaging. Past Medical Family Social History Allergies: Allergies No Known Allergies Allergy (Verified 03/08/25 02:27) Vital Signs and I&O's Vital Signs: Vital Signs Temperature 97.9 F Pulse Rate [Left Brachial] 74 Respiratory Rate 20 Respiratory Rate 20 Blood Pressure [Left Arm] 144/79 O2 Sat by Pulse Oximetry 98 Intake and Output: Intake & Output 03/07/25 03/08/25 03/09/25 03/10/25 23:59 23:59 23:59 23:59 Intake Total 2011.000 / 2011.000 2336 / 2336 661 / 661 Balance 2011.000 / 2011.000 2336 / 2336 661 / 661 Physical Exam Oriented: Normal Respiratory: Normal Cardiovascular: Normal Auscultation: Bowel Sounds: Normal Palpation: Normal Tenderness: Periumbilical and Mild Skin: Normal Musculoskeletal: Normal Psychiatric: Normal Mood Description: Calm Affect: Normal Speech Pattern: Clear and Appropriate Laboratory and Diagnostics 03/10/25 05:07 03/10/25 05:07 Labs: 03/08/25 02:00 Blood Blood Culture Gram Stain - Final 03/08/25 02:00 Blood Blood Culture - Preliminary 03/07/25 18:05 Blood Blood Culture - Preliminary Laboratory WBC 5.3 X10^3/uL (3.6-10.0) 03/10/25 05:07 RBC 4.15 X10^6/uL (3.5-5.4) 03/10/25 05:07 Hgb 13.1 g/dL (12.0-16.0) 03/10/25 05:07 Hct 37.8 % (36.0-47.0) 03/10/25 05:07 MCV 91.1 fL (80.0-100.0) 03/10/25 05:07 MCH 31.6 pg (27.0-34.0) 03/10/25 05:07 MCHC 34.6 g/dL (33.0-35.0) 03/10/25 05:07 RDW 15.5 % (11.6-16.5) 03/10/25 05:07 Plt Count 275 X10^3/uL (150.0-450.0) 03/10/25 05:07 MPV 7.6 fL (7.4-11.0) 03/10/25 05:07 Neut % (Auto) 54.9 % (42.0-75.0) 03/10/25 05:07 Lymph % (Auto) 31.9 % (21.0-51.0) 03/10/25 05:07 [place] % (Auto) 10.5 % (0.0-13.0) 03/10/25 05:07 Eos % (Auto) 1.7 % (0.9-2.9) 03/10/25 05:07 Baso % (Auto) 1.0 % (0.2-1.0) 03/10/25 05:07 Neut # (Auto) 2.9 x10^3/uL (2.2-4.8) 03/10/25 05:07 Lymph # (Auto) 1.7 X10^3/uL (1.3-2.9) 03/10/25 05:07 [place] # (Auto) 0.6 x10^3/uL (0.3-0.8) 03/10/25 05:07 Eos # (Auto) 0.1 x10^3/uL (0.0-0.2) 03/10/25 05:07 Baso # (Auto) 0.1 X10^3/uL (0.0-0.1) 03/10/25 05:07 Absolute Nucleated RBC 0.1 /100WBC 03/10/25 05:07 D-Dimer < 0.27 ug/ml (0.0-0.57) 03/08/25 02:10 Sodium 142 mmol/L (136-145) 03/10/25 05:07 Corrected Sodium TNP 03/10/25 05:07 Potassium 4.4 mmol/L (3.5-5.1) 03/10/25 05:07 Chloride 109 mmol/L (98-107) H 03/10/25 05:07 Carbon Dioxide 28.1 mmol/L (21-32) 03/10/25 05:07 BUN 17 mg/dL (7-18) 03/10/25 05:07 Creatinine 0.78 mg/dL (0.55-1.02) 03/10/25 05:07 Est GFR (MDRD) Af Amer > 60 (>60) 03/10/25 05:07 Est GFR (MDRD) Non-Af > 60 (>60) 03/10/25 05:07 Glucose 106 mg/dL (65-99) H 03/10/25 05:07 Lactic Acid 0.6 mmol/L (0.4-2.0) 03/08/25 02:10 Calcium 9.0 mg/dL (8.5-10.1) 03/10/25 05:07 Corrected Calcium 9.6 mg/dL (8.5-10.1) 03/10/25 05:07 Magnesium 1.8 mg/dL (2.0-2.9) L 03/09/25 05:02 Total Bilirubin 0.20 mg/dL (0.2-1.0) 03/10/25 05:07 AST 11 Units/L (15-37) L 03/10/25 05:07 ALT 17 Units/L (12-78) 03/10/25 05:07 Alkaline Phosphatase 88 Units/L (46-116) 03/10/25 05:07 Creatine Kinase 32 Units/L (26-192) 03/08/25 00:58 Troponin I High Sens 4.8 ng/L (4.0-60.0) 03/08/25 00:58 Total Protein 6.8 g/dL (6.4-8.2) 03/10/25 05:07 Albumin 3.2 g/dL (3.4-5.0) L 03/10/25 05:07 Globulin 3.6 g/dL (2.5-4.5) 03/10/25 05:07 Albumin/Globulin Ratio 0.9 Ratio (1.1-2.1) L 03/10/25 05:07 Lipase 13 Units/L (16-77) L 03/08/25 00:58 TSH 3rd Generation 1.157 uIU/mL (0.358-3.74) 03/08/25 00:58 Urine Opiates Screen Positive (NEG=<300) A 03/07/25 19:20 Urine Methadone Screen Negative (NEG=<300) 03/07/25 19:20 Ur Barbiturates Screen Positive (NEG=<200) A 03/07/25 19:20 Ur Phencyclidine Scrn Negative (NEG=<25) 03/07/25 19:20 Ur Amphetamines Screen Negative (NEG=<1000) 03/07/25 19:20 U Benzodiazepines Scrn Negative (NEG=<200) 03/07/25 19:20 Urine Cocaine Screen Negative (NEG=<300) 03/07/25 19:20 U Marijuana (THC) Screen Negative (NEG=<50) 03/07/25 19:20 Plan (1) Bacteremia: Status: Acute (2) Hypotension: Status: Acute Qualifiers: Hypotension type: idiopathic hypotension Qualified Code(s): I95.0 - Idiopathic hypotension (3) Acute hypokalemia: Status: Acute (4) Lethargic: Status: Acute (5) Abdominal pain, left lower quadrant: Status: Acute (6) Constipation: Status: Acute
[2025-03-11 05:42] LABS: MEAN PLATELET VOLUME 7.4 fL (7.4-11.0); RED CELL DISTRIBUTION WIDTH 15.6 % (11.6-16.5)
[2025-03-11 05:56] LABS: COR CA(FOR HYPOALB) 9.8 mg/dL (8.5-10.1); COR NA(FOR HYPERGLY) 140 mmol/L (136-145); CREATININE 0.82 mg/dL (0.55-1.02); eGFR NON BLACK RACES > 60 (>60)
[2025-03-11 09:46] VITALS: BP 143/81; PULSE 76; RESP 20; TEMP 98.1; O2SAT 97
--- NOTE | 2025-03-15 16:40 | W.DIS.FURT ---
Summary of Discharge Discharge Summary of Date Date of Exam: 03/11/25 Admission Date Date of Admission: 03/08/25 Admission Diagnosis Patient Problems (Updated 03/09/25 @ 15:21 by Cristina Al MD) Lethargic (Acute) R53.83 Acute hypokalemia (Acute) E87.6 Serotonin syndrome (Acute) G90.81 Hospital Course: Patient is a 54-year-old female admitted for acute hypokalemia, constipation, fatigue, and possible bacteremia. She received IV antibiotics Zosyn. Final blood cultures revealed contamination. Patient was given stool softeners. Electrolytes were repleted per protocol. Patient responded well to treatments and was back to her baseline. Symptoms significantly improved. On day of discharge patient was up and moving around the room. Patient was discharged in stable condition. Instructed follow-up PCP in 1 week. Vital Signs: Vital Signs (72 hours) 03/08/25 09:40 03/08/25 09:40 03/08/25 09:40 Temperature Pulse Rate 80 Pulse Rate [Left Brachial] Respiratory Rate 15 Blood Pressure 101/54 101/54 Blood Pressure [Left Arm] O2 Sat by Pulse Oximetry 91 L Oxygen Delivery Method Oxygen Flow Rate FIO2% 03/08/25 09:45 03/08/25 09:48 03/08/25 10:00 Temperature Pulse Rate 77 82 Pulse Rate [Left Brachial] Respiratory Rate 16 15 Blood Pressure 107/60 Blood Pressure [Left Arm] O2 Sat by Pulse Oximetry Oxygen Delivery Method Oxygen Flow Rate FIO2% 03/08/25 10:00 03/08/25 10:00 03/08/25 10:00 Temperature Pulse Rate Pulse Rate [Left Brachial] Respiratory Rate Blood Pressure 107/60 107/60 107/60 Blood Pressure [Left Arm] O2 Sat by Pulse Oximetry Oxygen Delivery Method Oxygen Flow Rate FIO2% 03/08/25 10:10 03/08/25 10:10 03/08/25 10:10 Temperature Pulse Rate Pulse Rate [Left Brachial] Respiratory Rate Blood Pressure 104/54 104/54 104/54 Blood Pressure [Left Arm] O2 Sat by Pulse Oximetry Oxygen Delivery Method Oxygen Flow Rate FIO2% 03/08/25 10:21 03/08/25 10:30 03/08/25 10:40 Temperature Pulse Rate Pulse Rate [Left Brachial] Respiratory Rate Blood Pressure 101/67 101/63 106/61 Blood Pressure [Left Arm] O2 Sat by Pulse Oximetry Oxygen Delivery Method Oxygen Flow Rate FIO2% 03/08/25 10:50 03/08/25 11:00 03/08/25 11:10 Temperature Pulse Rate Pulse Rate [Left Brachial] Respiratory Rate Blood Pressure 103/67 98/54 115/64 Blood Pressure [Left Arm] O2 Sat by Pulse Oximetry Oxygen Delivery Method Oxygen Flow Rate FIO2% 03/08/25 11:20 03/08/25 11:26 03/08/25 11:30 Temperature Pulse Rate Pulse Rate [Left Brachial] Respiratory Rate Blood Pressure 108/55 100/58 Blood Pressure [Left Arm] O2 Sat by Pulse Oximetry Oxygen Delivery Method Room Air Oxygen Flow Rate FIO2% 03/08/25 11:30 03/08/25 11:40 03/08/25 11:40 Temperature Pulse Rate Pulse Rate [Left Brachial] Respiratory Rate Blood Pressure 100/58 93/56 93/56 Blood Pressure [Left Arm] O2 Sat by Pulse Oximetry Oxygen Delivery Method Oxygen Flow Rate FIO2% 03/08/25 11:40 03/08/25 11:50 03/08/25 12:00 Temperature Pulse Rate Pulse Rate [Left Brachial] Respiratory Rate Blood Pressure 93/56 105/59 104/61 Blood Pressure [Left Arm] O2 Sat by Pulse Oximetry Oxygen Delivery Method Oxygen Flow Rate FIO2% 03/08/25 12:15 03/08/25 13:35 03/08/25 14:35 Temperature 98.2 F Pulse Rate Pulse Rate [Left Brachial] 65 Respiratory Rate 16 17 16 Blood Pressure Blood Pressure [Left Arm] 109/57 O2 Sat by Pulse Oximetry 92 L Oxygen Delivery Method Room Air Oxygen Flow Rate FIO2% 03/08/25 16:00 03/08/25 19:00 03/08/25 20:00 Temperature 97.8 F 98.4 F Pulse Rate Pulse Rate [Left Brachial] 63 63 Respiratory Rate 16 21 Blood Pressure Blood Pressure [Left Arm] 100/62 O2 Sat by Pulse Oximetry 96 87 L Oxygen Delivery Method Room Air Room Air Room Air Oxygen Flow Rate FIO2% 03/08/25 20:15 03/08/25 20:19 03/08/25 20:57 Temperature Pulse Rate Pulse Rate [Left Brachial] Respiratory Rate Blood Pressure Blood Pressure [Left Arm] 88/60 106/55 O2 Sat by Pulse Oximetry 91 L 96 Oxygen Delivery Method Nasal Cannula Nasal Cannula Nasal Cannula Oxygen Flow Rate 3 FIO2% 32 03/08/25 23:25 03/09/25 04:00 03/09/25 07:00 Temperature 97.9 F 98.0 F Pulse Rate Pulse Rate [Left Brachial] 75 86 Respiratory Rate 20 20 Blood Pressure Blood Pressure [Left Arm] 112/53 111/56 O2 Sat by Pulse Oximetry 95 95 Oxygen Delivery Method Nasal Cannula Nasal Cannula Room Air Oxygen Flow Rate FIO2% 03/09/25 08:00 03/09/25 08:15 03/09/25 09:41 Temperature 97.5 F L Pulse Rate Pulse Rate [Left Brachial] 87 Respiratory Rate 18 20 Blood Pressure Blood Pressure [Left Arm] 111/68 O2 Sat by Pulse Oximetry 98 Oxygen Delivery Method Nasal Cannula Room Air Oxygen Flow Rate 3 FIO2% 32 03/09/25 09:44 03/09/25 10:41 03/09/25 10:44 Temperature Pulse Rate Pulse Rate [Left Brachial] Respiratory Rate 20 19 19 Blood Pressure Blood Pressure [Left Arm] O2 Sat by Pulse Oximetry Oxygen Delivery Method Oxygen Flow Rate FIO2% 03/09/25 11:39 03/09/25 12:30 03/09/25 14:31 Temperature 97.8 F Pulse Rate Pulse Rate [Left Brachial] 87 Respiratory Rate 18 20 Blood Pressure Blood Pressure [Left Arm] 140/76 O2 Sat by Pulse Oximetry 95 Oxygen Delivery Method Nasal Cannula Room Air Oxygen Flow Rate 3 FIO2% 32 03/09/25 15:03 03/09/25 15:31 03/09/25 16:00 Temperature 98.1 F Pulse Rate Pulse Rate [Left Brachial] 66 Respiratory Rate 20 19 20 Blood Pressure Blood Pressure [Left Arm] 135/65 O2 Sat by Pulse Oximetry 97 Oxygen Delivery Method Nasal Cannula Oxygen Flow Rate FIO2% 03/09/25 16:03 03/09/25 19:00 03/09/25 20:00 Temperature 98.3 F Pulse Rate Pulse Rate [Left Brachial] 89 Respiratory Rate 18 19 Blood Pressure Blood Pressure [Left Arm] 155/66 O2 Sat by Pulse Oximetry 93 L Oxygen Delivery Method Room Air Room Air Oxygen Flow Rate FIO2% 03/09/25 20:10 03/09/25 20:21 03/09/25 21:10 Temperature Pulse Rate Pulse Rate [Left Brachial] Respiratory Rate 20 18 Blood Pressure Blood Pressure [Left Arm] O2 Sat by Pulse Oximetry Oxygen Delivery Method Nasal Cannula Oxygen Flow Rate 3 FIO2% 32 03/09/25 21:21 03/09/25 22:10 03/10/25 00:00 Temperature 98.1 F Pulse Rate Pulse Rate [Left Brachial] 93 H Respiratory Rate 20 20 18 Blood Pressure Blood Pressure [Left Arm] 140/83 O2 Sat by Pulse Oximetry 94 L Oxygen Delivery Method Room Air Oxygen Flow Rate FIO2% 03/10/25 03:21 03/10/25 05:17 03/10/25 06:17 Temperature 98.0 F Pulse Rate Pulse Rate [Left Brachial] 98 H Respiratory Rate 19 19 19 Blood Pressure Blood Pressure [Left Arm] 129/78 O2 Sat by Pulse Oximetry 94 L Oxygen Delivery Method Room Air Oxygen Flow Rate FIO2% 03/10/25 07:00 03/10/25 08:00 03/10/25 10:21 Temperature 98.2 F Pulse Rate Pulse Rate [Left Brachial] 80 Respiratory Rate 20 Blood Pressure Blood Pressure [Left Arm] 135/76 O2 Sat by Pulse Oximetry 96 Oxygen Delivery Method Room Air Room Air Nasal Cannula Oxygen Flow Rate 3 FIO2% 32 03/10/25 12:00 03/10/25 14:13 03/10/25 15:13 Temperature 97.9 F Pulse Rate Pulse Rate [Left Brachial] 74 Respiratory Rate 20 20 20 Blood Pressure Blood Pressure [Left Arm] 144/79 O2 Sat by Pulse Oximetry 98 Oxygen Delivery Method Room Air Oxygen Flow Rate FIO2% 03/10/25 16:00 03/10/25 16:44 03/10/25 17:44 Temperature 97.8 F Pulse Rate Pulse Rate [Left Brachial] 72 Respiratory Rate 20 20 20 Blood Pressure Blood Pressure [Left Arm] 140/77 O2 Sat by Pulse Oximetry 100 Oxygen Delivery Method Room Air Oxygen Flow Rate FIO2% 03/10/25 19:00 03/10/25 20:00 03/10/25 20:25 Temperature 98.4 F Pulse Rate Pulse Rate [Left Brachial] 74 Respiratory Rate 20 Blood Pressure Blood Pressure [Left Arm] 131/62 O2 Sat by Pulse Oximetry 96 Oxygen Delivery Method Room Air Room Air Nasal Cannula Oxygen Flow Rate 3 FIO2% 32 03/10/25 21:02 03/10/25 22:02 03/11/25 00:00 Temperature 98.3 F Pulse Rate Pulse Rate [Left Brachial] 81 Respiratory Rate 20 16 21 Blood Pressure Blood Pressure [Left Arm] 138/62 O2 Sat by Pulse Oximetry 97 Oxygen Delivery Method Room Air Oxygen Flow Rate FIO2% 03/11/25 04:00 03/11/25 05:48 03/11/25 06:48 Temperature 98.6 F Pulse Rate Pulse Rate [Left Brachial] 69 Respiratory Rate 20 18 18 Blood Pressure Blood Pressure [Left Arm] 133/68 O2 Sat by Pulse Oximetry 95 Oxygen Delivery Method Room Air Oxygen Flow Rate FIO2% Labs: Laboratory Last Values WBC 5.0 X10^3/uL (3.6-10.0) 03/11/25 05:15 RBC 3.75 X10^6/uL (3.5-5.4) 03/11/25 05:15 Hgb 11.9 g/dL (12.0-16.0) L 03/11/25 05:15 Hct 34.5 % (36.0-47.0) L 03/11/25 05:15 MCV 91.8 fL (80.0-100.0) 03/11/25 05:15 MCH 31.7 pg (27.0-34.0) 03/11/25 05:15 MCHC 34.6 g/dL (33.0-35.0) 03/11/25 05:15 RDW 15.6 % (11.6-16.5) 03/11/25 05:15 Plt Count 246 X10^3/uL (150.0-450.0) 03/11/25 05:15 MPV 7.4 fL (7.4-11.0) 03/11/25 05:15 Neut % (Auto) 56.4 % (42.0-75.0) 03/11/25 05:15 Lymph % (Auto) 29.7 % (21.0-51.0) 03/11/25 05:15 Stanley % (Auto) 10.6 % (0.0-13.0) 03/11/25 05:15 Eos % (Auto) 2.5 % (0.9-2.9) 03/11/25 05:15 Baso % (Auto) 0.8 % (0.2-1.0) 03/11/25 05:15 Neut # (Auto) 2.8 x10^3/uL (2.2-4.8) 03/11/25 05:15 Lymph # (Auto) 1.5 X10^3/uL (1.3-2.9) 03/11/25 05:15 Stanley # (Auto) 0.5 x10^3/uL (0.3-0.8) 03/11/25 05:15 Eos # (Auto) 0.1 x10^3/uL (0.0-0.2) 03/11/25 05:15 Baso # (Auto) 0.0 X10^3/uL (0.0-0.1) 03/11/25 05:15 Absolute Nucleated RBC 0.3 /100WBC 03/11/25 05:15 D-Dimer < 0.27 ug/ml (0.0-0.57) 03/08/25 02:10 Sodium 139 mmol/L (136-145) 03/11/25 05:15 Corrected Sodium 140 mmol/L (136-145) 03/11/25 05:15 Potassium 4.0 mmol/L (3.5-5.1) 03/11/25 05:15 Chloride 109 mmol/L (98-107) H 03/11/25 05:15 Carbon Dioxide 26.4 mmol/L (21-32) 03/11/25 05:15 BUN 15 mg/dL (7-18) 03/11/25 05:15 Creatinine 0.82 mg/dL (0.55-1.02) 03/11/25 05:15 Est GFR (MDRD) Af Amer > 60 (>60) 03/11/25 05:15 Est GFR (MDRD) Non-Af > 60 (>60) 03/11/25 05:15 Glucose 123 mg/dL (65-99) H 03/11/25 05:15 Lactic Acid 0.6 mmol/L (0.4-2.0) 03/08/25 02:10 Calcium 8.7 mg/dL (8.5-10.1) 03/11/25 05:15 Corrected Calcium 9.8 mg/dL (8.5-10.1) 03/11/25 05:15 Magnesium 2.0 mg/dL (2.0-2.9) 03/11/25 05:15 Total Bilirubin 0.20 mg/dL (0.2-1.0) 03/11/25 05:15 AST 10 Units/L (15-37) L 03/11/25 05:15 ALT 13 Units/L (12-78) 03/11/25 05:15 Alkaline Phosphatase 69 Units/L (46-116) 03/11/25 05:15 Creatine Kinase 32 Units/L (26-192) 03/08/25 00:58 Troponin I High Sens 4.8 ng/L (4.0-60.0) 03/08/25 00:58 Total Protein 5.8 g/dL (6.4-8.2) L 03/11/25 05:15 Albumin 2.6 g/dL (3.4-5.0) L 03/11/25 05:15 Globulin 3.2 g/dL (2.5-4.5) 03/11/25 05:15 Albumin/Globulin Ratio 0.8 Ratio (1.1-2.1) L 03/11/25 05:15 Lipase 13 Units/L (16-77) L 03/08/25 00:58 TSH 3rd Generation 1.157 uIU/mL (0.358-3.74) 03/08/25 00:58 Urine Opiates Screen Positive (NEG=<300) A 03/07/25 19:20 Urine Methadone Screen Negative (NEG=<300) 03/07/25 19:20 Ur Barbiturates Screen Positive (NEG=<200) A 03/07/25 19:20 Ur Phencyclidine Scrn Negative (NEG=<25) 03/07/25 19:20 Ur Amphetamines Screen Negative (NEG=<1000) 03/07/25 19:20 U Benzodiazepines Scrn Negative (NEG=<200) 03/07/25 19:20 Urine Cocaine Screen Negative (NEG=<300) 03/07/25 19:20 U Marijuana (THC) Screen Negative (NEG=<50) 03/07/25 19:20 Reason For Visit: BACTEREMIA Discharge Date Discharge Date: 03/11/25 Discharge Diagnosis All Active Problems (Updated 03/09/25 @ 15:21 by Cristina Al MD) Bacteremia (Acute) Hypertension (Acute) Lethargic (Acute) Acute hypokalemia (Acute) Serotonin syndrome (Acute) Constipation (Acute) Abdominal pain, left lower quadrant (Acute) Chronic pain of left knee (Acute) Pelvic pain (Acute) Somnolence (Acute) UTI (urinary tract infection) (Acute) Sepsis (Acute ~02/27/25) IBS (irritable bowel syndrome) (Chronic) Chronic pain (Chronic) Barbiturate abuse (Acute) Chronic diarrhea (Acute) Closed dislocation of left ankle (Acute) Closed fracture of medial malleolus of left ankle (Acute) Migraine (Acute) Contusion of toe of right foot (Acute) Drug overdose, multiple drugs (Acute) Fracture of neck of humerus (Acute) 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 Pt is to keep follow up appointment as instructed and take medications as ordered. Discharge Medications Discharge Medications: No Known Allergies Allergy (Verified 03/08/25 02:27) New Prescriptions docusate sodium 100 mg capsule (Colace) 100 mg PO BID PRN 15 days #30 caps 03/11/25 [Rx] Discharge Plan Discharge Plan Hospital Course: Patient is a 54-year-old female admitted for acute hypokalemia, constipation, fatigue, and possible bacteremia. She received IV antibiotics Zosyn. Final blood cultures revealed contamination. Patient was given stool softeners. Electrolytes were repleted per protocol. Patient responded well to treatments a nd was back to her baseline. Symptoms significantly improved. On day of discharge patient was up and moving around the room. Patient was discharged in stable condition. Instructed follow-up PCP in 1 week. Patient Disposition: 01 HOME, SELF-CARE Condition: Stable Health Concerns: Post Hospitalization: new medications and changes needed to prevent readmission or further decline. Pt educated and given instructions on all concerns. Care Plan Goals: Problem: Alteration in Mental Status Goal: Patient will stay oriented to their cognitive ability Instructions: Follow provided instructions. Follow up with primary physician as directed. Contact primary care physician or report to the closest Emergency Room if condition worsens. Plan of Treatment: Continue with present treatment and follow up plan. Pt is to keep follow up appointment as instructed and take medications as ordered. Prescriptions: New docusate sodium [Colace] 100 mg Capsule 100 mg PO BID PRN15 Days Qty: 30 0RF Continued dicyclomine 20 mg tablet 20 mg PO TID MDD 3 Qty: 30 0RF polyethylene glycol 3350 [Miralax] 17 gram powder in packet 17 g PO QDAY 30 Days Qty: 120 0RF hydroxyzine pamoate 100 mg Capsule 100 mg PO BID PRN oxybutynin chloride 15 mg Tablet Extended Release 24hr 15 mg PO BID medroxyprogesterone 2.5 mg Tablet 5 mg PO QPM primidone 250 mg Tablet 250 mg PO QHS pantoprazole 40 mg Tablet,Delayed Release (Dr/Ec) 40 mg PO QDAY Rx Instructions: Take one tablet one-half to one hour before the morning meal for stomach buspirone 15 mg Tablet 15 mg PO BID thyroid (pork) [[employer] Thyroid] 30 mg Tablet 30 mg PO QDAY fluoxetine 40 mg Capsule 80 mg PO QDAY cyanocobalamin (vitamin B-12) 1,000 mcg/mL Solution 1,000 mcg IM QWEEK topiramate 50 mg Tablet 50 mg PO BID Creon 36,000-114,000- 180,000 unit Capsule,Delayed Release(Dr/Ec) 2 cap PO QID Rx Instructions: administer with meals and/or snacks fenofibrate 54 mg Tablet 54 mg PO QHS ondansetron HCl 4 mg Tablet 4 mg PO Q8H PRN trazodone 150 mg Tablet 150 mg PO QHS dicyclomine 10 mg Capsule 20 mg PO TID duloxetine 60 mg Capsule,Delayed Release(Dr/Ec) 60 mg PO QDAY tizanidine 2 mg Capsule 2 mg PO TID PRN propranolol 80 mg Tablet 80 mg PO BID rizatriptan 10 mg Tablet,Disintegrating 10 mg PO ONCE PRN Rx Instructions: may repeat once after at least 2 hours diclofenac sodium 75 mg Tablet,Delayed Release (Dr/Ec) 75 mg PO BID albuterol sulfate [Ventolin HFA] 90 mcg/actuation Hfa Aerosol Inhaler 1 inh INHALATION Q4H PRN ergocalciferol (vitamin D2) 50,000 unit Tablet 50,000 unit PO WEEKLY Follow ups/Referrals Follow ups/Referrals: [facility] [Other] - 03/11/25 11:00 am Instructions Instructions: Serotonin Syndrome, Hypotension, [id number], Hypokalemia, Weakness: What to Know, [id number] Stand Alone Forms: Excuse From Work or School, Find Help Web Site, Post Hospital Follow Up Care Print Language: AMHARIC
== END 2025-03-11 09:40 | disposition home or self-care (01) | DRG 872 ==
LOC: U 23:57 → ER 23:57 → MED/SURG 23:57
PROVIDERS: ADMIT Internal Medicine; ATTEND Internal Medicine
DX: R78.81 Bacteremia; E78.5 Hyperlipidemia, unspecified; K21.9 Gastro-esophageal reflux disease without esophagitis; R10.84 Generalized abdominal pain; K59.09 Other constipation; R53.83 Other fatigue; E83.52 Hypercalcemia; E87.6 Hypokalemia; R26.89 Other abnormalities of gait and mobility; R73.09 Other abnormal glucose; Z59.86 Financial insecurity; G90.81 Serotonin syndrome; E83.42 Hypomagnesemia; R10.32 Left lower quadrant pain; E03.8 Other specified hypothyroidism; J44.9 Chronic obstructive pulmonary disease, unspecified; R94.4 Abnormal results of kidney function studies; F13.90 Sedative, hypnotic, or anxiolytic use, unspecified, uncomplicated; I10 Essential (primary) hypertension; F41.8 Other specified anxiety disorders; I95.0 Idiopathic hypotension; Z72.0 Tobacco use; R05.8 Other specified cough; R11.2 Nausea with vomiting, unspecified; F11.90 Opioid use, unspecified, uncomplicated